=== PATIENT | male | born 1960 | race Caucasian/White ===

== ENCOUNTER → 2020-04-02 09:06 | Outpatient (BNVA) | payer OTHER, SELFPAY | PROVIDERS: PCP Internal Medicine; Visit Provider Nurse Practitioner Gerontology | DX: E11.42 Type 2 diabetes mellitus with diabetic polyneuropathy (principal); I10 Essential (primary) hypertension; E78.5 Hyperlipidemia, unspecified; Z79.4 Long term (current) use of insulin | CPT/HCPCS: 82947 ==

== ENCOUNTER 2020-04-02 09:59 | Outpatient (REF) | payer OTHER, SELFPAY ==
[2020-04-02 14:12] LABS: Estimated Average Glucose 192 mg/dL; Hemoglobin A1c % 8.3 %
[2020-04-02 14:18] LABS: Alanine Aminotransferase 24 U/L (0-40); Albumin Level 4.4 g/dL (3.5-5.0); Alkaline Phosphatase 92 U/L (39-117); Anion Gap 13 (12-20); Aspartate Amino Transferase 20 U/L (5-37); Bilirubin Total 0.3 mg/dL (0.0-1.0); Blood Urea Nitrogen 26 mg/dL (9-16); Calcium 9.1 mg/dL (8.4-10.2); Carbon Dioxide 28 mmol/L (22-29); Chloride 105 mmol/L (96-108); Cholesterol 134 mg/dL; Estimated Glomerular Filt Rate > 60; Glucose Fasting 161 mg/dL (60-99); HDL Cholesterol 46 mg/dL; LDL Cholesterol Calculated 73 mg/dl; Potassium 4.5 mmol/l (3.3-5.1); Sodium 141 mmol/L (135-145); Total Protein 6.7 g/dL (6.5-8.0); Triglycerides 78 mg/dL
[2020-04-02 14:53] LABS: Creatinine Urine 18.84 mg/dL; Microalbumin Urine < 5.0 mg/L
[2020-04-09 20:57] LABS: Fructosamine 273 umol/L (205-285)
== END 2020-04-02 10:00 | disposition home or self-care (01) ==
LOC: HO.10HDL 09:59
PROVIDERS: Visit Provider Nurse Practitioner Gerontology
DX: E11.42 Type 2 diabetes mellitus with diabetic polyneuropathy (principal); E11.22 Type 2 diabetes mellitus with diabetic chronic kidney disease
CPT/HCPCS: 36415; 80053; 80061; 82043; 82985; 83036

== ENCOUNTER → 2020-04-15 09:57 | Outpatient (BNVA) | payer OTHER, SELFPAY | PROVIDERS: PCP Internal Medicine; Visit Provider Nurse Practitioner Gerontology ==

== ENCOUNTER 2021-06-30 14:31 | Outpatient (RCR) | payer OTHER, SELFPAY ==
--- NOTE | ~2021-06-30 | XR_ITS ---
EXAMINATION: XR TOES, RIGHT CLINICAL INFORMATION: Second digit wound. Evaluate for osteomyelitis COMPARISON: None TECHNIQUE: 3 views of the right toes were obtained, with attention to the second digit. FINDINGS: No periosteal reaction, cortical destruction or intramedullary lucency to suggest osteomyelitis. There are no fractures or dislocations. There is a soft tissue defect along the dorsal aspect of the second digit overlying the distal interphalangeal joint. XR/XR toe RT min 2V IMPRESSION: No radiographic evidence of osteomyelitis. Please note that radiographic manifestations of osteomyelitis may not be evident for up to 10-14 days after onset. If there is persistent clinical concern for osteomyelitis, recommend MRI without and with contrast.
[2021-07-28 08:55] LABS: MANUAL DIFF FLAG NO
[2021-07-28 09:59] LABS: Basophils Percent Auto 0.4 % (0-2); Eosinophils Absolute Auto 0.2 X10*3/uL (0.0-0.4); Hematocrit 41.5 % (42.0-52.0); Hemoglobin 13.2 g/dl (14.0-18.0); Imm Gran Abs Auto 0.03 X10*3/uL (0.00-0.03); Imm Gran Pct Auto 0.4 % (0.0-0.4); Lymphocytes Absolute Auto 4.1 X10*3/uL (1.2-4.9); Lymphocytes Percent Auto 51.6 % (20-40); Mean Corpuscular HGB Conc 31.8 g/dl (31.0-36.0); Mean Corpuscular Hemoglobin 26.8 pg (27.0-33.0); Mean Corpuscular Volume 84.3 fL (80.0-98.0); Mean Platelet Volume 9.1 fL (9.4-12.4); Monocytes Absolute Auto 0.5 X10*3/uL (0.1-1.2); Monocytes Percent Auto 6.2 % (2-11); Neutrophils Absolute Auto 3.1 x10*3/uL (2.0-8.3); Neutrophils Percent Auto 38.4 % (45-73); Platelet Count 316 X10*3/uL (160-400); Red Blood Count 4.92 X10*6/uL (4.60-5.80); Red Cell Distribution Width 15.9 % (11.0-16.0)
[2021-07-28 10:21] LABS: Anion Gap 14 (12-20); Blood Urea Nitrogen 20 mg/dL (9-16); C Reactive Protein 0.15 mg/dL (< or = 0.50); Calcium 9.6 mg/dL (8.4-10.2); Carbon Dioxide 27 mmol/L (22-29); Chloride 105 mmol/L (96-108); Estimated Glomerular Filt Rate > 60; Glucose Random 240 mg/dL (60-115); Potassium 4.6 mmol/L (3.3-5.1); Sodium 141 mmol/L (135-145)
[2021-07-28 10:33] LABS: Erythrocyte Sedimentation Rate 6 MM/HR (0-15)
== END 2021-10-18 13:51 | disposition home or self-care (01) ==
LOC: HO.WCC 14:31
PROVIDERS: Physician Assistant; PCP Internal Medicine; Visit Provider Surgery
DX: E11.621 Type 2 diabetes mellitus with foot ulcer (principal); L97.511 Non-pressure chronic ulcer of other part of right foot limited to breakdown of skin; E11.40 Type 2 diabetes mellitus with diabetic neuropathy, unspecified; I25.10 Atherosclerotic heart disease of native coronary artery without angina pectoris; F17.210 Nicotine dependence, cigarettes, uncomplicated; Z79.2 Long term (current) use of antibiotics
CPT/HCPCS: 11042; 11043; 11044; 15275; 36415; 73660; 80048; 84134; 85025; 85652; 86140; 97597; 99212; Q4101

== ENCOUNTER 2023-01-01 08:00 | Outpatient (RCR) | payer OTHER, SELFPAY | END 2023-01-24 15:00 | disposition home or self-care (01) | LOC: HO.WCC 08:00 | PROVIDERS: PCP Internal Medicine; Visit Provider Surgery | DX: S81.811D Laceration without foreign body, right lower leg, subsequent encounter (principal); E11.40 Type 2 diabetes mellitus with diabetic neuropathy, unspecified; F17.290 Nicotine dependence, other tobacco product, uncomplicated | CPT/HCPCS: 11042; 99212 ==

== ENCOUNTER → 2024-04-10 09:19 | Outpatient (BNVA) | payer MEDICARE, SELFPAY | PROVIDERS: PCP Internal Medicine; Visit Provider Internal Medicine | DX: I25.10 Atherosclerotic heart disease of native coronary artery without angina pectoris (principal); E11.65 Type 2 diabetes mellitus with hyperglycemia; Z79.4 Long term (current) use of insulin; E78.00 Pure hypercholesterolemia, unspecified; I10 Essential (primary) hypertension; I87.303 Chronic venous hypertension (idiopathic) without complications of bilateral lower extremity; D64.9 Anemia, unspecified; M16.0 Bilateral primary osteoarthritis of hip; E55.9 Vitamin D deficiency, unspecified; E66.9 Obesity, unspecified; Z86.718 Personal history of other venous thrombosis and embolism; F17.200 Nicotine dependence, unspecified, uncomplicated; Z71.6 Tobacco abuse counseling | CPT/HCPCS: 83036; 96127; 99202 ==

== ENCOUNTER 2024-04-10 09:21 | Outpatient (AMB) | payer MEDICARE, SELFPAY ==
[2024-04-10 09:25] VITALS: BP 132/84; PULSE 71; O2SAT 99; BMI 39.4
--- NOTE | 2024-04-10 09:25 | MHC.PC.OV ---
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: No Accompanied by: Self / Same As Patient Allergies oxycodone [OXYCODONE] Allergy (Intermediate, Verified 04/10/24 09:45) JITTERY/NAUSEA pseudoephedrine [From SUDAFED] Adverse Reaction (Intermediate, Verified 04/10/24 09:45) ELEVATES BP Medication List - Last Reconciled 04/10/24 by Derrell Patel MD albuterol sulfate 90 mcg/actuation 2 puffs inhalation Q6H PRN apixaban (Eliquis) mg PO BID aspirin 81 mg PO DAILY atenolol 50 mg PO DAILY atorvastatin 80 mg PO DAILY blood sugar diagnostic (FreeStyle Lite Strips) As directed cholecalciferol (vitamin D3) 25 mcg PO DAILY cyclosporine 0.05% (Restasis) 1 drp ophthalmic (eye) BID [Diabetic shoes & 2 pair inserts as directed] empagliflozin (Jardiance) 25 mg PO QAM flash glucose scanning reader As directed flash glucose sensor As directed fluticasone propionate 50 mcg/actuation 1 spray intranasal DAILY furosemide 40 mg PO DAILY ibuprofen 800 mg PO TID insulin glargine-yfgn 40 units subcut BEDTIME losartan 25 mg PO DAILY metformin ER 1,000 mg PO BID pen needle, diabetic (BD Ultra-Fine Jane Pen Needle) 1 ea subcut DAILY semaglutide (Ozempic) 2 mg subcut QWEEK Tobacco use date assessed: 04/10/24 Fall risk assessment: No Falls in past year Last assessed Fall Risk: 04/10/24 Dental Screening Dental Screen Date: 04/10/24 Did you have a dental visit in the last 12 months?: No Did you have a dental problem in the last 6 months where you did not have access to dental care?: No Was dental information given to patient?: No HPI establish care HPI Details Patient comes in today to reestablish care He has not been back in almost 5 years - was last seen here on 05/06/2019 Patient states that he currently feels okay He denies any headaches or dizziness Denies any chest pains, no shortness of breath No nausea/vomiting, no abdominal pain No change in bowel habits noted FORMERLY [facility], [facility] Medical History (Updated 04/11/24 @ 03:19 by Derrell Patel MD) History of recurrent deep vein thrombosis (DVT) Vitamin D deficiency Obesity (BMI 30-39.9) Primary osteoarthritis of both hips Smoker History of DVT (deep vein thrombosis) Anemia Stasis edema of both lower extremities Pure hypercholesterolemia Type 2 diabetes mellitus with hyperglycemia Coronary artery disease Osteoarthritis DVT (deep venous thrombosis) 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 assistant current use of insulin Essential hypertension Hyperlipidemia LDL goal <70 Surgical History (Updated 04/11/24 @ 03:18 by Derrell Patel MD) History of colonoscopy History of herniorrhaphy History of heart artery stent History of total hip arthroplasty History of appendectomy Family History Father Hypertension Mother COPD (chronic obstructive pulmonary disease) Brother Colon cancer Sister Alive and well Brother Diabetes Social History Household Members: Spouse Housing: Apartment Patient Tobacco Use Status: Former Tobacco user e-Cigarette/Vaping Use: Never Used service: No Current occupational status: employed Cognitive needs: No Hearing needs: No Vision needs: No Questionnaire PHQ-9 Over the last 2 weeks, how often have you been bothered by any of the following problems? 1. Little interest or pleasure in doing things: not at all 2. Feeling down, depressed, or hopeless: not at all 3. Trouble falling or staying asleep, or sleeping too much: not at all 4. Feeling tired or having little energy: not at all 5. Poor appetite or overeating: not at all 6. Feeling bad about yourself - or that you are a failure or have let yourself or your family down: not at all 7. Trouble concentrating on things, such as reading the newspaper or watching television: not at all 8. Moving or speaking so slowly that other people could have noticed. Or the opposite - being so fidgety or restless that you have been moving around a lot more than usual: not at all 9. Thoughts that you would be better off or of hurting yourself in some way: not at all Total score: 0 Depression Screening Interpretation: Negative Depression Screening Done: Yes 66912 - PHQ-9 Billing: Yes Source: Developed by Drs. Yogi Koenig, Flavia Ashley, Lucho Thompson and colleagues, with an educational john from [employer]. Thrive Questionnaire Date Thrive assessed: 04/10/24 I am a: Patient What is your living situation today?: I have a steady place to live Within the past 12 months, did the food you bought not last and you didn't have the money to get more?: Never true Within the past 12 months, did you worry whether your food would run out before you got money to buy more?: Never true Do you have trouble paying for medicines?: No Do you have trouble getting transportation to medical appointments?: No Do you have trouble paying your heating and electricity bill?: No Do you have trouble taking care of your child, family member or friend?: No Do you have trouble with day-to-day activities such as bathing, preparing meals, shopping, managing finances, etc.?: No Are you currently unemployed and looking for a job?: No Are you interested in more education?: No Please select the resources that you would like help with: None Currently or been in a relationship where the following occur: No concerns reported THRIVE Score: 0 AUDIT C Alcohol Use Questionnaire (AUDIT-C) 1. How often do you have a drink containing alcohol?: 2-3 times a week 2. How many drinks containing alcohol do you have on a typical day when you are drinking?: 1 or 2 3. How often do you have six or more drinks on one occasion?: Never Total Score: 3 Score Reviewed/Action Taken: Yes RAVI-7 AMB Questionnaire RAVI-7 Date RAVI - 7 assessed: 04/10/24 Feeling nervous, anxious, or on edge: 0 = Not at all Not being able to stop or control worryin = Not at all Worrying too much about different things: 0 = Not at all Trouble relaxin = Not at all Being so restless that it is hard to sit still: 0 = Not at all Becoming easily annoyed or irritable: 0 = Not at all Feeling afraid as if something awful might happen: 0 = Not at all Total RAVI-7 score (0-4 normal; 5-9 mild; 10-14 moderate; 15-21 severe): 0 Source: Developed by Drs. Yogi Koenig, Flavia Ashley, Lucho Thompson and colleagues, with an educational john from [employer]. Review of Systems Const Denies chills, Denies fatigue, Denies fever(s) and Denies headache(s) ENT Denies dysphagia, Denies dizziness, Denies otalgia, Denies headache(s), Denies neck pain, Denies odynophagia and Denies sore throat Card Denies chest pain, Denies palpitations and Denies dyspnea Resp Denies chest congestion, Denies cough and Denies dyspnea GI Denies abdominal pain, Denies constipation, Denies dysphagia, Denies heartburn, Denies diarrhea, Denies nausea, Denies odynophagia and Denies vomiting Denies dysuria, Denies nocturia and Denies urinary frequency Musc Denies back pain, Denies arthralgias and Denies neck pain Skin/Breast Denies rash Neuro Denies dizziness and Denies headache(s) Endo Denies fatigue and Denies palpitations Physical exam (Primary Care) Vital Signs: Last Vital Signs Pulse 71 04/10/24 09:25 BP 132/84 04/10/24 09:25 Pulse Ox 99 04/10/24 09:25 Oxygen Delivery Method Room Air 04/10/24 09:25 BMI result Body Mass Index 39.4 Tobacco/Smoking Status: Tobacco use Status Tobacco use date assessed 04/10/24 04/10/24 09:38 Patient Tobacco Use Status Former Tobacco user 04/10/24 09:38 e-Cigarette/Vaping Use Never Used 04/10/24 09:38 PHQ-9: PHQ-9 Score PHQ-9: Total score 0 04/10/24 22:08 Depression Screening Interpretation: Negative Thrive Assessment: Date of Thrive Assessment Date Thrive assessed 04/10/24 04/10/24 09:38 Currently or been in a relationship where the following occur: No concerns reported Const General: no acute distress and alert HENMT Ears: TM's normal bilaterally and EAC's normal Throat: Yes posterior oropharynx normal and Yes tonsils normal (no TP congestion noted) Neck Neck: Yes supple and No lymphadenopathy Thyroid: Thyroid normal Resp Auscultation: clear to auscultation bilaterally, no rales and no wheezes Cardio Rate: regular rate Rhythm: regular rhythm Heart sounds: no murmurs GI Palpation (GI): Soft to palpation and nontender Auscultation: normal bowel sounds General: Yes no CVA tenderness Back/Spine/Pelvis Back: no CVA tenderness Thoracic/Lumbar Spine: No lumbar spinal tenderness Skin Rashes: no rashes Extrem General: Yes no clubbing, cyanosis or edema Results AMB Hemoglobin A1c AMB Hemoglobin A1c 9.6 % Last Edit by AMI Pak on 04/10/24 10:09 Results Reviewed Results Reviewed: Laboratory Last Values Hgb A1c (Clinic) 9.6 % (4.0-6.0) H 04/10/24 10:08 Coding Level of Care Code New Pt Level 4 (17553) Complex EM visit Add On G2211 Diagnoses Coronary artery disease involving [place] coronary artery of [place] heart without angina pectoris I25.10 Associated angina: without angina Coronary Disease-Associated Artery/Lesion type: [place] artery [place] vs. transplanted heart: [place] heart Type 2 diabetes mellitus with hyperglycemia, with long-term current use of insulin E11.65; Z79.4 Diabetes mellitus assisted insulin use: with lehr stripper use Pure hypercholesterolemia E78.00 Essential hypertension I10 Stasis edema of both lower extremities I87.303 Anemia, unspecified type D64.9 Anemia type: unspecified type History of recurrent deep vein thrombosis (DVT) Z86.718 Primary osteoarthritis of both hips M16.0 Vitamin D deficiency E55.9 Smoker F17.200 Obesity (BMI 30-39.9) E66.9 Additional Codes PHQ-9 - 05874 - PHQ-9 Billing: Yes ([id number]) Assessment & Plan Assessment & Plan (1) Coronary artery disease: Comment: S/P PCI/coronary stenting in 2005 due to RCA plaque rupture Code(s): I25.10 - Atherosclerotic heart disease of [place] coronary artery without angina pectoris Category: Medical Qualifiers: Associated angina: without angina Coronary Disease-Associated Artery/Lesion type: [place] artery [place] vs. transplanted heart: [place] heart Qualified Code(s): I25.10 - Atherosclerotic heart disease of [place] coronary artery without angina pectoris Plan: Patient is currently asymptomatic from cardiac standpoint S/P coronary stenting/PCI in 2005 due to RCA plaque rupture Cardiac catheterization done in 2019 revealed (+) moderate distal RCA and moderate LAD disease; a 90% 2nd diagonal stenosis was also seen Cardiology at the time recommended medical management of coronary disease Continue Aspirin 81 mg QD - patient should be on lifelong antiplatelet Tx with low dose Aspirin He was seeing cardiology over at [facility] in the past but 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 that 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 and he would like to switch his 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 supervisor over to [facility] Will refer him to [facility] Cardiology for continuing cardiology follow up and management (2) Type 2 diabetes mellitus with hyperglycemia: Code(s): E11.65 - Type 2 diabetes mellitus with hyperglycemia Category: Medical Qualifiers: Diabetes mellitus assisted insulin use: with lehr stripper use Qualified Code(s): E11.65 - Type 2 diabetes mellitus with hyperglycemia; Z79.4 - psych assistant (current) use of insulin Plan: Her in-office HgbA1c done today is at 9.6% (HgbA1c was previously at 8.3% when last checked on 04/02/2020) - goal is at least <7.0% Reinforced diabetic diet Continue Jardiance 25 mg QD, Metformin ER 1000 mg BID, Semaglutide 2 mg SQ once a week and Insulin glargine 40 units Q HS Will refer patient to endocrinology for further evaluation and management Patient used to see Dr. Gandhi for diabetic foot care but is now seeing Dr. Cross over at [place] since Dr. Gandhi last fall (November 2023) (3) Pure hypercholesterolemia: Code(s): E78.00 - Pure hypercholesterolemia, unspecified Category: Medical Plan: Reinforced low cholesterol diet - goal is LDL cholesterol of <70 mg/dl due to his CAD and cardiac cath findings in 2019 His LDL cholesterol was at 73 mg/dl when last checked on 04/02/2020; he has since been lost to routine follow up until his return today Continue Atorvastatin 80 mg QD Will have him recheck his labs and fasting lipids in 3 months for follow up (4) Essential hypertension: Code(s): I10 - Essential (primary) hypertension Category: Medical Plan: Reinforced low sodium diet - goal is systolic BP of at least 120 to 130 mm or less Continue Atenolol 50 mg QD and Losartan 25 mg QD He is instructed to continue monitoring his blood pressure regularly (5) Stasis edema of both lower extremities: Code(s): I87.303 - Chronic venous hypertension (idiopathic) without complications of bilateral lower extremity Category: Medical Plan: Continue Furosemide 40 mg QD PRN (6) Anemia: Code(s): D64.9 - Anemia, unspecified Category: Medical Qualifiers: Anemia type: unspecified type Qualified Code(s): D64.9 - Anemia, unspecified Plan: His H/H was at 13.2/41/5 when last checked by the wound clinic on 07/28/2021 Will include anemia work ups when patient is sent for his follow up labs in a few months Will also continue to monitor his CBC regularly (7) History of recurrent deep vein thrombosis (DVT): Code(s): Z86.718 - Personal history of other venous thrombosis and embolism Category: Medical Plan: It is unclear at this time if he was ever worked up for his recurrent DVT Will send him for additional labs to assess for underlying hypercoagulability syndromes as well when he goes for his routine labs in 3 months Continue Eliquis 5 mg BID (8) Primary osteoarthritis of both hips: Comment: S/P total left hip arthroplasty with Dr. Kahn on 11/05/2018 and total right hip arthroplasty on 01/08/2019 Code(s): M16.0 - Bilateral primary osteoarthritis of hip Category: Medical Plan: He is S/P total bilateral hip arthroplasty [place] [address] Kahn Patient states that he has been doing well since with no significant hip issues Follow up with orthopedics as scheduled or as needed (9) Vitamin D deficiency: Code(s): E55.9 - Vitamin D deficiency, unspecified Category: Medical Plan: Continue Vitamin D3 1000 units QD Will recheck his Vitamin D level in 3 months for follow up (10) Smoker: Code(s): F17.200 - Nicotine dependence, unspecified, uncomplicated Category: Social Hx Plan: Patient is counseled again on smoking cessation (11) Obesity (BMI 30-39.9): Code(s): E66.9 - Obesity, unspecified Category: Medical Plan: Reinforced diet/exercise as tolerated/lose weight Plan Follow up in 3 months Orders: Orders AMB Hemoglobin A1c 04/10/24 Z13.9 - Encounter for screening, unspecified Comprehensive [place]. Panel Fast 3 Months E78.00 - Pure hypercholesterolemia, unspecified Lipid Panel 3 Months E78.00 - Pure hypercholesterolemia, unspecified Microalbumin, Random (w Creat) 3 Months E11.9 - Type 2 diabetes mellitus without complications Vitamin D 25-OH Total 3 Months E55.9 - Vitamin D deficiency, unspecified Hemoglobin A1c 3 Months E11.9 - Type 2 diabetes mellitus without complications Hemoglobin Electrophoresis 3 Months R71.8 - Other abnormality of red blood cells Protein S Activity reflex Ag 3 Months Z86.718 - Personal history of other venous thrombosis and embolism Lupus Anticoagulant Panel 3 Months Z86.718 - Personal history of other venous thrombosis and embolism Complete Blood Count Auto Diff 3 Months D64.9 - Anemia, unspecified TSH reflex Free T4 3 Months E78.00 - Pure hypercholesterolemia, unspecified UA CC w/rflx Micro + Cult 3 Months R30.0 - Dysuria IRON PROFILE 3 Months D50.9 - Iron deficiency anemia, unspecified Vitamin B12 and Folate 3 Months E53.8 - Deficiency of other specified B group vitamins Erythropoietin (EPO) 3 Months D64.9 - Anemia, unspecified Factor V Leiden 3 Months Z86.718 - Personal history of other venous thrombosis and embolism Anti-Thrombin III Activity 3 Months Z86.718 - Personal history of other venous thrombosis and embolism Prothrombin [id number] 3 Months Z86.718 - Personal history of other venous thrombosis and embolism Protein C Activity Reflex Ag 3 Months Z86.718 - Personal history of other venous thrombosis and embolism Homocysteine 3 Months Z86.718 - Personal history of other venous thrombosis and embolism Referrals Endocrinology Referral E11.42 - Type 2 diabetes mellitus with diabetic polyneuropathy Cardiology Referral I25.10 - Atherosclerotic heart disease of [place] coronary artery without angina pectoris
== END 2024-04-10 10:14 | disposition home or self-care (01) ==
PROVIDERS: PCP Internal Medicine; Visit Provider Internal Medicine
DX: Z13.9 Encounter for screening, unspecified (principal)

== ENCOUNTER 2024-07-09 09:45 | Outpatient (REF) | payer MEDICARE, SELFPAY ==
[2024-07-09 10:36] LABS: MANUAL DIFF FLAG NO
[2024-07-09 10:46] LABS: Basophils Percent Auto 0.4 % (0-2); Eosinophils Absolute Auto 0.1 X10*3/uL (0.0-0.4); Eosinophils Percent Auto 1.7 % (0-4); Hemoglobin 13.5 g/dl (14.0-18.0); Imm Gran Abs Auto 0.02 X10*3/uL (0.00-0.03); Imm Gran Pct Auto 0.3 % (0.0-0.4); Lymphocytes Percent Auto 39.7 % (20-40); Mean Corpuscular HGB Conc 32.9 g/dl (31.0-36.0); Mean Corpuscular Hemoglobin 27.6 pg (27.0-33.0); Mean Corpuscular Volume 83.7 fL (80.0-98.0); Mean Platelet Volume 9.1 fL (9.4-12.4); Monocytes Absolute Auto 0.6 X10*3/uL (0.1-1.2); Monocytes Percent Auto 7.6 % (2-11); Neutrophils Absolute Auto 3.9 x10*3/uL (2.0-8.3); Neutrophils Percent Auto 50.3 % (45-73); Platelet Count 264 X10*3/uL (160-400); Red Cell Distribution Width 15.4 % (11.0-16.0); White Blood Count 7.7 X10*3/uL (4.8-10.8)
--- OUTSIDE RECORDS SUMMARY | 2024-07-09 11:00 | XMS_ITS | Clinical Summary ---
Author Organization [facility] Address [address] [place] [address] Care Team Providers Care Tech Writer Name Role Phone Jessica Cabrera MD Primary Care Provider [phone] Allergies Active Allergy Reactions Criticality Noted Date Comments Oxycodone Anaphylaxis High 07/01/2020 Phenylephrine 07/01/2020 Medications Medication Sig Dispensed Refills Start Date End Date Status atenolol (TENORMIN) tablet 25 mg Take 25 mg by mouth daily. 0 Active atorvastatin (LIPITOR) tablet 20 mg Take 20 mg by mouth daily. 0 Active furosemide (LASIX) 20 MG tablet Take 20 mg by mouth 2 (two) times a day. 0 Active aspirin EC 81 MG tablet Take 81 mg by mouth daily. 0 Active dulaglutide (Trulicity) 1.5 MG/0.5ML subcutaneous pen-injector Inject under the skin. 0 Active insulin glargine (LANTUS) injection 100 units/mL Inject 40 Units under the skin every night at bedtime. 0 Active ibuprofen 800 MG tablet Take by mouth every 8 (eight) hours as needed for pain. 0 Active metFORMIN (GLUCOPHAGE) tablet 500 mg Take 500 mg by mouth 2 (two) times a day with meals. 0 Active Eliquis 5 MG TABS tablet TAKE 1 TABLET BY MOUTH EVERY 12 HOURS 180 tablet 1 06/13/2021 Active Active Problems No known active problems Family History Medical History Relation Name Comments Cancer Brother 1 Colon Cancer Diabetes Brother 2 Diabetes Father Relation Name Status Comments Brother 1 Brother 2 Father Social History Tobacco Use Types Packs/Day Years Used Date Smoking Tobacco: Some Days Smokeless Tobacco: Never Alcohol Use Standard Drinks/Week Comments Yes 0 (1 standard drink = 0.6 oz pur e alcohol) Wine Sex and Gender Information Value Date Recorded Sex Assigned at Not on file Gender Identity Not on file Sexual Orientation Not on file Job Start Date Occupation Industry Not on file Not on file Not on file Last Filed Vital Signs Vital Sign Reading Time Taken Comments Blood Pressure 138/60 07/01/2020 11:48 AM EDT Pulse 70 07/01/2020 11:48 AM EDT Temperature 36.3 ??C (97.4 ??F) 07/01/2020 11:48 AM E DT Respiratory Rate - - Oxygen Saturation 99% 07/01/2020 11:48 AM EDT Inhaled Oxygen Concentration - - Weight 137.9 kg (304 lb) 07/01/2020 11:48 AM EDT Height 190.5 cm (6' 3 ) 07/01/2020 11:48 AM EDT Body Mass Index 38 07/01/2020 11:48 AM EDT Plan of Treatment Health Maintenance Due Date Last Done Comments Hepatitis C Screening 1960 COVID-19 Vaccine (#1) 06/11/1959 Depression Screening 1970 Preventative Health Evaluation 1976 DTap / Tdap / Td (1 - Tdap) 1977 Colon Cancer Screening (Colonoscopy) 12/12/2003 Pneumococcal Vaccine (2 of 2 - PCV) 02/23/2006 02/23/2005 Pneumococcal Vaccine (2 of 2 - PCV) 02/23/2006 02/23/2005 Shingrix-Zoster Vaccine (1 o f 2) 2008 Influenza Vaccine (#1) 2023 0, 01/24/2008, 04/02/2006 Fall Risk Assessment 12/12/2023 RSV Adult > 60+ Yrs or (1 - 1-dose 75+ series) 2033 Hepatitis B Vaccines Aged Out No long er eligible based on patient's age to complete this topic RSV Ped < 20 months Aged Out No longe r eligible based on patient's age to complete this topic Care Teams Tech Writer Relationship Specialty Start Date End Date Jessica Cabrera MD [address] [place] [phone] PCP - General Internal Medicine 05/18/20
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
[2024-07-09 11:01] LABS: Estimated Average Glucose 220 mg/dL; Hemoglobin A1C 271.3224 umol/L; Hemoglobin A1c % 9.3 % (<6.0); Total Hemoglobin (HGBA1C) 3474.2935 umol/L
[2024-07-09 11:23] LABS: Appearance Urine Clear; Color Urine Yellow; Glucose Urine UA >=1000 mg/dL (Negative); Leukocyte Esterase Urine Negative (Negative); Nitrite Urine Negative (Negative); PH 5.5 (5.0-9.0); Specific Gravity - Urine 1.025 (1.005-1.025); UMIC TRIGGER UACC YES; Urine Blood Negative (Negative); Urine Ketones Negative (Negative); Urine Protein Negative (Neg-Trace)
[2024-07-09 11:29] LABS: Bacteria Urine None Seen (None Seen); Hyaline Casts Urine 0-2 /LPF (0-2); RBC Urine 0-2 /HPF (0-2); Squamous Epithelial Cell Urine 0-2 /HPF (0-2); WBC Urine 0-5 /HPF (0-5)
[2024-07-09 11:42] LABS: Alanine Aminotransferase 25 U/L (0-40); Albumin Level 4.3 g/dL (3.5-5.0); Alkaline Phosphatase 85 U/L (39-117); Anion Gap 10 (12-20); Aspartate Amino Transferase 20 U/L (5-37); Bilirubin Total 0.3 mg/dL (0.0-1.0); Blood Urea Nitrogen 17 mg/dL (9-16); Calcium 9.8 mg/dL (8.4-10.2); Carbon Dioxide 30 mmol/L (22-29); Chloride 107 mmol/L (96-108); Cholesterol 127 mg/dL (<200); Estimated Glomerular Filt Rate > 60; Glucose Fasting 130 mg/dL (60-99); HDL Cholesterol 44 mg/dL (>40); Iron 72 mcg/dL (45-160); LDL Cholesterol Calculated 70 mg/dL (<100); Percent Iron Saturation 22 % (15-50); Potassium 4.2 mmol/L (3.3-5.1); Sodium 143 mmol/L (135-145); TSH reflex Free T4 1.13 uIU/mL (0.32-4.0); Total Iron Binding Capacity 327 mcg/dL (228-428); Triglycerides 69 mg/dL (<150); Unsaturated Iron Binding 255 ug/dL; Vitamin D 25-OH Total 45.9 ng/mL (>30)
[2024-07-09 11:53] LABS: Folate 19.1 ng/mL (> or = 4.0); Vitamin B12 553 pg/mL (200-900)
[2024-07-09 12:29] LABS: Creatinine Urine 60.09 mg/dL; Microalbum/Creatinine Ratio Ur 8.3 ug/mg cr (<30)
[2024-07-10 18:04] LABS: Homocysteine 9.7 umol/L (<11.4)
[2024-07-10 22:39] LABS: Erythropoietin (EPO) 16.6 mIU/mL (2.6-18.5)
[2024-07-11 09:18] LABS: Hemoglobin 13.6 g/dL (13.2-17.1); MCH 27.8 pg (27.0-33.0); MCV 85.7 fL (80.0-100.0); RDW 14.6 % (11.0-15.0)
[2024-07-11 23:09] LABS: Anti-Thrombin III Activity 123 % normal (80-135); Protein C Activity 122 % normal (70-180); Protein S Activity rflx Tot&Fr 130 % normal (70-150)
[2024-07-15 13:08] LABS: PTT (LAC) Screen 32 sec (<=40)
[2024-07-18 04:08] LABS: Factor V Leiden NEGATIVE; Prothrombin 20210A NEGATIVE
== END 2024-07-09 09:46 | disposition home or self-care (01) ==
LOC: HO.LAB 09:45
PROVIDERS: PCP Internal Medicine; Visit Provider Internal Medicine
DX: E11.9 Type 2 diabetes mellitus without complications (principal); D50.9 Iron deficiency anemia, unspecified; E53.8 Deficiency of other specified B group vitamins; D64.9 Anemia, unspecified; E78.00 Pure hypercholesterolemia, unspecified; E55.9 Vitamin D deficiency, unspecified; Z86.718 Personal history of other venous thrombosis and embolism
CPT/HCPCS: 36415; 80053; 80061; 81001; 81240; 81241; 82043; 82306; 82570; 82607; 82668; 82746; 83020; 83036; 83090; 83540; 84443; 85014; 85018; 85025; 85041; 85300; 85302; 85303; 85306; 85597; 85598; 85613; 85730

== ENCOUNTER 2024-07-11 10:53 | Outpatient (AMB) | payer MEDICARE, SELFPAY ==
--- NOTE | 2024-07-11 11:07 | MHC.PC.OV ---
Vital Signs 07/11/24 11:09 Height 6 ft 1 in Weight 289 lb BMI 38.1 BP 126/64 Blood Pressure Location Lt brachial Position Sitting Pulse 76 Pulse Source Pulse Oximeter Pulse Oximetry (%) 97 Oxygen Delivery Method Room Air Intake Visit Reasons: DM, CAD, hyperlipidemia, HTN, OA Financial Institution President Required: No Accompanied by: Self / Same As Patient Allergies oxycodone [OXYCODONE] Allergy (Intermediate, Verified 07/11/24 11:31) JITTERY/NAUSEA pseudoephedrine [From SUDAFED] Adverse Reaction (Intermediate, Verified 07/11/24 11:31) ELEVATES BP Medication List - Last Reconciled 07/11/24 by Derrell Patel MD albuterol sulfate 90 mcg/actuation 2 puffs inhalation Q6H PRN apixaban (Eliquis) mg PO BID aspirin 81 mg PO DAILY atenolol 50 mg PO DAILY atorvastatin 80 mg PO DAILY Basaglar KwikKenrick U-100 Insulin (insulin glargine) 40 units (0.4 mL) subcut BEDTIME 90 days NS blood sugar diagnostic (FreeStyle Lite Strips) As directed cholecalciferol (vitamin D3) 25 mcg PO DAILY cyclosporine 0.05% (Restasis) 1 drp ophthalmic (eye) BID [Diabetic shoes & 2 pair inserts as directed] empagliflozin (Jardiance) 25 mg PO QAM flash glucose scanning reader As directed flash glucose sensor As directed fluticasone propionate 50 mcg/actuation 1 spray intranasal DAILY furosemide 40 mg PO DAILY ibuprofen 800 mg PO TID losartan 25 mg PO DAILY metformin ER 1,000 mg PO BID pen needle, diabetic (BD Ultra-Fine Jane Pen Needle) 1 ea subcut DAILY semaglutide (Ozempic) 2 mg subcut QWEEK Tobacco use date assessed: 07/11/24 Fall risk assessment: 1 Fall in past year Last assessed Fall Risk: 07/11/24 Dental Screening Dental Screen Date: 07/11/24 Did you have a dental visit in the last 12 months?: No Did you have a dental problem in the last 6 months where you did not have access to dental care?: No Was dental information given to patient?: No HPI DM, CAD, hyperlipidemia, HTN, OA HPI Details Patient comes in today for his follow up visit States that he feels okay He denies any headaches or dizziness Denies any chest pains, no SOB No nausea/vomiting, no abdominal pain No change in bowel habits noted He had his follow up labs done a couple of days ago - to discuss his results [facility] Medical History History of recurrent deep vein thrombosis (DVT) Vitamin D deficiency Obesity (BMI 30-39.9) Primary osteoarthritis of both hips Smoker History of DVT (deep vein thrombosis) Anemia Stasis edema of both lower extremities Pure hypercholesterolemia Type 2 diabetes mellitus with hyperglycemia Coronary artery disease Osteoarthritis DVT (deep venous thrombosis) longterm current use of insulin Essential hypertension Hyperlipidemia LDL goal <70 Surgical History History of colonoscopy History of herniorrhaphy History of heart artery stent History of total hip arthroplasty History of appendectomy Family History Father Hypertension Mother COPD (chronic obstructive pulmonary disease) Brother Colon cancer Sister Alive and well Brother Diabetes Social History Household Members: Spouse Housing: Apartment Patient Tobacco Use Status: Former Tobacco user e-Cigarette/Vaping Use: Never Used service: No Current occupational status: employed Cognitive needs: No Hearing needs: No Vision needs: No Questionnaire PHQ-9 Over the last 2 weeks, how often have you been bothered by any of the following problems? 1. Little interest or pleasure in doing things: not at all 2. Feeling down, depressed, or hopeless: not at all 3. Trouble falling or staying asleep, or sleeping too much: nearly every day 4. Feeling tired or having little energy: several days 5. Poor appetite or overeating: not at all 6. Feeling bad about yourself - or that you are a failure or have let yourself or your family down: not at all 7. Trouble concentrating on things, such as reading the newspaper or watching television: several days 8. Moving or speaking so slowly that other people could have noticed. Or the opposite - being so fidgety or restless that you have been moving around a lot more than usual: not at all 9. Thoughts that you would be better off or of hurting yourself in some way: not at all Total score: 5 Depression Screening Interpretation: Positive Depression Screening Follow-up: Follow-up Visit Requested Depression Screening Done: Yes 12249 - PHQ-9 Billing: Yes Source: Developed by Drs. Yogi Koenig, Flavia Ashley, Lucho Thompson and colleagues, with an educational john from [employer] Thrive Questionnaire Date Thrive assessed: 07/11/24 I am a: Patient What is your living situation today?: I have a steady place to live Within the past 12 months, did the food you bought not last and you didn't have the money to get more?: I choose not to answer this question Within the past 12 months, did you worry whether your food would run out before you got money to buy more?: I choose not to answer this question Do you have trouble paying for medicines?: I choose not to answer this question Do you have trouble getting transportation to medical appointments?: I choose not to answer this question Do you have trouble paying your heating and electricity bill?: No Do you have trouble taking care of your child, family member or friend?: No Do you have trouble with day-to-day activities such as bathing, preparing meals, shopping, managing finances, etc.?: No Are you currently unemployed and looking for a job?: No Are you interested in more education?: No Please select the resources that you would like help with: None Currently or been in a relationship where the following occur: I choose not to answer THRIVE Score: 0 AUDIT C Alcohol Use Questionnaire (AUDIT-C) 1. How often do you have a drink containing alcohol?: Monthly or less 2. How many drinks containing alcohol do you have on a typical day when you are drinking?: 1 or 2 3. How often do you have six or more drinks on one occasion?: Never Total Score: 1 Score Reviewed/Action Taken: Yes RAVI-7 AMB Questionnaire RAVI-7 Date RAVI - 7 assessed: 07/11/24 Feeling nervous, anxious, or on edge: 0 = Not at all Not being able to stop or control worryin = Not at all Worrying too much about different things: 0 = Not at all Trouble relaxin = Not at all Being so restless that it is hard to sit still: 1 = Several days Becoming easily annoyed or irritable: 0 = Not at all Feeling afraid as if something awful might happen: 0 = Not at all Total RAVI-7 score (0-4 normal; 5-9 mild; 10-14 moderate; 15-21 severe): 1 Source: Developed by Drs. Yogi Koenig, Flavia Ashley, Lucho Thompson and colleagues, with an educational john from [employer] Review of Systems Const Denies chills, Reports fatigue, Denies fever(s) and Denies headache(s) ENT Denies dysphagia, Denies dizziness, Denies otalgia, Denies headache(s), Denies neck pain, Denies odynophagia and Denies sore throat Card Denies chest pain, Denies palpitations and Denies dyspnea Resp Denies chest congestion, Denies cough and Denies dyspnea GI Denies abdominal pain, Denies constipation, Denies dysphagia, Denies heartburn, Denies diarrhea, Denies nausea, Denies odynophagia and Denies vomiting Denies difficulty urinating, Denies dysuria, Denies nocturia and Denies urinary frequency Musc Denies back pain, Denies arthralgias and Denies neck pain Skin/Breast Denies rash Neuro Denies dizziness and Denies headache(s) Psych Denies depression Endo Reports fatigue and Denies palpitations Physical exam (Primary Care) Vital Signs: Last Vital Signs Pulse 76 07/11/24 11:09 BP 126/64 07/11/24 11:09 Pulse Ox 97 07/11/24 11:09 Oxygen Delivery Method Room Air 07/11/24 11:09 BMI result Body Mass Index 38.1 Tobacco/Smoking Status: Tobacco use Status Tobacco use date assessed 07/11/24 07/11/24 11:18 Patient Tobacco Use Status Former Tobacco user 07/11/24 11:18 e-Cigarette/Vaping Use Never Used 07/11/24 11:18 PHQ-9: PHQ-9 Score PHQ-9: Total score 5 07/11/24 11:27 Depression Screening Interpretation: Positive Depression Screening Follow-up: Follow-up Visit Requested Thrive Assessment: Date of Thrive Assessment Date Thrive assessed 07/11/24 07/11/24 11:18 Currently or been in a relationship where the following occur: I choose not to answer Const General: no acute distress and alert HENMT Ears: TM's normal bilaterally and EAC's normal Throat: Yes posterior oropharynx normal and Yes tonsils normal (no TP congestion noted) Neck Neck: Yes supple and No lymphadenopathy Thyroid: Thyroid normal Resp Auscultation: clear to auscultation bilaterally, no rales and no wheezes Cardio Rate: regular rate Rhythm: regular rhythm Heart sounds: no murmurs GI Palpation (GI): Soft to palpation and nontender Auscultation: normal bowel sounds General: Yes no CVA tenderness Back/Spine/Pelvis Back: no CVA tenderness Thoracic/Lumbar Spine: No lumbar spinal tenderness Skin Rashes: no rashes Extrem General: Yes no clubbing, cyanosis or edema Results Reviewed Results Reviewed: Laboratory Tests 07/09/24 07/09/24 10:10 10:33 WBC 7.7 Hgb 13.5 L Hct 41.0 L Plt Count 264 Sodium 143 Potassium 4.2 Creatinine 0.82 Estimated GFR > 60 Fasting Glucose 130 H Hemoglobin A1c % 9.3 H Calcium 9.8 AST 20 ALT 25 Triglycerides 69 Cholesterol 127 LDL Cholesterol, Calc 70 HDL Cholesterol 44 Vitamin B12 553 25-OH Vitamin D Total 45.9 Homocysteine 9.7 TSH 1.13 Ur Specific [place] 1.025 Urine Protein Negative Urine Glucose (UA) >=1000 H Urine Blood Negative Urine Nitrite Negative Ur Leukocyte Esterase Negative Microalb/Creat Ratio 8.3 Coding Level of Care Code Est Pt Level 4 (68918) Complex EM visit Add On G2211 Diagnoses Coronary artery disease involving [place] coronary artery of [place] heart without angina pectoris I25.10 Coronary Disease-Associated Artery/Lesion type: [place] artery [place] vs. transplanted heart: [place] heart Associated angina: without angina Type 2 diabetes mellitus with hyperglycemia, with long-term current use of insulin E11.65; Z79.4 Diabetes mellitus manager long term care insulin use: with manager long term care use Pure hypercholesterolemia E78.00 Essential hypertension I10 Stasis edema of both lower extremities I87.303 Anemia, unspecified type D64.9 Anemia type: unspecified type History of recurrent deep vein thrombosis (DVT) Z86.718 Primary osteoarthritis of both hips M16.0 Vitamin D deficiency E55.9 Smoker F17.200 Obesity (BMI 30-39.9) E66.9 Additional Codes PHQ-9 - 40726 - PHQ-9 Billing: Yes ([id number]) Assessment & Plan Assessment & Plan (1) Coronary artery disease: Comment: S/P PCI/coronary stenting in 2005 due to RCA plaque rupture Code(s): I25.10 - Atherosclerotic heart disease of [place] coronary artery without angina pectoris Category: Medical Qualifiers: Coronary Disease-Associated Artery/Lesion type: [place] artery [place] vs. transplanted heart: [place] heart Associated angina: without angina Qualified Code(s): I25.10 - Atherosclerotic heart disease of [place] coronary artery without angina pectoris Plan: Patient is again currently asymptomatic from a cardiac standpoint S/P coronary stenting/PCI in 2005 due to RCA plaque rupture Cardiac catheterization done in 2019 revealed (+) moderate distal RCA and moderate LAD disease; a 90% 2nd diagonal stenosis was also seen Cardiology at the time recommended medical management of coronary disease Continue Aspirin 81 mg QD - patient should be on lifelong antiplatelet Tx with low dose Aspirin He was seeing cardiology [facility] at [facility] in the past but states that 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 and 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 to [facility] He was referred to [facility] Cardiology for continuing cardiology follow up and management at his last appointment in March 2024 but it is unclear as to why his referral was never processed as patient still has no cardiology appt scheduled at this time - will redo referral today (2) Type 2 diabetes mellitus with hyperglycemia: Code(s): E11.65 - Type 2 diabetes mellitus with hyperglycemia Category: Medical Qualifiers: Diabetes mellitus manager long term care insulin use: with fci use Qualified Code(s): E11.65 - Type 2 diabetes mellitus with hyperglycemia; Z79.4 - longterm (current) use of insulin Plan: His HgbA1c remains at 9.3% on his labs done a couple of days ago (in-office HgbA1c was at 9.6% back in March 2024) - goal is at least <7.0% Reinforced diabetic diet Continue Jardiance 25 mg QD, Metformin ER 1000 mg BID and Insulin glargine 40 units Q HS He is also on Semaglutide 2 mg SQ once a week but patient states that he prefers Trulicity as that seemed to have worked better for him in the past and the only reason he was switched over to Semaglutide was because Trulicity was not available at the pharmacy for a while about a year or two ago Per request, will switch him from Semaglutide 2 mg SQ once a week back to Trulicity 4.5 mg SQ once a week - Semaglutide Rx will be discontinued today He was referred to endocrinology for further evaluation and management at his last visit and he is scheduled now with Dr. Kline next month on 07/23/2024 Patient used to see Dr. Gandhi for diabetic foot care but is now seeing Dr. Tay bird at [facility] since Dr. Gandhi last fall (November 2023) (3) Pure hypercholesterolemia: Code(s): E78.00 - Pure hypercholesterolemia, unspecified Category: Medical Plan: Results of his labs done a couple of days ago reviewed and discussed with patient Reinforced low cholesterol diet - goal is LDL cholesterol of <70 mg/dl due to his CAD and cardiac cath findings in 2018 Continue Atorvastatin 80 mg QD Will have him recheck his labs and fasting lipids in 4 months for follow up (4) Essential hypertension: Code(s): I10 - Essential (primary) hypertension Category: Medical Plan: Reinforced low sodium diet - goal is systolic BP of at least 120 to 130 mm or less Continue Atenolol 50 mg QD and Losartan 25 mg QD He is reminded to continue monitoring his blood pressure regularly (5) Stasis edema of both lower extremities: Code(s): I87.303 - Chronic venous hypertension (idiopathic) without complications of bilateral lower extremity Category: Medical Plan: Continue Furosemide 40 mg QD PRN (6) Anemia: Code(s): D64.9 - Anemia, unspecified Category: Medical Qualifiers: Anemia type: unspecified type Qualified Code(s): D64.9 - Anemia, unspecified Plan: His H/H was at 13.5/41.0 on his labs done a couple of days ago Anemia work ups included with his recent labs (iron studies, B12, ERP and Hgb electrophoresis) all came back normal Will continue to monitor his CBC regularly (7) History of recurrent deep vein thrombosis (DVT): Code(s): Z86.718 - Personal history of other venous thrombosis and embolism Category: Medical Plan: It is unclear at this time if he was ever worked up for his recurrent DVT He was sent for additional labs to assess for underlying hypercoagulability syndromes with his recent labs - these are all still pending at this time Continue Eliquis 5 mg BID (8) Primary osteoarthritis of both hips: Comment: S/P total left hip arthroplasty with Dr. Kahn on 11/05/2018 and total right hip arthroplasty on 01/08/2019 Code(s): M16.0 - Bilateral primary osteoarthritis of hip Category: Medical Plan: He is S/P total bilateral hip arthro[place] [address] Kahn Patient states that he has been doing well since with no significant hip issues Follow up with orthopedics as scheduled or as needed (9) Vitamin D deficiency: Code(s): E55.9 - Vitamin D deficiency, unspecified Category: Medical Plan: Corrected on his recent labs Continue Vitamin D3 1000 units QD (10) Smoker: Code(s): F17.200 - Nicotine dependence, unspecified, uncomplicated Category: Social Hx Plan: Patient is counseled again on complete smoking cessation (11) Obesity (BMI 30-39.9): Code(s): E66.9 - Obesity, unspecified Category: Medical Plan: Reinforced diet/exercise as tolerated/lose weight Plan Follow up in 4 months Orders: Orders Comprehensive [place]. Panel Fast 4 Months E78.00 - Pure hypercholesterolemia, unspecified Lipid Panel 4 Months E78.00 - Pure hypercholesterolemia, unspecified Microalbumin, Random (w Creat) 4 Months E11.9 - Type 2 diabetes mellitus without complications UA CC w/rflx Micro + Cult 4 Months R30.0 - Dysuria Vitamin D 25-OH Total 4 Months E55.9 - Vitamin D deficiency, unspecified Complete Blood Count Auto Diff 4 Months D64.9 - Anemia, unspecified Hemoglobin A1c 4 Months E11.9 - Type 2 diabetes mellitus without complications TSH reflex Free T4 4 Months E78.00 - Pure hypercholesterolemia, unspecified Referrals Cardiology Referral I25.10 - Atherosclerotic heart disease of [place] coronary artery without angina pectoris Medications: New dulaglutide (Trulicity) STOP Ozempic 4.5 mg (0.5 mL) subcut QWEEK 4 weeks 2 mL 3RF
[2024-07-11 11:09] VITALS: BP 126/64; PULSE 76; O2SAT 97; BMI 38.1
--- OUTSIDE RECORDS SUMMARY | 2024-07-11 11:40 | XMS_ITS | Clinical Summary ---
Author Organization [facility] Address [address] [place] [address] Care Team Providers Care Air Operations Manager Name Role Phone Jessica Cabrera MD Primary Care Provider [phone] Allergies Active Allergy Reactions Criticality Noted Date [...] age to complete this topic Care Teams Air Operations Manager Relationship Specialty Start Date End Date Jessica Cabrera MD [address] [place] [phone] PCP - General Internal Medicine 05/18/20
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
== END 2024-07-11 11:48 | disposition home or self-care (01) ==
LOC: HO.HMCH 10:54
PROVIDERS: PCP Internal Medicine; Visit Provider Internal Medicine
DX: E11.65 Type 2 diabetes mellitus with hyperglycemia (principal); Z79.4 Long term (current) use of insulin; E66.9 Obesity, unspecified; Z68.38 Body mass index [BMI] 38.0-38.9, adult; I25.10 Atherosclerotic heart disease of native coronary artery without angina pectoris; E78.00 Pure hypercholesterolemia, unspecified; I10 Essential (primary) hypertension; I87.303 Chronic venous hypertension (idiopathic) without complications of bilateral lower extremity; D64.9 Anemia, unspecified; Z86.718 Personal history of other venous thrombosis and embolism; M16.0 Bilateral primary osteoarthritis of hip; E55.9 Vitamin D deficiency, unspecified

== ENCOUNTER → 2024-07-11 10:53 | Outpatient (BNVA) | payer MEDICARE, SELFPAY | PROVIDERS: PCP Internal Medicine; Visit Provider Internal Medicine | DX: I25.10 Atherosclerotic heart disease of native coronary artery without angina pectoris (principal); E11.65 Type 2 diabetes mellitus with hyperglycemia; E78.00 Pure hypercholesterolemia, unspecified; I10 Essential (primary) hypertension; I87.303 Chronic venous hypertension (idiopathic) without complications of bilateral lower extremity; D64.9 Anemia, unspecified; M16.0 Bilateral primary osteoarthritis of hip; E55.9 Vitamin D deficiency, unspecified; F17.200 Nicotine dependence, unspecified, uncomplicated; Z86.718 Personal history of other venous thrombosis and embolism; Z79.01 Long term (current) use of anticoagulants; Z79.4 Long term (current) use of insulin; Z79.82 Long term (current) use of aspirin; Z79.84 Long term (current) use of oral hypoglycemic drugs; Z79.899 Other long term (current) drug therapy; Z96.643 Presence of artificial hip joint, bilateral | CPT/HCPCS: 96127; 99212 ==

== ENCOUNTER 2024-07-23 11:09 | Outpatient (AMB) | payer MEDICARE, SELFPAY ==
[2024-07-23 11:12] VITALS: BP 120/80; PULSE 71; O2SAT 96; BMI 38.1
--- NOTE | 2024-07-23 11:12 | A.OFFVIS_ITS ---
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 Most recent HbA1c: 9.3%, 07/09/2024 Random Glucose- 143 mg/dL, Today End User Consultant Required: No Accompanied by: Self / Same As Patient Allergies oxycodone [OXYCODONE] Allergy (Intermediate, Verified 07/23/24 11:15) JITTERY/NAUSEA pseudoephedrine [From SUDAFED] Adverse Reaction (Intermediate, Verified 07/23/24 11:15) ELEVATES BP Medication List - Last Reconciled 07/23/24 by Briseida Kline MD albuterol sulfate 90 mcg/actuation 2 puffs inhalation Q6H PRN apixaban (Eliquis) mg PO BID aspirin 81 mg PO DAILY atenolol 50 mg PO DAILY atorvastatin 80 mg PO DAILY Dennise Melo U-100 Insulin (insulin glargine) 40 units (0.4 mL) subcut BEDTIME 90 days NS blood sugar diagnostic (FreeStyle Lite Strips) As directed cholecalciferol (vitamin D3) 25 mcg PO DAILY cyclosporine 0.05% (Restasis) 1 drp ophthalmic (eye) BID [Diabetic shoes & 2 pair inserts as directed] dulaglutide (Trulicity) 4.5 mg (0.5 mL) subcut QWEEK 4 weeks empagliflozin (Jardiance) 25 mg PO QAM flash glucose scanning reader As directed flash glucose sensor As directed fluticasone propionate 50 mcg/actuation 1 spray intranasal DAILY furosemide 40 mg PO DAILY ibuprofen 800 mg PO TID losartan 25 mg PO DAILY metformin ER 1,000 mg PO BID pen needle, diabetic (BD Ultra-Fine [place] Pen Needle) 1 ea subcut DAILY HPI Comments Details: Patient is a 59 yo male with DM type 2 presenting for diabetes management Medical history: CAD PCI 2005, 2018, HTN, HLD, recurrent DVT Diagnosed ~1999s Micro and macrovascular complications: +nephropathy + CAD, + PVD, + retinopathy Diabetes medications: Basaglar 40 units, metformin 100mg bid, Trulicity 4.5mg/dl, Jardiance 25 mg. On traditional glucometer. Not consistent with taking readings. Is 100% compliant with medications. Nows he needs to get out and be more active. Has been able to eat right, exercise and get his A1C down to 7% in the past. Last A1C 07/09/24-9.6% from 9.3 Symptoms reported: occasional numbness in feet Hypoglycemia: infrequent but needs to make sure to eat Hyperglycemia: denies nocturia, denies polydypsia Last eye exam : [facility] Podiatry: Dr Selwyn HOWARD CONSTITUTIONAL: Denies weight loss, fever and chills. HEENT: Denies changes in vision and hearing. RESPIRATORY: Denies SOB and cough. CV: Denies palpitations and CP GI: Denies abdominal pain, nausea, vomiting and diarrhea. : Denies dysuria and urinary frequency. MSK: Denies new myalgia and joint pain. SKIN: Denies rash and pruritus. NEUROLOGICAL: see hpi PSYCHIATRIC: Denies recent changes in mood. PHYSICAL EXAM: GENERAL: Alert and oriented x 3. NAD EYES: EOMI. Anicteric. HENT: Moist mucous membranes. No scleral icterus. No cervical lymphadenopathy. LUNGS: Clear to auscultation bilaterally. CARDIOVASCULAR: Regular rate and rhythm. No murmur. No JVD. ABDOMEN: Soft, non-tender +bs EXTREMITIES: No edema. Non-tender. SKIN: No rashes or lesions. Warm. NEUROLOGIC: No focal neurological deficits. CN II-XII grossly intact PSYCHIATRIC: Cooperative. Appropriate mood and affect [facility] Medical History History of recurrent deep vein thrombosis (DVT) Vitamin D deficiency Obesity (BMI 30-39.9) Primary osteoarthritis of both hips Smoker History of DVT (deep vein thrombosis) Anemia Stasis edema of both lower extremities Pure hypercholesterolemia Type 2 diabetes mellitus with hyperglycemia Coronary artery disease Osteoarthritis DVT (deep venous thrombosis) intermediate current use of insulin Essential hypertension Hyperlipidemia LDL goal <70 Surgical History History of colonoscopy History of herniorrhaphy History of heart artery stent History of total hip arthroplasty History of appendectomy Family History Father Hypertension Mother COPD (chronic obstructive pulmonary disease) Brother Colon cancer Sister Alive and well Brother Diabetes Social History Household Members: Spouse Housing: Apartment Patient Tobacco Use Status: Former Tobacco user e-Cigarette/Vaping Use: Never Used service: No Current occupational status: employed Cognitive needs: No Hearing needs: No Vision needs: No Physical Exam Vital Signs: Last Vital Signs Pulse 71 07/23/24 11:12 BP 120/80 07/23/24 11:12 Pulse Ox 96 07/23/24 11:12 Oxygen Delivery Method Room Air 07/23/24 11:12 BMI result Body Mass Index 38.1 Assessment & Plan Assessment & Plan (1) intermediate current use of insulin: Code(s): Z79.4 - intermediate (current) use of insulin Category: Medical (2) Type 2 diabetes mellitus with hyperglycemia: Code(s): E11.65 - Type 2 diabetes mellitus with hyperglycemia Category: Medical Qualifiers: Diabetes mellitus salvage determiner insulin use: with salvage determiner use Qualified Code(s): E11.65 - Type 2 diabetes mellitus with hyperglycemia; 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 Just restarted Trulicity. Would consider mounjaro in the future. Nausea with ozempic. 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
[2024-07-23 11:23] LABS: Glucose, Whole Blood 143 mg/dL (60-115)
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
--- OUTSIDE RECORDS SUMMARY | 2024-07-23 12:36 | XMS_ITS | Clinical Summary ---
Author Organization [facility] Address [address] [place] [address] Care Team Providers Care Course Developer Name Role Phone Jessica Cabrera MD Primary Care Provider [phone] Allergies Active Allergy Reactions Criticality Noted Date [...] age to complete this topic Care Teams Course Developer Relationship Specialty Start Date End Date Jessica Cabrera MD [address] [place] [address] PCP - General Internal Medicine 05/18/20
== END 2024-07-23 11:54 | disposition home or self-care (01) ==
LOC: HO.ENCR 11:10
PROVIDERS: PCP Internal Medicine; Visit Provider Internal Medicine
DX: Z79.4 Long term (current) use of insulin (principal); E11.65 Type 2 diabetes mellitus with hyperglycemia

== ENCOUNTER → 2024-07-23 11:09 | Outpatient (BNVA) | payer MEDICARE, SELFPAY | PROVIDERS: PCP Internal Medicine; Visit Provider Internal Medicine | DX: E11.65 Type 2 diabetes mellitus with hyperglycemia (principal); Z79.4 Long term (current) use of insulin | CPT/HCPCS: 82947; 99202 ==

== ENCOUNTER 2024-09-23 15:53 | Emergency (ER) | payer MEDICARE, SELFPAY ==
--- NOTE | ~2024-09-23 | XR_ITS ---
CLINICAL HISTORY: Coughing. Pneumonia? 1 view chest x-ray Comparison: None provided Findings: The lungs are clear. The bilateral lung apices are not exposed. Heart size is normal. No acute fracture. IMPRESSION: 1. No acute findings. This document has been electronically signed by: Boyd Kitchen MD on 09/23/2024 18:02:40
[2024-09-23 16:35] VITALS: BP 124/46; PULSE 97; RESP 18; TEMP 36.4; O2SAT 95; BMI 39.4
--- NOTE | 2024-09-23 16:41 | ECG_ITS ---
Test Reason : DIZZINESS Blood Pressure : */* mmHG Vent. Rate : 95 BPM Atrial Rate : 95 BPM P-R Int : 200 ms QRS Dur : 104 ms QT Int : 332 ms P-R-T Axes : 14 19 -10 degrees QTcB Int : 417 ms Normal sinus rhythm Incomplete right bundle branch block Possible Anterior infarct (cited on or before 16-Nov-2015) Abnormal ECG When compared with ECG of 22-Oct-2018 11:04, Borderline criteria for Inferior infarct are no longer Present Referred By: Eleazar Lazar Electronically Signed By: Aftab Sánchez
--- NOTE | 2024-09-23 16:41 | ED.GENADULT ---
HPI - General Adult General Chief complaint: General Medical Stated complaint: Shallow breathing History of Present Illness HPI narrative: Patient left without complete of treatment by ED provider Related Data Home Medications ?Medication ?Instructions ?Recorded ?Confirmed blood sugar diagnostic (FreeStyle #10 ea 02/03/20 07/11/24 Lite Strips) cholecalciferol (vitamin D3) 25 25 mcg PO DAILY 02/03/20 09/25/24 mcg (1,000 unit) capsule fluticasone propionate 50 1 spray intranasal DAILY 02/03/20 09/25/24 mcg/actuation nasal spray,suspension ibuprofen 800 mg tablet 800 mg PO TID PRN Pain 02/03/20 09/25/24 flash glucose scanning reader #1 ea 04/02/20 07/11/24 flash glucose sensor #1 ea 04/02/20 07/11/24 albuterol sulfate 90 mcg/actuation 2 puff inhalation Q6H PRN 04/10/24 09/25/24 aerosol inhaler Shortness Of Breath Or Wheezing apixaban 5 mg tablet (Eliquis) 5 mg PO BID 04/10/24 09/25/24 aspirin 81 mg chewable tablet 81 mg PO DAILY 04/10/24 09/25/24 cyclosporine 0.05 % eye drops in a 1 drp ophthalmic (eye) BID PRN Dry 04/10/24 09/25/24 dropperette (Restasis) Eye(S) metformin 500 mg tablet,extended 1,000 mg PO BID 04/10/24 09/25/24 release 24 hr dulaglutide 4.5 mg/0.5 mL 4.5 mg subcut SA 09/25/24 09/25/24 subcutaneous pen injector (Trulicity) empagliflozin 25 mg tablet 25 mg PO DAILY 09/25/24 09/25/24 (Jardiance) insulin glargine 100 unit/mL (3 40 unit subcut DAILY 09/25/24 09/25/24 mL) subcutaneous pen (Basaglar KwikPen U-100 Insulin) [id number] 300 mcg-K 60 1 tab PO DAILY 09/25/24 09/25/24 mcg-lycop 600 mcg-lutein 300 mcg tablet (Centrum Silver Men) Previous Rx's ?Medication ?Instructions ?Recorded losartan 25 mg tablet 25 mg PO DAILY #30 tabs 01/22/20 Diabetic shoes & 2 pair inserts #1 ea 04/15/20 atorvastatin 80 mg tablet 80 mg PO DAILY #30 tabs 06/21/20 atenolol 50 mg tablet 50 mg PO DAILY #30 tabs 08/24/20 furosemide 40 mg tablet 40 mg PO DAILY #90 tabs 08/27/20 FreeStyle Megan 3 Plus Sensor #6 ea 07/23/24 (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 sensor) FreeStyle Megan 3 [place] #1 ea 09/08/24 (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,supervisor sewer system,cont) Allergies Allergy/AdvReac Type Severity Reaction Status Date / Time oxycodone (OXYCODONE) Allergy Intermediate JITTERY/NA Verified 09/23/24 16:36 USEA pseudoephedrine (From AdvReac Intermediate ELEVATES BP Verified 09/23/24 16:36 SUDAFED) [facility] Past Medical History Medical History History of recurrent deep vein thrombosis (DVT) Vitamin D deficiency Obesity (BMI 30-39.9) Primary osteoarthritis of both hips Smoker History of DVT (deep vein thrombosis) Anemia Stasis edema of both lower extremities Pure hypercholesterolemia Type 2 diabetes mellitus with hyperglycemia Coronary artery disease Osteoarthritis DVT (deep venous thrombosis) 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 Essential hypertension Hyperlipidemia LDL goal <70 Surgical History History of colonoscopy History of herniorrhaphy History of heart artery stent History of total hip arthroplasty History of appendectomy Family History Family History Father Hypertension Mother COPD (chronic obstructive pulmonary disease) Brother Colon cancer Sister Alive and well Brother Diabetes Social History Social History Household Members: Spouse Housing: House Do you presently have visiting nurse or other home services: No Patient Tobacco Use Status: Former Tobacco user Tobacco use type: Cigarette e-Cigarette/Vaping Use: Never Used service: No Current occupational status: employed Cognitive needs: No Hearing needs: No Vision needs: No Physical Exam ED Vital Signs: Vital Signs - 24 hr 09/23/24 16:35 Temperature 97.5 F Pulse Rate 97 Respiratory Rate 18 Blood Pressure 124/46 L Pulse Oximetry 95 Oxygen Delivery Method Room Air BMI result Body Mass Index 39.4 Course Course Course Narrative: RME: 63-year-old male presents to ED for nausea vomiting dizziness shaky hot and cold chills coughing and body aches past couple of days. She states no one else at home is sick. Labs EKG chest x-ray SARs ordered Medical Decision Making Lab Data 09/23/24 17:14 09/23/24 17:14 Labs: Lab Results 09/23/24 09/23/24 09/23/24 Range/Units 17:11 17:13 17:14 WBC 16.6 H (4.8-10.8) X10*3/uL RBC 4.73 (4.60-5.80) X10*6/uL Hgb 13.1 L (14.0-18.0) g/dl Hct 38.8 L (42.0-52.0) % MCV 82.0 (80.0-98.0) fL MCH 27.7 (27.0-33.0) pg MCHC 33.8 (31.0-36.0) g/dl RDW 15.9 (11.0-16.0) % Plt Count 247 (160-400) X10*3/uL MPV 8.7 L (9.4-12.4) fL Immature Gran % (Auto) 0.4 (0.0-0.4) % Neut % (Auto) 83.2 H (45-73) % Lymph % (Auto) 10.9 L (20-40) % [place] % (Auto) 5.2 (2-11) % Eos % (Auto) 0.1 (0-4) % Baso % (Auto) 0.2 (0-2) % Lymph # (Auto) 1.8 (1.2-4.9) X10*3/uL [place] # (Auto) 0.9 (0.1-1.2) X10*3/uL Eos # (Auto) 0.0 (0.0-0.4) X10*3/uL Baso # (Auto) 0.0 (0.0-0.2) X10*3/uL Abs Immat Gran (auto) 0.06 H (0.00-0.03) X10*3/uL Absolute Neuts (auto) 13.8 H (2.0-8.3) x10*3/uL Absolute Nucleated RBC 0.000 (0.0-0.012) X10*3/uL Nucleated RBC % (auto) 0.0 (0.0-0.2) /100WBC PT 11.8 (10.9-12.4) SEC INR 1.0 (0.9-1.1) APTT 33.3 (26.0-36.8) SEC Sodium 141 (135-145) mmol/L Potassium 3.9 (3.3-5.1) mmol/L Chloride 104 (96-108) mmol/L Carbon Dioxide 28 (22-29) mmol/L Anion Gap 13 (12-20) BUN 16 (9-16) mg/dL Creatinine 0.88 (0.5-1.4) mg/dL Estim Creat Clear Calc 117.5 Estimated GFR > 60 POC Glucose 116 H (60-115) mg/dL Random Glucose 128 H (60-115) mg/dL Calcium 9.5 (8.4-10.2) mg/dL Total Bilirubin 0.5 (0.0-1.0) mg/dL AST 21 (5-37) U/L ALT 20 (0-40) U/L Alkaline Phosphatase 76 (39-117) U/L Troponin I High Sens < 2.7 (<3.5-35.0) ng/L B-Natriuretic Peptide 37 (<100) pg/mL Total Protein 7.0 (6.5-8.0) g/dL Albumin 4.5 (3.5-5.0) g/dL Influenza Type A (PCR) NEGATIVE (Negative) Influenza Type B (PCR) NEGATIVE (Negative) RSV RNA Qual (PCR) NEGATIVE (Negative) SARS-CoV-2 RNA (RT-PCR) NEGATIVE (Negative) S. pyogenes GrpA NELL Negative (Negative) Discharge Plan Discharge Clinical Impression: Acute dyspnea Patient Disposition: Left W/O Completing Treatment Prescriptions: No Action losartan 25 mg tablet 25 mg PO DAILY Qty: 30 3RF cholecalciferol (vitamin D3) 25 mcg (1,000 unit) capsule 25 mcg PO DAILY fluticasone propionate 50 mcg/actuation spray,suspension 1 spray intranasal DAILY Rx Instructions: administer into each nostril (DME) FreeStyle Lite Strips Strip See Rx Instructions .ROUTE .MEDSUPPLY Qty: 10 Rx Instructions: As directed ibuprofen 800 mg tablet 800 mg PO TID PRN (Reason: Pain) atorvastatin 80 mg tablet 80 mg PO DAILY Qty: 30 3RF atenolol 50 mg tablet 50 mg PO DAILY Qty: 30 0RF furosemide 40 mg tablet 40 mg PO DAILY Qty: 90 1RF (DME) FreeStyle Megan 3 [place] Misc See Rx Instructions .Route Qty: 1 0RF Rx Instructions: As directed insulin glargine [Basaglar KwikPen U-100 Insulin] 100 unit/mL (3 mL) insulin pen 40 unit subcut DAILY Jardiance 25 mg tablet 25 mg PO DAILY Trulicity 4.5 mg/0.5 mL pen injector 4.5 mg subcut SA Centrum Silver Men [id number] mcg Tablet 1 tab PO DAILY (DME) FreeStyle Megan 14 Day Sensor Kit See Rx Instructions topical .MEDSUPPLY Qty: 1 Rx Instructions: As directed (DME) FreeStyle Megan 14 Day [place] Misc See Rx Instructions topical 3XW Qty: 1 Rx Instructions: As directed (DME) Diabetic shoes & 2 pair inserts Diabetic shoes & 2 pair insert kit See Rx Instructions .Route .MEDSUPPLY Qty: 1 0RF Rx Instructions: as directed Eliquis 5 mg tablet 5 mg PO BID cyclosporine [Restasis] 0.05 % dropperette 1 drp ophthalmic (eye) BID PRN (Reason: Dry Eye(S)) albuterol sulfate 90 mcg/actuation HFA aerosol inhaler 2 puff inhalation Q6H PRN (Reason: Shortness Of Breath Or Wheezing) metformin 500 mg tablet extended release 24 hr 1,000 mg PO BID aspirin 81 mg tablet,chewable 81 mg PO DAILY (DME) FreeStyle Megan 3 Plus Sensor Device See Rx Instructions .Route Qty: 6 3RF Rx Instructions: every 15 days Discharge Date/Time: 09/23/24 19:53
[2024-09-23 17:15] LABS: Glucose, Whole Blood 116 mg/dL (60-115)
[2024-09-23 17:19] LABS: MANUAL DIFF FLAG NO
[2024-09-23 17:21] LABS: Hematocrit 38.8 % (42.0-52.0); Hemoglobin 13.1 g/dl (14.0-18.0); Imm Gran Abs Auto 0.06 X10*3/uL (0.00-0.03); Imm Gran Pct Auto 0.4 % (0.0-0.4); Lymphocytes Absolute Auto 1.8 X10*3/uL (1.2-4.9); Mean Corpuscular HGB Conc 33.8 g/dl (31.0-36.0); Mean Corpuscular Hemoglobin 27.7 pg (27.0-33.0); Mean Corpuscular Volume 82.0 fL (80.0-98.0); NRBC Abs Auto 0.000 X10*3/uL (0.0-0.012); NRBC Pct Auto 0.0 /100WBC (0.0-0.2); Platelet Count 247 X10*3/uL (160-400); Red Blood Count 4.73 X10*6/uL (4.60-5.80); White Blood Count 16.6 X10*3/uL (4.8-10.8)
[2024-09-23 17:31] LABS: INTERNATIONAL NORM RATIO 1.0 (0.9-1.1); Prothrombin Time 11.8 SEC (10.9-12.4)
[2024-09-23 17:32] LABS: IDNOW Serial# 55D5AD1C; Strep A Nucleic Acid Negative (Negative)
[2024-09-23 17:34] LABS: Alanine Aminotransferase 20 U/L (0-40); Albumin Level 4.5 g/dL (3.5-5.0); Alkaline Phosphatase 76 U/L (39-117); Anion Gap 13 (12-20); Aspartate Amino Transferase 21 U/L (5-37); Blood Urea Nitrogen 16 mg/dL (9-16); Calcium 9.5 mg/dL (8.4-10.2); Carbon Dioxide 28 mmol/L (22-29); Chloride 104 mmol/L (96-108); Creatinine Clr Calc Pharmacy 117.5; Estimated Glomerular Filt Rate > 60; Partial Thromboplastin Time 33.3 SEC (26.0-36.8); Potassium 3.9 mmol/L (3.3-5.1); Sodium 141 mmol/L (135-145); Total Protein 7.0 g/dL (6.5-8.0)
[2024-09-23 17:40] LABS: B Type Natriuretic Peptide 37 pg/mL (<100)
[2024-09-23 17:42] LABS: Troponin-I High Sensitivity < 2.7 ng/L (<3.5-35.0)
[2024-09-23 17:57] LABS: Resp Syncy Virus RNA Qual PCR NEGATIVE (Negative); SARS COV2 PCR INHOUSE NEGATIVE (Negative)
--- OUTSIDE RECORDS SUMMARY | 2024-09-23 19:49 | XMS_ITS | Clinical Summary ---
Author Organization [facility] Address [address] [place] [address] Care Team Providers Care Managing Attorney Name Role Phone Jessica Cabrera MD Primary Care Provider [phone] Allergies Active Allergy Reactions Criticality Noted Date [...] 70 07/01/2020 11:48 AM EDT Temperature 36.3 C (97.4 F) 07/01/2020 11:48 AM EDT Respiratory Rate - - Oxygen Saturation 99% [...] Shingrix-Zoster Vaccine (1 o f 2) 2008 Fall Risk Assessment 12/12/2023 Influenza Vaccine (#1) 2024 0, 01/24/2008, 04/02/2006 RSV Adult > 60+ Yrs or (1 - 1-dose 75+ series) 2033 Hepatitis B Vaccines Aged Out No long er eligible based on patient's age to complete this topic RSV Ped < 20 months Aged Out No longe r eligible based on patient's age to complete this topic Care Teams Managing Attorney Relationship Specialty Start Date End Date Jessica Cabrera MD [address] [address] PCP - General Internal Medicine 05/18/20
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
== END 2024-09-23 19:53 | disposition left against medical advice (07) ==
PROVIDERS: Physician Assistant; Emergency Provider Emergency Medicine; PCP Internal Medicine
DX: R06.00 Dyspnea, unspecified (principal); Z03.818 Encounter for observation for suspected exposure to other biological agents ruled out; I45.19 Other right bundle-branch block; E11.9 Type 2 diabetes mellitus without complications; E78.00 Pure hypercholesterolemia, unspecified; R42 Dizziness and giddiness; Z86.718 Personal history of other venous thrombosis and embolism; Z79.4 Long term (current) use of insulin; Z87.891 Personal history of nicotine dependence; Z79.899 Other long term (current) drug therapy; Z79.02 Long term (current) use of antithrombotics/antiplatelets; Z79.01 Long term (current) use of anticoagulants
CPT/HCPCS: 71045; 80053; 82947; 83880; 84484; 85025; 85610; 85730; 87637; 87651; 93005; 99283

== ENCOUNTER → 2024-09-23 16:41 | Outpatient (BNV) | payer MEDICARE, SELFPAY | PROVIDERS: PCP Internal Medicine; Visit Provider Nuclear Medicine | DX: R05.9 Cough, unspecified (principal) | CPT/HCPCS: 71045 ==

== ENCOUNTER → 2024-09-23 16:41 | Outpatient (BNV) | payer MEDICARE, SELFPAY | PROVIDERS: Emergency Provider Emergency Medicine; PCP Internal Medicine; Visit Provider Internal Medicine Cardiovascular Disease | DX: I45.10 Unspecified right bundle-branch block (principal) | CPT/HCPCS: 93010 ==

== ENCOUNTER 2024-09-25 03:24 | Inpatient (IN) | payer MEDICARE, SELFPAY ==
--- NOTE | ~2024-09-25 | MR_ITS ---
CLINICAL HISTORY: Mr right foot and leg to r o osteo , leg infection MR right tibia/fibula with and without contrast Comparison: MR/SR - MR FOOT RT WO/W CON - 09/28/24 12:20 EDT US - US ARTERIAL DUPLEX LE RT - 09/28/24 09:09 EDT US/SR - US VENOUS DUPLEX LE RT - 09/25/24 07:20 EDT CR - XR FOOT RT 2V - 09/25/24 05:50 EDT Findings: No bone marrow edema or enhancement to indicate osteomyelitis. The musculature is atrophic and edematous with enhancement indicating myositis, likely infectious. The tendons are intact. Abnormal vessels. Unremarkable nerves. Prominent amount of edema in the subcutaneous fat with enhancement secondary to infection. No rim enhancing fluid collection. Impression: No osteomyelitis. This document has been electronically signed by: Padmini Gordon MD on 09/28/2024 14:27:46
--- NOTE | ~2024-09-25 | US_ITS ---
CLINICAL HISTORY: Right sided - diabetic foot Arterial duplex ultrasound right lower extremity Comparison: None provided Findings: Monophasic waveforms are noted within the profunda femoral artery in the popliteal artery. The peroneal artery is not visualized. A dorsalis pedal artery is not visualized. The posterior tibial artery is significantly attenuated with monophasic waveform. Monophasic waveforms are also seen throughout the anterior tibial artery. Velocity elevation within the SFA suggestive of multifocal [id number]-[id number] stenosis. Impression: Abnormal study as detailed. This document has been electronically signed by: Rahul Trent MD on 09/28/2024 10:41:28
--- NOTE | ~2024-09-25 | XR_ITS ---
EXAMINATION: XR SHOULDER 2 OR MORE VIEWS RIGHT HISTORY: Right shoulder pain COMPARISON: There are no prior studies available for comparison. FINDINGS: Four views of the right shoulder are submitted. Osseous mineralization is normal. There is no fracture or dislocation. The glenohumeral joint is maintained. There is moderate osteoarthritis of the AC joint, with joint space narrowing. There are faint calcifications adjacent to the greater tuberosity of the humerus, likely related to the rotator cuff. XR/XR shoulder RT min 2V IMPRESSION: Moderate osteoarthritis of the AC joint. Probable rotator cuff calcifications. Electronically signed by: Yogi Case MD 09/26/2024 11:30 AM EDT
--- NOTE | ~2024-09-25 | US_ITS ---
EXAMINATION: US LOWER EXTREMITY VEINS LIMITED FOLLOW UP RIGHT HISTORY: pain, swelling, hx DVTs COMPARISON: There are no prior studies available for comparison. TECHNIQUE: Duplex and color Doppler sonographic examination of the deep venous system of the lower extremity was performed. FINDINGS: The common femoral and superficial femoral veins are patent demonstrating normal compressibility, spontaneous flow, and augmentation. There is eccentric echogenic material within the popliteal vein, which is noncompressible, suggestive of chronic thrombus. There is a prominent inguinal lymph node measuring 3.1 x 2.0 x 3.9 cm. US/US venous duplex LE RT IMPRESSION: Findings suggestive of chronic thrombosis of the right popliteal vein. Electronically signed by: Yogi Case MD 09/25/2024 08:03 AM EDT
--- NOTE | ~2024-09-25 | XR_ITS ---
CLINICAL HISTORY: heel draining pus, pain 3 view right foot Comparison: None provided Findings: Bones intact. No dislocations. No significant arthritic change or erosions. No ankle effusion. No radiopaque foreign body. There is regional arterial calcification. IMPRESSION: 1. No acute findings. This document has been electronically signed by: Kraig Vines MD on 09/25/2024 06:39:36
--- NOTE | ~2024-09-25 | MR_ITS ---
CLINICAL HISTORY: mri foot and leg right MR right hindfoot/ankle Comparison: MR/SR - MR TIBIA RT WO/W CONTRAST - 09/28/24 12:20 EDT CR - XR FOOT RT 2V - 09/25/24 05:50 EDT Findings: There is a mild amount of subchondral edema and enhancement within the talus and calcaneus centered upon the subtalar joint, degenerative. No bone marrow edema or enhancement to indicate osteomyelitis. Articulations are preserved. Flexor and extensor tendons are intact. The intrinsic musculature is atrophic and edematous secondary to infectious myositis. Intact plantar fascia. Edema and enhancement within the subcutaneous fat indicating cellulitis. No rim enhancing fluid collection. Impression: No osteomyelitis. This document has been electronically signed by: Padmini Gordon MD on 09/28/2024 14:36:34
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
--- OUTSIDE RECORDS SUMMARY | 2024-09-25 04:59 | XMS_ITS | Clinical Summary ---
Author Organization [facility] Address [address] [place] [address] Care Team Providers Care Rattle Leak And Squeak Repairer Name Role Phone Jessica Cabrera MD Primary Care Provider [phone] Allergies Active Allergy Reactions Criticality Noted Date [...] age to complete this topic Care Teams Rattle Leak And Squeak Repairer Relationship Specialty Start Date End Date Jessica Cabrera MD [address] [phone] PCP - General Internal Medicine 05/18/20
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
[2024-09-25 06:21] LABS: MANUAL DIFF FLAG NO
[2024-09-25 06:30] LABS: Hematocrit 35.9 % (42.0-52.0); Hemoglobin 12.3 g/dl (14.0-18.0); Imm Gran Abs Auto 0.10 X10*3/uL (0.00-0.03); Imm Gran Pct Auto 0.6 % (0.0-0.4); Lymphocytes Absolute Auto 2.6 X10*3/uL (1.2-4.9); Mean Corpuscular HGB Conc 34.3 g/dl (31.0-36.0); Mean Corpuscular Hemoglobin 27.5 pg (27.0-33.0); Mean Corpuscular Volume 80.3 fL (80.0-98.0); NRBC Abs Auto 0.000 X10*3/uL (0.0-0.012); NRBC Pct Auto 0.0 /100WBC (0.0-0.2); Platelet Count 194 X10*3/uL (160-400); Red Blood Count 4.47 X10*6/uL (4.60-5.80); White Blood Count 16.6 X10*3/uL (4.8-10.8)
[2024-09-25 06:43] LABS: B Type Natriuretic Peptide 47 pg/mL (<100)
[2024-09-25 06:50] LABS: Alanine Aminotransferase 14 U/L (0-40); Albumin Level 4.0 g/dL (3.5-5.0); Alkaline Phosphatase 67 U/L (39-117); Anion Gap 16 (12-20); Aspartate Amino Transferase 46 U/L (5-37); Blood Urea Nitrogen 20 mg/dL (9-16); Calcium 9.1 mg/dL (8.4-10.2); Carbon Dioxide 22 mmol/L (22-29); Chloride 98 mmol/L (96-108); Estimated Glomerular Filt Rate > 60; Potassium 4.7 mmol/L (3.3-5.1); Sodium 131 mmol/L (135-145); Total Protein 7.4 g/dL (6.5-8.0)
[2024-09-25] MEDS: vancomycin/NS 2,000 MG/500 ML PLAST..BAG 250 MG IV (07:34)
--- NOTE | 2024-09-25 09:32 | PHA.MEDREC ---
Addendum entered by Bere Brown RPh 09/25/24 09:59: reviewed by [facility] Original Note: Pharmacy Consult ? Medication Reconciliation Pharmacy has completed the medication reconciliation. Spoke with pt and he confirmed his medications. Pt confirmed he still takes Eliquis 5mg tabs 1 BID and has been taking it for a long time and filling it at [facility] in [place]; I called [facility] and they last filled Eliquis 01/2024, they got a script in May 2024 but pt never picked that up. Pt confirmed his Basglar KwikPen, injecting 40 units daily. Pt states he still uses Restasis eyedrops as needed for dry eye, despite having no claims and [facility] having no fill history of that. Pt confirmed his Trulicity once a week on and took it last 09/20. Pt stated he takes his Metformin 500mg tab 2 tabs (1000mg) BID; despite claims/[facility] showing [facility] 09/17 Qty 90 for 90 days and no other claims or fills from [facility] history.
[2024-09-25 09:40] VITALS: BP 120/44; PULSE 83; RESP 20; TEMP 39.2; O2SAT 96
--- NOTE | 2024-09-25 09:49 | PC.NURSE ---
63 M presents to ED d/t stepping on tack with R foot, pain from R foot up, redness and swelling. RR even and unlabored, denies SOB or CP. A+Ox4 and normally ambulates.
--- NOTE | 2024-09-25 10:19 | PM.IMHP ---
History of Present Illness Date of Service: 09/25/24 Chief Complaint: leg pain The patient is a 63-year-old male with a past medical history of DM, HLD, hypertension, CAD status post PCI 25 years ago, multiple DVTs in the past on anticoagulation who presents to the emergency room about 3 days after stepping on a thumb tack on his right heel. Patient reports that he use topical antibiotic ointment and washed the affected area well but despite this began developing fevers and chills as well as right heel pain, erythema and swelling. Hence he presented to the emergency room. In the ED the patient's workup showed leukocytosis of 16,000. His lactate was normal. Initially the patient was afebrile but has spiked a temperature of 102.5 degrees. ESR is 62 X-ray of the foot reveals no acute findings The patient has been treated with IV fluids, IV vanco and IV Zosyn and now will be admitted for further workup. Review of Systems Review of Systems: Negative except HPI/interval history. [facility] Medical History History of recurrent deep vein thrombosis (DVT) Vitamin D deficiency Obesity (BMI 30-39.9) Primary osteoarthritis of both hips Smoker History of DVT (deep vein thrombosis) Anemia Stasis edema of both lower extremities Pure hypercholesterolemia Type 2 diabetes mellitus with hyperglycemia Coronary artery disease Osteoarthritis DVT (deep venous thrombosis) FDC current use of insulin Essential hypertension Hyperlipidemia LDL goal <70 Family History Father Hypertension Mother COPD (chronic obstructive pulmonary disease) Brother Colon cancer Sister Alive and well Brother Diabetes Surgical History History of colonoscopy History of herniorrhaphy History of heart artery stent History of total hip arthroplasty History of appendectomy Social History Household Members: Spouse Housing: Apartment Patient Tobacco Use Status: Former Tobacco user e-Cigarette/Vaping Use: Never Used Advance Directives: No Advance Directives Information Provided: Yes service: No Current occupational status: employed Cognitive needs: No Hearing needs: No Vision needs: No Meds Allergies Allergy/AdvReac Type Severity Reaction Status Date / Time oxycodone (OXYCODONE) Allergy Intermediate JITTERY/NA Verified 09/23/24 16:36 USEA pseudoephedrine (From AdvReac Intermediate ELEVATES BP Verified 09/23/24 16:36 SUDAFED) Active Medications: Current Medications Acetaminophen (Acetaminophen 325 Mg Tablet) 650 mg PO Q6H PRN PRN Reason: Pain, Mild 1-3,fever,headache Last Admin: 09/25/24 09:48 Dose: 650 mg Calcium Carbonate (Calcium Carbonate 750 Mg Tab.Chew) 750 mg PO Q4H PRN PRN Reason: Heartburn Magnesium Hydroxide (Milk Of Magnesia 30 Ml Oral.Susp) 30 ml PO DAILY PRN PRN Reason: Constipation Melatonin (Melatonin 3 Mg Tablet) 6 mg PO BEDTIME PRN PRN Reason: Insomnia Sodium Chloride (0.9 % Sodium Chloride Flush 3 Ml Syringe) 3 ml IVFLUSH QSHIFT [facility] Home Medications ?Medication ?Instructions ?Recorded ?Confirmed ?Last Taken ?Type blood sugar diagnostic (FreeStyle #10 ea 02/03/20 07/11/24 Unknown History Lite Strips) cholecalciferol (vitamin D3) 25 25 mcg PO DAILY 02/03/20 09/25/24 09/23/24 History mcg (1,000 unit) capsule fluticasone propionate 50 1 spray intranasal DAILY 02/03/20 09/25/24 09/23/24 History mcg/actuation nasal spray,suspension ibuprofen 800 mg tablet 800 mg PO TID PRN Pain 02/03/20 09/25/24 Unknown History flash glucose scanning reader #1 ea 04/02/20 07/11/24 Unknown History flash glucose sensor #1 ea 04/02/20 07/11/24 Unknown History albuterol sulfate 90 mcg/actuation 2 puff inhalation Q6H PRN 04/10/24 09/25/24 Unknown History aerosol inhaler Shortness Of Breath Or Wheezing apixaban 5 mg tablet (Eliquis) 5 mg PO BID 04/10/24 09/25/24 09/23/24 History aspirin 81 mg chewable tablet 81 mg PO DAILY 04/10/24 09/25/24 09/23/24 History cyclosporine 0.05 % eye drops in a 1 drp ophthalmic (eye) BID PRN Dry 04/10/24 09/25/24 Unknown History dropperette (Restasis) Eye(S) metformin 500 mg tablet,extended 1,000 mg PO BID 04/10/24 09/25/24 09/23/24 History release 24 hr dulaglutide 4.5 mg/0.5 mL 4.5 mg subcut SA 09/25/24 09/25/24 09/20/24 History subcutaneous pen injector (Trulicity) empagliflozin 25 mg tablet 25 mg PO DAILY 09/25/24 09/25/24 09/23/24 History (Jardiance) insulin glargine 100 unit/mL (3 40 unit subcut DAILY 09/25/24 09/25/24 09/23/24 History mL) subcutaneous pen (Basaglar KwikPen U-100 Insulin) [id number]-sm-[id number] 300 mcg-K 60 1 tab PO DAILY 09/25/24 09/25/24 09/23/24 History mcg-lycop 600 mcg-lutein 300 mcg tablet (Centrum Silver Men) Physical Exam Vital Signs and Narrative: Vital Signs: Last Vital Signs Temp 102.5 F H 09/25/24 09:40 Pulse 83 09/25/24 09:40 Resp 20 09/25/24 09:40 BP 120/44 L 09/25/24 09:40 Pulse Ox 96 09/25/24 09:40 O2 Del Method Room Air 09/25/24 09:40 Const: Other: Constitutional - Awake and Alert, No apparent distress Eyes - PERRLA, EOMI Cardiovascular - S1S2, RRR, No edema Respiratory - Normal lung expansion, Normal respiratory effort, No respiratory distress, CTA bilaterally Gastrointestinal - NT / ND; +BS; No rebound or guarding - No CVA tenderness Extremities - RLE swelling > LLE; R heel with injury noted - ? appears to be forming callus; erythema extending into mid lower leg with TTP of the heel/foot Musculoskeletal - Normal inspection, normal ROM Skin - Warm/Dry Neurological - Alert & oriented x3, No focal deficit Psychological - Appropriate affect Results Labs 09/25/24 06:12 09/25/24 06:12 Labs: Laboratory Results - last 24 hr 09/25/24 06:12 MCV 80.3 MCH 27.5 MCHC 34.3 RDW 16.0 Plt Count 194 MPV 9.1 L Immature Gran % (Auto) 0.6 H Neut % (Auto) 79.1 H Lymph % (Auto) 15.6 L [place] % (Auto) 4.6 Eos % (Auto) 0.0 Baso % (Auto) 0.1 Lymph # (Auto) 2.6 [place] # (Auto) 0.8 Eos # (Auto) 0.0 Baso # (Auto) 0.0 Abs Immat Gran (auto) 0.10 H Absolute Neuts (auto) 13.1 H Absolute Nucleated RBC 0.000 Nucleated RBC % (auto) 0.0 ESR 62 H Anion Gap 16 Estim Creat Clear Calc TNP Estimated GFR > 60 Random Glucose 110 Lactic Acid 1.3 Calcium 9.1 Total Bilirubin 0.5 Direct Bilirubin 0.1 AST 46 H ALT 14 Alkaline Phosphatase 67 C-Reactive Protein 29.78 H B-Natriuretic Peptide 47 Total Protein 7.4 Albumin 4.0 Imaging Radiologist's Impressions: Impressions Venous Duplex 09/25/24 07:21 IMPRESSION: Findings suggestive of chronic thrombosis of the right popliteal vein. Electronically signed by: Yogi Case MD 09/25/2024 08:03 AM EDT RP Assessment and Plan (1) Cellulitis: Status: Acute Plan 63 yo M with DM, HTN, HLD, CAD who presents with foot pain after stepping on thumbtack 2-3 days prior to hospitalization. Pt found to have cellulitis / diabetic foot infection leading to sepsis 1a. Sepsis, not severe (+wbc/fevers - no lactate/end organ damage) 1b. Acute cellulitis / possible diabetic foot infection ESR in the 60s, XR without acute findings continue IV vancomcyin/zosyn if not improving, consider MRI f/u cultures 2. DM hold orals POC + sliding scale 3. CAD continue baseline meds, hold bp meds today 4. Hisotory of multple VTE ultrasound read as old clot will continue eliquis 5. HTN hold BP meds for now and jovanni restart by tomorrow 6. HLD statin Full Code DVT pptx, Eliquis Pt wit sepsis due to cellulitis / DFI with possible bacteremia therefore expected to require iv abx for a min of 2 midnights and hence, will be admitted as inpt. Quality Stroke Does the patient have a stroke diagnosis?: No VTE Prior VTE?: No VTE Risk Level:: Medical - moderate - high VTE Device Contraindication: N/A - Device Ordered VTE Drug Contraindication: N/A - Med Ordered
[2024-09-25 10:42] VITALS: BP 128/50; PULSE 82; RESP 18; TEMP 37.6
[2024-09-25] MEDS: Lactated Ringers 1,000 ML 100 ML IVCONT ×2 (10:45→22:26)
[2024-09-25 11:20] VITALS: BMI 36.9
--- NOTE | 2024-09-25 11:20 | PHA.PROG ---
Admission Date/Time: September 25, 2024 07:16 Indication: Sepsis Weight in k.8 Adjusted body weight in K.3 [place] body weight in K.6 Obesity Dosing Indication % IBW: 169% Serum Creatinine - Last 168 Hours 09/25/24 06:12 Creatinine 0.94 Estimated CrCl and GFR - Last 168 Hours 09/25/24 06:12 Estim Creat Clear Calc TNP Estimated GFR > 60 Vancomycin Loading Dose: 2000 mg Q12H Current Vancomycin Dosing Regimen: 125 mg Q12H Date and Time for next Vancomycin Level to be drawn: 09/26 @ 1800 Pharmacist Comments on Vancomycin Plan: No updated weight and hieght in the chart - utilize weight from 09/23/24 ED visit. Patient received vancomycin loading dose in the ER 09/25 @ 0735 Patient is scheduled to start vancomycin 1250 mg Q12H 09/25 @ 1999. Predicted AUC 475 with a trough of 15.7. Level will be drawn prior to the 4th dose Pharmacy will monitor renal function Vancomycin dosing will take advantage of [employer] as a clinical decision support tool that uses Bayesian modeling to calculate individual patient's pharmacokinetic parameters and forecast the patient's drug concentration time course with the target goal AUC 24 range of 400 - 600 mg/L/hr.
--- NOTE | 2024-09-25 11:27 | PC.NURSE ---
Report called to overflow RN. Pt will go to overflow 3. Transport notified.
[2024-09-25 11:53] LABS: Glucose, Whole Blood 110 mg/dL (60-115)
[2024-09-25 14:00] VITALS: BP 146/58; PULSE 71; RESP 16; TEMP 36.6; O2SAT 95
[2024-09-25 16:41] VITALS: BP 153/67; PULSE 65; RESP 14; TEMP 36.6; O2SAT 96
[2024-09-25] MEDS: 0.9 % Sodium Chloride Flush 3 ML SYRINGE IVFLUSH (17:17)
[2024-09-25 18:30] VITALS: BP 151/72; PULSE 81; RESP 18; TEMP 37.1; O2SAT 94
[2024-09-25 19:18] LABS: Glucose, Whole Blood 138 mg/dL (60-115)
[2024-09-25 20:00] VITALS: BP 137/67; PULSE 73; RESP 14; TEMP 37.3; O2SAT 94
[2024-09-25] MEDS: Insulin Glargine,Hum.rec.anlog 100 UNIT/ML 10 ML VIAL 20 UNIT SUBCUT (20:00)
[2024-09-25 21:28] LABS: Glucose, Whole Blood 127 mg/dL (60-115)
[2024-09-26 03:29] VITALS: BP 151/69; PULSE 75; RESP 16; TEMP 37; O2SAT 96
[2024-09-26 05:57] LABS: Hematocrit 31.7 % (42.0-52.0); Hemoglobin 10.7 g/dl (14.0-18.0); Mean Corpuscular HGB Conc 33.8 g/dl (31.0-36.0); Mean Corpuscular Hemoglobin 27.2 pg (27.0-33.0); Mean Corpuscular Volume 80.5 fL (80.0-98.0); NRBC Abs Auto 0.000 X10*3/uL (0.0-0.012); NRBC Pct Auto 0.0 /100WBC (0.0-0.2); Platelet Count 172 X10*3/uL (160-400); Red Blood Count 3.94 X10*6/uL (4.60-5.80); White Blood Count 11.7 X10*3/uL (4.8-10.8)
[2024-09-26 06:10] LABS: Creatinine Clr Calc Pharmacy 148.7; Estimated Glomerular Filt Rate > 60
[2024-09-26 06:12] LABS: Alanine Aminotransferase 17 U/L (0-40); Albumin Level 3.4 g/dL (3.5-5.0); Alkaline Phosphatase 59 U/L (39-117); Anion Gap 10 (12-20); Aspartate Amino Transferase 41 U/L (5-37); Blood Urea Nitrogen 16 mg/dL (9-16); Calcium 8.3 mg/dL (8.4-10.2); Carbon Dioxide 25 mmol/L (22-29); Chloride 103 mmol/L (96-108); Creatinine Clr Calc Pharmacy 148.7; Estimated Glomerular Filt Rate > 60; Potassium 3.9 mmol/L (3.3-5.1); Sodium 134 mmol/L (135-145); Total Protein 5.8 g/dL (6.5-8.0)
[2024-09-26 07:25] VITALS: BP 134/64; PULSE 72; RESP 18; TEMP 36.8; O2SAT 94
[2024-09-26 07:39] LABS: Glucose, Whole Blood 92 mg/dL (60-115)
[2024-09-26 11:31] LABS: Glucose, Whole Blood 219 mg/dL (60-115)
--- NOTE | 2024-09-26 12:47 | HO.PM.IMPN ---
Subjective Subjective Date of Service: 09/26/24 Interval History: leg pain Review of Systems Erythema/pain somewhat improving No fever Physical Exam Vital Signs: Vital Signs: Last Vital Signs Temp 98.3 F 09/26/24 07:25 Pulse 72 09/26/24 07:25 Resp 18 09/26/24 07:25 BP 134/64 09/26/24 07:25 Pulse Ox 94 09/26/24 07:25 O2 Del Method Room Air 09/26/24 07:25 BMI result Body Mass Index 36.9 Appearance: Alert.? Oriented X3.?. cvs: rrr, [id number]. res: clear to auscultation ,no rhonchii or wheezing abd: no rebound or guarding ,nt, bs present. ext pulses present , no cyanosis leg-left leg erythema. neuro: axo3 , nonfocal. Objective Data Active Medications Acetaminophen (Acetaminophen 325 Mg Tablet) 650 mg PO Q6H PRN PRN Reason: Pain, Mild 1-3,fever,headache Last Admin: 09/25/24 18:42 Dose: 650 mg Documented By: GUERRERO Apixaban (Apixaban 5 Mg Tablet) 5 mg PO BID [facility] Last Admin: 09/26/24 07:54 Dose: 5 mg Documented By: GUERRERO Aspirin (Aspirin 81 Mg Tab.Chew) 81 mg PO DAILY [facility] Last Admin: 09/26/24 07:54 Dose: 81 mg Documented By: GUERRERO Atorvastatin Calcium (Atorvastatin Calcium 80 Mg Tablet) 80 mg PO DAILY [facility] Last Admin: 09/26/24 07:54 Dose: 80 mg Documented By: GUERRERO Benzonatate (Benzonatate 100 Mg Capsule) 100 mg PO TID PRN PRN Reason: Cough Last Admin: 09/26/24 12:42 Dose: 100 mg Documented By: GUERRERO Calcium Carbonate (Calcium Carbonate 750 Mg Tab.Chew) 750 mg PO Q4H PRN PRN Reason: Heartburn Dextrose (Dextrose 50 % 25 Gm/50 Ml Syringe) 25 gm IVPUSH Q15M PRN; Protocol PRN Reason: per Hypoglycemia Standing Ord. Glucose (Glucose Gel 15 Gm Gel..Gram.) 15 gm PO Q15M PRN; Protocol PRN Reason: per Hypoglycemia Standing Ord. Piperacillin Sod/Tazobactam (Sod 3.375 gm/ Sodium Chloride) 50 mls @ 100 mls/hr IV Q6H [facility] Last Infusion: 09/26/24 12:29 Dose: Infused Documented By: GUERRERO Vancomycin HCl 1,250 mg/ (Sodium Chloride) 250 mls @ 166.667 mls/hr IV Q12H [facility] Last Infusion: 09/26/24 09:39 Dose: Infused Documented By: GUERRERO Insulin Glargine (Insulin Glargine,Hum.Rec.Anlog 100 Unit/Ml 10 Ml Vial) 20 unit SUBCUT BEDTIME [facility] Last Admin: 09/25/24 20:00 Dose: 20 unit Documented By: RITIKA Insulin Human Lispro (Insulin Lispro 100 Unit/Ml 3 Ml Vial) 0 unit SUBCUT QIDACHS [facility]; Protocol Last Admin: 09/26/24 11:47 Dose: 4 unit Documented By: GUERRERO Magnesium Hydroxide (Milk Of Magnesia 30 Ml Oral.Susp) 30 ml PO DAILY PRN PRN Reason: Constipation Melatonin (Melatonin 3 Mg Tablet) 6 mg PO BEDTIME PRN PRN Reason: Insomnia Pharmacy Consult (Consult Rx Vancomycin Dosing) 1 each MISCELLANE DAILY PRN PRN Reason: Consult order Sodium Chloride (0.9 % Sodium Chloride Flush 3 Ml Syringe) 3 ml IVFLUSH QSHIFT [facility] Last Admin: 09/26/24 07:54 Dose: Not Given Documented By: GUERRERO Non-Admin Reason: IV Running Vitamin D (Cholecalciferol (Vitamin D3) 25 Mcg Tablet) 25 mcg PO DAILY [facility] Last Admin: 09/26/24 07:54 Dose: 25 mcg Documented By: GUERRERO Labs 09/26/24 05:50 09/26/24 05:50 Labs: Laboratory Results - last 24 hr 09/25/24 09/25/24 09/26/24 18:55 21:14 05:50 MCV 80.5 MCH 27.2 MCHC 33.8 RDW 15.9 Plt Count 172 MPV 8.7 L Absolute Nucleated RBC 0.000 Nucleated RBC % (auto) 0.0 Anion Gap 10 L Estim Creat Clear Calc 148.7 Estimated GFR POC Glucose 138 H 127 H Random Glucose Calcium Total Bilirubin AST ALT Alkaline Phosphatase Total Creatine Kinase Total Protein Albumin 09/26/24 09/26/24 09/26/24 05:50 05:50 07:36 MCV MCH MCHC RDW Plt Count MPV Absolute Nucleated RBC Nucleated RBC % (auto) Anion Gap Estim Creat Clear Calc 148.7 Estimated GFR > 60 > 60 POC Glucose 92 Random Glucose 95 Calcium 8.3 L D Total Bilirubin 0.4 AST 41 H ALT 17 Alkaline Phosphatase 59 Total Creatine Kinase 523 H Total Protein 5.8 L Albumin 3.4 L 09/26/24 11:27 MCV MCH MCHC RDW Plt Count MPV Absolute Nucleated RBC Nucleated RBC % (auto) Anion Gap Estim Creat Clear Calc Estimated GFR POC Glucose 219 H Random Glucose Calcium Total Bilirubin AST ALT Alkaline Phosphatase Total Creatine Kinase Total Protein Albumin Microbiology Microbiology Results: Microbiology 09/25/24 06:12 Blood Culture - Preliminary Blood - Venous No growth after 24 hours. 09/25/24 06:12 Blood Culture - Preliminary Blood - Venous No growth after 24 hours. Assessment and Plan (1) Cellulitis: Status: Acute Assessment and Plan: 63 yo M with DM, HTN, HLD, CAD who presents with foot pain after stepping on thumbtack 2-3 days prior to hospitalization. Pt found to have cellulitis / diabetic foot infection leading to sepsis Sepsis, not severe (+wbc/fevers - no lactate/end organ damage)in settiing of Acute cellulitis / possible diabetic foot infection ESR in the 60s, XR without acute findings somewhat improving , no fevers ,blood culture [id number] continue IV vancomcyin/zosyn, vanco trough f/u cultures id eval 2. DM hold orals POC + sliding scale 3. CAD continue baseline meds, hold bp meds today 4. 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 HTN hold BP meds for now and felicityley restart by tomorrow 6. HLD statin Full Code DVT pptx, Eliquis Pt wit sepsis due to cellulitis / DFI with possible bacteremia therefore expected to require iv abx , id eval Quality Stroke Does the patient have a stroke diagnosis?: No VTE Prior VTE?: No VTE Risk Level:: Medical - moderate - high VTE Device Contraindication: N/A - Device Ordered VTE Drug Contraindication: N/A - Med Ordered
--- NOTE | 2024-09-26 13:16 | HO.WOUND ---
Wound Consult: Initial 63yr old?male admitted to [facility] [place] on 09/26/24 - See progress notes and H&P for detailed history.? Wound consult placed for Right Foot wound.? Patient agreeable to assessment and photo documentation.? Right Heel Etiology: ??Diabetic wound Present on Admission Measurements: 0.2cm x 0.2cm x 0.2cm Wound Bed: red dark tissue soft fluctance noted Drainage / Odor: dried red drainage noted on wound edge Edges: ?attached Padmini wound: redness and mild swelling ntoed ? No Induration, Fluctuance or Warmth noted Pain: pain noted Goals of Treatment: ? Moisture management with durafiber AG Defer to providers to assess imaging results for fluid colection given some fluctance noted to heel Right Leg - Chronic Venous Dermatits- two stable scabs noted - patient requesting dressing to the area. Recommend single layer xeroform followed by gauze, wrap. Do not use tape or adhesive on patients skin in this area appears thin and fragile. Recommendations: 1. Turn and Reposition every 2 hours and as needed for patient comfort.? Use pillows or wedges to support off loading positions. 2. Off Load all bony prominences with use of pillows and heel boots if needed.? Apply Preventative foams where needed. ? 3. Monitor for incontinence and moisture control, use barrier creams when needed for prevention and treatment. 4. Provide adequate and supplemental nutrition.? 5. When applicable maintain blood glucose levels per Providers order. Right Leg - Elevate leg of pillows float heel - apply compression when available from home. Cleanse with ns moist gauze, pat dry. Apply single layer xeroform followed by gauze, wrap. Do not use tape or adhesive on patients skin in this area appears thin and fragile. Right Heel - Elevate heel off of bed surface limit walking. Cleanse with NS moist gauze, pat dry. Apply durafiber AG to wound bed cover with foam dressing change every other day. Re-consult wound care Nurse for wound deterioration or wound changes.
--- NOTE | 2024-09-26 13:29 | PC.NURSE ---
Pt upset with food from kitchen, notified director hedis to come speak with patient.
--- NOTE | 2024-09-26 14:40 | MHC.CM.PN ---
PT REPORTS HE LIVES WITH HIS AND DAUGHTER AND IS INDEPENDENT WITH CARE HE HAS NO SERVICES OR DME AT BASELINE HCP ON FILE PCP: AGUSTIN DENISE IMM DELIVERED DCP: HOME ? [facility] DAUGHTER TO TRANSPORT
--- NOTE | 2024-09-26 15:21 | W.PM.IDCN ---
History of Present Illness Data of Consult Service Date: 09/26/24 Requesting physician: Krysten Andres Primary Care Provider: Derrell Patel MD [facility] Reason for consult: right leg cellulitis,sepsis He presents with redness and pain RLE for last 4 days. He stepped on tack and pulled it out of his heel. He has had fever and chills. He has temperature of 102.5 and pulse 97. Blood cultures are negative so far. Review of Systems Review of Systems: Yes all other systems are reviewed and are negative [facility] Past Medical History Medical History History of recurrent deep vein thrombosis (DVT) Vitamin D deficiency Obesity (BMI 30-39.9) Primary osteoarthritis of both hips Smoker History of DVT (deep vein thrombosis) Anemia Stasis edema of both lower extremities Pure hypercholesterolemia Type 2 diabetes mellitus with hyperglycemia Coronary artery disease Osteoarthritis DVT (deep venous thrombosis) correction current use of insulin Essential hypertension Hyperlipidemia LDL goal <70 Family History Family History Father Hypertension Mother COPD (chronic obstructive pulmonary disease) Brother Colon cancer Sister Alive and well Brother Diabetes Family history: reviewed and not pertinent Surgical History Surgical History History of colonoscopy History of herniorrhaphy History of heart artery stent History of total hip arthroplasty History of appendectomy Social History Social History Household Members: Spouse Housing: House Do you presently have visiting nurse or other home services: No Patient Tobacco Use Status: Former Tobacco user Tobacco use type: Cigarette e-Cigarette/Vaping Use: Never Used service: No Current occupational status: employed Cognitive needs: No Hearing needs: No Vision needs: No Meds Allergies Allergy/AdvReac Type Severity Reaction Status Date / Time oxycodone (OXYCODONE) Allergy Intermediate JITTERY/NA Verified 09/23/24 16:36 USEA pseudoephedrine (From AdvReac Intermediate ELEVATES BP Verified 09/23/24 16:36 SUDAFED) Active Medications: Current Medications Acetaminophen (Acetaminophen 325 Mg Tablet) 650 mg PO Q6H PRN PRN Reason: Pain, Mild 1-3,fever,headache Last Admin: 09/26/24 15:15 Dose: 650 mg Apixaban (Apixaban 5 Mg Tablet) 5 mg PO BID [facility] Last Admin: 09/26/24 07:54 Dose: 5 mg Aspirin (Aspirin 81 Mg Tab.Chew) 81 mg PO DAILY [facility] Last Admin: 09/26/24 07:54 Dose: 81 mg Atorvastatin Calcium (Atorvastatin Calcium 80 Mg Tablet) 80 mg PO DAILY [facility] Last Admin: 09/26/24 07:54 Dose: 80 mg Benzonatate (Benzonatate 100 Mg Capsule) 100 mg PO TID PRN PRN Reason: Cough Last Admin: 09/26/24 12:42 Dose: 100 mg Calcium Carbonate (Calcium Carbonate 750 Mg Tab.Chew) 750 mg PO Q4H PRN PRN Reason: Heartburn Dextrose (Dextrose 50 % 25 Gm/50 Ml Syringe) 25 gm IVPUSH Q15M PRN; Protocol PRN Reason: per Hypoglycemia Standing Ord. Glucose (Glucose Gel 15 Gm Gel..Gram.) 15 gm PO Q15M PRN; Protocol PRN Reason: per Hypoglycemia Standing Ord. Piperacillin Sod/Tazobactam (Sod 3.375 gm/ Sodium Chloride) 50 mls @ 100 mls/hr IV Q6H [facility] Last Infusion: 09/26/24 12:29 Dose: Infused Vancomycin HCl 1,250 mg/ (Sodium Chloride) 250 mls @ 166.667 mls/hr IV Q12H [facility] Last Infusion: 09/26/24 09:39 Dose: Infused Insulin Glargine (Insulin Glargine,Hum.Rec.Anlog 100 Unit/Ml 10 Ml Vial) 20 unit SUBCUT BEDTIME [facility] Last Admin: 09/25/24 20:00 Dose: 20 unit Insulin Human Lispro (Insulin Lispro 100 Unit/Ml 3 Ml Vial) 0 unit SUBCUT QIDACHS [facility]; Protocol Last Admin: 09/26/24 11:47 Dose: 4 unit Magnesium Hydroxide (Milk Of Magnesia 30 Ml Oral.Susp) 30 ml PO DAILY PRN PRN Reason: Constipation Melatonin (Melatonin 3 Mg Tablet) 6 mg PO BEDTIME PRN PRN Reason: Insomnia Pharmacy Consult (Consult Rx Vancomycin Dosing) 1 each MISCELLANE DAILY PRN PRN Reason: Consult order Sodium Chloride (0.9 % Sodium Chloride Flush 3 Ml Syringe) 3 ml IVFLUSH QSHIFT [facility] Last Admin: 09/26/24 07:54 Dose: Not Given Vitamin D (Cholecalciferol (Vitamin D3) 25 Mcg Tablet) 25 mcg PO DAILY [facility] Last Admin: 09/26/24 07:54 Dose: 25 mcg Home Medications ?Medication ?Instructions ?Recorded ?Confirmed ?Last Taken ?Type blood sugar diagnostic (FreeStyle #10 ea 02/03/20 07/11/24 Unknown History Lite Strips) cholecalciferol (vitamin D3) 25 25 mcg PO DAILY 02/03/20 09/25/24 09/23/24 History mcg (1,000 unit) capsule fluticasone propionate 50 1 spray intranasal DAILY 02/03/20 09/25/24 09/23/24 History mcg/actuation nasal spray,suspension ibuprofen 800 mg tablet 800 mg PO TID PRN Pain 02/03/20 09/25/24 Unknown History flash glucose scanning reader #1 ea 04/02/20 07/11/24 Unknown History flash glucose sensor #1 ea 04/02/20 07/11/24 Unknown History albuterol sulfate 90 mcg/actuation 2 puff inhalation Q6H PRN 04/10/24 09/25/24 Unknown History aerosol inhaler Shortness Of Breath Or Wheezing apixaban 5 mg tablet (Eliquis) 5 mg PO BID 04/10/24 09/25/24 09/23/24 History aspirin 81 mg chewable tablet 81 mg PO DAILY 04/10/24 09/25/24 09/23/24 History cyclosporine 0.05 % eye drops in a 1 drp ophthalmic (eye) BID PRN Dry 04/10/24 09/25/24 Unknown History dropperette (Restasis) Eye(S) metformin 500 mg tablet,extended 1,000 mg PO BID 04/10/24 09/25/24 09/23/24 History release 24 hr dulaglutide 4.5 mg/0.5 mL 4.5 mg subcut SA 09/25/24 09/25/24 09/20/24 History subcutaneous pen injector (Trulicity) empagliflozin 25 mg tablet 25 mg PO DAILY 09/25/24 09/25/24 09/23/24 History (Jardiance) insulin glargine 100 unit/mL (3 40 unit subcut DAILY 09/25/24 09/25/2425 History mL) subcutaneous pen (Basaglar KwikPen U-100 Insulin) [id number] 300 mcg-K 60 1 tab PO DAILY 09/25/24 09/25/24 09/23/24 History mcg-lycop 600 mcg-lutein 300 mcg tablet (Centrum Silver Men) Physical Exam Vital Signs: Vital Signs: Last Vital Signs Temp 98.3 F 09/26/24 07:25 Pulse 72 09/26/24 07:25 Resp 18 09/26/24 07:25 BP 134/64 09/26/24 07:25 Pulse Ox 94 09/26/24 07:25 O2 Del Method Room Air 09/26/24 07:25 BMI result Body Mass Index 36.9 Const: General: cooperative HEENT: Head: Yes normal to inspection Face and sinus: Yes normal facial exam Mouth: Normal oral and palatal mucosa present Teeth and gingiva: dentition normal Eyes: General: appearance normal, both eyes and all related structures Pupils: Equal, round and reactive pupils present Resp: Effort & Inspection: normal respiratory effort Cardio: Rate: regular rate Rhythm: regular rhythm GI: Palpation (GI): Soft to palpation and nontender : General: Yes no CVA tenderness Back/Spine/Pelvis: Back: no CVA tenderness Skin: General skin exam: no rashes or lesions noted Neuro: General: moves all extremities Cranial nerves: Yes Equal, round and reactive pupils present Extrem: Other: hot red RLE no tinea pedis small eschar heel Psych: Appearance: grossly normal Results Labs 09/26/24 05:50 09/26/24 05:50 Labs: Short CBC 09/26/24 Range/Units 05:50 WBC 11.7 H (4.8-10.8) X10*3/uL Hgb 10.7 L (14.0-18.0) g/dl Hct 31.7 L (42.0-52.0) % Plt Count 172 (160-400) X10*3/uL BMP 09/26/24 09/26/24 05:50 05:50 Sodium 134 L Potassium 3.9 Chloride 103 Carbon Dioxide 25 BUN 16 Creatinine 0.73 0.73 Calcium 8.3 L D Cardiac Enzymes 09/26/24 Range/Units 05:50 Total Creatine Kinase 523 H (38-174) U/L Liver Function 09/26/24 Range/Units 05:50 Total Bilirubin 0.4 (0.0-1.0) mg/dL AST 41 H (5-37) U/L ALT 17 (0-40) U/L Alkaline Phosphatase 59 (39-117) U/L Albumin 3.4 L (3.5-5.0) g/dL Microbiology Microbiology Results: Microbiology 09/25/24 06:12 Blood - Venous Blood Culture - Preliminary No growth after 24 hours. 09/25/24 06:12 Blood - Venous Blood Culture - Preliminary No growth after 24 hours. 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 Possible strep Can use Vancomycin and Zosyn for ulcer coverage and consider MRI if more obvious heel ulcer when redness recedes. Add linezolid for decreasing bacterial toxin and number of bacteria for day or two.
[2024-09-26 15:26] VITALS: BP 164/73; PULSE 74; RESP 18; TEMP 37.2; O2SAT 98
--- NOTE | 2024-09-26 15:48 | PM.CNGS ---
History of Present Illness Consult details Consult date: 09/26/24 Narrative: 63-year-old male referred for cellulitis of the right heel area. He had stepped on a thumb tacked 4 days ago and started to have pain on the right heel. He has had some redness as well so he was brought to the emergency room yesterday. He was admitted because of the cellulitis and was noted to pull feels sepsis criteria I was therefore consulted because of this cellulitis He describes some pain although he says that this has improved. He has a known diabetic. He has a history of DVT as well. He says his blood sugars are well controlled. He is a smoker and has a long history of stasis edema of both lower extremities as well. Review of Systems Constitutional: Constitutional: Reports chills and Denies fever(s) Cardiovascular: Cardiovascular: Denies chest pain, Denies dyspnea and Denies dyspnea on exertion Respiratory: Respiratory: Denies cough, Denies dyspnea and Denies dyspnea on exertion Gastrointestinal: Gastrointestinal: Denies hematochezia and Denies change in bowel habits Genitourinary: Genitourinary: Denies hematuria and Denies difficulty urinating Musculoskeletal: Musculoskeletal: Denies back pain and Denies limited range of motion Neurologic: Denies focal weakness and Denies convulsions Psychiatric: Psychiatric: Denies depression and Denies mood swings PMFSH Past Medical History Medical History History of recurrent deep vein thrombosis (DVT) Vitamin D deficiency Obesity (BMI 30-39.9) Primary osteoarthritis of both hips Smoker History of DVT (deep vein thrombosis) Anemia Stasis edema of both lower extremities Pure hypercholesterolemia Type 2 diabetes mellitus with hyperglycemia Coronary artery disease Osteoarthritis DVT (deep venous thrombosis) 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 Essential hypertension Hyperlipidemia LDL goal <70 Family History Family History Father Hypertension Mother COPD (chronic obstructive pulmonary disease) Brother Colon cancer Sister Alive and well Brother Diabetes Family history: reviewed and not pertinent Surgical History Surgical History History of colonoscopy History of herniorrhaphy History of heart artery stent History of total hip arthroplasty History of appendectomy Social History Social History Household Members: Spouse Housing: House Do you presently have visiting nurse or other home services: No Patient Tobacco Use Status: Former Tobacco user Tobacco use type: Cigarette e-Cigarette/Vaping Use: Never Used service: No Current occupational status: employed Cognitive needs: No Hearing needs: No Vision needs: No Meds Allergies Allergy/AdvReac Type Severity Reaction Status Date / Time oxycodone (OXYCODONE) Allergy Intermediate JITTERY/NA Verified 09/23/24 16:36 USEA pseudoephedrine (From AdvReac Intermediate ELEVATES BP Verified 09/23/24 16:36 SUDAFED) Active Medications: Current Medications Acetaminophen (Acetaminophen 325 Mg Tablet) 650 mg PO Q6H PRN PRN Reason: Pain, Mild 1-3,fever,headache Last Admin: 09/26/24 15:15 Dose: 650 mg Apixaban (Apixaban 5 Mg Tablet) 5 mg PO BID [facility] Last Admin: 09/26/24 07:54 Dose: 5 mg Aspirin (Aspirin 81 Mg Tab.Chew) 81 mg PO DAILY [facility] Last Admin: 09/26/24 07:54 Dose: 81 mg Atorvastatin Calcium (Atorvastatin Calcium 80 Mg Tablet) 80 mg PO DAILY [facility] Last Admin: 09/26/24 07:54 Dose: 80 mg Benzonatate (Benzonatate 100 Mg Capsule) 100 mg PO TID PRN PRN Reason: Cough Last Admin: 09/26/24 12:42 Dose: 100 mg Calcium Carbonate (Calcium Carbonate 750 Mg Tab.Chew) 750 mg PO Q4H PRN PRN Reason: Heartburn Dextrose (Dextrose 50 % 25 Gm/50 Ml Syringe) 25 gm IVPUSH Q15M PRN; Protocol PRN Reason: per Hypoglycemia Standing Ord. Glucose (Glucose Gel 15 Gm Gel..Gram.) 15 gm PO Q15M PRN; Protocol PRN Reason: per Hypoglycemia Standing Ord. Piperacillin Sod/Tazobactam (Sod 3.375 gm/ Sodium Chloride) 50 mls @ 100 mls/hr IV Q6H [facility] Last Infusion: 09/26/24 12:29 Dose: Infused Vancomycin HCl 1,250 mg/ (Sodium Chloride) 250 mls @ 166.667 mls/hr IV Q12H [facility] Last Infusion: 09/26/24 09:39 Dose: Infused Linezolid (Zyvox/D5w) 600 mg in 300 mls @ 300 mls/hr IV Q12H [facility] Insulin Glargine (Insulin Glargine,Hum.Rec.Anlog 100 Unit/Ml 10 Ml Vial) 20 unit SUBCUT BEDTIME [facility] Last Admin: 09/25/24 20:00 Dose: 20 unit Insulin Human Lispro (Insulin Lispro 100 Unit/Ml 3 Ml Vial) 0 unit SUBCUT QIDACHS [facility]; Protocol Last Admin: 09/26/24 11:47 Dose: 4 unit Magnesium Hydroxide (Milk Of Magnesia 30 Ml Oral.Susp) 30 ml PO DAILY PRN PRN Reason: Constipation Melatonin (Melatonin 3 Mg Tablet) 6 mg PO BEDTIME PRN PRN Reason: Insomnia Pharmacy Consult (Consult Rx Vancomycin Dosing) 1 each MISCELLANE DAILY PRN PRN Reason: Consult order Sodium Chloride (0.9 % Sodium Chloride Flush 3 Ml Syringe) 3 ml IVFLUSH QSHIFT [facility] Last Admin: 09/26/24 07:54 Dose: Not Given Vitamin D (Cholecalciferol (Vitamin D3) 25 Mcg Tablet) 25 mcg PO DAILY [facility] Last Admin: 09/26/24 07:54 Dose: 25 mcg Home Medications ?Medication ?Instructions ?Recorded ?Confirmed ?Last Taken ?Type blood sugar diagnostic (FreeStyle #10 ea 02/03/20 07/11/24 Unknown History Lite Strips) cholecalciferol (vitamin D3) 25 25 mcg PO DAILY 02/03/20 09/25/24 09/23/24 History mcg (1,000 unit) capsule fluticasone propionate 50 1 spray intranasal DAILY 02/03/20 09/25/24 09/23/24 History mcg/actuation nasal spray,suspension ibuprofen 800 mg tablet 800 mg PO TID PRN Pain 02/03/20 09/25/24 Unknown History flash glucose scanning reader #1 ea 04/02/20 07/11/24 Unknown History flash glucose sensor #1 ea 04/02/20 07/11/24 Unknown History albuterol sulfate 90 mcg/actuation 2 puff inhalation Q6H PRN 04/10/24 09/25/24 Unknown History aerosol inhaler Shortness Of Breath Or Wheezing apixaban 5 mg tablet (Eliquis) 5 mg PO BID 04/10/24 09/25/24 09/23/24 History aspirin 81 mg chewable tablet 81 mg PO DAILY 01/09/25/24 09/23/24 History cyclosporine 0.05 % eye drops in a 1 drp ophthalmic (eye) BID PRN Dry 04/10/24 09/25/24 Unknown History dropperette (Restasis) Eye(S) metformin 500 mg tablet,extended 1,000 mg PO BID 04/10/24 09/25/24 09/23/24 History release 24 hr dulaglutide 4.5 mg/0.5 mL 4.5 mg subcut SA 09/25/24 09/25/24 09/20/24 History subcutaneous pen injector (Trulicity) empagliflozin 25 mg tablet 25 mg PO DAILY 09/25/24 09/25/24 09/23/24 History (Jardiance) insulin glargine 100 unit/mL (3 40 unit subcut DAILY 09/25/24 09/25/24 09/23/24 History mL) subcutaneous pen (Basaglar KwikPen U-100 Insulin) mzhpvvyy-po-jyrjo 300 mcg-K 60 1 tab PO DAILY 09/25/24 09/25/24 09/23/24 History mcg-lycop 600 mcg-lutein 300 mcg tablet (Centrum Silver Men) Physical Exam Vital Signs: Vital Signs: Last Vital Signs Temp 99 F 09/26/24 15:26 Pulse 74 09/26/24 15:26 Resp 18 09/26/24 15:26 BP 164/73 H 09/26/24 15:26 Pulse Ox 98 09/26/24 15:26 O2 Del Method Room Air 09/26/24 15:26 BMI result Body Mass Index 36.9 Const: General: comfortable and no acute distress Orientation/consciousness: patient oriented x3 Neck: Neck: Yes no lymphadenopathy Resp: Auscultation: clear to auscultation bilaterally Cardio: Rhythm: regular rhythm GI: Palpation (GI): Soft to palpation, nontender and no guarding Neuro: General: patient oriented x3 Extrem: Other: On the right heel is note of a small area of redness and skin breakdown, without any fluctuance, no necrotic tissue, no drainage Results Labs 09/29/24 05:31 09/29/24 05:31 Labs: Abnormal lab results 09/25/24 09/25/24 09/26/24 Range/Units 18:55 21:14 05:50 WBC 11.7 H (4.8-10.8) X10*3/uL RBC 3.94 L (4.60-5.80) X10*6/uL Hgb 10.7 L (14.0-18.0) g/dl Hct 31.7 L (42.0-52.0) % MPV 8.7 L (9.4-12.4) fL Sodium 134 L (135-145) mmol/L Anion Gap 10 L (12-20) POC Glucose 138 H 127 H (60-115) mg/dL Calcium 8.3 L D (8.4-10.2) mg/dL AST 41 H (5-37) U/L Total Creatine Kinase 523 H (38-174) U/L Total Protein 5.8 L (6.5-8.0) g/dL Albumin 3.4 L (3.5-5.0) g/dL 09/26/24 Range/Units 11:27 WBC (4.8-10.8) X10*3/uL RBC (4.60-5.80) X10*6/uL Hgb (14.0-18.0) g/dl Hct (42.0-52.0) % MPV (9.4-12.4) fL Sodium (135-145) mmol/L Anion Gap (12-20) POC Glucose 219 H (60-115) mg/dL Calcium (8.4-10.2) mg/dL AST (5-37) U/L Total Creatine Kinase (38-174) U/L Total Protein (6.5-8.0) g/dL Albumin (3.5-5.0) g/dL Short CBC 09/26/24 Range/Units 05:50 WBC 11.7 H (4.8-10.8) X10*3/uL Hgb 10.7 L (14.0-18.0) g/dl Hct 31.7 L (42.0-52.0) % Plt Count 172 (160-400) X10*3/uL BMP 09/26/24 09/26/24 05:50 05:50 Sodium 134 L Potassium 3.9 Chloride 103 Carbon Dioxide 25 BUN 16 Creatinine 0.73 0.73 Calcium 8.3 L D Cardiac Enzymes 09/26/24 Range/Units 05:50 Total Creatine Kinase 523 H (38-174) U/L Liver Function 09/26/24 Range/Units 05:50 Total Bilirubin 0.4 (0.0-1.0) mg/dL AST 41 H (5-37) U/L ALT 17 (0-40) U/L Alkaline Phosphatase 59 (39-117) U/L Albumin 3.4 L (3.5-5.0) g/dL All other labs normal. Assessment and Plan (1) Cellulitis: Status: Acute Plan He had stepped on a thumb tack 4 days ago and was noted to have redness as well as pain. Current exam does not suggest an abscess. There is no area that appears to require any debridement as well I will therefore continue with IV antibiotics. We will check on him again tomorrow to see if there is any progression significant change He is otherwise hemodynamically stable. He has been afebrile since last night. Procedures Date of Service Date of Service: 09/29/24
[2024-09-26 16:08] LABS: Glucose, Whole Blood 106 mg/dL (60-115)
[2024-09-26] MEDS: Linezolid/D5W 600 MG/300 ML PIGGYBACK 300 MG IV (16:14)
[2024-09-26] MEDS: 0.9 % Sodium Chloride Flush 3 ML SYRINGE IVFLUSH ×2 (16:20→20:59)
[2024-09-26 19:28] VITALS: BP 133/63; PULSE 67; RESP 18; TEMP 36.5; O2SAT 96
[2024-09-26 20:05] LABS: Glucose, Whole Blood 160 mg/dL (60-115)
[2024-09-26] MEDS: Insulin Glargine,Hum.rec.anlog 100 UNIT/ML 10 ML VIAL 20 UNIT SUBCUT (20:59)
[2024-09-27] MEDS: Linezolid/D5W 600 MG/300 ML PIGGYBACK 300 MG IV ×2 (03:23→15:50)
[2024-09-27 03:32] VITALS: BP 148/68; PULSE 68; RESP 18; TEMP 36.6; O2SAT 96
[2024-09-27 07:12] LABS: Glucose, Whole Blood 154 mg/dL (60-115)
[2024-09-27 07:39] VITALS: BP 140/63; PULSE 70; RESP 18; TEMP 36.6; O2SAT 95
[2024-09-27] MEDS: 0.9 % Sodium Chloride Flush 3 ML SYRINGE IVFLUSH ×2 (07:55→21:47)
--- NOTE | 2024-09-27 10:04 | P.PNGS_ITS ---
Subjective Subjective Date of Service: 09/27/24 Interval history: No new complaints Admits to pain on the right heel Says the cellulitic changes on the grace area his chronic Physical Exam 2 Vital Signs: Vital Signs: Last Vital Signs Temp 97.9 F 09/27/24 07:39 Pulse 70 09/27/24 07:39 Resp 18 09/27/24 07:39 BP 140/63 H 09/27/24 07:39 Pulse Ox 95 09/27/24 07:39 O2 Del Method Room Air 09/27/24 07:39 BMI result Body Mass Index 36.9 Const: General: comfortable and no acute distress Resp: Effort & Inspection: normal respiratory effort Cardio: Rate: regular rate Extrem: Other: Right heel area with note of tenderness, fluctuance, no discharge, puncture site not obvious Right grace area with cellulitic changes but he says this is chronic for years Objective Data Active Medications Acetaminophen (Acetaminophen 325 Mg Tablet) 650 mg PO Q6H PRN PRN Reason: Pain, Mild 1-3,fever,headache Last Admin: 09/26/24 15:15 Dose: 650 mg Documented By: GUERRERO Apixaban (Apixaban 5 Mg Tablet) 5 mg PO BID [facility] Last Admin: 09/27/24 07:55 Dose: 5 mg Documented By: AUTUMN Aspirin (Aspirin 81 Mg Tab.Chew) 81 mg PO DAILY [facility] Last Admin: 09/27/24 07:55 Dose: 81 mg Documented By: AUTUMN Atorvastatin Calcium (Atorvastatin Calcium 80 Mg Tablet) 80 mg PO DAILY [facility] Last Admin: 09/27/24 07:55 Dose: 80 mg Documented By: AUTUMN Benzonatate (Benzonatate 100 Mg Capsule) 100 mg PO TID PRN PRN Reason: Cough Last Admin: 09/26/24 12:42 Dose: 100 mg Documented By: GUERRERO Calcium Carbonate (Calcium Carbonate 750 Mg Tab.Chew) 750 mg PO Q4H PRN PRN Reason: Heartburn Dextrose (Dextrose 50 % 25 Gm/50 Ml Syringe) 25 gm IVPUSH Q15M PRN; Protocol PRN Reason: per Hypoglycemia Standing Ord. Glucose (Glucose Gel 15 Gm Gel..Gram.) 15 gm PO Q15M PRN; Protocol PRN Reason: per Hypoglycemia Standing Ord. Piperacillin Sod/Tazobactam (Sod 3.375 gm/ Sodium Chloride) 50 mls @ 100 mls/hr IV Q6H [facility] Last Infusion: 09/27/24 06:44 Dose: Infused Documented By: YARED Linezolid (Zyvox/D5w) 600 mg in 300 mls @ 300 mls/hr IV Q12H [facility] Last Infusion: 09/27/24 04:25 Dose: Infused Documented By: YARED Vancomycin HCl 1,000 mg/ (Sodium Chloride) 270 mls @ 270 mls/hr IV Q8H [facility] Last Infusion: 09/27/24 05:34 Dose: Infused Documented By: YARED Insulin Glargine (Insulin Glargine,Hum.Rec.Anlog 100 Unit/Ml 10 Ml Vial) 20 unit SUBCUT BEDTIME [facility] Last Admin: 09/26/24 20:59 Dose: 20 unit Documented By: YARED Insulin Human Lispro (Insulin Lispro 100 Unit/Ml 3 Ml Vial) 0 unit SUBCUT QIDACHS [facility]; Protocol Last Admin: 09/27/24 07:54 Dose: 2 unit Documented By: AUTUMN Magnesium Hydroxide (Milk Of Magnesia 30 Ml Oral.Susp) 30 ml PO DAILY PRN PRN Reason: Constipation Melatonin (Melatonin 3 Mg Tablet) 6 mg PO BEDTIME PRN PRN Reason: Insomnia Pharmacy Consult (Consult Rx Vancomycin Dosing) 1 each MISCELLANE DAILY PRN PRN Reason: Consult order Sodium Chloride (0.9 % Sodium Chloride Flush 3 Ml Syringe) 3 ml IVFLUSH QSHIFT [facility] Last Admin: 09/27/24 07:55 Dose: 3 ml Documented By: AUTUMN Vitamin D (Cholecalciferol (Vitamin D3) 25 Mcg Tablet) 25 mcg PO DAILY [facility] Last Admin: 09/27/24 07:55 Dose: 25 mcg Documented By: AUTUMN Labs 09/26/24 05:50 09/27/24 05:06 Labs: Laboratory Results - last 24 hr 09/26/24 09/26/24 09/26/24 05:50 11:27 16:01 Hold Purple Top Estim Creat Clear Calc Estimated GFR POC Glucose 219 H 106 Total Creatine Kinase 523 H Vancomycin Trough 09/26/24 09/26/24 09/27/24 18:14 20:02 05:06 Hold Purple Top SEE NOTE Estim Creat Clear Calc 144.8 Estimated GFR > 60 POC Glucose 160 H Total Creatine Kinase Vancomycin Trough 9.5 L 09/27/24 07:04 Hold Purple Top Estim Creat Clear Calc Estimated GFR POC Glucose 154 H Total Creatine Kinase Vancomycin Trough Microbiology Microbiology Results: Microbiology 09/25/24 06:12 Blood Culture - Preliminary Blood - Venous No growth after 48 hours. 09/25/24 06:12 Blood Culture - Preliminary Blood - Venous No growth after 48 hours. Procedures Date of Service Date of Service: 09/27/24 Progress Note: A&P Assessment and plan (1) Cellulitis: Status: Acute Assessment and Plan: Cellulitic area on the right heel from puncture wound from a thumbtack No obvious pus or collection Continue IV antibiotics Blood sugar control - the patient is a diabetic No surgical intervention necessary at this time Time Spent With Patient Time: Total time managing care of this patient today ____ minutes. Quality Stroke Does the patient have a stroke diagnosis?: No VTE Prior VTE?: No VTE Risk Level:: Medical - moderate - high VTE Device Contraindication: N/A - Device Ordered VTE Drug Contraindication: N/A - Med Ordered
[2024-09-27 11:19] LABS: Glucose, Whole Blood 143 mg/dL (60-115)
--- NOTE | 2024-09-27 13:56 | HO.PM.IMPN ---
Subjective Subjective Date of Service: 09/27/24 Interval History: leg infection Review of Systems seems slightly improving no fevers Review of Systems: Yes all other systems are reviewed and are negative Physical Exam Vital Signs: Vital Signs: Last Vital Signs Temp 97.9 F 09/27/24 07:39 Pulse 70 09/27/24 07:39 Resp 18 09/27/24 07:39 BP 140/63 H 09/27/24 07:39 Pulse Ox 95 09/27/24 07:39 O2 Del Method Room Air 09/27/24 07:39 BMI result Body Mass Index 36.9 Appearance: Alert.? Oriented X3.?. cvs: [id number], [id number]. res: clear to auscultation ,no rhonchii or wheezing abd: no rebound or guarding ,nt, bs present. ext pulses present , no cyanosis leg-left leg erythema. neuro: axo3 , nonfocal. Objective Data Active Medications Acetaminophen (Acetaminophen 325 Mg Tablet) 650 mg PO Q6H PRN PRN Reason: Pain, Mild 1-3,fever,headache Last Admin: 09/27/24 11:44 Dose: 650 mg Documented By: AUTUMN Apixaban (Apixaban 5 Mg Tablet) 5 mg PO BID [facility] Last Admin: 09/27/24 07:55 Dose: 5 mg Documented By: AUTUMN Aspirin (Aspirin 81 Mg Tab.Chew) 81 mg PO DAILY [facility] Last Admin: 09/27/24 07:55 Dose: 81 mg Documented By: AUTUMN Atorvastatin Calcium (Atorvastatin Calcium 80 Mg Tablet) 80 mg PO DAILY [facility] Last Admin: 09/27/24 07:55 Dose: 80 mg Documented By: AUTUMN Benzonatate (Benzonatate 100 Mg Capsule) 100 mg PO TID PRN PRN Reason: Cough Last Admin: 09/27/24 12:14 Dose: 100 mg Documented By: AUTUMN Calcium Carbonate (Calcium Carbonate 750 Mg Tab.Chew) 750 mg PO Q4H PRN PRN Reason: Heartburn Dextrose (Dextrose 50 % 25 Gm/50 Ml Syringe) 25 gm IVPUSH Q15M PRN; Protocol PRN Reason: per Hypoglycemia Standing Ord. Glucose (Glucose Gel 15 Gm Gel..Gram.) 15 gm PO Q15M PRN; Protocol PRN Reason: per Hypoglycemia Standing Ord. Piperacillin Sod/Tazobactam (Sod 3.375 gm/ Sodium Chloride) 50 mls @ 100 mls/hr IV Q6H [facility] Last Infusion: 09/27/24 12:07 Dose: Infused Documented By: AUTUMN Linezolid (Zyvox/D5w) 600 mg in 300 mls @ 300 mls/hr IV Q12H [facility] Last Infusion: 09/27/24 04:25 Dose: Infused Documented By: YARED Vancomycin HCl 1,000 mg/ (Sodium Chloride) 270 mls @ 270 mls/hr IV Q8H [facility] Last Infusion: 09/27/24 12:47 Dose: 0 mls/hr Documented By: AUTUMN Insulin Glargine (Insulin Glargine,Hum.Rec.Anlog 100 Unit/Ml 10 Ml Vial) 20 unit SUBCUT BEDTIME [facility] Last Admin: 09/26/24 20:59 Dose: 20 unit Documented By: YARED Insulin Human Lispro (Insulin Lispro 100 Unit/Ml 3 Ml Vial) 0 unit SUBCUT QIDACHS [facility]; Protocol Last Admin: 09/27/24 11:20 Dose: Not Given Documented By: AUTUMN Non-Admin Reason: No Insulin Coverage Magnesium Hydroxide (Milk Of Magnesia 30 Ml Oral.Susp) 30 ml PO DAILY PRN PRN Reason: Constipation Melatonin (Melatonin 3 Mg Tablet) 6 mg PO BEDTIME PRN PRN Reason: Insomnia Pharmacy Consult (Consult Rx Vancomycin Dosing) 1 each MISCELLANE DAILY PRN PRN Reason: Consult order Sodium Chloride (0.9 % Sodium Chloride Flush 3 Ml Syringe) 3 ml IVFLUSH QSHIFT [facility] Last Admin: 09/27/24 07:55 Dose: 3 ml Documented By: AUTUMN Vitamin D (Cholecalciferol (Vitamin D3) 25 Mcg Tablet) 25 mcg PO DAILY [facility] Last Admin: 09/27/24 07:55 Dose: 25 mcg Documented By: AUTUMN Labs 09/26/24 05:50 09/26/24 05:50 Labs: Laboratory Results - last 24 hr 09/26/24 09/26/24 09/26/24 16:01 18:14 20:02 Hold Purple Top Anion Gap Estim Creat Clear Calc Estimated GFR POC Glucose 106 160 H Random Glucose Calcium Vancomycin Trough 9.5 L 09/27/24 09/27/24 09/27/24 05:06 07:04 11:15 Hold Purple Top SEE NOTE Anion Gap Cancelled Estim Creat Clear Calc Cancelled Estimated GFR Cancelled POC Glucose 154 H 143 H Random Glucose Cancelled Calcium Cancelled Vancomycin Trough Microbiology Microbiology Results: Microbiology 09/25/24 06:12 Blood Culture - Preliminary Blood - Venous No growth after 48 hours. 09/25/24 06:12 Blood Culture - Preliminary Blood - Venous No growth after 48 hours. Assessment and Plan (1) Cellulitis: Status: Acute Assessment and Plan: 63 yo M with DM, HTN, HLD, CAD who presents with foot pain after stepping on thumbtack 2-3 days prior to hospitalization. Pt found to have cellulitis / diabetic foot infection leading to sepsis Sepsis, not severe (+wbc/fevers - no lactate/end organ damage)in settiing of Acute cellulitis / possible diabetic foot infection ESR in the 60s, XR without acute findings somewhat improving , no fevers ,blood culture [id number] continue IV vancomcyin/zosyn/linezolid, vanco trough f/u cultures id eval noted. surgery eval noted. 2. DM hold orals POC + sliding scale 3. CAD continue baseline meds, hold bp meds today 4. 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 HTN hold BP meds for now and likley restart by tomorrow 6. HLD statin Full Code DVT pptx, Eliquis Pt wit sepsis due to cellulitis / DFI with possible bacteremia therefore expected to require iv abx , id eval Quality Stroke Does the patient have a stroke diagnosis?: No VTE Prior VTE?: No VTE Risk Level:: Medical - moderate - high VTE Device Contraindication: N/A - Device Ordered VTE Drug Contraindication: N/A - Med Ordered
[2024-09-27 15:42] VITALS: BP 157/72; PULSE 65; RESP 20; TEMP 36.4; O2SAT 95
[2024-09-27 15:56] LABS: Glucose, Whole Blood 155 mg/dL (60-115)
[2024-09-27 19:28] VITALS: BP 153/68; PULSE 74; RESP 20; TEMP 37; O2SAT 94
[2024-09-27 20:51] LABS: Glucose, Whole Blood 199 mg/dL (60-115)
[2024-09-27] MEDS: Insulin Glargine,Hum.rec.anlog 100 UNIT/ML 10 ML VIAL 20 UNIT SUBCUT (21:43)
[2024-09-28] MEDS: Linezolid/D5W 600 MG/300 ML PIGGYBACK 300 MG IV ×2 (03:17→16:05)
[2024-09-28 04:00] VITALS: BP 153/69; PULSE 66; RESP 20; TEMP 36.7; O2SAT 95
[2024-09-28 06:29] LABS: Creatinine Clr Calc Pharmacy 162.0; Estimated Glomerular Filt Rate > 60
[2024-09-28 07:08] LABS: Glucose, Whole Blood 134 mg/dL (60-115)
[2024-09-28 07:29] VITALS: BP 143/65; PULSE 69; RESP 16; TEMP 36; O2SAT 96
[2024-09-28 07:56] LABS: Anion Gap 16 (12-20); Blood Urea Nitrogen 8 mg/dL (9-16); Calcium 8.6 mg/dL (8.4-10.2); Carbon Dioxide 18 mmol/L (22-29); Chloride 108 mmol/L (96-108); Potassium 4.8 mmol/L (3.3-5.1); Sodium 137 mmol/L (135-145)
[2024-09-28] MEDS: 0.9 % Sodium Chloride Flush 3 ML SYRINGE IVFLUSH ×3 (08:29→20:07)
[2024-09-28 08:45] LABS: MANUAL DIFF FLAG NO
[2024-09-28 08:46] LABS: Hematocrit 32.9 % (42.0-52.0); Hemoglobin 11.1 g/dl (14.0-18.0); Imm Gran Abs Auto 0.24 X10*3/uL (0.00-0.03); Imm Gran Pct Auto 1.8 % (0.0-0.4); Lymphocytes Absolute Auto 3.2 X10*3/uL (1.2-4.9); Mean Corpuscular HGB Conc 33.7 g/dl (31.0-36.0); Mean Corpuscular Hemoglobin 27.4 pg (27.0-33.0); Mean Corpuscular Volume 81.2 fL (80.0-98.0); NRBC Abs Auto 0.000 X10*3/uL (0.0-0.012); NRBC Pct Auto 0.0 /100WBC (0.0-0.2); Platelet Count 229 X10*3/uL (160-400); Red Blood Count 4.05 X10*6/uL (4.60-5.80); White Blood Count 13.1 X10*3/uL (4.8-10.8)
--- NOTE | 2024-09-28 09:38 | P.PNGS_ITS ---
Subjective Subjective Date of Service: 09/28/24 Interval history: He says his heel is just a little better but still having pain No fever No other new complaints Physical Exam 2 Vital Signs: Vital Signs: Last Vital Signs Temp 96.8 F 09/28/24 07:29 Pulse 69 09/28/24 07:29 Resp 16 09/28/24 07:29 BP 143/65 H 09/28/24 07:29 Pulse Ox 96 09/28/24 07:29 O2 Del Method Room Air 09/28/24 07:29 BMI result Body Mass Index 36.9 Const: General: comfortable and no acute distress Resp: Effort & Inspection: normal respiratory effort Cardio: Rate: regular rate GI: Palpation (GI): Soft to palpation Extrem: Other: Right heel puncture site with tenderness and redness, no obvious fluctuance but yeast distiller He has chronic cellulitis on the anterior grace area all the way to the area below the knee, separate from the right heel puncture site Objective Data Active Medications Acetaminophen (Acetaminophen 325 Mg Tablet) 650 mg PO Q6H PRN PRN Reason: Pain, Mild 1-3,fever,headache Last Admin: 09/28/24 09:07 Dose: 650 mg Documented By: JOURDAN Apixaban (Apixaban 5 Mg Tablet) 5 mg PO BID [facility] Last Admin: 09/28/24 08:29 Dose: 5 mg Documented By: JOURDAN Aspirin (Aspirin 81 Mg Tab.Chew) 81 mg PO DAILY [facility] Last Admin: 09/28/24 08:29 Dose: 81 mg Documented By: JOURDAN Atorvastatin Calcium (Atorvastatin Calcium 80 Mg Tablet) 80 mg PO DAILY [facility] Last Admin: 09/28/24 08:29 Dose: 80 mg Documented By: JOURDAN Benzonatate (Benzonatate 100 Mg Capsule) 100 mg PO TID PRN PRN Reason: Cough Last Admin: 09/28/24 03:25 Dose: 100 mg Documented By: YARED Calcium Carbonate (Calcium Carbonate 750 Mg Tab.Chew) 750 mg PO Q4H PRN PRN Reason: Heartburn Dextrose (Dextrose 50 % 25 Gm/50 Ml Syringe) 25 gm IVPUSH Q15M PRN; Protocol PRN Reason: per Hypoglycemia Standing Ord. Glucose (Glucose Gel 15 Gm Gel..Gram.) 15 gm PO Q15M PRN; Protocol PRN Reason: per Hypoglycemia Standing Ord. Piperacillin Sod/Tazobactam (Sod 3.375 gm/ Sodium Chloride) 50 mls @ 100 mls/hr IV Q6H [facility] Last Infusion: 09/28/24 07:05 Dose: Infused Documented By: YARED Linezolid (Zyvox/D5w) 600 mg in 300 mls @ 300 mls/hr IV Q12H [facility] Last Infusion: 09/28/24 04:17 Dose: Infused Documented By: YARED Vancomycin HCl 1,250 mg/ (Sodium Chloride) 250 mls @ 166.667 mls/hr IV Q8H [facility] Last Infusion: 09/28/24 06:29 Dose: Infused Documented By: YARED Insulin Glargine (Insulin Glargine,Hum.Rec.Anlog 100 Unit/Ml 10 Ml Vial) 20 unit SUBCUT BEDTIME [facility] Last Admin: 09/27/24 21:43 Dose: 20 unit Documented By: YARED Insulin Human Lispro (Insulin Lispro 100 Unit/Ml 3 Ml Vial) 0 unit SUBCUT QIDACHS [facility]; Protocol Last Admin: 09/28/24 08:23 Dose: Not Given Documented By: JOURDAN Non-Admin Reason: No Insulin Coverage Magnesium Hydroxide (Milk Of Magnesia 30 Ml Oral.Susp) 30 ml PO DAILY PRN PRN Reason: Constipation Melatonin (Melatonin 3 Mg Tablet) 6 mg PO BEDTIME PRN PRN Reason: Insomnia Pharmacy Consult (Consult Rx Vancomycin Dosing) 1 each MISCELLANE DAILY PRN PRN Reason: Consult order Sodium Chloride (0.9 % Sodium Chloride Flush 3 Ml Syringe) 3 ml IVFLUSH QSHIFT [facility] Last Admin: 09/28/24 08:29 Dose: 3 ml Documented By: JOURDAN Vitamin D (Cholecalciferol (Vitamin D3) 25 Mcg Tablet) 25 mcg PO DAILY [facility] Last Admin: 09/28/24 08:29 Dose: 25 mcg Documented By: JOURDAN Labs 09/28/24 08:26 09/28/24 05:42 Labs: Laboratory Results - last 24 hr 09/27/24 09/27/24 09/27/24 05:06 11:15 15:53 MCV MCH MCHC RDW Plt Count MPV Immature Gran % (Auto) Neut % (Auto) Lymph % (Auto) Mineral % (Auto) Eos % (Auto) Baso % (Auto) Lymph # (Auto) [place] # (Auto) Eos # (Auto) Baso # (Auto) Abs Immat Gran (auto) Absolute Neuts (auto) Absolute Nucleated RBC Nucleated RBC % (auto) Anion Gap Cancelled Estim Creat Clear Calc Cancelled Estimated GFR Cancelled POC Glucose 143 H 155 H Random Glucose Cancelled Calcium Cancelled C-Reactive Protein Random Vancomycin 09/27/24 09/27/24 09/28/24 17:56 20:46 05:42 MCV MCH MCHC RDW Plt Count MPV Immature Gran % (Auto) Neut % (Auto) Lymph % (Auto) [place] % (Auto) Eos % (Auto) Baso % (Auto) Lymph # (Auto) [place] # (Auto) Eos # (Auto) Baso # (Auto) Abs Immat Gran (auto) Absolute Neuts (auto) Absolute Nucleated RBC Nucleated RBC % (auto) Anion Gap 16 Estim Creat Clear Calc 162.0 Estimated GFR > 60 POC Glucose 199 H Random Glucose 130 H Calcium 8.6 C-Reactive Protein Random Vancomycin 12.7 L 09/28/24 09/28/24 09/28/24 06:59 08:25 08:26 MCV 81.2 MCH 27.4 MCHC 33.7 RDW 16.0 Plt Count 229 D MPV 8.9 L Immature Gran % (Auto) 1.8 H Neut % (Auto) 63.9 Lymph % (Auto) 24.1 [place] % (Auto) 7.9 Eos % (Auto) 1.9 Baso % (Auto) 0.4 Lymph # (Auto) 3.2 [place] # (Auto) 1.0 Eos # (Auto) 0.3 Baso # (Auto) 0.1 Abs Immat Gran (auto) 0.24 H Absolute Neuts (auto) 8.4 H Absolute Nucleated RBC 0.000 Nucleated RBC % (auto) 0.0 Anion Gap Estim Creat Clear Calc Estimated GFR POC Glucose 134 H Random Glucose Calcium C-Reactive Protein 19.05 H Random Vancomycin Microbiology Microbiology Results: Microbiology 09/25/24 06:12 Blood Culture - Preliminary Blood - Venous No growth after 48 hours. 09/25/24 06:12 Blood Culture - Preliminary Blood - Venous No growth after 48 hours. Procedures Date of Service Date of Service: 09/28/24 Progress Note: A&P Assessment and plan (1) Cellulitis: Status: Acute Assessment and Plan: From thumb packed puncture site on the heel Continues to have tenderness Okay to check MRI Dressings changed using foam dressing IV antibiotics He is not septic looking We will follow Time Spent With Patient Time: Total time managing care of this patient today ____ minutes. Quality Stroke Does the patient have a stroke diagnosis?: No VTE Prior VTE?: No VTE Risk Level:: Medical - moderate - high VTE Device Contraindication: N/A - Device Ordered VTE Drug Contraindication: N/A - Med Ordered
[2024-09-28 10:51] LABS: Glucose, Whole Blood 177 mg/dL (60-115)
--- NOTE | 2024-09-28 13:31 | HO.PM.IMPN ---
Subjective Subjective Date of Service: 09/28/24 Interval History: foot /leg infection Review of Systems erythema improving somewhat no fevers Review of Systems: Yes all other systems are reviewed and are negative Physical Exam Vital Signs: Vital Signs: Last Vital Signs Temp 96.8 F 09/28/24 07:29 Pulse 69 09/28/24 07:29 Resp 16 09/28/24 07:29 BP 143/65 H 09/28/24 07:29 Pulse Ox 96 09/28/24 07:29 O2 Del Method Room Air 09/28/24 07:29 BMI result Body Mass Index 36.9 Appearance: Alert.? Oriented X3.?. cvs: [id number], [id number]. res: clear to auscultation ,no rhonchii or wheezing abd: no rebound or guarding ,nt, bs present. ext pulses present , no cyanosis leg-left leg erythema. neuro: axo3 , nonfocal. Objective Data Active Medications Acetaminophen (Acetaminophen 325 Mg Tablet) 650 mg PO Q6H PRN PRN Reason: Pain, Mild 1-3,fever,headache Last Admin: 09/28/24 09:07 Dose: 650 mg Documented By: JOURDAN Apixaban (Apixaban 5 Mg Tablet) 5 mg PO BID [facility] Last Admin: 09/28/24 08:29 Dose: 5 mg Documented By: JOURDAN Aspirin (Aspirin 81 Mg Tab.Chew) 81 mg PO DAILY [facility] Last Admin: 09/28/24 08:29 Dose: 81 mg Documented By: JOURDAN Atorvastatin Calcium (Atorvastatin Calcium 80 Mg Tablet) 80 mg PO DAILY [facility] Last Admin: 09/28/24 08:29 Dose: 80 mg Documented By: JOURDAN Benzonatate (Benzonatate 100 Mg Capsule) 100 mg PO TID PRN PRN Reason: Cough Last Admin: 09/28/24 03:25 Dose: 100 mg Documented By: YARED Calcium Carbonate (Calcium Carbonate 750 Mg Tab.Chew) 750 mg PO Q4H PRN PRN Reason: Heartburn Dextrose (Dextrose 50 % 25 Gm/50 Ml Syringe) 25 gm IVPUSH Q15M PRN; Protocol PRN Reason: per Hypoglycemia Standing Ord. Glucose (Glucose Gel 15 Gm Gel..Gram.) 15 gm PO Q15M PRN; Protocol PRN Reason: per Hypoglycemia Standing Ord. Piperacillin Sod/Tazobactam (Sod 3.375 gm/ Sodium Chloride) 50 mls @ 100 mls/hr IV Q6H [facility] Last Infusion: 09/28/24 13:21 Dose: Infused Documented By: JOURDAN Linezolid (Zyvox/D5w) 600 mg in 300 mls @ 300 mls/hr IV Q12H [facility] Last Infusion: 09/28/24 04:17 Dose: Infused Documented By: YARED Vancomycin HCl 1,250 mg/ (Sodium Chloride) 250 mls @ 166.667 mls/hr IV Q8H [facility] Last Infusion: 09/28/24 06:29 Dose: Infused Documented By: YARED Insulin Glargine (Insulin Glargine,Hum.Rec.Anlog 100 Unit/Ml 10 Ml Vial) 20 unit SUBCUT BEDTIME [facility] Last Admin: 09/27/24 21:43 Dose: 20 unit Documented By: YARED Insulin Human Lispro (Insulin Lispro 100 Unit/Ml 3 Ml Vial) 0 unit SUBCUT QIDACHS [facility]; Protocol Last Admin: 09/28/24 13:05 Dose: Not Given Documented By: JOURDAN Non-Admin Reason: off unit Magnesium Hydroxide (Milk Of Magnesia 30 Ml Oral.Susp) 30 ml PO DAILY PRN PRN Reason: Constipation Melatonin (Melatonin 3 Mg Tablet) 6 mg PO BEDTIME PRN PRN Reason: Insomnia Pharmacy Consult (Consult Rx Vancomycin Dosing) 1 each MISCELLANE DAILY PRN PRN Reason: Consult order Sodium Chloride (0.9 % Sodium Chloride Flush 3 Ml Syringe) 3 ml IVFLUSH QSHIFT [facility] Last Admin: 09/28/24 08:29 Dose: 3 ml Documented By: JOURDAN Vitamin D (Cholecalciferol (Vitamin D3) 25 Mcg Tablet) 25 mcg PO DAILY [facility] Last Admin: 09/28/24 08:29 Dose: 25 mcg Documented By: JOURDAN Labs 09/28/24 08:26 09/28/24 05:42 Labs: Laboratory Results - last 24 hr 09/27/24 09/27/24 09/27/24 15:53 17:56 20:46 MCV MCH MCHC RDW Plt Count MPV Immature Gran % (Auto) Neut % (Auto) Lymph % (Auto) [place] % (Auto) Eos % (Auto) Baso % (Auto) Lymph # (Auto) [place] # (Auto) Eos # (Auto) Baso # (Auto) Abs Immat Gran (auto) Absolute Neuts (auto) Absolute Nucleated RBC Nucleated RBC % (auto) ESR Anion Gap Estim Creat Clear Calc Estimated GFR POC Glucose 155 H 199 H Random Glucose Calcium C-Reactive Protein Random Vancomycin 12.7 L 09/28/24 09/28/24 09/28/24 05:42 06:59 08:25 MCV MCH MCHC RDW Plt Count MPV Immature Gran % (Auto) Neut % (Auto) Lymph % (Auto) [place] % (Auto) Eos % (Auto) Baso % (Auto) Lymph # (Auto) [place] # (Auto) Eos # (Auto) Baso # (Auto) Abs Immat Gran (auto) Absolute Neuts (auto) Absolute Nucleated RBC Nucleated RBC % (auto) ESR Anion Gap 16 Estim Creat Clear Calc 162.0 Estimated GFR > 60 POC Glucose 134 H Random Glucose 130 H Calcium 8.6 C-Reactive Protein 19.05 H Random Vancomycin 09/28/24 09/28/24 08:26 10:46 MCV 81.2 MCH 27.4 MCHC 33.7 RDW 16.0 Plt Count 229 D MPV 8.9 L Immature Gran % (Auto) 1.8 H Neut % (Auto) 63.9 Lymph % (Auto) 24.1 [place] % (Auto) 7.9 Eos % (Auto) 1.9 Baso % (Auto) 0.4 Lymph # (Auto) 3.2 [place] # (Auto) 1.0 Eos # (Auto) 0.3 Baso # (Auto) 0.1 Abs Immat Gran (auto) 0.24 H Absolute Neuts (auto) 8.4 H Absolute Nucleated RBC 0.000 Nucleated RBC % (auto) 0.0 ESR 87 H Anion Gap Estim Creat Clear Calc Estimated GFR POC Glucose 177 H Random Glucose Calcium C-Reactive Protein Random Vancomycin Assessment and Plan (1) Cellulitis: Status: Acute Assessment and Plan: 63 yo M with DM, HTN, HLD, CAD who presents with foot pain after stepping on thumbtack 2-3 days prior to hospitalization. Pt found to have cellulitis / diabetic foot infection leading to sepsis Sepsis, not severe (+wbc/fevers - no lactate/end organ damage)in settiing of Acute cellulitis / possible diabetic foot infection ESR in the 60s, XR without acute findings somewhat improving , no fevers ,blood culture [id number] continue IV vancomcyin/zosyn/linezolid, vanco trough added arterial dupplex and mri . f/u cultures id eval noted. surgery following -will check mri ,continue antibiotics and dressing. 2. DM hold orals POC + sliding scale 3. CAD continue baseline meds, hold bp meds today 4. 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 HTN hold BP meds for now and felicityley restart by tomorrow 6. HLD statin Full Code DVT pptx, Eliquis Pt wit sepsis due to cellulitis / DFI with possible bacteremia therefore expected to require iv abx , id eval Quality Stroke Does the patient have a stroke diagnosis?: No VTE Prior VTE?: No VTE Risk Level:: Medical - moderate - high VTE Device Contraindication: N/A - Device Ordered VTE Drug Contraindication: N/A - Med Ordered
[2024-09-28 15:14] VITALS: BP 159/71; PULSE 71; RESP 18; TEMP 36.1; O2SAT 96
[2024-09-28 16:10] LABS: Glucose, Whole Blood 178 mg/dL (60-115)
[2024-09-28 19:38] VITALS: BP 175/79; PULSE 70; RESP 18; TEMP 37.7; O2SAT 97
[2024-09-28 19:54] LABS: Glucose, Whole Blood 327 mg/dL (60-115)
[2024-09-28] MEDS: Insulin Glargine,Hum.rec.anlog 100 UNIT/ML 10 ML VIAL 20 UNIT SUBCUT (20:03)
[2024-09-29] MEDS: Linezolid/D5W 600 MG/300 ML PIGGYBACK 300 MG IV ×2 (03:02→15:42)
[2024-09-29 03:26] VITALS: BP 164/76; PULSE 63; RESP 18; TEMP 36.5; O2SAT 95
[2024-09-29 06:12] LABS: Hematocrit 31.9 % (42.0-52.0); Hemoglobin 10.4 g/dl (14.0-18.0); Imm Gran Abs Auto 0.51 X10*3/uL (0.00-0.03); Imm Gran Pct Auto 3.9 % (0.0-0.4); Lymphocytes Absolute Auto 4.0 X10*3/uL (1.2-4.9); MANUAL DIFF FLAG SCAN; Mean Corpuscular HGB Conc 32.6 g/dl (31.0-36.0); Mean Corpuscular Hemoglobin 27.2 pg (27.0-33.0); Mean Corpuscular Volume 83.3 fL (80.0-98.0); NRBC Abs Auto 0.000 X10*3/uL (0.0-0.012); NRBC Pct Auto 0.0 /100WBC (0.0-0.2); Platelet Count 284 X10*3/uL (160-400); Red Blood Count 3.83 X10*6/uL (4.60-5.80); SCAN SMEAR FLAG 1; White Blood Count 13.2 X10*3/uL (4.8-10.8)
[2024-09-29 06:27] LABS: Creatinine Clr Calc Pharmacy 169.6; Estimated Glomerular Filt Rate > 60
[2024-09-29 06:39] VITALS: BP 136/62; PULSE 65; RESP 16; TEMP 36.6; O2SAT 95
[2024-09-29 06:59] LABS: Glucose, Whole Blood 175 mg/dL (60-115)
[2024-09-29] MEDS: 0.9 % Sodium Chloride Flush 3 ML SYRINGE IVFLUSH ×3 (07:49→20:53)
--- NOTE | 2024-09-29 08:14 | P.PNGS_ITS ---
Subjective Subjective Date of Service: 09/29/24 Interval history: No new complaints No events overnight Says he has no pain unless he steps on his heel Physical Exam 2 Vital Signs: Vital Signs: Last Vital Signs Temp 98 F 09/29/24 06:39 Pulse 65 09/29/24 06:39 Resp 16 09/29/24 06:39 BP 136/62 09/29/24 06:39 Pulse Ox 95 09/29/24 06:39 O2 Del Method Room Air 09/29/24 06:39 BMI result Body Mass Index 36.9 Const: General: comfortable and no acute distress Resp: Effort & Inspection: normal respiratory effort Cardio: Rate: regular rate Objective Data Active Medications Acetaminophen (Acetaminophen 325 Mg Tablet) 650 mg PO Q6H PRN PRN Reason: Pain, Mild 1-3,fever,headache Last Admin: 09/28/24 18:45 Dose: 650 mg Documented By: JOURDAN Apixaban (Apixaban 5 Mg Tablet) 5 mg PO BID [facility] Last Admin: 09/29/24 07:55 Dose: 5 mg Documented By: GUERRERO Aspirin (Aspirin 81 Mg Tab.Chew) 81 mg PO DAILY [facility] Last Admin: 09/29/24 07:55 Dose: 81 mg Documented By: GUERRERO Atorvastatin Calcium (Atorvastatin Calcium 80 Mg Tablet) 80 mg PO DAILY [facility] Last Admin: 09/29/24 07:55 Dose: 80 mg Documented By: GUERRERO Benzonatate (Benzonatate 100 Mg Capsule) 100 mg PO TID PRN PRN Reason: Cough Last Admin: 09/29/24 03:08 Dose: 100 mg Documented By: YADI Calcium Carbonate (Calcium Carbonate 750 Mg Tab.Chew) 750 mg PO Q4H PRN PRN Reason: Heartburn Dextrose (Dextrose 50 % 25 Gm/50 Ml Syringe) 25 gm IVPUSH Q15M PRN; Protocol PRN Reason: per Hypoglycemia Standing Ord. Glucose (Glucose Gel 15 Gm Gel..Gram.) 15 gm PO Q15M PRN; Protocol PRN Reason: per Hypoglycemia Standing Ord. Piperacillin Sod/Tazobactam (Sod 3.375 gm/ Sodium Chloride) 50 mls @ 100 mls/hr IV Q6H [facility] Last Infusion: 09/29/24 06:10 Dose: Infused Documented By: YADI Linezolid (Zyvox/D5w) 600 mg in 300 mls @ 300 mls/hr IV Q12H [facility] Last Infusion: 09/29/24 04:03 Dose: Infused Documented By: YADI Vancomycin HCl 1,250 mg/ (Sodium Chloride) 250 mls @ 166.667 mls/hr IV Q8H [facility] Last Infusion: 09/29/24 07:50 Dose: Infused Documented By: GUERRERO Insulin Glargine (Insulin Glargine,Hum.Rec.Anlog 100 Unit/Ml 10 Ml Vial) 20 unit SUBCUT BEDTIME [facility] Last Admin: 09/28/24 20:03 Dose: 20 unit Documented By: YADI Insulin Human Lispro (Insulin Lispro 100 Unit/Ml 3 Ml Vial) 0 unit SUBCUT QIDACHS [facility]; Protocol Last Admin: 09/29/24 07:55 Dose: 2 unit Documented By: GUERRERO Magnesium Hydroxide (Milk Of Magnesia 30 Ml Oral.Susp) 30 ml PO DAILY PRN PRN Reason: Constipation Melatonin (Melatonin 3 Mg Tablet) 6 mg PO BEDTIME PRN PRN Reason: Insomnia Pharmacy Consult (Consult Rx Vancomycin Dosing) 1 each MISCELLANE DAILY PRN PRN Reason: Consult order Sodium Chloride (0.9 % Sodium Chloride Flush 3 Ml Syringe) 3 ml IVFLUSH QSHIFT [facility] Last Admin: 09/29/24 07:49 Dose: 3 ml Documented By: GUERRERO Vitamin D (Cholecalciferol (Vitamin D3) 25 Mcg Tablet) 25 mcg PO DAILY [facility] Last Admin: 09/29/24 07:55 Dose: 25 mcg Documented By: GUERRERO Labs 09/29/24 05:31 09/29/24 05:31 Labs: Laboratory Results - last 24 hr 09/28/24 09/28/24 09/28/24 08:25 08:26 10:46 MCV 81.2 MCH 27.4 MCHC 33.7 RDW 16.0 Plt Count 229 D MPV 8.9 L Immature Gran % (Auto) 1.8 H Neut % (Auto) 63.9 Lymph % (Auto) 24.1 [place] % (Auto) 7.9 Eos % (Auto) 1.9 Baso % (Auto) 0.4 Lymph # (Auto) 3.2 [place] # (Auto) 1.0 Eos # (Auto) 0.3 Baso # (Auto) 0.1 Abs Immat Gran (auto) 0.24 H Absolute Neuts (auto) 8.4 H Absolute Nucleated RBC 0.000 Nucleated RBC % (auto) 0.0 Smear Tech's Comments ESR 87 H Hold Purple Top Hold Blue Top Estim Creat Clear Calc Estimated GFR POC Glucose 177 H C-Reactive Protein 19.05 H Random Vancomycin 09/28/24 09/28/24 09/28/24 16:06 19:51 20:19 MCV MCH MCHC RDW Plt Count MPV Immature Gran % (Auto) Neut % (Auto) Lymph % (Auto) [place] % (Auto) Eos % (Auto) Baso % (Auto) Lymph # (Auto) [place] # (Auto) Eos # (Auto) Baso # (Auto) Abs Immat Gran (auto) Absolute Neuts (auto) Absolute Nucleated RBC Nucleated RBC % (auto) Smear Tech's Comments ESR Hold Purple Top SEE NOTE Hold Blue Top SEE NOTE Estim Creat Clear Calc Estimated GFR POC Glucose 178 H 327 H C-Reactive Protein Random Vancomycin 13.7 L 09/29/24 09/29/24 05:31 06:54 MCV 83.3 MCH 27.2 MCHC 32.6 RDW 15.9 Plt Count 284 MPV 8.8 L Immature Gran % (Auto) 3.9 H Neut % (Auto) 56.0 Lymph % (Auto) 30.0 [place] % (Auto) 6.9 Eos % (Auto) 2.7 Baso % (Auto) 0.5 Lymph # (Auto) 4.0 [place] # (Auto) 0.9 Eos # (Auto) 0.4 Baso # (Auto) 0.1 Abs Immat Gran (auto) 0.51 H Absolute Neuts (auto) 7.4 Absolute Nucleated RBC 0.000 Nucleated RBC % (auto) 0.0 Smear Tech's Comments VERIFIED ESR Hold Purple Top Hold Blue Top Estim Creat Clear Calc 169.6 Estimated GFR > 60 POC Glucose 175 H C-Reactive Protein Findings: There is a mild amount of subchondral edema and enhancement within the talus and calcaneus centered upon the subtalar joint, degenerative. No bone marrow edema or enhancement to indicate osteomyelitis. Articulations are preserved. Flexor and extensor tendons are intact. The intrinsic musculature is atrophic and edematous secondary to infectious myositis. Intact plantar fascia. Edema and enhancement within the subcutaneous fat indicating cellulitis. No rim enhancing fluid collection. Random Vancomycin Procedures Date of Service Date of Service: 09/29/24 Progress Note: A&P Assessment and plan (1) Cellulitis: Status: Acute Assessment and Plan: From puncture wound with a thumb tack on the right heel MRI does not suggest osteomyelitis No fluid collection on MRI Continue IV antibiotics No need for I and D or debridement currently We will follow up Time Spent With Patient Time: Total time managing care of this patient today ____ minutes. Quality Stroke Does the patient have a stroke diagnosis?: No VTE Prior VTE?: No VTE Risk Level:: Medical - moderate - high VTE Device Contraindication: N/A - Device Ordered VTE Drug Contraindication: N/A - Med Ordered
[2024-09-29 11:20] LABS: Glucose, Whole Blood 180 mg/dL (60-115)
--- NOTE | 2024-09-29 13:28 | HO.PM.IMPN ---
Subjective Subjective Date of Service: 09/29/24 Interval History: foot infections Review of Systems leg erythema slowly improving Review of Systems: Yes all other systems are reviewed and are negative Physical Exam Vital Signs: Vital Signs: Last Vital Signs Temp 98 F 09/29/24 06:39 Pulse 65 09/29/24 06:39 Resp 16 09/29/24 06:39 BP 136/62 09/29/24 06:39 Pulse Ox 95 09/29/24 06:39 O2 Del Method Room Air 09/29/24 06:39 BMI result Body Mass Index 36.9 Appearance: Alert.? Oriented X3.?. cvs: rrr, [id number]. res: clear to auscultation ,no rhonchii or wheezing abd: no rebound or guarding ,nt, bs present. ext pulses present , no cyanosis leg-left leg erythema. neuro: axo3 , nonfocal. Objective Data Active Medications Acetaminophen (Acetaminophen 325 Mg Tablet) 650 mg PO Q6H PRN PRN Reason: Pain, Mild 1-3,fever,headache Last Admin: 09/29/24 10:44 Dose: 650 mg Documented By: GUERRERO Apixaban (Apixaban 5 Mg Tablet) 5 mg PO BID [facility] Last Admin: 09/29/24 07:55 Dose: 5 mg Documented By: GUERRERO Aspirin (Aspirin 81 Mg Tab.Chew) 81 mg PO DAILY [facility] Last Admin: 09/29/24 07:55 Dose: 81 mg Documented By: GUERRERO Atorvastatin Calcium (Atorvastatin Calcium 80 Mg Tablet) 80 mg PO DAILY [facility] Last Admin: 09/29/24 07:55 Dose: 80 mg Documented By: GUERRERO Benzonatate (Benzonatate 100 Mg Capsule) 100 mg PO TID PRN PRN Reason: Cough Last Admin: 09/29/24 03:08 Dose: 100 mg Documented By: YADI Calcium Carbonate (Calcium Carbonate 750 Mg Tab.Chew) 750 mg PO Q4H PRN PRN Reason: Heartburn Dextrose (Dextrose 50 % 25 Gm/50 Ml Syringe) 25 gm IVPUSH Q15M PRN; Protocol PRN Reason: per Hypoglycemia Standing Ord. Glucose (Glucose Gel 15 Gm Gel..Gram.) 15 gm PO Q15M PRN; Protocol PRN Reason: per Hypoglycemia Standing Ord. Piperacillin Sod/Tazobactam (Sod 3.375 gm/ Sodium Chloride) 50 mls @ 100 mls/hr IV Q6H [facility] Last Infusion: 09/29/24 12:19 Dose: Infused Documented By: GUERRERO Linezolid (Zyvox/D5w) 600 mg in 300 mls @ 300 mls/hr IV Q12H [facility] Last Infusion: 09/29/24 04:03 Dose: Infused Documented By: YADI Vancomycin HCl 1,250 mg/ (Sodium Chloride) 250 mls @ 166.667 mls/hr IV Q8H [facility] Last Infusion: 09/29/24 07:50 Dose: Infused Documented By: GUERRERO Insulin Glargine (Insulin Glargine,Hum.Rec.Anlog 100 Unit/Ml 10 Ml Vial) 20 unit SUBCUT BEDTIME [facility] Last Admin: 09/28/24 20:03 Dose: 20 unit Documented By: YADI Insulin Human Lispro (Insulin Lispro 100 Unit/Ml 3 Ml Vial) 0 unit SUBCUT QIDACHS [facility]; Protocol Last Admin: 09/29/24 11:43 Dose: 2 unit Documented By: GUERRERO Magnesium Hydroxide (Milk Of Magnesia 30 Ml Oral.Susp) 30 ml PO DAILY PRN PRN Reason: Constipation Melatonin (Melatonin 3 Mg Tablet) 6 mg PO BEDTIME PRN PRN Reason: Insomnia Pharmacy Consult (Consult Rx Vancomycin Dosing) 1 each MISCELLANE DAILY PRN PRN Reason: Consult order Sodium Chloride (0.9 % Sodium Chloride Flush 3 Ml Syringe) 3 ml IVFLUSH QSHIFT [facility] Last Admin: 09/29/24 07:49 Dose: 3 ml Documented By: GUERRERO Vitamin D (Cholecalciferol (Vitamin D3) 25 Mcg Tablet) 25 mcg PO DAILY [facility] Last Admin: 09/29/24 07:55 Dose: 25 mcg Documented By: GUERRERO Labs 09/29/24 05:31 09/29/24 05:31 Labs: Laboratory Results - last 24 hr 09/28/24 09/28/24 09/28/24 16:06 19:51 20:19 MCV MCH MCHC RDW Plt Count MPV Immature Gran % (Auto) Neut % (Auto) Lymph % (Auto) Ashe % (Auto) Eos % (Auto) Baso % (Auto) Lymph # (Auto) Ashe # (Auto) Eos # (Auto) Baso # (Auto) Abs Immat Gran (auto) Absolute Neuts (auto) Absolute Nucleated RBC Nucleated RBC % (auto) Smear Tech's Comments Hold Purple Top SEE NOTE Hold Blue Top SEE NOTE Estim Creat Clear Calc Estimated GFR POC Glucose 178 H 327 H Random Vancomycin 13.7 L 09/29/24 09/29/24 09/29/24 05:31 06:54 11:10 MCV 83.3 MCH 27.2 MCHC 32.6 RDW 15.9 Plt Count 284 MPV 8.8 L Immature Gran % (Auto) 3.9 H Neut % (Auto) 56.0 Lymph % (Auto) 30.0 Ashe % (Auto) 6.9 Eos % (Auto) 2.7 Baso % (Auto) 0.5 Lymph # (Auto) 4.0 Ashe # (Auto) 0.9 Eos # (Auto) 0.4 Baso # (Auto) 0.1 Abs Immat Gran (auto) 0.51 H Absolute Neuts (auto) 7.4 Absolute Nucleated RBC 0.000 Nucleated RBC % (auto) 0.0 Smear Tech's Comments VERIFIED Hold Purple Top Hold Blue Top Estim Creat Clear Calc 169.6 Estimated GFR > 60 POC Glucose 175 H 180 H Random Vancomycin Assessment and Plan (1) Cellulitis: Status: Acute Assessment and Plan: 63 yo M with DM, HTN, HLD, CAD who presents with foot pain after stepping on thumbtack 2-3 days prior to hospitalization. Pt found to have cellulitis / diabetic foot infection leading to sepsis Sepsis, not severe (+wbc/fevers - no lactate/end organ damage)in settiing of Acute cellulitis / possible diabetic foot infection ESR in the 60-80's, crp improivng , XR without acute finding arterial dupplex -possible pvd:arterial dupplex:Monophasic waveforms are noted within the profunda femoral artery in the popliteal artery.The peroneal artery is not visualized. A dorsalis pedal artery is not visualized.The posterior tibial artery is significantly attenuated with monophasic waveform. Monophasic waveforms are also seen throughout the anterior tibial artery.Velocity elevation within the SFA suggestive of multifocal [id number] stenosis. mri:mild amount of subchondral edema and enhancement within the talus and calcaneus centered upon the subtalar joint, degenerative. No bone marrow edema or enhancement to indicate osteomyelitis. Edema and enhancement within the subcutaneous fat indicating cellulitis.No rim enhancing fluid collection(please see mri report for more detials). leg erythema somewhat improving , no fevers ,blood culture [id number] plan: continue IV vancomcyin/zosyn/linezolid, vanco trough f/u cultures id eval noted-on above antibiotics. vascular eval pending for above .already on asa/eliquis/statin. 2. DM hold orals POC + sliding scale 3. CAD continue baseline meds, hold bp meds today 4. 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 HTN hold BP meds for now and likley restart by tomorrow 6. HLD statin Full Code DVT pptx, Eliquis Pt wit sepsis due to cellulitis / DFI ,pvd therefore expected to require iv abx , vascular eval Quality Stroke Does the patient have a stroke diagnosis?: No VTE Prior VTE?: No VTE Risk Level:: Medical - moderate - high VTE Device Contraindication: N/A - Device Ordered VTE Drug Contraindication: N/A - Med Ordered
[2024-09-29 15:11] VITALS: BP 152/68; PULSE 62; RESP 18; TEMP 36.1; O2SAT 96
[2024-09-29 16:23] LABS: Glucose, Whole Blood 233 mg/dL (60-115)
[2024-09-29 19:10] VITALS: BP 110/68; PULSE 85; RESP 18; TEMP 36.2; O2SAT 96
[2024-09-29 20:33] LABS: Glucose, Whole Blood 215 mg/dL (60-115)
[2024-09-29] MEDS: Insulin Glargine,Hum.rec.anlog 100 UNIT/ML 10 ML VIAL 20 UNIT SUBCUT (20:53)
--- NOTE | 2024-09-29 21:07 | HE.PHANOTE ---
VANCO DOSE ADJUSTMENT BASED ON SCR AND TROUGH OF 15.8 DOSE CONTINUED AT 1250 Q 8H. NEXT LEVEL 09/30 @ 1999
[2024-09-30] MEDS: Linezolid/D5W 600 MG/300 ML PIGGYBACK 300 MG IV ×2 (03:01→15:05)
[2024-09-30 03:29] VITALS: BP 181/77; PULSE 67; RESP 16; TEMP 36.6; O2SAT 96
[2024-09-30 06:31] LABS: Hematocrit 32.3 % (42.0-52.0); Hemoglobin 10.5 g/dl (14.0-18.0); Mean Corpuscular HGB Conc 32.5 g/dl (31.0-36.0); Mean Corpuscular Hemoglobin 27.1 pg (27.0-33.0); Mean Corpuscular Volume 83.2 fL (80.0-98.0); NRBC Abs Auto 0.000 X10*3/uL (0.0-0.012); NRBC Pct Auto 0.0 /100WBC (0.0-0.2); Platelet Count 357 X10*3/uL (160-400); Red Blood Count 3.88 X10*6/uL (4.60-5.80); White Blood Count 11.7 X10*3/uL (4.8-10.8)
[2024-09-30 06:44] LABS: Creatinine Clr Calc Pharmacy 159.7; Estimated Glomerular Filt Rate > 60
[2024-09-30 06:57] LABS: Anion Gap 15 (12-20); Blood Urea Nitrogen 7 mg/dL (9-16); Calcium 8.7 mg/dL (8.4-10.2); Carbon Dioxide 24 mmol/L (22-29); Chloride 104 mmol/L (96-108); Creatinine Clr Calc Pharmacy 164.5; Estimated Glomerular Filt Rate > 60; Potassium 4.2 mmol/L (3.3-5.1); Sodium 139 mmol/L (135-145)
[2024-09-30 07:08] VITALS: BP 152/74; PULSE 63; RESP 17; TEMP 36.8; O2SAT 94
[2024-09-30 07:16] LABS: Glucose, Whole Blood 203 mg/dL (60-115)
[2024-09-30] MEDS: 0.9 % Sodium Chloride Flush 3 ML SYRINGE IVFLUSH ×3 (07:39→20:08)
--- NOTE | 2024-09-30 07:54 | PM.CNGS ---
History of Present Illness Consult details Consult date: 09/30/24 Reason for consult: wound care Narrative: Very interesting 63-year-old gentleman presents for cellulitis of the right lower extremity. Apparently he presented to the emergency room after stepping on a thumbtack 4 days prior to admission. This was through the right heel. He developed some erythema and significant swelling of the lower extremities. That was a source for of concern for him. He was subsequently seen and admitted through the emergency room. Upon discussion with him he does have a prior history of DVT. This was treated with Eliquis subsequently stopped and he had a recurrent bout of DVT as well. He does have a history of smoking as well. In addition he is a long-term diabetic. He now presents for vascular evaluation Review of Systems Review of Systems: Yes all other systems are reviewed and are negative Constitutional: Constitutional: Reports no additional constitutional complaints ENT: Reports Normal hearing present Cardiovascular: Cardiovascular: Denies chest pain, Denies chest pain at rest, Denies chest pain with activity and Denies pedal edema Respiratory: Respiratory: Denies cough Gastrointestinal: Gastrointestinal: Denies abdominal pain Musculoskeletal: Musculoskeletal: Denies abnormal gait, Denies muscle cramps and Denies radiating pain into limb Integumentary/Breasts: Skin/Breast: Denies skin ulcer and Denies wounds Neurologic: Reports Normal hearing present and Denies abnormal gait Psychiatric: Psychiatric: Reports no additional psychiatric complaints PMFSH Past Medical History Medical History History of recurrent deep vein thrombosis (DVT) Vitamin D deficiency Obesity (BMI 30-39.9) Primary osteoarthritis of both hips Smoker History of DVT (deep vein thrombosis) Anemia Stasis edema of both lower extremities Pure hypercholesterolemia Type 2 diabetes mellitus with hyperglycemia Coronary artery disease Osteoarthritis DVT (deep venous thrombosis) half-way current use of insulin Essential hypertension Hyperlipidemia LDL goal <70 Family History Family History Father Hypertension Mother COPD (chronic obstructive pulmonary disease) Brother Colon cancer Sister Alive and well Brother Diabetes Family history: reviewed and not pertinent Surgical History Surgical History History of colonoscopy History of herniorrhaphy History of heart artery stent History of total hip arthroplasty History of appendectomy Social History Social History Household Members: Spouse Housing: House Do you presently have visiting nurse or other home services: No Patient Tobacco Use Status: Former Tobacco user Tobacco use type: Cigarette e-Cigarette/Vaping Use: Never Used service: No Current occupational status: employed Cognitive needs: No Hearing needs: No Vision needs: No Meds Allergies Allergy/AdvReac Type Severity Reaction Status Date / Time oxycodone (OXYCODONE) Allergy Intermediate JITTERY/NA Verified 09/23/24 16:36 USEA pseudoephedrine (From AdvReac Intermediate ELEVATES BP Verified 09/23/24 16:36 SUDAFED) Active Medications: Current Medications Acetaminophen (Acetaminophen 325 Mg Tablet) 650 mg PO Q6H PRN PRN Reason: Pain, Mild 1-3,fever,headache Last Admin: 09/30/24 06:18 Dose: 650 mg Apixaban (Apixaban 5 Mg Tablet) 5 mg PO BID [facility] Last Admin: 09/30/24 07:36 Dose: 5 mg Aspirin (Aspirin 81 Mg Tab.Chew) 81 mg PO DAILY [facility] Last Admin: 09/30/24 07:36 Dose: 81 mg Atorvastatin Calcium (Atorvastatin Calcium 80 Mg Tablet) 80 mg PO DAILY [facility] Last Admin: 09/30/24 07:36 Dose: 80 mg Benzonatate (Benzonatate 100 Mg Capsule) 100 mg PO TID PRN PRN Reason: Cough Last Admin: 09/30/24 06:19 Dose: 100 mg Calcium Carbonate (Calcium Carbonate 750 Mg Tab.Chew) 750 mg PO Q4H PRN PRN Reason: Heartburn Dextrose (Dextrose 50 % 25 Gm/50 Ml Syringe) 25 gm IVPUSH Q15M PRN; Protocol PRN Reason: per Hypoglycemia Standing Ord. Glucose (Glucose Gel 15 Gm Gel..Gram.) 15 gm PO Q15M PRN; Protocol PRN Reason: per Hypoglycemia Standing Ord. Piperacillin Sod/Tazobactam (Sod 3.375 gm/ Sodium Chloride) 50 mls @ 100 mls/hr IV Q6H [facility] Last Infusion: 09/30/24 06:12 Dose: Infused Linezolid (Zyvox/D5w) 600 mg in 300 mls @ 300 mls/hr IV Q12H [facility] Last Infusion: 09/30/24 04:01 Dose: Infused Vancomycin HCl 1,250 mg/ (Sodium Chloride) 250 mls @ 166.667 mls/hr IV Q8H [facility] Last Infusion: 09/30/24 07:42 Dose: Infused Insulin Glargine (Insulin Glargine,Hum.Rec.Anlog 100 Unit/Ml 10 Ml Vial) 20 unit SUBCUT BEDTIME [facility] Last Admin: 09/29/24 20:53 Dose: 20 unit Insulin Human Lispro (Insulin Lispro 100 Unit/Ml 3 Ml Vial) 0 unit SUBCUT QIDACHS [facility]; Protocol Last Admin: 09/30/24 07:36 Dose: 4 unit Magnesium Hydroxide (Milk Of Magnesia 30 Ml Oral.Susp) 30 ml PO DAILY PRN PRN Reason: Constipation Melatonin (Melatonin 3 Mg Tablet) 6 mg PO BEDTIME PRN PRN Reason: Insomnia Pharmacy Consult (Consult Rx Vancomycin Dosing) 1 each MISCELLANE DAILY PRN PRN Reason: Consult order Sodium Chloride (0.9 % Sodium Chloride Flush 3 Ml Syringe) 3 ml IVFLUSH QSHIFT [facility] Last Admin: 09/30/24 07:39 Dose: 3 ml Vitamin D (Cholecalciferol (Vitamin D3) 25 Mcg Tablet) 25 mcg PO DAILY [facility] Last Admin: 09/30/24 07:36 Dose: 25 mcg Home Medications ?Medication ?Instructions ?Recorded ?Confirmed ?Last Taken ?Type blood sugar diagnostic (FreeStyle #10 ea 02/03/20 07/11/24 Unknown History Lite Strips) cholecalciferol (vitamin D3) 25 25 mcg PO DAILY 02/03/20 09/25/24 09/23/24 History mcg (1,000 unit) capsule fluticasone propionate 50 1 spray intranasal DAILY 02/03/20 09/25/24 09/23/24 History mcg/actuation nasal spray,suspension ibuprofen 800 mg tablet 800 mg PO TID PRN Pain 02/03/20 09/25/24 Unknown History flash glucose scanning reader #1 ea 04/02/20 07/11/24 Unknown History flash glucose sensor #1 ea 04/02/20 07/11/24 Unknown History albuterol sulfate 90 mcg/actuation 2 puff inhalation Q6H PRN 04/10/24 09/25/24 Unknown History aerosol inhaler Shortness Of Breath Or Wheezing apixaban 5 mg tablet (Eliquis) 5 mg PO BID 01/09/25/24 09/23/24 History aspirin 81 mg chewable tablet 81 mg PO DAILY 04/10/24 09/25/24 09/23/24 History cyclosporine 0.05 % eye drops in a 1 drp ophthalmic (eye) BID PRN Dry 04/10/24 09/25/24 Unknown History dropperette (Restasis) Eye(S) metformin 500 mg tablet,extended 1,000 mg PO BID 04/10/24 09/25/24 09/23/24 History release 24 hr dulaglutide 4.5 mg/0.5 mL 4.5 mg subcut SA 09/25/24 09/25/24 09/20/24 History subcutaneous pen injector (Trulicity) empagliflozin 25 mg tablet 25 mg PO DAILY 09/25/24 09/25/24 09/23/24 History (Jardiance) insulin glargine 100 unit/mL (3 40 unit subcut DAILY 09/25/24 09/25/24 09/23/24 History mL) subcutaneous pen (Basaglar KwikPen U-100 Insulin) [id number] 300 mcg-K 60 1 tab PO DAILY 09/25/24 09/25/24 09/23/24 History mcg-lycop 600 mcg-lutein 300 mcg tablet (Centrum Silver Men) Physical Exam Vital Signs: Vital Signs: Last Vital Signs Temp 98.2 F 09/30/24 07:08 Pulse 63 09/30/24 07:08 Resp 17 09/30/24 07:08 BP 152/74 H 09/30/24 07:08 Pulse Ox 94 09/30/24 07:08 O2 Del Method Room Air 09/30/24 07:08 BMI result Body Mass Index 36.9 Const: General: cooperative, healthy appearing and comfortable Orientation/consciousness: oriented to person, oriented to place and oriented to time HEENT: Head: Yes normal to inspection Neck: Neck: Yes normal visual inspection Carotids: no bruits Chest: Chest palpation & inspection: normal inspection of the chest Resp: Effort & Inspection: normal respiratory effort and able to speak in complete sentences Auscultation: clear to auscultation bilaterally, no crackles, no rales, no rhonchi and no wheezes Cardio: Rate: regular rate Rhythm: regular rhythm Heart sounds: S1 normal heart sound present and S2 normal heart sound present Bruits: no carotid bruits Peripheral pulses: Peripheral pulses 2+ throughout GI: Inspection: Yes normal to inspection Skin: Other: +2 edema. Evidence of chronic venous changes of the right lower extremity. Erythema of the right leg. Wounds: no wounds Hair: normal Neuro: General: oriented to person, oriented to place and oriented to time Cranial nerves: Yes CN's II-XII intact bilaterally and Yes Normal hearing present Cognition (Neuro): normal cognition Motor exam (neuro): 5/5 motor strength present throughout Extrem: Other: venous exam: No significant superficial varicosities or spider telangiectasias, minimal edema General: No clubbing, No cyanosis and No edema Psych: Appearance: grossly normal Mental Status: mental status grossly normal Speech and movement: Normal speech and movement present Results Labs 09/30/24 06:09 09/30/24 06:09 Labs: Abnormal lab results 09/29/24 09/29/24 09/29/24 Range/Units 11:10 16:19 20:29 WBC (4.8-10.8) X10*3/uL RBC (4.60-5.80) X10*6/uL Hgb (14.0-18.0) g/dl Hct (42.0-52.0) % MPV (9.4-12.4) fL BUN (9-16) mg/dL POC Glucose 180 H 233 H 215 H (60-115) mg/dL Random Glucose (60-115) mg/dL 09/30/24 09/30/24 Range/Units 06:09 07:11 WBC 11.7 H (4.8-10.8) X10*3/uL RBC 3.88 L (4.60-5.80) X10*6/uL Hgb 10.5 L (14.0-18.0) g/dl Hct 32.3 L (42.0-52.0) % MPV 8.6 L (9.4-12.4) fL BUN 7 L (9-16) mg/dL POC Glucose 203 H (60-115) mg/dL Random Glucose 215 H (60-115) mg/dL Short CBC 09/30/24 Range/Units 06:09 WBC 11.7 H (4.8-10.8) X10*3/uL Hgb 10.5 L (14.0-18.0) g/dl Hct 32.3 L (42.0-52.0) % Plt Count 357 D (160-400) X10*3/uL BMP 09/30/24 09/30/24 06:09 06:09 Sodium 139 Potassium 4.2 Chloride 104 Carbon Dioxide 24 BUN 7 L Creatinine 0.68 0.66 Calcium 8.7 All other labs normal. Imaging Additional studies: Tibial and SFA disease Assessment and Plan (1) PAD (peripheral artery disease): Status: Acute In short patient has element of PA D. This may be adding to the fact that he is healing slowly from this. I would like his overall infection to clear prior to any intervention he may require further implant. I did have an opportunity to review his noninvasive arterial testing dated 09/28/2024. There is concern of SFA and tibial disease. Will plan for outpatient treatment regarding his peripheral vascular disease. (2) History of DVT (deep vein thrombosis): Status: Acute He does have significant swelling and does have clinical stigmata of venous reflux. That along with the fact that he has prior history of DVT clearly has underlying reflux and lower extremity swelling from venous disease. We will have to see him as an outpatient to treat his arterial disease 1st and then his venous disease. We did discuss routine conservative measures including compression elevation and exercise. Once again he can follow up with us as an outpatient. Continued medical management and antibiotic treatment for cellulitis. Thank you for allowing us to assist in his care. Procedures Date of Service Date of Service: 09/30/24
[2024-09-30 07:57] LABS: Acanthocytes 2+ (3-5) /OIF; Atypical Lymph Absolute Manual 0.2 x10*3/uL; Atypical Lymphs Percent Manual 2 % (0-6); Band Neutrophils Percent 2 % (3-5); Burr Cells 2+ (3-5) /OIF; Eosinophils Absolute Manual 0.2 X10*3/uL (0.0-0.4); Eosinophils Percent Manual 2 % (0-4); Large Platelet PRESENT; Lymphocytes Absolute Manual 3.6 X10*3/uL (1.2-4.9); Lymphocytes Percent Manual 31 % (20-40); Metamyelocytes Absolute 0.1 X10*3/uL; Metamyelocytes Percent 1 %; Microcytosis 1+ (5-14) /OIF; Monocytes Absolute Manual 0.7 X10*3/uL (0.1-1.2); Monocytes Percent Manual 6 % (2-11); Myelocytes Absolute 0.2 X10*/uL; Myelocytes Percent 2 %; Neutrophils Absolute Manual 6.6 X10*3/uL (2.0-8.3); Neutrophils Percent Manual 54 % (45-73); RBC Morphology NOTED
[2024-09-30 07:58] LABS: Ovalocytes 1+ (5-14) /OIF; Polychromasia 1+ (0-2) /OIF; Smudge Cells PRESENT; Toxic Granulation PRESENT; Toxic Vacuolation PRESENT
[2024-09-30 11:13] LABS: Glucose, Whole Blood 242 mg/dL (60-115)
--- NOTE | 2024-09-30 15:31 | P.PNIM_ITS ---
Subjective Subjective Date of Service: 09/30/24 Interval History: leg cellulitis Review of Systems leg erythema slowly improving Review of Systems: Yes all other systems are reviewed and are negative Physical Exam 2 Vital Signs: Vital Signs: Last Vital Signs Temp 98.2 F 09/30/24 07:08 Pulse 63 09/30/24 07:08 Resp 17 09/30/24 07:08 BP 152/74 H 09/30/24 07:08 Pulse Ox 94 09/30/24 07:08 O2 Del Method Room Air 09/30/24 07:08 BMI result Body Mass Index 36.9 Appearance: Alert.? Oriented X3.?. cvs: rrr, [id number]. res: clear to auscultation ,no rhonchii or wheezing abd: no rebound or guarding ,nt, bs present. ext pulses present , no cyanosis leg-left leg erythema improving. neuro: axo3 , nonfocal. Objective Data Active Medications Acetaminophen (Acetaminophen 325 Mg Tablet) 650 mg PO Q6H PRN PRN Reason: Pain, Mild 1-3,fever,headache Last Admin: 09/30/24 15:05 Dose: 650 mg Documented By: GUERRERO Apixaban (Apixaban 5 Mg Tablet) 5 mg PO BID [facility] Last Admin: 09/30/24 07:36 Dose: 5 mg Documented By: GUERRERO Aspirin (Aspirin 81 Mg Tab.Chew) 81 mg PO DAILY [facility] Last Admin: 09/30/24 07:36 Dose: 81 mg Documented By: GUERRERO Atorvastatin Calcium (Atorvastatin Calcium 80 Mg Tablet) 80 mg PO DAILY [facility] Last Admin: 09/30/24 07:36 Dose: 80 mg Documented By: GUERRERO Benzonatate (Benzonatate 100 Mg Capsule) 100 mg PO TID PRN PRN Reason: Cough Last Admin: 09/30/24 15:16 Dose: 100 mg Documented By: GUERRERO Calcium Carbonate (Calcium Carbonate 750 Mg Tab.Chew) 750 mg PO Q4H PRN PRN Reason: Heartburn Dextrose (Dextrose 50 % 25 Gm/50 Ml Syringe) 25 gm IVPUSH Q15M PRN; Protocol PRN Reason: per Hypoglycemia Standing Ord. Glucose (Glucose Gel 15 Gm Gel..Gram.) 15 gm PO Q15M PRN; Protocol PRN Reason: per Hypoglycemia Standing Ord. Piperacillin Sod/Tazobactam (Sod 3.375 gm/ Sodium Chloride) 50 mls @ 100 mls/hr IV Q6H [facility] Last Infusion: 09/30/24 12:24 Dose: Infused Documented By: GUERRERO Linezolid (Zyvox/D5w) 600 mg in 300 mls @ 300 mls/hr IV Q12H [facility] Last Admin: 09/30/24 15:05 Dose: 300 mls/hr Documented By: GUERRERO Vancomycin HCl 1,250 mg/ (Sodium Chloride) 250 mls @ 166.667 mls/hr IV Q8H [facility] Last Admin: 09/30/24 13:30 Dose: 166.67 mls/hr Documented By: GUERRERO Insulin Glargine (Insulin Glargine,Hum.Rec.Anlog 100 Unit/Ml 10 Ml Vial) 20 unit SUBCUT BEDTIME [facility] Last Admin: 09/29/24 20:53 Dose: 20 unit Documented By: AUTUMN Insulin Human Lispro (Insulin Lispro 100 Unit/Ml 3 Ml Vial) 0 unit SUBCUT QIDACHS [facility]; Protocol Last Admin: 09/30/24 11:51 Dose: 4 unit Documented By: GUERRERO Magnesium Hydroxide (Milk Of Magnesia 30 Ml Oral.Susp) 30 ml PO DAILY PRN PRN Reason: Constipation Melatonin (Melatonin 3 Mg Tablet) 6 mg PO BEDTIME PRN PRN Reason: Insomnia Pharmacy Consult (Consult Rx Vancomycin Dosing) 1 each MISCELLANE DAILY PRN PRN Reason: Consult order Sodium Chloride (0.9 % Sodium Chloride Flush 3 Ml Syringe) 3 ml IVFLUSH QSHIFT [facility] Last Admin: 09/30/24 07:39 Dose: 3 ml Documented By: GUERRERO Vitamin D (Cholecalciferol (Vitamin D3) 25 Mcg Tablet) 25 mcg PO DAILY [facility] Last Admin: 09/30/24 07:36 Dose: 25 mcg Documented By: GUERRERO Labs 09/30/24 06:09 09/30/24 06:09 Labs: Laboratory Results - last 24 hr 09/29/24 09/29/24 09/29/24 16:19 20:01 20:29 MCV MCH MCHC RDW Plt Count MPV Immature Gran % (Auto) Neut % (Auto) Lymph % (Auto) [place] % (Auto) Eos % (Auto) Baso % (Auto) Lymph # (Auto) [place] # (Auto) Eos # (Auto) Baso # (Auto) Abs Immat Gran (auto) Absolute Neuts (auto) Absolute Nucleated RBC Nucleated RBC % (auto) Neutrophils % (Manual) Band Neutrophils % Lymphocytes % (Manual) Atypical Lymphs % (Man) Monocytes % (Manual) Eosinophils % (Manual) Metamyelocytes % Myelocytes % Abs Neuts (Manual) Lymphocytes # (Manual) Atyp Lymphs # (Manual) Monocytes # (Manual) Eosinophils # (Manual) Metamyelocytes # Myelocytes # Smudge Cells Toxic Granulation Toxic Vacuolation Platelet Estimate Large Platelets Plt Morphology Comment RBC Morphology Polychromasia Microcytosis Ovalocytes [place] Cells Acanthocytes (Spur) Anion Gap Estim Creat Clear Calc Estimated GFR POC Glucose 233 H 215 H Random Glucose Calcium Random Vancomycin 15.8 09/30/24 09/30/24 09/30/24 06:09 06:09 06:09 MCV 83.2 MCH 27.1 MCHC 32.5 RDW 15.9 Plt Count 357 D MPV 8.6 L Immature Gran % (Auto) Cancelled Neut % (Auto) Cancelled Lymph % (Auto) Cancelled [place] % (Auto) Cancelled Eos % (Auto) Cancelled Baso % (Auto) Cancelled Lymph # (Auto) Cancelled [place] # (Auto) Cancelled Eos # (Auto) Cancelled Baso # (Auto) Cancelled Abs Immat Gran (auto) Cancelled Absolute Neuts (auto) Cancelled Absolute Nucleated RBC 0.000 Nucleated RBC % (auto) 0.0 Neutrophils % (Manual) 54 Band Neutrophils % 2 L Lymphocytes % (Manual) 31 Atypical Lymphs % (Man) 2 Monocytes % (Manual) 6 Eosinophils % (Manual) 2 Metamyelocytes % 1 Myelocytes % 2 Abs Neuts (Manual) 6.6 Lymphocytes # (Manual) 3.6 Atyp Lymphs # (Manual) 0.2 Monocytes # (Manual) 0.7 Eosinophils # (Manual) 0.2 Metamyelocytes # 0.1 Myelocytes # 0.2 Smudge Cells PRESENT Toxic Granulation PRESENT Toxic Vacuolation PRESENT Platelet Estimate NORMAL Large Platelets PRESENT Plt Morphology Comment NOTED RBC Morphology NOTED Polychromasia 1+ (0-2) Microcytosis 1+ (5-14) Ovalocytes 1+ (5-14) [place] Cells 2+ (3-5) Acanthocytes (Spur) 2+ (3-5) Anion Gap 15 Estim Creat Clear Calc 159.7 164.5 Estimated GFR > 60 > 60 POC Glucose Random Glucose 215 H Calcium 8.7 Random Vancomycin 09/30/24 09/30/24 07:11 11:09 MCV MCH MCHC RDW Plt Count MPV Immature Gran % (Auto) Neut % (Auto) Lymph % (Auto) [place] % (Auto) Eos % (Auto) Baso % (Auto) Lymph # (Auto) [place] # (Auto) Eos # (Auto) Baso # (Auto) Abs Immat Gran (auto) Absolute Neuts (auto) Absolute Nucleated RBC Nucleated RBC % (auto) Neutrophils % (Manual) Band Neutrophils % Lymphocytes % (Manual) Atypical Lymphs % (Man) Monocytes % (Manual) Eosinophils % (Manual) Metamyelocytes % Myelocytes % Abs Neuts (Manual) Lymphocytes # (Manual) Atyp Lymphs # (Manual) Monocytes # (Manual) Eosinophils # (Manual) Metamyelocytes # Myelocytes # Smudge Cells Toxic Granulation Toxic Vacuolation Platelet Estimate Large Platelets Plt Morphology Comment RBC Morphology Polychromasia Microcytosis Ovalocytes [place] Cells Acanthocytes (Spur) Anion Gap Estim Creat Clear Calc Estimated GFR POC Glucose 203 H 242 H Random Glucose Calcium Random Vancomycin Microbiology Microbiology Results: Microbiology 09/25/24 06:12 Blood Culture - Final Blood - Venous No growth after 5 days. 09/25/24 06:12 Blood Culture - Final Blood - Venous No growth after 5 days. Assessment and Plan (1) Cellulitis: Status: Acute Assessment and Plan: 63 yo M with DM, HTN, HLD, CAD who presents with foot pain after stepping on thumbtack 2-3 days prior to hospitalization. Pt found to have cellulitis / diabetic foot infection leading to sepsis Sepsis, not severe (+wbc/fevers - no lactate/end organ damage)in settiing of Acute cellulitis / possible diabetic foot infection ESR in the 60-80's, crp improivng , XR without acute finding arterial dupplex -possible pvd:arterial dupplex:Monophasic waveforms are noted within the profunda femoral artery in the popliteal artery.The peroneal artery is not visualized. A dorsalis pedal artery is not visualized.The posterior tibial artery is significantly attenuated with monophasic waveform. Monophasic waveforms are also seen throughout the anterior tibial artery.Velocity elevation within the SFA suggestive of multifocal [id number] stenosis. mri:mild amount of subchondral edema and enhancement within the talus and calcaneus centered upon the subtalar joint, degenerative. No bone marrow edema or enhancement to indicate osteomyelitis. Edema and enhancement within the subcutaneous fat indicating cellulitis.No rim enhancing fluid collection(please see mri report for more detials). leg erythema somewhat improving , no fevers ,blood culture [id number] plan: continue IV vancomcyin/zosyn/linezolid, vanco trough 15.8 f/u cultures id eval noted-on above antibiotics.leg elevation vascular eval pending for above .already on asa/eliquis/statin. 2. DM hold orals POC + sliding scale 3. CAD continue baseline meds, hold bp meds today 4. 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 HTN hold BP meds for now and likley restart by tomorrow 6. HLD statin Full Code DVT pptx, Eliquis Pt wit sepsis due to cellulitis / DFI ,pvd therefore expected to require iv abx , vascular eval Quality Stroke Does the patient have a stroke diagnosis?: No VTE Prior VTE?: No VTE Risk Level:: Medical - moderate - high VTE Device Contraindication: N/A - Device Ordered VTE Drug Contraindication: N/A - Med Ordered
[2024-09-30 15:58] VITALS: BP 142/70; PULSE 66; RESP 16; TEMP 36.4; O2SAT 97
[2024-09-30 16:22] LABS: Glucose, Whole Blood 271 mg/dL (60-115)
--- NOTE | 2024-09-30 18:29 | PC.NURSE ---
Attempt to place IV x 2, unsuccessful, Primary RN notified.
--- NOTE | 2024-09-30 18:34 | PC.NURSE ---
Pt states room is to warm. Ticket placed for [employer]
[2024-09-30 19:18] VITALS: BP 142/68; PULSE 63; RESP 18; TEMP 37.2; O2SAT 96
[2024-09-30 19:28] LABS: Glucose, Whole Blood 217 mg/dL (60-115)
[2024-09-30] MEDS: Insulin Glargine,Hum.rec.anlog 100 UNIT/ML 10 ML VIAL 20 UNIT SUBCUT (20:10)
[2024-10-01] MEDS: Linezolid/D5W 600 MG/300 ML PIGGYBACK 300 MG IV ×2 (03:32→15:59)
[2024-10-01 04:00] VITALS: BP 145/66; PULSE 64; RESP 20; TEMP 36.5; O2SAT 95
[2024-10-01 05:50] LABS: Hematocrit 31.5 % (42.0-52.0); Hemoglobin 10.2 g/dl (14.0-18.0); Mean Corpuscular HGB Conc 32.4 g/dl (31.0-36.0); Mean Corpuscular Hemoglobin 26.8 pg (27.0-33.0); Mean Corpuscular Volume 82.9 fL (80.0-98.0); NRBC Abs Auto 0.000 X10*3/uL (0.0-0.012); NRBC Pct Auto 0.0 /100WBC (0.0-0.2); Platelet Count 392 X10*3/uL (160-400); Red Blood Count 3.80 X10*6/uL (4.60-5.80); White Blood Count 10.7 X10*3/uL (4.8-10.8)
[2024-10-01 06:04] LABS: Creatinine Clr Calc Pharmacy 152.9; Estimated Glomerular Filt Rate > 60
[2024-10-01 06:15] LABS: Band Neutrophils Percent 3 % (3-5); Basophils Abs Manual 0.1 X10*3/uL (0.0-0.2); Basophils Percent Manual 1 % (0-2); Eosinophils Absolute Manual 0.3 X10*3/uL (0.0-0.4); Eosinophils Percent Manual 3 % (0-4); Lymphocytes Absolute Manual 2.7 X10*3/uL (1.2-4.9); Lymphocytes Percent Manual 25 % (20-40); Monocytes Absolute Manual 1.0 X10*3/uL (0.1-1.2); Monocytes Percent Manual 9 % (2-11)
[2024-10-01 06:16] LABS: Metamyelocytes Absolute 0.1 X10*3/uL; Metamyelocytes Percent 1 %; Neutrophils Absolute Manual 6.5 X10*3/uL (2.0-8.3); Neutrophils Percent Manual 58 % (45-73)
[2024-10-01 06:17] LABS: Acanthocytes 1+ (0-2) /OIF; Ovalocytes 1+ (5-14) /OIF; Polychromasia 1+ (0-2) /OIF; RBC Morphology NOTED
[2024-10-01 06:18] LABS: Burr Cells 3+ (>5) /OIF; Schistocytes 1+ (0-2) /OIF; Tear Drop Cells 1+ (0-2) /OIF
[2024-10-01 06:19] LABS: Toxic Granulation PRESENT
[2024-10-01 06:57] VITALS: BP 160/74; PULSE 62; RESP 16; TEMP 36.8; O2SAT 97
[2024-10-01 07:04] LABS: Glucose, Whole Blood 168 mg/dL (60-115)
[2024-10-01] MEDS: 0.9 % Sodium Chloride Flush 3 ML SYRINGE IVFLUSH ×3 (08:00→21:19)
--- NOTE | 2024-10-01 10:52 | HO.PM.IMPN ---
Subjective Subjective Date of Service: 10/01/24 Interval History: RLE redness improved, swelling still present Review of Systems Review of Systems: Yes all other systems are reviewed and are negative Physical Exam Vital Signs: Vital Signs: Last Vital Signs Temp 98.2 F 10/01/24 06:57 Pulse 62 10/01/24 06:57 Resp 16 10/01/24 06:57 BP 160/74 H 10/01/24 06:57 Pulse Ox 97 10/01/24 06:57 O2 Del Method Room Air 10/01/24 06:57 BMI result Body Mass Index 36.9 Gen: in no acute distress HEENT: sclera anicteric, moist mucus membranes Neck: supple Lungs: clear to auscultation bilaterally Heart: regular rate and rhythm, no murmurs Abd: soft, non-tender, non-distended Ext: RLE swollen, chronically hyperpigmented due to prior injury, erythema of upper grace improving Skin: warm/well-perfused Neuro: alert and oriented x3, no focal findings Psych: appropriate affect Objective Data Active Medications Acetaminophen (Acetaminophen 325 Mg Tablet) 650 mg PO Q6H PRN PRN Reason: Pain, Mild 1-3,fever,headache Last Admin: 10/01/24 08:12 Dose: 650 mg Documented By: MONIQUE Apixaban (Apixaban 5 Mg Tablet) 5 mg PO BID [facility] Last Admin: 10/01/24 07:59 Dose: 5 mg Documented By: MONIQUE Aspirin (Aspirin 81 Mg Tab.Chew) 81 mg PO DAILY [facility] Last Admin: 10/01/24 07:59 Dose: 81 mg Documented By: MONIQUE Atenolol (Atenolol 50 Mg Tablet) 50 mg PO DAILY [facility]; Protocol Last Admin: 10/01/24 08:49 Dose: 50 mg Documented By: MONIQUE Atorvastatin Calcium (Atorvastatin Calcium 80 Mg Tablet) 80 mg PO DAILY [facility] Last Admin: 10/01/24 07:59 Dose: 80 mg Documented By: MONIQUE Benzonatate (Benzonatate 100 Mg Capsule) 100 mg PO TID PRN PRN Reason: Cough Last Admin: 10/01/24 08:11 Dose: 100 mg Documented By: MONIQUE Calcium Carbonate (Calcium Carbonate 750 Mg Tab.Chew) 750 mg PO Q4H PRN PRN Reason: Heartburn Dextrose (Dextrose 50 % 25 Gm/50 Ml Syringe) 25 gm IVPUSH Q15M PRN; Protocol PRN Reason: per Hypoglycemia Standing Ord. Empagliflozin (Empagliflozin 25 Mg Tablet) 25 mg PO DAILY [facility] Last Admin: 10/01/24 08:49 Dose: 25 mg Documented By: MONIQUE Furosemide (Furosemide 40 Mg Tablet) 40 mg PO DAILY [facility]; Protocol Last Admin: 10/01/24 08:48 Dose: 40 mg Documented By: MONIQUE Glucose (Glucose Gel 15 Gm Gel..Gram.) 15 gm PO Q15M PRN; Protocol PRN Reason: per Hypoglycemia Standing Ord. Piperacillin Sod/Tazobactam (Sod 3.375 gm/ Sodium Chloride) 50 mls @ 100 mls/hr IV Q6H [facility] Last Infusion: 10/01/24 05:39 Dose: Infused Documented By: CB Linezolid (Zyvox/D5w) 600 mg in 300 mls @ 300 mls/hr IV Q12H [facility] Last Infusion: 10/01/24 04:38 Dose: Infused Documented By: CB Vancomycin HCl 1,250 mg/ (Sodium Chloride) 250 mls @ 166.667 mls/hr IV Q8H [facility] Last Infusion: 10/01/24 07:21 Dose: Infused Documented By: MONIQUE Insulin Glargine (Insulin Glargine,Hum.Rec.Anlog 100 Unit/Ml 10 Ml Vial) 20 unit SUBCUT BEDTIME [facility] Last Admin: 09/30/24 20:10 Dose: 20 unit Documented By: CB Insulin Human Lispro (Insulin Lispro 100 Unit/Ml 3 Ml Vial) 0 unit SUBCUT QIDACHS [facility]; Protocol Last Admin: 10/01/24 07:58 Dose: 2 unit Documented By: MONIQUE Losartan Potassium (Losartan Potassium 25 Mg Tablet) 25 mg PO DAILY [facility]; Protocol Last Admin: 10/01/24 08:48 Dose: 25 mg Documented By: MONIQUE Magnesium Hydroxide (Milk Of Magnesia 30 Ml Oral.Susp) 30 ml PO DAILY PRN PRN Reason: Constipation Melatonin (Melatonin 3 Mg Tablet) 6 mg PO BEDTIME PRN PRN Reason: Insomnia Pharmacy Consult (Consult Rx Vancomycin Dosing) 1 each MISCELLANE DAILY PRN PRN Reason: Consult order Sodium Chloride (0.9 % Sodium Chloride Flush 3 Ml Syringe) 3 ml IVFLUSH QSHIFT [facility] Last Admin: 10/01/24 08:00 Dose: 3 ml Documented By: MONIQUE Vitamin D (Cholecalciferol (Vitamin D3) 25 Mcg Tablet) 25 mcg PO DAILY [facility] Last Admin: 10/01/24 07:59 Dose: 25 mcg Documented By: MONIQUE Labs 10/01/24 05:11 10/01/24 05:11 Labs: Laboratory Results - last 24 hr 09/30/24 09/30/24 09/30/24 11:09 16:16 19:24 MCV MCH MCHC RDW Plt Count MPV Immature Gran % (Auto) Neut % (Auto) Lymph % (Auto) [place] % (Auto) Eos % (Auto) Baso % (Auto) Lymph # (Auto) [place] # (Auto) Eos # (Auto) Baso # (Auto) Abs Immat Gran (auto) Absolute Neuts (auto) Absolute Nucleated RBC Nucleated RBC % (auto) Neutrophils % (Manual) Band Neutrophils % Lymphocytes % (Manual) Monocytes % (Manual) Eosinophils % (Manual) Basophils % (Manual) Metamyelocytes % Abs Neuts (Manual) Lymphocytes # (Manual) Monocytes # (Manual) Eosinophils # (Manual) Basophils # (Manual) Metamyelocytes # Toxic Granulation Platelet Estimate Plt Morphology Comment RBC Morphology Polychromasia Tear Drop Cells Ovalocytes [place] Cells Acanthocytes (Spur) Schistocytes ESR Estim Creat Clear Calc Estimated GFR POC Glucose 242 H 271 H 217 H C-Reactive Protein Random Vancomycin 09/30/24 10/01/24 10/01/24 19:52 05:11 07:00 MCV 82.9 MCH 26.8 L MCHC 32.4 RDW 15.5 Plt Count 392 MPV 8.3 L Immature Gran % (Auto) Cancelled Neut % (Auto) Cancelled Lymph % (Auto) Cancelled [place] % (Auto) Cancelled Eos % (Auto) Cancelled Baso % (Auto) Cancelled Lymph # (Auto) Cancelled [place] # (Auto) Cancelled Eos # (Auto) Cancelled Baso # (Auto) Cancelled Abs Immat Gran (auto) Cancelled Absolute Neuts (auto) Cancelled Absolute Nucleated RBC 0.000 Nucleated RBC % (auto) 0.0 Neutrophils % (Manual) 58 Band Neutrophils % 3 Lymphocytes % (Manual) 25 Monocytes % (Manual) 9 Eosinophils % (Manual) 3 Basophils % (Manual) 1 Metamyelocytes % 1 Abs Neuts (Manual) 6.5 Lymphocytes # (Manual) 2.7 Monocytes # (Manual) 1.0 Eosinophils # (Manual) 0.3 Basophils # (Manual) 0.1 Metamyelocytes # 0.1 Toxic Granulation PRESENT Platelet Estimate NORMAL Plt Morphology Comment NORMAL RBC Morphology NOTED Polychromasia 1+ (0-2) Tear Drop Cells 1+ (0-2) Ovalocytes 1+ (5-14) [place] Cells 3+ (>5) Acanthocytes (Spur) 1+ (0-2) Schistocytes 1+ (0-2) ESR 97 H Estim Creat Clear Calc 152.9 Estimated GFR > 60 POC Glucose 168 H C-Reactive Protein 9.53 H Random Vancomycin 15.1 Microbiology Microbiology Results: Microbiology 09/25/24 06:12 Blood Culture - Final Blood - Venous No growth after 5 days. 09/25/24 06:12 Blood Culture - Final Blood - Venous No growth after 5 days. Assessment and Plan (1) Cellulitis: Status: Acute Assessment and Plan: d7 for 63yo M with DM2, HTN, and CAD presenting with foot pain after stepping on thumbtack 2-3d prior, admitted for sepsis due to diabetic cellulitis sepsis due to diabetic cellulitis - BCx negative, continue vancomycin/piperacillin-tazobactam/linezolid, will discuss outpt ABX regimen with ID PAD - arterial Duplex showed SFA + PT disease, Vasc consulted, plan outpt intervention; continue ASA + atorvastatin CAD - continue ASA + atorvastatin; resume atenolol HTN - resume atenolol + losartan DM2 - basal glargine + correction-dose lispro + empagliflozin chronic popliteal DVT - continue apixaban VTE ppx - apixaban dispo - PT eval In my clinical judgment, the patient requires continued inpatient hospitalization for the following reasons: IV ABX Total time managing care of this patient today: 35 minutes. Quality Stroke Does the patient have a stroke diagnosis?: No VTE Prior VTE?: No VTE Risk Level:: Medical - moderate - high VTE Device Contraindication: N/A - Device Ordered VTE Drug Contraindication: N/A - Med Ordered
[2024-10-01 11:10] LABS: Glucose, Whole Blood 178 mg/dL (60-115)
[2024-10-01 15:23] VITALS: BP 149/65; PULSE 68; RESP 18; TEMP 36.8; O2SAT 97
--- NOTE | 2024-10-01 15:26 | MHC.CM.PN ---
per rounds pt expected to dc home tomorrow no services
[2024-10-01 16:10] LABS: Glucose, Whole Blood 167 mg/dL (60-115)
[2024-10-01 19:59] VITALS: PULSE 64; RESP 16; TEMP 37.6; O2SAT 98
[2024-10-01 20:27] LABS: Glucose, Whole Blood 225 mg/dL (60-115)
[2024-10-01] MEDS: Insulin Glargine,Hum.rec.anlog 100 UNIT/ML 10 ML VIAL 20 UNIT SUBCUT (21:20)
[2024-10-01 23:09] VITALS: BP 156/58
[2024-10-02] MEDS: Linezolid/D5W 600 MG/300 ML PIGGYBACK 300 MG IV (03:01)
[2024-10-02 03:43] VITALS: PULSE 65; RESP 18; TEMP 36.3; O2SAT 98
[2024-10-02 06:19] LABS: MANUAL DIFF FLAG NO
[2024-10-02 06:32] LABS: Hematocrit 31.4 % (42.0-52.0); Hemoglobin 10.1 g/dl (14.0-18.0); Imm Gran Abs Auto 0.41 X10*3/uL (0.00-0.03); Imm Gran Pct Auto 4.0 % (0.0-0.4); Lymphocytes Absolute Auto 3.1 X10*3/uL (1.2-4.9); Mean Corpuscular HGB Conc 32.2 g/dl (31.0-36.0); Mean Corpuscular Hemoglobin 26.5 pg (27.0-33.0); Mean Corpuscular Volume 82.4 fL (80.0-98.0); NRBC Abs Auto 0.000 X10*3/uL (0.0-0.012); NRBC Pct Auto 0.0 /100WBC (0.0-0.2); Platelet Count 403 X10*3/uL (160-400); Red Blood Count 3.81 X10*6/uL (4.60-5.80); White Blood Count 10.2 X10*3/uL (4.8-10.8)
[2024-10-02 06:35] LABS: Creatinine Clr Calc Pharmacy 152.9; Estimated Glomerular Filt Rate > 60
[2024-10-02 07:43] LABS: Glucose, Whole Blood 129 mg/dL (60-115)
[2024-10-02 07:51] VITALS: BP 163/72; PULSE 68; RESP 18; TEMP 36.8; O2SAT 93
[2024-10-02] MEDS: 0.9 % Sodium Chloride Flush 3 ML SYRINGE IVFLUSH (08:24)
[2024-10-02 11:46] LABS: Glucose, Whole Blood 157 mg/dL (60-115)
--- NOTE | 2024-10-02 12:29 | PM.DS ---
DS: Providers Provider Date of Service: 10/02/24 Date of admission: 09/25/24 07:16 Date of discharge: 10/02/24 Primary care physician: Derrell Patel MD Consults: 09/25/24 18:33 Consult to Wound Care Routine Reason for consultation: cellulitis to right lower leg, open area to bottom of right heel 09/26/24 12:53 Consult to Infectious Diseases Routine Consulting Provider[place] [facility] Reason for consultation: dm foot infection Has provider been notified: No Consult to Vascular Surgery Routine Consulting Provider: [facility] Reason for consultation: dm foot infection Has provider been notified: No DS: Diagnosis Discharge Diagnosis (1) Cellulitis: Status: Acute (2) PAD (peripheral artery disease): Status: Acute (3) Type 2 diabetes mellitus with hyperglycemia: Status: Acute (4) Sepsis: Status: Acute DS: Summary Hospital Course Hospital Course: From the history and physical by the admitting hospitalist, Kun Jain MD, 09/25/24: The patient is a 63-year-old male with a past medical history of DM, HLD, hypertension, CAD status post PCI 25 years ago, multiple DVTs in the past on anticoagulation who presents to the emergency room about 3 days after stepping on a thumb tack on his right heel. Patient reports that he use topical antibiotic ointment and washed the affected area well but despite this began developing fevers and chills as well as right heel pain, erythema and swelling. Hence he presented to the emergency room. In the ED the patient's workup showed leukocytosis of 16,000. His lactate was normal. Initially the patient was afebrile but has spiked a temperature of 102.5 degrees. ESR is 62 X-ray of the foot reveals no acute findings The patient has been treated with IV fluids, IV vanco and IV Zosyn and now will be admitted for further workup. 63yo M with DM2, HTN, and CAD presenting with foot pain after stepping on thumbtack 2-3d prior, admitted to the medical-surgical unit for sepsis due to diabetic cellulitis. He was started on IV vancomycin and piperacillin-tazobactam. Blood cultures negative. Arterial Duplex showed SFA + PT disease. Vascular Surgery was consulted and plans outpatient intervention. ID was consulted due to persistence of symptoms and linezolid was added. He improved clinically and was discharged home on 7 days of doxycycline plus amoxicillin-clavulanate. Time Attestation Discharge Coordination Time (in mins): 45 Quality: Safe Use of Opioids Does Pt have an Active Cancer Diagnosis on the Problem List?: No Quality: Stroke Does the patient have a stroke diagnosis?: No Physical Exam Vital Signs: Vital Signs: Last Vital Signs Temp 98.2 F 10/02/24 07:51 Pulse 68 10/02/24 07:51 Resp 18 10/02/24 07:51 BP 163/72 H 10/02/24 07:51 Pulse Ox 93 10/02/24 07:51 O2 Del Method Room Air 10/02/24 07:51 BMI result Body Mass Index 36.9 Gen: in no acute distress HEENT: sclera anicteric, moist mucus membranes Neck: supple Lungs: clear to auscultation bilaterally Heart: regular rate and rhythm, no murmurs Abd: soft, non-tender, non-distended Ext: RLE swollen, chronically hyperpigmented due to prior injury, erythema of upper grace improving Skin: warm/well-perfused Neuro: alert and oriented x3, no focal findings Psych: appropriate affect DS: Data Data Completed and Pending Completed studies during hospitalization [Text1]: Laboratory Results WBC 10.2 X10*3/uL (4.8-10.8) 10/02/24 05:53 RBC 3.81 X10*6/uL (4.60-5.80) L 10/02/24 05:53 Hgb 10.1 g/dl (14.0-18.0) L 10/02/24 05:53 Hct 31.4 % (42.0-52.0) L 10/02/24 05:53 MCV 82.4 fL (80.0-98.0) 10/02/24 05:53 MCH 26.5 pg (27.0-33.0) L 10/02/24 05:53 MCHC 32.2 g/dl (31.0-36.0) 10/02/24 05:53 RDW 15.5 % (11.0-16.0) 10/02/24 05:53 Plt Count 403 X10*3/uL (160-400) H 10/02/24 05:53 MPV 8.2 fL (9.4-12.4) L 10/02/24 05:53 Immature Gran % (Auto) 4.0 % (0.0-0.4) H 10/02/24 05:53 Neut % (Auto) 55.6 % (45-73) 10/02/24 05:53 Lymph % (Auto) 30.5 % (20-40) 10/02/24 05:53 Burnett % (Auto) 7.3 % (2-11) 10/02/24 05:53 Eos % (Auto) 1.9 % (0-4) 10/02/24 05:53 Baso % (Auto) 0.7 % (0-2) 10/02/24 05:53 Lymph # (Auto) 3.1 X10*3/uL (1.2-4.9) 10/02/24 05:53 Burnett # (Auto) 0.8 X10*3/uL (0.1-1.2) 10/02/24 05:53 Eos # (Auto) 0.2 X10*3/uL (0.0-0.4) 10/02/24 05:53 Baso # (Auto) 0.1 X10*3/uL (0.0-0.2) 10/02/24 05:53 Abs Immat Gran (auto) 0.41 X10*3/uL (0.00-0.03) H 10/02/24 05:53 Absolute Neuts (auto) 5.7 x10*3/uL (2.0-8.3) 10/02/24 05:53 Absolute Nucleated RBC 0.000 X10*3/uL (0.0-0.012) 10/02/24 05:53 Nucleated RBC % (auto) 0.0 /100WBC (0.0-0.2) 10/02/24 05:53 Neutrophils % (Manual) 58 % (45-73) 10/01/24 05:11 Band Neutrophils % 3 % (3-5) 10/01/24 05:11 Lymphocytes % (Manual) 25 % (20-40) 10/01/24 05:11 Atypical Lymphs % (Man) 2 % (0-6) 09/30/24 06:09 Monocytes % (Manual) 9 % (2-11) 10/01/24 05:11 Eosinophils % (Manual) 3 % (0-4) 10/01/24 05:11 Basophils % (Manual) 1 % (0-2) 10/01/24 05:11 Metamyelocytes % 1 % 10/01/24 05:11 Myelocytes % 2 % 09/30/24 06:09 Abs Neuts (Manual) 6.5 X10*3/uL (2.0-8.3) 10/01/24 05:11 Lymphocytes # (Manual) 2.7 X10*3/uL (1.2-4.9) 10/01/24 05:11 Atyp Lymphs # (Manual) 0.2 x10*3/uL 09/30/24 06:09 Monocytes # (Manual) 1.0 X10*3/uL (0.1-1.2) 10/01/24 05:11 Eosinophils # (Manual) 0.3 X10*3/uL (0.0-0.4) 10/01/24 05:11 Basophils # (Manual) 0.1 X10*3/uL (0.0-0.2) 10/01/24 05:11 Metamyelocytes # 0.1 X10*3/uL 10/01/24 05:11 Myelocytes # 0.2 X10*/uL 09/30/24 06:09 Smudge Cells PRESENT 09/30/24 06:09 Toxic Granulation PRESENT 10/01/24 05:11 Toxic Vacuolation PRESENT 09/30/24 06:09 Platelet Estimate NORMAL (NORMAL) 10/01/24 05:11 Large Platelets PRESENT 09/30/24 06:09 Plt Morphology Comment NORMAL 10/01/24 05:11 RBC Morphology NOTED 10/01/24 05:11 Polychromasia 1+ (0-2) /OIF 10/01/24 05:11 Microcytosis 1+ (5-14) /OIF 09/30/24 06:09 Tear Drop Cells 1+ (0-2) /OIF 10/01/24 05:11 Ovalocytes 1+ (5-14) /OIF 10/01/24 05:11 Jerome Cells 3+ (>5) /OIF 10/01/24 05:11 Acanthocytes (Spur) 1+ (0-2) /OIF 10/01/24 05:11 Schistocytes 1+ (0-2) /OIF 10/01/24 05:11 Smear Tech's Comments VERIFIED 09/29/24 05:31 ESR 97 MM/HR (0-15) H 10/01/24 05:11 Hold Purple Top SEE NOTE 09/28/24 20:19 Hold Blue Top SEE NOTE 09/28/24 20:19 Sodium 139 mmol/L (135-145) 09/30/24 06:09 Potassium 4.2 mmol/L (3.3-5.1) 09/30/24 06:09 Chloride 104 mmol/L (96-108) 09/30/24 06:09 Carbon Dioxide 24 mmol/L (22-29) 09/30/24 06:09 Anion Gap 15 (12-20) 09/30/24 06:09 BUN 7 mg/dL (9-16) L 09/30/24 06:09 Creatinine 0.71 mg/dL (0.5-1.4) 10/02/24 05:53 Estim Creat Clear Calc 152.9 10/02/24 05:53 Estimated GFR > 60 10/02/24 05:53 POC Glucose 157 mg/dL (60-115) H 10/02/24 11:42 Random Glucose 215 mg/dL (60-115) H 09/30/24 06:09 Lactic Acid 1.3 mmol/L (0.5-2.0) 09/25/24 06:12 Calcium 8.7 mg/dL (8.4-10.2) 09/30/24 06:09 Total Bilirubin 0.4 mg/dL (0.0-1.0) 09/26/24 05:50 Direct Bilirubin 0.1 mg/dL (0.0-0.5) 09/25/24 06:12 AST 41 U/L (5-37) H 09/26/24 05:50 ALT 17 U/L (0-40) 09/26/24 05:50 Alkaline Phosphatase 59 U/L (39-117) 09/26/24 05:50 Total Creatine Kinase 523 U/L (38-174) H 09/26/24 05:50 C-Reactive Protein 9.53 mg/dL (< or = 0.50) H 10/01/24 05:11 B-Natriuretic Peptide 47 pg/mL (<100) 09/25/24 06:12 Total Protein 5.8 g/dL (6.5-8.0) L 09/26/24 05:50 Albumin 3.4 g/dL (3.5-5.0) L 09/26/24 05:50 Vancomycin Trough 9.5 mcg/mL (10.0-20.0) L 09/26/24 18:14 Random Vancomycin 18.5 mcg/mL (15-20) 10/01/24 20:04 Impressions Arterial Duplex 09/29/24 Findings: Monophasic waveforms are noted within the profunda femoral artery in the popliteal artery. The peroneal artery is not visualized. A dorsalis pedal artery is not visualized. The posterior tibial artery is significantly attenuated with monophasic waveform. Monophasic waveforms are also seen throughout the anterior tibial artery. Velocity elevation within the SFA suggestive of multifocal [id number] stenosis. Impression: Abnormal study as detailed. MRI foot/tibia/fibula 09/29/24 No osteomyelitis. 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 Electronically signed by: Yogi Case MD 09/25/2024 08:03 AM EDT RP Shoulder X-Ray 09/26/24 10:11 IMPRESSION: Moderate osteoarthritis of the AC joint. Probable rotator cuff calcifications. Electronically signed by: Yogi Case MD 09/26/2024 11:30 AM EDT Discharge Plan Discharge Anticipated Discharge Date/Time: 10/02/24 12:23 Patient Disposition: Home, Self-Care Discharge Diagnosis: cellulitis peripheral vascular disease diabetes Referrals: Derrell Patel MD [Primary Care Provider, Internal Medicine] - 1 Week Jason Dozier MD [Physician, Vascular Surgery] - 2 Weeks Discharge Medications: New doxycycline monohydrate 100 mg tablet 100 mg PO BID Qty: 14 0RF amoxicillin-pot clavulanate 875-125 mg tablet 1 tab PO BID Qty: 14 0RF Continued losartan 25 mg tablet 25 mg PO DAILY Qty: 30 3RF cholecalciferol (vitamin D3) 25 mcg (1,000 unit) capsule 25 mcg PO DAILY fluticasone propionate 50 mcg/actuation spray,suspension 1 spray intranasal DAILY Rx Instructions: administer into each nostril (DME) FreeStyle Lite Strips Strip See Rx Instructions .ROUTE .MEDSUPPLY Qty: 10 Rx Instructions: As directed ibuprofen 800 mg tablet 800 mg PO TID PRN (Reason: Pain) atorvastatin 80 mg tablet 80 mg PO DAILY Qty: 30 3RF atenolol 50 mg tablet 50 mg PO DAILY Qty: 30 0RF furosemide 40 mg tablet 40 mg PO DAILY Qty: 90 1RF (DME) FreeStyle Megan 3 [place] Misc See Rx Instructions .Route Qty: 1 0RF Rx Instructions: As directed insulin glargine [Basaglar KwikPen U-100 Insulin] 100 unit/mL (3 mL) insulin pen 40 unit subcut DAILY Jardiance 25 mg tablet 25 mg PO DAILY Trulicity 4.5 mg/0.5 mL pen injector 4.5 mg subcut SA Centrum Silver Men [id number] mcg Tablet 1 tab PO DAILY (DME) flash glucose sensor Kit See Rx Instructions topical .MEDSUPPLY Qty: 1 Rx Instructions: As directed (DME) flash glucose scanning reader Misc See Rx Instructions topical 3XW Qty: 1 Rx Instructions: As directed (DME) Diabetic shoes & 2 pair inserts Diabetic shoes & 2 pair insert kit See Rx Instructions .Route .MEDSUPPLY Qty: 1 0RF Rx Instructions: as directed Eliquis 5 mg tablet 5 mg PO BID cyclosporine [Restasis] 0.05 % dropperette 1 drp ophthalmic (eye) BID PRN (Reason: Dry Eye(S)) albuterol sulfate 90 mcg/actuation HFA aerosol inhaler 2 puff inhalation Q6H PRN (Reason: Shortness Of Breath Or Wheezing) metformin 500 mg tablet extended release 24 hr 1,000 mg PO BID aspirin 81 mg tablet,chewable 81 mg PO DAILY (DME) FreeStyle Megan 3 Plus Sensor Device See Rx Instructions .Route Qty: 6 3RF Rx Instructions: every 15 days Discharge Orders: Discharge Order (Routine); Ordered 10/02/24 Ordered By: Phuong Eubanks Diet: Diabetic diet Activity on Discharge: As tolerated Stand Alone Forms: Patient Portal Discharge page, Work/School Release Print Language: Sri L[place]an Care Plan Goals: cure infection, avoid complications of vascular disease and diabetes Health Concerns: cellulitis peripheral vascular disease diabetes Plan of Treatment: take doxycycline monohydrate 100 mg twice daily PLUS amoxicillin-clavulanate 875-125 mg twice daily for [address] Dozier [[facility]] in 2 weeks Please follow up with your primary care doctor within 1 week. Return to the hospital if you experience recurrent or worsening symptoms. Assessment: See Discharge Summary.
--- NOTE | 2024-10-02 12:42 | MHC.CM.PN ---
PT TO [place] HOME TODAY WITH NO SERVICES VIA PRIVATE TRANSPORT
== END 2024-10-02 14:34 | disposition home or self-care (01) | DRG 872 ==
LOC: HO.ED 07:12 → HO.EDOVER 07:42 → HO.S3 16:10
PROVIDERS: Family Medicine; Internal Medicine; Admitting Provider Internal Medicine; Emergency Provider Emergency Medicine; PCP Internal Medicine; Visit Provider Family Medicine
DX: A41.9 Sepsis, unspecified organism (principal); L03.115 Cellulitis of right lower limb; I25.10 Atherosclerotic heart disease of native coronary artery without angina pectoris; I10 Essential (primary) hypertension; E11.51 Type 2 diabetes mellitus with diabetic peripheral angiopathy without gangrene; E78.5 Hyperlipidemia, unspecified; E11.9 Type 2 diabetes mellitus without complications; Z95.5 Presence of coronary angioplasty implant and graft; Z86.718 Personal history of other venous thrombosis and embolism; Z79.4 Long term (current) use of insulin; Z79.01 Long term (current) use of anticoagulants; Z79.82 Long term (current) use of aspirin; Z79.85 Long-term (current) use of injectable non-insulin antidiabetic drugs; Z79.899 Other long term (current) drug therapy
CPT/HCPCS: 36415; 73030; 73620; 73720; 80048; 80051; 80053; 80076; 80202; 82310; 82550; 82565; 82947; 83605; 83880; 84520; 85007; 85025; 85027; 85652; 86140; 87040; 93926; 93971; 97161; 99285; A9585; J1200; J2020; J2543; J3373; J3374; J7120

== ENCOUNTER → 2024-09-25 05:51 | Outpatient (BNV) | payer MEDICARE, SELFPAY | PROVIDERS: Emergency Provider Emergency Medicine; PCP Internal Medicine; Visit Provider Specialist | DX: M79.661 Pain in right lower leg (principal); R22.41 Localized swelling, mass and lump, right lower limb; L02.611 Cutaneous abscess of right foot; M79.671 Pain in right foot | CPT/HCPCS: 73620; 93971 ==

== ENCOUNTER 2024-09-25 07:16 | Outpatient (BNV) | payer MEDICARE, SELFPAY | END 2024-09-28 09:04 | PROVIDERS: Admitting Provider Internal Medicine; Emergency Provider Emergency Medicine; PCP Internal Medicine; Visit Provider Radiology Vascular & Interventional Radiology | DX: M79.604 Pain in right leg (principal); L03.115 Cellulitis of right lower limb; E11.621 Type 2 diabetes mellitus with foot ulcer | CPT/HCPCS: 73720; 93926 ==

== ENCOUNTER 2024-09-25 07:16 | Outpatient (BNV) | payer MEDICARE, SELFPAY | END 2024-09-26 10:11 | PROVIDERS: Admitting Provider Internal Medicine; Emergency Provider Emergency Medicine; PCP Internal Medicine; Visit Provider Radiology Diagnostic Radiology | DX: M19.011 Primary osteoarthritis, right shoulder (principal) | CPT/HCPCS: 73030 ==

== ENCOUNTER → 2024-09-25 07:16 | Outpatient (BNV) | payer MEDICARE, SELFPAY | PROVIDERS: Admitting Provider Internal Medicine; Emergency Provider Emergency Medicine; PCP Internal Medicine; Visit Provider Family Medicine | DX: L03.90 Cellulitis, unspecified (principal) | CPT/HCPCS: 99223; 99232 ==

== ENCOUNTER → 2024-09-25 07:16 | Outpatient (BNV) | payer MEDICARE, SELFPAY | PROVIDERS: Admitting Provider Internal Medicine; Emergency Provider Emergency Medicine; PCP Internal Medicine; Visit Provider Surgery Vascular Surgery | DX: I73.9 Peripheral vascular disease, unspecified (principal); Z86.718 Personal history of other venous thrombosis and embolism | CPT/HCPCS: 99222 ==

== ENCOUNTER → 2024-09-25 07:16 | Outpatient (BNV) | payer MEDICARE, SELFPAY | PROVIDERS: Admitting Provider Internal Medicine; Emergency Provider Emergency Medicine; PCP Internal Medicine; Visit Provider Surgery | DX: L03.90 Cellulitis, unspecified (principal) | CPT/HCPCS: 99024; 99222; 99231; 99232 ==

== ENCOUNTER → 2024-09-25 07:16 | Outpatient (BNV) | payer MEDICARE, SELFPAY | PROVIDERS: Admitting Provider Internal Medicine; Emergency Provider Emergency Medicine; PCP Internal Medicine; Visit Provider Internal Medicine | DX: L97.509 Non-pressure chronic ulcer of other part of unspecified foot with unspecified severity (principal); E11.65 Type 2 diabetes mellitus with hyperglycemia; Z79.4 Long term (current) use of insulin | CPT/HCPCS: 99232 ==

== ENCOUNTER 2024-10-07 16:58 | Outpatient (AMB) | payer MEDICARE, SELFPAY ==
--- OUTSIDE RECORDS SUMMARY | 2024-10-07 17:00 | XMS_ITS | Clinical Summary ---
Author Organization [facility] Address [address] [place] [address] Care Team Providers Care Dry Wall Applicator Name Role Phone Jessica Cabrera MD Primary Care Provider [phone] Allergies Active Allergy Reactions Criticality Noted Date [...] age to complete this topic Care Teams Dry Wall Applicator Relationship Specialty Start Date End Date Jessica Cabrera MD [address] [address] PCP - General Internal Medicine 05/18/20
--- OUTSIDE RECORDS SUMMARY | 2024-10-07 17:00 | XMS_ITS | Clinical Summary ---
Author Organization [facility] Address [address] [place] [id number] Phone Care Team Providers Care System Safety Engineer Name Role Phone Martha Schwartz MD Primary Care Provider [phone] Allergies Active Allergy Reactions Criticality Noted Date Comments Oxycodone Tremor Low 05/06/2020 Phenylephrine 07/01/2020 Pseudoephedrine Hcl Dizziness,Other (See Comments) 12/13/2023 Medications insulin glargine (LANTUS) 100 unit/mL injection vial Inject 40 Units under the skin daily. Active ATENOLOL ORAL Take by mouth. A ctive atorvastatin calcium (ATORVASTATIN ORAL) Take by mouth. Activ e FUROSEMIDE, BULK, MISC by Miscellaneous route. Active metformin HCl (METFORMIN, BULK, MISC) by Miscellaneous route. Active rivaroxaban (XARELTO ORAL) Take by mouth. Active ELIQUIS 5 mg tablet Take 5 mg by mouth 2 (two) times a day. Active aspirin 81 MG EC tablet Take 81 mg by mouth daily. Active CHOLECALCIFEROL 25 mcg (1,000 unit) tablet Take 1 tablet by mouth every morning. 10/20/19 24 Active JARDIANCE 25 mg tablet Take 25 mg by mouth daily. Active OZEMPIC 2 mg/dose (8 mg/3 mL) subcutaneous injection pen INJECT 2 MG INTO THE SKIN ONCE A WEEK. 10/22/19 24 Active albuterol (PROAIR HFA) 90 mcg/actuation inhaler Inhale 2 puffs into the lungs every 4 (four) hours as needed for wheezing. 18 g 12/13/19 24 Active benzonatate (TESSALON) 100 MG capsule Take 2 capsules (200 mg total) by mouth 3 (three) times a day as needed for cough. 21 capsule 12/13/19 24 Active inhaler spacing device (AEROCHAMBER,JAMI ATHERITE) Spcr Inhale 1 each into the lungs every 4 (four) hours as needed. 1 each 12/13/19 24 Active Active Problems No known active problems Social History Tobacco Use Types Packs/Day Years Used Date Smoking Tobacco: Some Days Smokeless Tobacco: Never Tobacco Cessation:Ready to Q [...] AM EST Sexual Orientation Not on file Last Filed Vital Signs Vital Sign Reading Time Taken Comments Blood Pressure 125/75 12/13/2023 4:53 PM EDT Pulse 71 12/13/2023 4:53 PM EDT Temperature 36.7 C (98 F) 12/13/2023 4:53 PM EDT Respiratory Rate 20 12/13/2023 4:53 PM EDT Oxygen Saturation 97% 12/13/2023 4:53 PM EDT Inhaled Oxygen Concentration - - Weight 131.1 kg (289 lb) 05/06/2020 9:52 AM EST Height 190.5 cm (6' 3 ) 05/06/2020 9:52 AM EST Body Mass Index 36.12 05/06/2020 9:52 AM EST Plan of Treatment Health Maintenance Due Date Last Done Comments Adult Td,Tdap Booster 1958 LIPID PANEL 1958 DEPRESSION SCREENING 1970 SMOKING Hx and SMOKELESS TOBACCO SCREENING 12/12/1971 HEPATITIS C SCREENING 1976 HIV ONE-TIME SCREENING (18-6 5 YEARS) 1976 COLOGUARD 12/12/2003 COLONOSCOPY 12/12/2003 COLORECTAL CANCER SCREENING 12/12/2003 FIT TEST 12/12/2003 FOBT 12/12/2003 SIGMOIDOSCOPY 12/12/2003 VIRTUAL COLONOSCOPY 12/12/2003 PNEUMOCOCCAL VACCINES (50+ years) (2 of 2 - PCV) 02/23/2006 02/23/2005 RSV VACCINE (1 - Risk 60-74 years 1-dose series) 2018 ZOSTER VACCINES (2 of 2) 10/26/2020 08/31/2020 CREATININE LEVEL 05/06/2021 05/06/2020 COVID-19 VACCINE (4 - 2023-2 5 season) 2023 02/02/2022, 06/15/2020, 05/25/2020 ABDOMINAL AORTIC ANEURYSM (AAA) SCREENING 12/12/2023 HEPATITIS A VACCINES Aged Out No long er eligible based on patient's age to complete this topic HIB VACCINES Aged Out No longer eligi ble based on patient's age to complete this topic MENINGOCOCCAL VACCINES (ACWY) Aged Out No longer eligible based on patient's age to complete this topic MENINGOCOCCAL VACCINES (B) Aged Out N o longer eligible based on patient's age to complete this topic Medical Devices Not on file Procedures Procedure Name Priority Date/Time Associated Diagnosis Comments BASIC METABOLIC PANEL STAT 05/06/2020 10:50 AM EST from Last 3 Months or Most Recently Relevant to Health Maintenance Results * (ABNORMAL) Basic metabolic panel (05/06/2020 10:50 AM EST) SODIUM 140 133 - 146 mmol/L [facility] CHLORIDE 103 96 - 108 mmol/L [facility] POTASSIUM 4.3 3.3 - 5.1 mmol/L [facility] CO2 26 21 - 35 mmol/L [facility] BUN 18 6 - 19 mg/dL [facility] CREATININE 0.80 0.5 - 1.5 mg/dL [facility] GLUCOSE 260(H) 70 - 99 mg/dL [facility] CALCIUM 9.4 8.4 - 10.3 mg/dL [facility] EGFR 96 >59 mL/min/1.7 3m2 [facility] Comment:Estimated glomerular filtration rate calculated using the CKD-EPI equation. ANION GAP 15 10 - 20 mmol/L [facility] Blood 05/06/2020 10:5 0 AM EST 05/06/2020 11:01 AM EST Esther Carroll MD LAB BLOOD ORDERABLES Final Result [facility] [address] [place] [address] from Last 3 Months or Most Recently Relevant to Health Maintenance Insurance [facility] MEDICARE PART A & B [place] BLUE REPLACEMENT [facility] [employer] [employer] MEDICARE PART A & [place] P[place] BLUE REPLACEMENT [facility] & B [place] PPO BLUE REPLACEMENT [address] [place], [place] [id number] [facility] MEDICARE PART A & B [facility] MEDICARE PPO BLUE REPLACEMENT [facility] MEDICARE PART A & B [facility]ICARE PPO BLUE [facility] MEDICARE PART A & B [place] BLUE REPLACEMENT Care Teams System Safety Engineer Relationship Specialty Start Date End Date Martha Schwartz MD [address] [place] [phone] PCP - General Internal Medicine 05/12/20 Additional Source Comments The information contained in this document represents components of the legal health record. It is not the complete legal health record.[facility]
--- OUTSIDE RECORDS SUMMARY | 2024-10-07 17:00 | XMS_ITS ---
Author Name [facility] Organization Unknown Care Team Organization Name Specialty Phone Email Start Date End Da [facility] Primary [facility] 01/24/2022 11/05/19 24
--- OUTSIDE RECORDS SUMMARY | 2024-10-07 17:00 | XMS_ITS ---
Author Organization [address] [facility] Address [address] [place] [address] Phone Care Team Providers Care President And Chief Commercial Officer Name Role Phone Derrell Patel MD Primary Care Provider [phone] Transitional Care Management Status:Closed (Closed) Start date:10/02/2024 Enrollment date:10/02/2024 Enrollment reason:Identified using hospital discharge data End date:10/03/2024 Close reason:Not attributed Overview Patient states he is no longer under the care of any [facility] providers, states his insurancemade him switch. He sees all [place] providers now. Continued Care and Services Coordination
--- NOTE | 2024-10-07 17:04 | MHC.PC.OV ---
Vital Signs 10/07/24 17:07 Height 6 ft Weight 283 lb BMI 38.4 BP 126/60 Blood Pressure Location Lt brachial Position Sitting Intake Visit Reasons: [facility] 10/02 Cellulitis Manager Relocation Required: No Accompanied by: Self / Same As Patient Allergies oxycodone (OXYCODONE) Allergy (Intermediate, Verified 10/07/24 18:12) JITTERY/NAUSEA pseudoephedrine (From SUDAFED) Adverse Reaction (Intermediate, Verified 10/07/24 18:12) ELEVATES BP Medication List - Last Reconciled 10/07/24 by Derrell Patel MD albuterol sulfate 90 mcg/actuation 2 puffs inhalation Q6H PRN amoxicillin-pot clavulanate 875-125 mg 1 tab PO BID apixaban (Eliquis) 5 mg PO BID aspirin 81 mg PO DAILY atenolol 50 mg PO DAILY atorvastatin 80 mg PO DAILY blood sugar diagnostic (FreeStyle Lite Strips) As directed cholecalciferol (vitamin D3) 25 mcg PO DAILY cyclosporine 0.05% (Restasis) 1 drp ophthalmic (eye) BID PRN [Diabetic shoes & 2 pair inserts as directed] doxycycline monohydrate 100 mg PO BID dulaglutide (Trulicity) 4.5 mg subcut SA empagliflozin (Jardiance) 25 mg PO DAILY flash glucose scanning reader As directed flash glucose sensor As directed fluticasone propionate 50 mcg/actuation 1 spray intranasal DAILY FreeStyle Megan 3 Plus Sensor (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 sensor) every 15 days NS FreeStyle Megan 3 [place] (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,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,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) As directed NS furosemide 40 mg PO DAILY ibuprofen 800 mg PO TID PRN insulin glargine (Basaglar KwikPen U-100 Insulin) 40 units subcut DAILY losartan 25 mg PO DAILY metformin ER 1,000 mg PO BID [id number] mcg (Centrum Silver Men) 1 tab PO DAILY Tobacco use date assessed: 07/11/24 Dental Screening Dental Screen Date: 07/11/24 [facility] 10/02 Cellulitis HPI Details Patient comes in today for her TCM visit He was admitted to [facility] from 09/25/24 to 10/02/24 for medical management of cellulitis of the right lower leg He is currently still on Augmentin and Doxycycline BID - is supposed to take this until the end of this week (7 days following his hospital discharge) Patient reports that he is still experiencing increased pain and discomfort in his right leg, which still appears quite swollen He is questioning whether it is okay for him to return to work as his medical leave is almost at an end and his employer is asking him as to when he can go back to work He denies any fever, headaches or dizziness Denies any chest pains, no SOB No nausea/vomiting, no abdominal pain No change in bowel habits noted TCM TCM Information Date of Discharge 10/02/24 Discharged From [facility] Interactive Contact Date (Reference documentation from this date) 10/03/24 [facility] Medical History History of recurrent deep vein thrombosis (DVT) Vitamin D deficiency Obesity (BMI 30-39.9) Primary osteoarthritis of both hips Smoker History of DVT (deep vein thrombosis) Anemia Stasis edema of both lower extremities Pure hypercholesterolemia Type 2 diabetes mellitus with hyperglycemia Coronary artery disease Osteoarthritis DVT (deep venous thrombosis) halfway current use of insulin Essential hypertension Hyperlipidemia LDL goal <70 Surgical History History of colonoscopy History of herniorrhaphy History of heart artery stent History of total hip arthroplasty History of appendectomy Family History (Updated 10/07/24 @ 17:06 by AMI Hardy) Father Hypertension Mother COPD (chronic obstructive pulmonary disease) Brother Colon cancer Sister Alive and well Brother Diabetes Social History Household Members: Spouse Housing: House Do you presently have visiting nurse or other home services: No Patient Tobacco Use Status: Former Tobacco user Tobacco use type: Cigarette e-Cigarette/Vaping Use: Never Used service: No Current occupational status: employed Cognitive needs: No Hearing needs: No Vision needs: No Questionnaire Thrive Questionnaire Date Thrive assessed: 09/26/24 RAVI-7 AMB Questionnaire RAVI-7 Date RAVI - 7 assessed: 07/11/24 Source: Developed by Drs. Yogi Koenig, Flavia Ashley, Lucho Thompson and colleagues, with an educational john from [employer]. Review of Systems Const Denies chills, Reports fatigue, Denies fever(s) and Denies headache(s) ENT Denies dysphagia, Denies dizziness, Denies otalgia, Denies headache(s), Denies neck pain, Denies odynophagia and Denies sore throat Card Denies chest pain, Denies palpitations and Denies dyspnea Resp Denies chest congestion, Denies cough and Denies dyspnea GI Denies abdominal pain, Denies constipation, Denies dysphagia, Denies heartburn, Denies diarrhea, Denies nausea, Denies odynophagia and Denies vomiting Denies difficulty urinating, Denies dysuria, Denies nocturia and Denies urinary frequency Musc Denies back pain, Denies arthralgias and Denies neck pain Skin/Breast Details: (+) increased redness and swelling over the right lower leg, which is currently still wrapped in bandages and is somewhat tender on palpation Neuro Denies dizziness and Denies headache(s) Psych Denies depression Endo Reports fatigue and Denies palpitations Physical exam (Primary Care) Vital Signs: Last Vital Signs BP 126/60 10/07/24 17:07 BMI result Body Mass Index 38.4 Tobacco/Smoking Status: Tobacco use Status Tobacco use date assessed 07/11/24 10/07/24 17:11 Patient Tobacco Use Status Former Tobacco user 10/07/24 17:11 Tobacco use type Cigarette 10/07/24 17:11 e-Cigarette/Vaping Use Never Used 10/07/24 17:11 Thrive Assessment: Date of Thrive Assessment Date Thrive assessed 09/26/24 10/07/24 17:11 Const General: no acute distress and alert Neck Neck: Yes supple and No lymphadenopathy Thyroid: Thyroid normal Resp Auscultation: clear to auscultation bilaterally, no rales and no wheezes Cardio Rate: regular rate Rhythm: regular rhythm Heart sounds: no murmurs GI Palpation (GI): Soft to palpation and nontender Auscultation: normal bowel sounds General: Yes no CVA tenderness Back/Spine/Pelvis Back: no CVA tenderness Thoracic/Lumbar Spine: No lumbar spinal tenderness Skin Other: increased erythema (and edema) over the entire right lower leg - leg is currently still wrapped in bandages and is not examined further but dressing/bandages appear dry Extrem Other: 3+ edema, with increased erythema of the right lower leg; the proximal right lower leg is tender on palpation; trace edema noted on the left lower leg and foot Coding Level of Care Code TCM Mod MDM <= 7 Days Diagnoses Cellulitis of right lower leg L03.115 Edema of both lower legs R60.0 Type 2 diabetes mellitus with hyperglycemia, with long-term current use of insulin E11.65; Z79.4 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 transplanted heart: [place] heart Associated angina: without angina Pure hypercholesterolemia E78.00 Essential hypertension I10 Anemia, unspecified type D64.9 Anemia type: unspecified type History of recurrent deep vein thrombosis (DVT) Z86.718 Primary osteoarthritis of both hips M16.0 Vitamin D deficiency E55.9 Smoker F17.200 Obesity (BMI 30-39.9) E66.9 Assessment & Plan Assessment & Plan (1) Cellulitis of right lower leg: Code(s): L03.115 - Cellulitis of right lower limb Category: Medical Plan: Continue Augmentin 875 mg BID and Doxycycline 100 mg BID - to complete a total of 7 days of Rx, which will be until the end of the week Have instructed patient to call back before the end of the week if his right leg pain, redness and swelling still has not improved significantly by then and we will likely extend his Abx Rx for another 5 days Have also advised patient that he needs to keep his right leg elevated as often as he can over the next couple of weeks Patient states that visiting nurses will also be coming to see him in the next day or two and will be handling his dressing changes and wound care He is also advised that until his cellulitis is completely resolved and his leg swelling has improved, he should avoid prolonged standing as much as possible, which means that he should not return to work yet at this time - will have office provide patient with a work note for the next couple of weeks Patient is also advised to have his employer give him some FMLA papers to be filled out to allow him to take time off as needed for medical issues in the future (2) Edema of both lower legs: Code(s): R60.0 - Localized edema Category: Medical Plan: Will refer patient to vascular surgery for further evaluation and management of his recurrent lower extremity edema (3) Type 2 diabetes mellitus with hyperglycemia: Code(s): E11.65 - Type 2 diabetes mellitus with hyperglycemia Category: Medical Qualifiers: Diabetes mellitus chcf insulin use: with chcf use Qualified Code(s): E11.65 - Type 2 diabetes mellitus with hyperglycemia; Z79.4 - halfway (current) use of insulin Plan: His HgbA1c was elevated at 9.3% when it was last checked on 07/09/2024 (in-office HgbA1c was at 9.6% back in March 2024) - goal is at least <7.0% Reinforced diabetic diet Continue Jardiance 25 mg QD, Metformin ER 1000 mg BID and Insulin glargine 40 units Q HS He is also on Trulicity 4.5 mg SQ once a week He was referred to endocrinology and his diabetes will now be managed by them - he has a follow up appointment with endocrinology in a couple of weeks on 10/22/2024 (4) Coronary artery disease: Comment: S/P PCI/coronary stenting in 2005 due to RCA plaque rupture Code(s): I25.10 - Atherosclerotic heart disease of [place] coronary artery without angina pectoris Category: Medical Qualifiers: Coronary Disease-Associated Artery/Lesion type: [place] artery [place] vs. transplanted heart: [place] heart Associated angina: without angina Qualified Code(s): I25.10 - Atherosclerotic heart disease of [place] coronary artery without angina pectoris Plan: Patient is again currently asymptomatic from a cardiac standpoint S/P coronary stenting/PCI in 2005 due to RCA plaque rupture Cardiac catheterization done in 2019 revealed (+) moderate distal RCA and moderate LAD disease; a 90% 2nd diagonal stenosis was also seen Cardiology at the time recommended medical management of coronary disease Continue Aspirin 81 mg QD - patient should be on lifelong antiplatelet Tx with low dose Aspirin He was seeing cardiology over at [facility] in the past but switched over to [facility] Cardiology recently since 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 and he is scheduled to be seen for his initial cardiology visit next month on 11/04/2024 (5) Pure hypercholesterolemia: Code(s): E78.00 - Pure hypercholesterolemia, unspecified Category: Medical Plan: Reinforced low cholesterol diet - goal is LDL cholesterol of <70 mg/dl due to his CAD and cardiac cath findings in 2019 Continue Atorvastatin 80 mg QD Will have him recheck his labs and fasting lipids as scheduled next month for follow up (6) Essential hypertension: Code(s): I10 - Essential (primary) hypertension Category: Medical Plan: Reinforced low sodium diet - goal is systolic BP of at least 120 to 130 mm or less Continue Atenolol 50 mg QD and Losartan 25 mg QD He is reminded to continue monitoring his blood pressure regularly (7) Anemia: Code(s): D64.9 - Anemia, unspecified Category: Medical Qualifiers: Anemia type: unspecified type Qualified Code(s): D64.9 - Anemia, unspecified Plan: His H/H was at 10.1/31.4 on his labs done last week on 10/02/2024 Anemia work ups done recently, including iron studies, B12, ERP and Hgb electrophoresis, all came back normal Will continue to monitor his CBC regularly (8) History of recurrent deep vein thrombosis (DVT): Code(s): Z86.718 - Personal history of other venous thrombosis and embolism Category: Medical Plan: It is unclear at this time if he was ever worked up for his recurrent DVT He was sent for additional labs to assess for underlying hypercoagulability syndromes a few months ago - all of these came back negative Continue Eliquis 5 mg BID (9) Primary osteoarthritis of both hips: Comment: S/P total left hip arthroplasty with Dr. Kahn on 11/05/2018 and total right hip arthroplasty on 01/08/2019 Code(s): M16.0 - Bilateral primary osteoarthritis of hip Category: Medical Plan: He is S/P total bilateral hip arthroplasty [place] [address] Kahn Patient states that he has been doing well since with no significant hip issues Follow up with orthopedics as scheduled or as needed (10) Vitamin D deficiency: Code(s): E55.9 - Vitamin D deficiency, unspecified Category: Medical Plan: Continue Vitamin D3 1000 units QD (11) Smoker: Code(s): F17.200 - Nicotine dependence, unspecified, uncomplicated Category: Social Hx Plan: Patient is counseled again on complete smoking cessation (12) Obesity (BMI 30-39.9): Code(s): E66.9 - Obesity, unspecified Category: Medical Plan: Reinforced diet; exercise and weight loss are impractical at this time due to patient's physical conditions and medical issues currently Plan Follow up as scheduled next month Orders: Referrals Vascular Surgery Referral R60.0 - Localized edema
[2024-10-07 17:07] VITALS: BP 126/60; BMI 38.4
== END 2024-10-07 17:29 | disposition home or self-care (01) ==
LOC: HO.HMCH 16:58
PROVIDERS: PCP Internal Medicine; Visit Provider Internal Medicine
DX: E11.65 Type 2 diabetes mellitus with hyperglycemia (principal); Z79.4 Long term (current) use of insulin; L03.115 Cellulitis of right lower limb; R60.0 Localized edema; I25.10 Atherosclerotic heart disease of native coronary artery without angina pectoris; E78.00 Pure hypercholesterolemia, unspecified; I10 Essential (primary) hypertension; D64.9 Anemia, unspecified; Z86.718 Personal history of other venous thrombosis and embolism; M16.0 Bilateral primary osteoarthritis of hip; E55.9 Vitamin D deficiency, unspecified; F17.200 Nicotine dependence, unspecified, uncomplicated

== ENCOUNTER → 2024-10-07 16:58 | Outpatient (BNVA) | payer MEDICARE, SELFPAY | PROVIDERS: PCP Internal Medicine; Visit Provider Internal Medicine | DX: L03.115 Cellulitis of right lower limb (principal); R60.0 Localized edema; E11.65 Type 2 diabetes mellitus with hyperglycemia; I25.10 Atherosclerotic heart disease of native coronary artery without angina pectoris; D64.9 Anemia, unspecified; M16.0 Bilateral primary osteoarthritis of hip; E55.9 Vitamin D deficiency, unspecified; E66.9 Obesity, unspecified; Z79.4 Long term (current) use of insulin; Z86.718 Personal history of other venous thrombosis and embolism; Z87.891 Personal history of nicotine dependence; Z68.38 Body mass index [BMI] 38.0-38.9, adult | CPT/HCPCS: 99495 ==

== ENCOUNTER 2024-10-22 08:38 | Outpatient (AMB) | payer MEDICARE, SELFPAY ==
[2024-10-22 08:40] VITALS: BP 146/82; PULSE 69; O2SAT 98; BMI 39.5
--- NOTE | 2024-10-22 08:40 | MHC.OFFVIS ---
Vital Signs 10/22/24 08:40 Height 6 ft Weight 291 lb 0.163 oz BMI 39.5 BP 146/82 H Blood Pressure Location Rt brachial Position Sitting Pulse 69 Pulse Source Pulse Oximeter Pulse Oximetry (%) 98 Oxygen Delivery Method Room Air Intake Visit Reasons: T2DM Intake Note: Patient presents today for a follow-up on Type 2 Diabetes Mellitus: Pt was admitted in the Hospital due to Cellulitis Last Diabetic eye exam was on: 09/2024 Last Podiatry exam was on: 10/22/2024 Most recent HbA1c: 7.9%, 10/22/2024 Random Glucose- 101 mg/dL, Today Driver/Merchandiser Required: No Accompanied by: Self / Same As Patient Allergies oxycodone (OXYCODONE) Allergy (Intermediate, Verified 10/22/24 08:46) JITTERY/NAUSEA pseudoephedrine (From SUDAFED) Adverse Reaction (Intermediate, Verified 10/22/24 08:46) ELEVATES BP HPI Comments Details: Patient is a 63 yo male with DM type 2 presenting for diabetes management Medical history: CAD PCI 2005, 2018, HTN, HLD, recurrent DVT Diagnosed ~1999s Micro and macrovascular complications: +nephropathy + CAD, + PVD, + retinopathy Diabetes medications: Basaglar 40 units, metformin 1000mg bid, Trulicity 4.5mg/dl, Jardiance 25 mg and pioglitazone 30mg daily. On traditional glucometer. Not consistent with taking readings. Is getting CGM training today. Is 100% compliant with medications. Nows he needs to get out and be more active. He had recent cellulitisHas been able to eat right, exercise and get his A1C down to 7% in the past. POC A1C today is 7.9% from 9.6% Symptoms reported: occasional numbness in feet Hypoglycemia: infrequent but needs to make sure to eat Hyperglycemia: denies nocturia, denies polydypsia Last eye exam : [facility] Podiatry: Dr Selwyn HOWARD CONSTITUTIONAL: Denies weight loss, fever and chills. HEENT: Denies changes in vision and hearing. RESPIRATORY: Denies SOB and cough. CV: Denies palpitations and CP GI: Denies abdominal pain, nausea, vomiting and diarrhea. : Denies dysuria and urinary frequency. MSK: Denies new myalgia and joint pain. SKIN: Denies rash and pruritus. NEUROLOGICAL: see hpi PSYCHIATRIC: Denies recent changes in mood. PHYSICAL EXAM: GENERAL: Alert and oriented x 3. NAD EYES: EOMI. Anicteric. HENT: Moist mucous membranes. No scleral icterus. No cervical lymphadenopathy. LUNGS: Clear to auscultation bilaterally. CARDIOVASCULAR: Regular rate and rhythm. No murmur. No JVD. ABDOMEN: Soft, non-tender +bs EXTREMITIES: No edema. Non-tender. SKIN: No rashes or lesions. Warm. NEUROLOGIC: No focal neurological deficits. CN II-XII grossly intact PSYCHIATRIC: Cooperative. Appropriate mood and affect [facility] Medical History History of recurrent deep vein thrombosis (DVT) Vitamin D deficiency Obesity (BMI 30-39.9) Primary osteoarthritis of both hips Smoker History of DVT (deep vein thrombosis) Anemia Stasis edema of both lower extremities Pure hypercholesterolemia Type 2 diabetes mellitus with hyperglycemia Coronary artery disease Osteoarthritis DVT (deep venous thrombosis) intermediate current use of insulin Essential hypertension Hyperlipidemia LDL goal <70 Surgical History History of colonoscopy History of herniorrhaphy History of heart artery stent History of total hip arthroplasty History of appendectomy Family History Father Hypertension Mother COPD (chronic obstructive pulmonary disease) Brother Colon cancer Sister Alive and well Brother Diabetes Social History Household Members: Spouse Housing: House Do you presently have visiting nurse or other home services: No Patient Tobacco Use Status: Former Tobacco user Tobacco use type: Cigarette e-Cigarette/Vaping Use: Never Used service: No Current occupational status: employed Cognitive needs: No Hearing needs: No Vision needs: No Physical Exam Vital Signs: Last Vital Signs BP 146/82 H 10/22/24 08:40 BMI result Body Mass Index 39.5 Results AMB Hemoglobin A1c AMB Hemoglobin A1c 7.9 % Last Edit by AMI Valdez on 10/22/24 09:00 Results Reviewed Results Reviewed: Laboratory Last Values Glucose (Clinic) 101 mg/dL (60-115) 10/22/24 08:43 Assessment & Plan Assessment & Plan (1) Type 2 diabetes mellitus with hyperglycemia: Code(s): E11.65 - Type 2 diabetes mellitus with hyperglycemia Category: Medical Qualifiers: 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 supoptimal A1C on max trulicity Treat hypoglycemia rules of 15s Diabetic CGM teaching today Return in 3 months or sooner as needed Orders: Orders AMB Hemoglobin A1c Today E11.65 - Type 2 diabetes mellitus with hyperglycemia, Z79.4 - middle or intermediate school principal (current) use of insulin Medications: New Mounjaro (tirzepatide) transitioning from trulicity 4.5mg 5 mg (0.5 mL) subcut QWEEK 2 mL 0RF NS E11.65 - Type 2 diabetes mellitus with hyperglycemia, Z79.4 - middle or intermediate school principal (current) use of insulin Coding Level of Care Code Est Pt Level 4 (32766) Diagnoses Type 2 diabetes mellitus with hyperglycemia, with long-term current use of insulin E11.65; Z79.4 Diabetes mellitus extermination supervisor insulin use: with extermination supervisor use intermediate current use of insulin Z79.4
[2024-10-22 08:48] LABS: Glucose, Whole Blood 101 mg/dL (60-115)
--- OUTSIDE RECORDS SUMMARY | 2024-10-22 08:50 | XMS_ITS | Clinical Summary ---
Author Organization [facility] Address [address] [place] [id number] Phone Care Team Providers Care Bologna Maker Name Role Phone Martha Schwartz MD Primary Care Provider [phone] Allergies Active Allergy Reactions Criticality Noted Date [...] EST) SODIUM 140 133 - 146 mmol/L [facility] CHLORIDE 103 96 - 108 mmol/L [facility] POTASSIUM 4.3 3.3 - 5.1 mmol/L [facility] CO2 26 21 - 35 mmol/L [facility] BUN 18 6 - 19 mg/dL [facility] CREATININE 0.80 0.5 - 1.5 mg/dL [facility] GLUCOSE 260(H) 70 - 99 mg/dL [facility] CALCIUM 9.4 8.4 - 10.3 mg/dL [facility] EGFR 96 >59 mL/min/1.7 3m2 [facility] Comment:Estimated glomerular filtration rate calculated using the CKD-EPI equation. ANION GAP 15 10 - 20 mmol/L [facility] Blood 05/06/2020 10:5 0 AM EST 05/06/2020 11:01 AM EST Esther Carroll MD LAB BLOOD ORDERABLES Final Result [facility] [address] [place] [address] from Last 3 Months or Most Recently Relevant to Health Maintenance Insurance [facility] MEDICARE PART A & B [place] BLUE REPLACEMENT [facility] MEDIC[facility] PART A & [place] BLUE REPLAC[place] [facility] A & B [place] MED[place] PPO BLUE REPLACEMENT [address] [place], [place] [address]O [facility] MEDICARE PART A & B [facility] MEDICARE PPO BLUE REPLACEMENT [facility] ACO MEDICARE PART A & B [facility] MEDICARE PPO BLUE REPLACEMENT [facility] MEDICARE PART A & B [place] BLUE REPLACEMENT Care Teams Bologna Maker Relationship Specialty Start Date End Date Martha Schwartz MD [address] [place] [id number] PCP - General Internal Medicine 05/12/20 Additional Source Comments The information contained in this document represents components of the legal health record. It is not the complete legal health record.[facility]
--- OUTSIDE RECORDS SUMMARY | 2024-10-22 08:50 | XMS_ITS | Clinical Summary ---
Author Organization [facility] Address [address] [place] [address] Care Team Providers Care Weeder Name Role Phone Jessica Cabrera MD Primary Care Provider Allergies Active Allergy Reactions Criticality Noted Date [...] age to complete this topic Care Teams Weeder Relationship Specialty Start Date End Date Jessica Cabrera MD [address] [id number] PCP - General Internal Medicine 05/18/20
== END 2024-10-22 09:30 | disposition home or self-care (01) ==
LOC: HO.ENCR 08:39
PROVIDERS: PCP Internal Medicine; Visit Provider Internal Medicine
DX: E11.65 Type 2 diabetes mellitus with hyperglycemia (principal); Z79.4 Long term (current) use of insulin

== ENCOUNTER → 2024-10-22 08:38 | Outpatient (BNVA) | payer MEDICARE, SELFPAY | PROVIDERS: PCP Internal Medicine; Visit Provider Internal Medicine | DX: E11.65 Type 2 diabetes mellitus with hyperglycemia (principal); E55.9 Vitamin D deficiency, unspecified; Z79.4 Long term (current) use of insulin | CPT/HCPCS: 82947; 83036; 99211; 99212 ==

== ENCOUNTER 2024-10-22 09:01 | Outpatient (AMB) | payer MEDICARE, SELFPAY ==
--- NOTE | 2024-10-22 09:22 | A.OFFVIS_ITS ---
Intake Intake Visit Reasons: T2DM Allergies oxycodone (OXYCODONE) Allergy (Intermediate, Verified 10/22/24 08:46) JITTERY/NAUSEA pseudoephedrine (From SUDAFED) Adverse Reaction (Intermediate, Verified 10/22/24 08:46) ELEVATES BP HPI Comprehensive Diabetes Asmnt Most Recent Diabetes Results: Hemoglobin A1c 7.7 % 12/12/18 Microalb/Creat Ratio, (<30) 8.3 ug/mg cr 07/09/24 Cholesterol, (<200) 127 mg/dL 07/09/24 HDL Cholesterol, (>40) 44 mg/dL 07/09/24 Triglycerides, (<150) 69 mg/dL 07/09/24 Creatinine, (0.5-1.4) 0.71 mg/dL 10/02/24 BUN, (9-16) 7 mg/dL L 09/30/24 Sodium, (135-145) 139 mmol/L 09/30/24 Potassium, (3.3-5.1) 4.2 mmol/L 09/30/24 Chloride, (96-108) 104 mmol/L 09/30/24 Carbon Dioxide, (22-29) 24 mmol/L 09/30/24 Calcium, (8.4-10.2) 8.7 mg/dL 09/30/24 AST, (5-37) 41 U/L H 09/26/24 ALT, (0-40) 17 U/L 09/26/24 Total Protein, (6.5-8.0) 5.8 g/dL L 09/26/24 Albumin, (3.5-5.0) 3.4 g/dL L 09/26/24 [facility] Medical History History of recurrent deep vein thrombosis (DVT) Vitamin D deficiency Obesity (BMI 30-39.9) Primary osteoarthritis of both hips Smoker History of DVT (deep vein thrombosis) Anemia Stasis edema of both lower extremities Pure hypercholesterolemia Type 2 diabetes mellitus with hyperglycemia Coronary artery disease Osteoarthritis DVT (deep venous thrombosis) custodial current use of insulin Essential hypertension Hyperlipidemia LDL goal <70 Surgical History History of colonoscopy History of herniorrhaphy History of heart artery stent History of total hip arthroplasty History of appendectomy Family History Father Hypertension Mother COPD (chronic obstructive pulmonary disease) Brother Colon cancer Sister Alive and well Brother Diabetes Social History Household Members: Spouse Housing: House Do you presently have visiting nurse or other home services: No Patient Tobacco Use Status: Former Tobacco user Tobacco use type: Cigarette e-Cigarette/Vaping Use: Never Used service: No Current occupational status: employed Cognitive needs: No Hearing needs: No Vision needs: No Assessment & Plan Assessment & Plan (1) Type 2 diabetes mellitus with hyperglycemia: Code(s): E11.65 - Type 2 diabetes mellitus with hyperglycemia Qualifiers: Diabetes mellitus termite inspector insulin use: with termite inspector use Qualified Code(s): E11.65 - Type 2 diabetes mellitus with hyperglycemia; Z79.4 - terminal computer operator (current) use of insulin Plan: Patient at visit to set up an SEJENT Megan 3+ with reader Instructed patient sensors water proof you can shower, or swim do not submerge sensor in water for over 30 minutes Is sensor falls off cannot put back in you need to replace sensor, customer service number given to patient for sensor replacement Sensor placed on the back of left arm Patient left visit with sensor in warmup Reviewed how to interpret trend arrows Discussed lag time between finger stick and sensor data.? Instructed patient the importance of having blood glucometer for backup testing if needed Reviewed delay of CGM from fingersticks Reminded Pt that if symptoms do not match sensor still needs to check fingersticks. Patient is interested in diabetes group class Portions of this note were created using voice recognition software, please excuse any words or phrases that may have been misinterpreted. Patient Instructions: Patient instruction: CGM provides information on blood glucose control througho ut the day, including hyperglycemia and hypoglycemia. ? Continue to monitor blood glucose as instructed. Follow nutrition guidelines provided. Report any discomfort promptly to health care provider. ?Stay well-hydrated. You can bathe ,shower, swim and exercise while wearing the glucose sensor. Do not submerge glucose sensor in water for more than 30 minutes. Coding Level of Care Code Est Pt Level 1 (92029) Diagnoses Type 2 diabetes mellitus with hyperglycemia, with long-term current use of insulin E11.65; Z79.4 Diabetes mellitus residential insulin use: with residential use Results AMB Hemoglobin A1c AMB Hemoglobin A1c 7.9 % Last Edit by AMI Valdez on 10/22/24 09:00
== END 2024-10-22 09:30 | disposition home or self-care (01) ==
LOC: HO.ENCR 09:01
PROVIDERS: PCP Internal Medicine; Visit Provider Registered Nurse Diabetes Educator
DX: E11.65 Type 2 diabetes mellitus with hyperglycemia (principal); Z79.4 Long term (current) use of insulin

== ENCOUNTER 2024-11-04 10:26 | Outpatient (AMB) | payer MEDICARE, SELFPAY ==
--- NOTE | 2024-11-04 10:29 | MHC.OFFVIS ---
Vital Signs 11/04/24 10:33 Height 6 ft Weight 291 lb BMI 39.5 Intake Visit Reasons: [facility] [place] s/p Arterial US 09/28/24 Intake Note: hospital follow up for Right Heel non-healing ulcer s/p arterial US 09/25/24. Pt states he changes dressing Q2D, goes to wound care 1x per week Accompanied by: Self / Same As Patient Allergies oxycodone (OXYCODONE) Allergy (Intermediate, Verified 11/04/24 10:44) JITTERY/NAUSEA pseudoephedrine (From SUDAFED) Adverse Reaction (Intermediate, Verified 11/04/24 10:44) ELEVATES BP HPI HPI [facility] [place] s/p Arterial US 09/28/24: Details: Very pleasant 63-year-old gentleman presents for evaluation regarding his right lower extremity. He had presented to the hospital on September 30 and just prior to that he had stepped on a thumbtack 4 days prior to admission. He had significant erythema and swelling which became a source of concern for him. He did have a prior history of DVT which he was on Eliquis and subsequently stopped. He now presents for vascular follow-up. Of note he did have noninvasive testing on 09/28/2024. 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 Essential hypertension Hyperlipidemia LDL goal <70 Surgical History History of colonoscopy History of herniorrhaphy History of heart artery stent History of total hip arthroplasty History of appendectomy Family History Father Hypertension Mother COPD (chronic obstructive pulmonary disease) Brother Colon cancer Sister Alive and well Brother Diabetes Social History Household Members: Spouse Housing: House Do you presently have visiting nurse or other home services: No Patient Tobacco Use Status: Former Tobacco user Tobacco use type: Cigarette e-Cigarette/Vaping Use: Never Used service: No Current occupational status: employed Cognitive needs: No Hearing needs: No Vision needs: No Review of Systems Const All systems reviewed & are unremarkable except as noted in HPI and below Reports no additional complaints ENT Reports Normal hearing present Card Denies chest pain, Denies chest pain at rest, Denies chest pain with activity and Denies pedal edema Resp Denies cough GI Denies abdominal pain Musc Denies abnormal gait, Denies muscle cramps and Denies radiating pain into limb Skin/Breast Denies skin ulcer and Denies wounds Neuro Reports Normal hearing present and Denies abnormal gait Psych Reports no additional complaints Physical Exam Vital Signs: BMI result Body Mass Index 39.5 Const General: cooperative, healthy appearing and comfortable Orientation/consciousness: oriented to person, oriented to place and oriented to time HEENT Head: Yes normal to inspection Neck Neck: Yes normal visual inspection Carotids: no bruits Chest Chest palpation & inspection: normal inspection of the chest Resp Effort & Inspection: normal respiratory effort and able to speak in complete sentences Auscultation: clear to auscultation bilaterally, no crackles, no rales, no rhonchi and no wheezes Cardio Other: Bilateral DP signals Rate: regular rate Rhythm: regular rhythm Heart sounds: S1 normal heart sound present and S2 normal heart sound present Bruits: no carotid bruits Peripheral pulses: Peripheral pulses 2+ throughout GI Inspection: Yes normal to inspection Skin Other: Right leg dressing intact Wounds: no wounds Hair: normal Neuro General: oriented to person, oriented to place and oriented to time Cranial nerves: Yes CN's II-XII intact bilaterally and Yes Normal hearing present Cognition (Neuro): normal cognition Motor exam (neuro): 5/5 motor strength present throughout Extrem Other: venous exam: No significant superficial varicosities or spider telangiectasias, minimal edema General: No clubbing, No cyanosis and No edema Psych Appearance: grossly normal Mental Status: mental status grossly normal Speech and movement: Normal speech and movement present Results Reviewed Results Reviewed: Noninvasive arterial testing on 09/28/2024 demonstrates SFA disease with multifocal mild to moderate stenosis monophasic waveforms throughout. Assessment & Plan Assessment & Plan (1) PAD (peripheral artery disease): Code(s): I73.9 - Peripheral vascular disease, unspecified Category: Medical Plan: Patient notes leg pain when walking distances. I have discussed the pathophysiology of peripheral vascular disease with the patient. I have also discussed risk factor modification. I have reviewed the patient's arterial testing which reveals right SFA disease. the patient would benefit from a right leg endovascular peripheral angiogram with possible angioplasty, stent, and/or atherectomy. This has been discussed in detail with the patient along with risks, benefits, and complications. This includes but is not limited to bleeding, infection, heart attack, need for emergent surgical repair, limb ischemia, blood vessel damage, bleeding, puncture, kidney injury, bruising, allergic reaction, and skin reaction. The patient demonstrates a clear understanding. We will schedule for the next appropriate time. Thank you for allowing us to assist in this patient's care. Of note patient is on Mounjaro Jardiance and Eliquis. He will stop Eliquis today for procedure for tomorrow. Due to the acute nature of this wound he is on Mounjaro and Jardiance and does recognize the increased anesthesia risk with this. He has elected to move forward. Coding Level of Care Code Est Pt Level 4 (95319) Complex EM visit Add On G2211 Diagnoses PAD (peripheral artery disease) I73.9
[2024-11-04 10:33] VITALS: BMI 39.5
--- OUTSIDE RECORDS SUMMARY | 2024-11-04 11:45 | XMS_ITS | Clinical Summary ---
Author Organization [facility] Address [address] [place] [phone] Phone Care Team Providers Care Ring Sorter Name Role Phone Martha Schwartz MD Primary Care Provider [phone] Allergies Active Allergy Reactions Criticality Noted Date [...] EST) SODIUM 140 133 - 146 mmol/L [facility] CHLORIDE 103 96 - 108 mmol/L [facility] POTASSIUM 4.3 3.3 - 5.1 mmol/L [facility] CO2 26 21 - 35 mmol/L [facility] BUN 18 6 - 19 mg/dL [facility] CREATININE 0.80 0.5 - 1.5 mg/dL [facility] GLUCOSE 260(H) 70 - 99 mg/dL [facility] CALCIUM 9.4 8.4 - 10.3 mg/dL [facility] EGFR 96 >59 mL/min/1.7 3m2 [facility] Comment:Estimated glomerular filtration rate calculated using the CKD-EPI equation. ANION GAP 15 10 - 20 mmol/L [facility] Blood 05/06/2020 10:5 0 AM EST 05/06/2020 11:01 AM EST Esther Carroll MD LAB BLOOD ORDERABLES Final Result [facility] [address] [place] [address] from Last 3 Months or Most Recently Relevant to Health Maintenance Insurance [facility] MEDICARE PART A & B [place] BLUE REPLACEMENT [facility] MEDIC[facility] PART A & [place] BLUE REPLACEMENT [facility] A[facility] MEDIC[facility] PART A & B [place] PPO BLUE REPLACEMENT [address] [place], [place] [id number] [facility] MEDICARE PART A & B [facility] MEDICARE PPO BLUE REPLACEMENT [facility] ACO MEDICARE PART A & B [facility] MEDICARE PPO BLUE REPLACEMENT [facility] ACO MEDICARE PART A & B [place] BLUE REPLACEMENT Care Teams Ring Sorter Relationship Specialty Start Date End Date Martha Schwartz MD [address] [place] [id number] PCP - General Internal Medicine 05/12/20 Additional Source Comments The information contained in this document represents components of the legal health record. It is not the complete legal health record.[facility]
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
--- OUTSIDE RECORDS SUMMARY | 2024-11-04 11:45 | XMS_ITS | Clinical Summary ---
Author Organization [facility] Address [address] [place] [address] Care Team Providers Care Game Operator Name Role Phone Jessica Cabrera MD Primary Care Provider [phone] Allergies Active Allergy Reactions Criticality Noted Date [...] age to complete this topic Care Teams Game Operator Relationship Specialty Start Date End Date Jessica Cabrera MD [address] [address] PCP - General Internal Medicine 05/18/20
== END 2024-11-04 11:26 | disposition home or self-care (01) ==
LOC: HO.HVS 10:27
PROVIDERS: PCP Internal Medicine; Visit Provider Surgery Vascular Surgery
DX: I73.9 Peripheral vascular disease, unspecified (principal)
CPT/HCPCS: 99214; G2211

== ENCOUNTER → 2024-11-04 10:26 | Outpatient (BNVA) | payer MEDICARE, SELFPAY | PROVIDERS: PCP Internal Medicine; Visit Provider Surgery Vascular Surgery | DX: I73.9 Peripheral vascular disease, unspecified (principal) | CPT/HCPCS: 99212 ==

== ENCOUNTER 2024-11-05 07:20 | Day surgery (SDC) | payer MEDICARE, SELFPAY ==
[2024-11-05] VITALS (17 sets, daily range): BP systolic 126–201; BP diastolic 51–84; PULSE 56–64; RESP 16–18; TEMP 36.1–36.4; O2SAT 96–100; BMI 34.8
[2024-11-05 08:02] LABS: Glucose, Whole Blood 111 mg/dL (60-115)
[2024-11-05 08:12] LABS: MANUAL DIFF FLAG NO
[2024-11-05 08:15] LABS: Hematocrit 36.5 % (42.0-52.0); Hemoglobin 11.7 g/dl (14.0-18.0); Imm Gran Abs Auto 0.03 X10*3/uL (0.00-0.03); Imm Gran Pct Auto 0.3 % (0.0-0.4); Lymphocytes Absolute Auto 4.3 X10*3/uL (1.2-4.9); Mean Corpuscular HGB Conc 32.1 g/dl (31.0-36.0); Mean Corpuscular Hemoglobin 26.7 pg (27.0-33.0); Mean Corpuscular Volume 83.1 fL (80.0-98.0); NRBC Abs Auto 0.000 X10*3/uL (0.0-0.012); NRBC Pct Auto 0.0 /100WBC (0.0-0.2); Platelet Count 274 X10*3/uL (160-400); Red Blood Count 4.39 X10*6/uL (4.60-5.80); White Blood Count 10.5 X10*3/uL (4.8-10.8)
[2024-11-05 08:26] LABS: Blood Urea Nitrogen 15 mg/dL (9-16); Creatinine Clr Calc Pharmacy 124.4; Estimated Glomerular Filt Rate > 60
--- NOTE | 2024-11-05 10:38 | W.PM.OPN ---
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 Ultrasound-guided left common femoral access 2. Aortogram with right lower extremity runoff Surgeon:Jason Dozier M.D., FACS, RPVI Licensed Aircraft Maintenance Engineer:None Anesthesia: Local with moderate conscious sedation. Total intraservice moderate sedation time was 31 minutes. I monitored the patient's level of consciousness and physiologic status continuously throughout the procedure. Specimens:none Drains:none Estimated blood loss: Less than 10 ml Radiation Dose: 398.1 mGy Implant: None Indications: 63-year-old gentleman who stepped on a tack on the right lower extremity has had a nonhealing ulcer with cellulitis that has persist for significant amount of time. Noninvasive testing was concerning for SFA and popliteal disease. He now presents for endovascular intervention. The patient has signed the informed consent after reviewing risks, complications, benefits, and alternatives previously discussed with the patient. The patient was given the opportunity to ask any additional questions or voice any concerns. All questions were answered to the patient's satisfaction. Procedure in detail: Patient was brought to the angiography suite prior to which a time-out was called for patient identification and site verification. Bilateral groins were prepped and draped in the standard surgical fashion. Under ultrasound guidance left common femoral was punctured with micro puncture needle and wire. Subsequently a precision 5 Sami sheath was then placed. Bentson wire was advanced to the level of the aorta. 5 Sami Flush catheter was brought up and parked at the level of the renal arteries. Aortogram was then undertaken. Catheter was brought down to the level of the iliac bifurcation. Iliacs and runoff was performed through the flush catheter that was parked at the bifurcation and a power injection was performed to visualize right runoff vessels. Subsequently the catheter was then brought in up and over to the right side SFA. We then placed a trail Blazer catheter into the popliteal artery. Up close orthogonal views were undertaken of the popliteal and tibial vessels. No intervention was indicated. Catheter wire sheath was brought back to the ipsilateral side. A CELT 5 Sami closure device was then placed. Patient tolerated the procedure well. Returned to recovery with stable vitals. Interpretation of films: 1. Ultrasound demonstrates appropriate femoral access site. Vessel was patent with minimal stenosis. Needle entry was visualized. Image of ultrasound was saved. 2. Aortogram demonstrates appropriate caliber aorta. Minimal disease. Appropriate take-off of the renals. 3. Iliac images demonstrate no significant disease 4. Right Leg Common femoral artery: No significant disease Profundus Femoris: No significant disease Superficial femoral artery: No significant disease Popliteal artery (p1,p2,p3): Minimal disease in P1 segment Anterior tibial artery: Good runoff to the foot Peroneal artery: Short segment occlusion in the mid calf but immediately reconstitutes and supplies down to the Posterior tibial artery: Tenuous but does supply down. Again short segment occlusion and reconstitutes. Dorsalis pedis/plantar arch: Incomplete but present Conclusion: 1. Successful diagnostic angiogram. Adequate supply to heal ulcer. 2. Anticoagulation status: No change This note is constructed using voice recognition software. While every effort has been made to ensure accuracy, sr. merchandise planner errors may have been included. Thank you for allowing me to participate in the care of your patient. Yours sincerely, Jason Dozier MD, FACS, R.P.V.I.
== END 2024-11-05 12:17 | disposition home or self-care (01) ==
PROVIDERS: PCP Internal Medicine; Visit Provider Surgery Vascular Surgery
DX: E11.51 Type 2 diabetes mellitus with diabetic peripheral angiopathy without gangrene (principal); I70.234 Atherosclerosis of native arteries of right leg with ulceration of heel and midfoot; Z79.4 Long term (current) use of insulin; Z79.84 Long term (current) use of oral hypoglycemic drugs; Z79.85 Long-term (current) use of injectable non-insulin antidiabetic drugs
CPT/HCPCS: 36247; 36415; 75630; 75710; 76937; 82565; 82947; 84520; 85025; 99152; 99153; C1760; C1769; C1887; C1894; J1644; J2250; J3010; Q9967

== ENCOUNTER → 2024-11-05 07:20 | Outpatient (BNV) | payer MEDICARE, SELFPAY | PROVIDERS: PCP Internal Medicine; Visit Provider Surgery Vascular Surgery | DX: I70.239 Atherosclerosis of native arteries of right leg with ulceration of unspecified site (principal) | CPT/HCPCS: 36247; 75625; 75710; 76937; 99152 ==

== ENCOUNTER 2024-11-12 12:55 | Outpatient (AMB) | payer MEDICARE, SELFPAY ==
--- OUTSIDE RECORDS SUMMARY | 2023-12-13 17:20 | XMS_ITS | Encounter Summary ---
Author Organization [facility] Address [address] [place] [address] Phone Care Team Providers Care Stiff Leg Operator Name Role Phone Martha Schwartz MD Primary Care Provider [phone] Encounter Details Date Type Department Care Team (Late st Contact Info) Description 12/13/2023 5:20 PM EDT Hospital Encounter [facility] [address] [place] [address] Jennie Pino FNP [address] [place] [address] [email or web address] Social History Tobacco Use Types Packs/Day [...] clinician's provided indication for this examination in [facility]: Cough; sob, productive clear, chest pain for [...] spine. IMPRESSION: No acute abnormality. Jennie Pino SPINDLE PLUMBER IMG XR CHEST Final Resul t documented in this encounter Visit Diagnoses Not on filedocumented in this encounter Additional Health Concerns Infection Onset Date Last Indicated Resolved Time CoV-Risk 12/13/2023 12/13/202312/2312/24/2023 1:22 AM EDT documented as of this encounter Care Teams Stiff Leg Operator Relationship Specialty Start Date End Date Martha Schwartz MD [address] [place] [address] PCP - General Internal Medicine 05/12/20 documented as of this encounter Additional Source Comments The information contained in this document represents components of the legal health record. It is not the complete legal health record.[facility]
[2024-11-12 13:07] VITALS: BP 116/64; PULSE 64; TEMP 36.2; O2SAT 96; BMI 38.6
--- NOTE | 2024-11-12 13:07 | A.OFFPC_ITS ---
Vital Signs 11/12/24 13:07 Height 6 ft Weight 285 lb BMI 38.6 BP 116/64 Blood Pressure Location Lt brachial Position Sitting Pulse 64 Pulse Source Pulse Oximeter Temp 97.1 F Temp Source Temporal Artery Scan Pulse Oximetry (%) 96 Oxygen Delivery Method Room Air Intake Visit Reasons: DM, hyperlipidemia, HTN Allergies oxycodone (OXYCODONE) Allergy (Intermediate, Verified 11/12/24 13:40) JITTERY/NAUSEA pseudoephedrine (From SUDAFED) Adverse Reaction (Intermediate, Verified 11/12/24 13:40) ELEVATES BP Medication List - Last Reconciled 11/12/24 by Derrell Patel MD albuterol sulfate 90 mcg/actuation 2 puffs inhalation Q6H PRN apixaban (Eliquis) 5 mg PO BID aspirin 81 mg PO DAILY atenolol 50 mg PO DAILY atorvastatin 80 mg PO DAILY blood sugar diagnostic (FreeStyle Lite Strips) As directed cholecalciferol (vitamin D3) 25 mcg PO DAILY cyclosporine 0.05% (Restasis) 1 drp ophthalmic (eye) BID PRN [Diabetic shoes & 2 pair inserts as directed] empagliflozin (Jardiance) 25 mg PO DAILY flash glucose scanning reader As directed flash glucose sensor As directed fluticasone propionate 50 mcg/actuation 1 spray intranasal DAILY FreeStyle Megan 3 Plus Sensor (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 sensor) every 15 days NS FreeStyle Megan 3 [place] (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,automatic lump making machine tender,cont) As directed NS furosemide 40 mg PO DAILY ibuprofen 800 mg PO TID PRN insulin glargine (Basaglar KwikPen U-100 Insulin) 40 units subcut DAILY losartan 25 mg PO DAILY metformin ER 1,000 mg PO BID Mounjaro (tirzepatide) 5 mg (0.5 mL) subcut QWEEK NS [id number] [id number] mcg (Centrum Silver Men) 1 tab PO DAILY Tobacco use date assessed: 11/12/24 Fall risk assessment: No Falls in past year Last assessed Fall Risk: 11/12/24 Dental Screening Dental Screen Date: 11/12/24 Did you have a dental visit in the last 12 months?: No Did you have a dental problem in the last 6 months where you did not have access to dental care?: No Was dental information given to patient?: Patient declined HPI DM, hyperlipidemia, HTN HPI Details Patient comes in today for his follow up visit States that he currently feels okay States that he still has some swelling and discomfort of his right lower extremity - was admitted for cellulitis of the right lower extremity last month and he complete Tx with dual Abx (Augmentin and Doxycycline) He denies any headaches or dizziness Denies any chest pains, no increased SOB No nausea/vomiting, no abdominal pain No change in bowel habits noted He is also still experiencing increased pain over his right shoulder and would like to know how his x-rays done last month came out He had his follow up labs done last week - to discuss his results [facility] Medical History Primary osteoarthritis, right shoulder History of recurrent deep vein thrombosis (DVT) Vitamin D deficiency Obesity (BMI 30-39.9) Primary osteoarthritis of both hips Smoker History of DVT (deep vein thrombosis) Anemia Stasis edema of both lower extremities Pure hypercholesterolemia Type 2 diabetes mellitus with hyperglycemia Coronary artery disease Osteoarthritis DVT (deep venous thrombosis) 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 Essential hypertension Hyperlipidemia LDL goal <70 Surgical History History of colonoscopy History of herniorrhaphy History of heart artery stent History of total hip arthroplasty History of appendectomy Family History Father Hypertension Mother COPD (chronic obstructive pulmonary disease) Brother Colon cancer Sister Alive and well Brother Diabetes Social History Household Members: Spouse Housing: House Do you presently have visiting nurse or other home services: No Patient Tobacco Use Status: Former Tobacco user Tobacco use type: Cigarette e-Cigarette/Vaping Use: Never Used service: No Current occupational status: employed Cognitive needs: No Hearing needs: No Vision needs: No Questionnaire PHQ-9 Over the last 2 weeks, how often have you been bothered by any of the following problems? 1. Little interest or pleasure in doing things: not at all 2. Feeling down, depressed, or hopeless: not at all 3. Trouble falling or staying asleep, or sleeping too much: nearly every day 4. Feeling tired or having little energy: several days 5. Poor appetite or overeating: not at all 6. Feeling bad about yourself - or that you are a failure or have let yourself or your family down: not at all 7. Trouble concentrating on things, such as reading the newspaper or watching television: several days 8. Moving or speaking so slowly that other people could have noticed. Or the opposite - being so fidgety or restless that you have been moving around a lot more than usual: not at all 9. Thoughts that you would be better off or of hurting yourself in some way: not at all Total score: 5 Depression Screening Interpretation: Positive Depression Screening Follow-up: Follow-up Visit Requested Depression Screening Done: Yes 11285 - PHQ-9 Billing: Yes Source: Developed by Drs. Yogi Koenig, Flavia Ashley, Lucho Thompson and colleagues, with an educational john from [employer]. Thrive Questionnaire Date Thrive assessed: 07/11/24 I am a: Patient What is your living situation today?: I have a steady place to live Within the past 12 months, did the food you bought not last and you didn't have the money to get more?: I choose not to answer this question Within the past 12 months, did you worry whether your food would run out before you got money to buy more?: I choose not to answer this question Do you have trouble paying for medicines?: I choose not to answer this question Do you have trouble getting transportation to medical appointments?: I choose not to answer this question Do you have trouble paying your heating and electricity bill?: No Do you have trouble taking care of your child, family member or friend?: No Do you have trouble with day-to-day activities such as bathing, preparing meals, shopping, managing finances, etc.?: No Are you currently unemployed and looking for a job?: No Are you interested in more education?: No Please select the resources that you would like help with: None Currently or been in a relationship where the following occur: I choose not to answer THRIVE Score: 0 AUDIT C Alcohol Use Questionnaire (AUDIT-C) 1. How often do you have a drink containing alcohol?: Never 3. How often do you have six or more drinks on one occasion?: Never Total Score: 0 Score Reviewed/Action Taken: Yes RAVI-7 AMB Questionnaire RAVI-7 Date RAVI - 7 assessed: 07/11/24 Feeling nervous, anxious, or on edge: 0 = Not at all Not being able to stop or control worryin = Not at all Worrying too much about different things: 0 = Not at all Trouble relaxin = Not at all Being so restless that it is hard to sit still: 1 = Several days Becoming easily annoyed or irritable: 0 = Not at all Feeling afraid as if something awful might happen: 0 = Not at all Total RAVI-7 score (0-4 normal; 5-9 mild; 10-14 moderate; 15-21 severe): 1 Source: Developed by Drs. Yogi Koenig, Flavia Ashley, Lucho Thompson and colleagues, with an educational john from [employer]. Review of Systems Const Denies chills, Reports fatigue, Denies fever(s) and Denies headache(s) ENT Denies dysphagia, Denies dizziness, Denies otalgia, Denies headache(s), Denies neck pain, Denies odynophagia and Denies sore throat Card Denies chest pain, Denies palpitations and Denies dyspnea Resp Denies chest congestion, Denies cough and Denies dyspnea GI Denies abdominal pain, Denies constipation, Denies dysphagia, Denies heartburn, Denies diarrhea, Denies nausea, Denies odynophagia and Denies vomiting Denies difficulty urinating, Denies dysuria, Denies nocturia and Denies urinary frequency Musc Denies back pain, Denies arthralgias and Denies neck pain Skin/Breast Details: (+) residual minimal redness over the right lower leg; still (+) swelling of both legs, slightly worse on the right side Denies rash Neuro Denies dizziness and Denies headache(s) Psych Denies depression Endo Reports fatigue and Denies palpitations Physical exam (Primary Care) Vital Signs: Last Vital Signs Temp 97.1 F 11/12/24 13:07 Pulse 64 11/12/24 13:07 BP 116/64 11/12/24 13:07 Pulse Ox 96 11/12/24 13:07 Oxygen Delivery Method Room Air 11/12/24 13:07 BMI result Body Mass Index 38.6 Tobacco/Smoking Status: Tobacco use Status Tobacco use date assessed 11/12/24 11/12/24 13:12 Patient Tobacco Use Status Former Tobacco user 11/12/24 13:12 Tobacco use type Cigarette 11/12/24 13:12 e-Cigarette/Vaping Use Never Used 11/12/24 13:12 PHQ-9: PHQ-9 Score PHQ-9: Total score 5 11/12/24 14:00 Depression Screening Interpretation: Positive Depression Screening Follow-up: Follow-up Visit Requested Thrive Assessment: Date of Thrive Assessment Date Thrive assessed 07/11/24 11/12/24 13:12 Currently or been in a relationship where the following occur: I choose not to answer Const General: no acute distress and alert Neck Neck: Yes supple and No lymphadenopathy Thyroid: Thyroid normal Resp Auscultation: clear to auscultation bilaterally, no rales and no wheezes Cardio Rate: regular rate Rhythm: regular rhythm Heart sounds: no murmurs GI Palpation (GI): Soft to palpation and nontender Auscultation: normal bowel sounds General: Yes no CVA tenderness Back/Spine/Pelvis Back: no CVA tenderness Thoracic/Lumbar Spine: No lumbar spinal tenderness Skin Other: (+) minimal residual erythema noted over the right lower leg Extrem Other: (+) edema of the entire right lower leg, with some residual erythema noted over the right lower leg Results Reviewed Results Reviewed: Laboratory Tests 10/22/24 11/05/24 08:59 07:54 WBC 10.5 Hgb 11.7 L Hct 36.5 L Plt Count 274 D Creatinine 0.87 Estimated GFR > 60 Hgb A1c (Clinic) 7.9 H Coding Level of Care Code Est Pt Level 4 (64431) Diagnoses Cellulitis of right lower leg L03.115 Edema of both lower legs R60.0 Type 2 diabetes mellitus with hyperglycemia, with long-term current use of insulin E11.65; Z79.4 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 transplanted heart: [place] heart Associated angina: without angina Pure hypercholesterolemia E78.00 Essential hypertension I10 Anemia, unspecified type D64.9 Anemia type: unspecified type History of recurrent deep vein thrombosis (DVT) Z86.718 Primary osteoarthritis of both hips M16.0 Primary osteoarthritis, right shoulder M19.011 Vitamin D deficiency E55.9 Smoker F17.200 Obesity (BMI 30-39.9) E66.9 Additional Codes PHQ-9 - 00815 - PHQ-9 Billing: Yes ([id number]) Assessment & Plan Assessment & Plan (1) Cellulitis of right lower leg: Code(s): L03.115 - Cellulitis of right lower limb Category: Medical Plan: RESOLVING - S/P Tx with Augmentin 875 mg BID and Doxycycline 100 mg BID (2) Edema of both lower legs: Code(s): R60.0 - Localized edema Category: Medical Plan: (+) lymphedema likely Patient has been referred to vascular surgery for further evaluation and management (3) Type 2 diabetes mellitus with hyperglycemia: Code(s): E11.65 - Type 2 diabetes mellitus with hyperglycemia Category: Medical Qualifiers: Diabetes mellitus director long term care insulin use: with nursing home use Qualified Code(s): E11.65 - Type 2 diabetes mellitus with hyperglycemia; Z79.4 - FPC (current) use of insulin Plan: His in-office HgbA1c was at 7.9% when checked at the endocrinology office about 3 weeks ago (HgbA1c was previously at 9.3% a few months ago on 07/09/2024 and at 9.6% back in March 2024) - goal is at least <7.0% Reinforced diabetic diet Continue Jardiance 25 mg QD, Metformin ER 1000 mg BID, Insulin glargine 40 units Q HS and Trulicity 4.5 mg SQ once a week Follow up with [facility] Endocrinology as scheduled (4) Coronary artery disease: Comment: S/P PCI/coronary stenting in 2005 due to RCA plaque rupture Code(s): I25.10 - Atherosclerotic heart disease of [place] coronary artery without angina pectoris Category: Medical Qualifiers: Coronary Disease-Associated Artery/Lesion type: [place] artery [place] vs. transplanted heart: [place] heart Associated angina: without angina Qualified Code(s): I25.10 - Atherosclerotic heart disease of [place] coronary artery without angina pectoris Plan: Patient is currently still asymptomatic from a cardiac standpoint S/P coronary stenting/PCI in 2005 due to RCA plaque rupture Cardiac catheterization done in 2019 revealed (+) moderate distal RCA and moderate LAD disease; a 90% 2nd diagonal stenosis was also seen Cardiology at the time recommended medical management of coronary disease Continue Aspirin 81 mg QD - patient should be on lifelong antiplatelet Tx with low dose Aspirin He was seeing cardiology over at [facility] in the past but switched over to [facility] Cardiology 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 - to follow up with [facility] Cardiology as scheduled (5) Pure hypercholesterolemia: Code(s): E78.00 - Pure hypercholesterolemia, unspecified Category: Medical Plan: Reinforced low cholesterol diet - goal is LDL cholesterol of <70 mg/dl due to his CAD and cardiac cath findings in 2019 Continue Atorvastatin 80 mg QD Will have him recheck his labs and fasting lipids in 4 months for follow up (6) Essential hypertension: Code(s): I10 - Essential (primary) hypertension Category: Medical Plan: Reinforced low sodium diet - goal is systolic BP of at least 120 to 130 mm or less Continue Atenolol 50 mg QD and Losartan 25 mg QD He is reminded to continue monitoring his blood pressure regularly (7) Anemia: Code(s): D64.9 - Anemia, unspecified Category: Medical Qualifiers: Anemia type: unspecified type Qualified Code(s): D64.9 - Anemia, unspecified Plan: His H/H was at 11.7/36.5 on his labs done last week - this has improved from his numbers last month Anemia work ups done recently, including iron studies, B12, ERP and Hgb elect rophoresis, all came back normal Will continue to monitor his CBC regularly (8) History of recurrent deep vein thrombosis (DVT): Code(s): Z86.718 - Personal history of other venous thrombosis and embolism Category: Medical Plan: It is unclear at this time if he was ever worked up for his recurrent DVT He was sent for additional labs to assess for underlying hypercoagulability syndromes a few months ago - all of these came back negative Continue Eliquis 5 mg BID (9) Primary osteoarthritis of both hips: Comment: S/P total left hip arthroplasty with Dr. Kahn on 11/05/2018 and total right hip arthroplasty on 01/08/2019 Code(s): M16.0 - Bilateral primary osteoarthritis of hip Category: Medical Plan: S/P total bilateral hip arthroplasty [place] [address] Kahn Patient states that he has been doing well since with no significant hip issues Follow up with orthopedics as scheduled or as needed (10) Primary osteoarthritis, right shoulder: Code(s): M19.011 - Primary osteoarthritis, right shoulder Category: Medical Plan: X-rays of the right shoulder done last month revealed (+) moderate osteoarthritis of the AC joint and probable rotator cuff calcifications Will refer him to orthopedics for further evaluation and management of his ongoing shoulder pain (11) Vitamin D deficiency: Code(s): E55.9 - Vitamin D deficiency, unspecified Category: Medical Plan: Continue Vitamin D3 1000 units QD (12) Smoker: Code(s): F17.200 - Nicotine dependence, unspecified, uncomplicated Category: Social Hx Plan: Patient is counseled again on complete smoking cessation (13) Obesity (BMI 30-39.9): Code(s): E66.9 - Obesity, unspecified Category: Medical Plan: Reinforced diet; exercise and weight loss are impractical at this time due to patient's physical conditions and medical issues currently Plan Follow up in 4 months Orders: Orders Complete Blood Count Auto Diff 4 Months D64.9 - Anemia, unspecified Comprehensive [place]. Panel Fast 4 Months E78.00 - Pure hypercholesterolemia, unspecified Vitamin B12 and Folate 4 Months E53.8 - Deficiency of other specified B group vitamins Lipid Panel 4 Months E78.00 - Pure hypercholesterolemia, unspecified Microalbumin, Random (w Creat) 4 Months E11.9 - Type 2 diabetes mellitus without complications Hemoglobin A1c 4 Months E11.9 - Type 2 diabetes mellitus without complications UA CC w/rflx Micro + Cult 4 Months R30.0 - Dysuria Vitamin D 25-OH Total 4 Months E55.9 - Vitamin D deficiency, unspecified Referrals Orthopedics Referral M19.011 - Primary osteoarthritis, right shoulder
--- OUTSIDE RECORDS SUMMARY | 2024-11-12 13:24 | XMS_ITS | Clinical Summary ---
Author Organization [facility] Address [address] [place] [address] Care Team Providers Care Day Guard Name Role Phone Jessica Cabrera MD Primary Care Provider [phone] Allergies Active Allergy Reactions Criticality Noted Date [...] age to complete this topic Care Teams Day Guard Relationship Specialty Start Date End Date Jessica Cabrera MD [address] [id number] PCP - General Internal Medicine 05/18/20
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
--- OUTSIDE RECORDS SUMMARY | 2024-11-12 13:24 | XMS_ITS | Clinical Summary ---
Author Organization Located [facility] Address [address] [place] [address] Phone Care Team Providers Care Ore Sampler Name Role Phone Martha Schwartz MD Primary Care Provider [phone] Allergies Active Allergy Reactions Criticality Noted Date [...] EST) SODIUM 140 133 - 146 mmol/L [facility] CHLORIDE 103 96 - 108 mmol/L [facility] POTASSIUM 4.3 3.3 - 5.1 mmol/L [facility] CO2 26 21 - 35 mmol/L [facility] BUN 18 6 - 19 mg/dL [facility] CREATININE 0.80 0.5 - 1.5 mg/dL [facility] GLUCOSE 260(H) 70 - 99 mg/dL [facility] CALCIUM 9.4 8.4 - 10.3 mg/dL [facility] EGFR 96 >59 mL/min/1.7 3m2 [facility] Comment:Estimated glomerular filtration rate calculated using the CKD-EPI equation. ANION GAP 15 10 - 20 mmol/L [facility] Blood 05/06/2020 10:5 0 AM EST 05/06/2020 11:01 AM EST Esther Carroll MD LAB BLOOD ORDERABLES Final Result [facility] [address] [place] [address] from Last 3 Months or Most Recently Relevant to Health Maintenance Insurance [facility] MEDICARE PART A & B [place] BLUE REPLACEMENT [facility] PART A & [place] BLUE REPLACEMENT [facility] [place] MED[place] PPO BLUE REPLACEMENT [address] [place], [place] [address] [facility] MEDICARE PART A & B [facility] MEDICARE PPO BLUE REPLACEMENT [facility] ACO MEDICARE PART A & B [facility] MEDICARE PPO BLUE REPLACEMENT [facility] ACO MEDICARE PART A & [place] Care Teams Ore Sampler Relationship Specialty Start Date End Date Martha Schwartz MD [address] [place] [id number] PCP - General Internal Medicine 05/12/20 Additional Source Comments The information contained in this document represents components of the legal health record. It is not the complete legal health record.[facility]
== END 2024-11-12 14:04 | disposition home or self-care (01) ==
LOC: HO.HMCH 12:56
PROVIDERS: PCP Internal Medicine; Visit Provider Internal Medicine
DX: E11.65 Type 2 diabetes mellitus with hyperglycemia (principal); Z79.4 Long term (current) use of insulin; E66.9 Obesity, unspecified; Z68.38 Body mass index [BMI] 38.0-38.9, adult; L03.115 Cellulitis of right lower limb; R60.0 Localized edema; I25.10 Atherosclerotic heart disease of native coronary artery without angina pectoris; E78.00 Pure hypercholesterolemia, unspecified; I10 Essential (primary) hypertension; D64.9 Anemia, unspecified; M16.0 Bilateral primary osteoarthritis of hip; M19.011 Primary osteoarthritis, right shoulder

== ENCOUNTER → 2024-11-12 12:55 | Outpatient (BNVA) | payer MEDICARE, SELFPAY | PROVIDERS: PCP Internal Medicine; Visit Provider Internal Medicine | DX: I10 Essential (primary) hypertension (principal); L03.115 Cellulitis of right lower limb; R60.0 Localized edema; E11.65 Type 2 diabetes mellitus with hyperglycemia; I25.10 Atherosclerotic heart disease of native coronary artery without angina pectoris; E78.00 Pure hypercholesterolemia, unspecified; D64.9 Anemia, unspecified; M16.0 Bilateral primary osteoarthritis of hip; M19.011 Primary osteoarthritis, right shoulder; E55.9 Vitamin D deficiency, unspecified; E66.9 Obesity, unspecified; E53.8 Deficiency of other specified B group vitamins; R30.0 Dysuria; F17.210 Nicotine dependence, cigarettes, uncomplicated; Z79.4 Long term (current) use of insulin; Z86.718 Personal history of other venous thrombosis and embolism; Z68.38 Body mass index [BMI] 38.0-38.9, adult | CPT/HCPCS: 96127; 99212 ==

== ENCOUNTER 2024-12-11 13:12 | Outpatient (REF) | payer MEDICARE, SELFPAY ==
--- OUTSIDE RECORDS SUMMARY | 2023-12-13 17:20 | XMS_ITS | Encounter Summary ---
Author Organization [facility] Address [address] [place] [address] Phone Care Team Providers Care Obstetrics Gynecology Md Name Role Phone Martha Schwartz MD Primary Care Provider [phone] Encounter Details Date Type Department Care Team (Late st Contact Info) Description 12/13/2023 5:20 PM EDT Hospital Encounter [facility] [address] [place] [address] Jennie Pino FNP [address] [place] [address] [email or web address] Social History Tobacco Use [...] clinician's provided indication for this examination in [facility]: Cough; sob, productive clear, chest pain [...] spine. IMPRESSION: No acute abnormality. Jennie Pino PUBLICITY CONSULTANT IMG XR CHEST Final Resul t documented in this encounter Visit Diagnoses Not on filedocumented in this encounter Additional Health Concerns Infection Onset Date Last Indicated Resolved Time CoV-Risk 12/13/2023 12/13/202312/2312/24/2023 1:22 AM EDT documented as of this encounter Care Teams Obstetrics Gynecology Md Relationship Specialty Start Date End Date Martha Schwartz MD [address] [place] [phone] PCP - General Internal Medicine 05/12/20 documented as of this encounter Additional Source Comments The information contained in this document represents components of the legal health record. It is not the complete legal health record.[facility]
--- NOTE | ~2024-12-11 | XR_ITS ---
EXAMINATION: XR FOOT 3 OR MORE VIEWS RIGHT HISTORY: non healing wound right foot, r/o osteo COMPARISON: Comparison is made with the prior examination dated 09/25/2024. FINDINGS: Three views of the right foot are submitted. Osseous mineralization is normal. There is no fracture or dislocation. The joint spaces are preserved. There are vascular calcifications. XR/XR foot RT min 3V IMPRESSION: No plain film evidence of osteomyelitis. If this remains a clinical concern, three-phase bone scan or MRI could be performed. Electronically signed by: Yogi Case MD 12/11/2024 02:18 PM EDT
[2024-12-11 14:50] LABS: Alanine Aminotransferase 28 U/L (0-40); Albumin Level 4.3 g/dL (3.5-5.0); Alkaline Phosphatase 93 U/L (39-117); Anion Gap 11 (12-20); Aspartate Amino Transferase 25 U/L (5-37); Blood Urea Nitrogen 19 mg/dL (9-16); Calcium 9.4 mg/dL (8.4-10.2); Carbon Dioxide 30 mmol/L (22-29); Chloride 107 mmol/L (96-108); Cholesterol 107 mg/dL (<200); Estimated Glomerular Filt Rate > 60; HDL Cholesterol 32 mg/dL (>40); Potassium 4.3 mmol/L (3.3-5.1); Sodium 144 mmol/L (135-145); Total Protein 7.0 g/dL (6.5-8.0); Triglycerides 98 mg/dL (<150)
[2024-12-11 15:23] LABS: Folate 15.8 ng/mL (> or = 4.0); Vitamin B12 521 pg/mL (200-900)
[2024-12-11 15:36] LABS: Appearance Urine Clear; Glucose Urine UA >=1000 mg/dL (Negative); PH 6.0 (5.0-9.0); Specific Gravity - Urine >= 1.030 (1.005-1.025); UMIC TRIGGER UACC YES
--- OUTSIDE RECORDS SUMMARY | 2024-12-11 17:51 | XMS_ITS | Clinical Summary ---
Author Organization [facility] Address [address] [place] [phone] Phone Care Team Providers Care Diesel Powerplant Supervisor Name Role Phone Martha Schwartz MD Primary Care Provider [phone] Allergies Active Allergy Reactions Criticality Noted Date [...] HEPATITIS C SCREENING 1976 HIV ONE-TIME SCREENING (18-65 YEARS) 1976 COLOGUARD 12/12/2003 COLONOSCOPY 12/12/2003 COLORECTAL CANCER SCREENING 12/12/2003 FIT TEST 12/12/2003 FOBT 12/12/2003 SIGMOIDOSCOPY 12/12/2003 VIRTUAL COLONOSCOPY 12/12/2003 PNEUMOCOCCAL VACCINES (50+ years) (2 of 2 - PCV) 02/23/2006 02/23/2005 RSV VACCINE (1 - Risk 60-74 years 1-dose series) 2018 ZOSTER VACCINES (2 of 2) 10/26/2020 08/31/2020 CREATININE LEVEL 05/06/2021 05/06/2020 ABDOMINAL AORTIC ANEURYSM (AAA) SCREENING 12/12/2023 INFLUENZA VACCINE (#1) 2024 , 01/13/2020, 01/31/2017, Additional history exists COVID-19 VACCINE ( season) 2024 02/02/2022, 06/15/2020, 05/25/2020 HEPATITIS A VACCINES Aged Out No long [...] EST) SODIUM 140 133 - 146 mmol/L [facility] CHLORIDE 103 96 - 108 mmol/L [facility] POTASSIUM 4.3 3.3 - 5.1 mmol/L [facility] CO2 26 21 - 35 mmol/L [facility] BUN 18 6 - 19 mg/dL [facility] CREATININE 0.80 0.5 - 1.5 mg/dL [facility] GLUCOSE 260(H) 70 - 99 mg/dL [facility] CALCIUM 9.4 8.4 - 10.3 mg/dL [facility] EGFR 96 >59 mL/min/1.7 3m2 [facility] Comment:Estimated glomerular filtration rate calculated using the CKD-EPI equation. ANION GAP 15 10 - 20 mmol/L [facility] Blood 05/06/2020 10:5 0 AM EST 05/06/2020 11:01 AM EST Esther Carroll MD LAB BLOOD ORDERABLES Final Result [facility] [address] [place] [address] from Last 3 Months or Most Recently Relevant to Health Maintenance [facility] A & B [place] BL[facility] [place] BLUE REPLACEMENT [facility] [place] [address] [place] [address] ALLANCE ACO [facility] MEDICARE PART A & B [place] MED[place]ARE PPO BLUE REPLACEMENT [address] [place], [place] [address]O [facility] PART A & B [facility] MEDICARE PPO BLUE REPLACEMENT [facility] MED[facility] PART A & B [facility] MEDICARE PPO BLUE REPLACEMENT [address] [place], [place] [address]O MEDICARE PART A & B [place] BLUE REPLACEMENT Care Teams Diesel Powerplant Supervisor Relationship Specialty Start Date End Date Martha Schwartz MD [address] [place] [id number] PCP - General Internal Medicine 05/12/20 Additional Source Comments The information contained in this document represents components of the legal health record. It is not the complete legal health record.[facility]
--- OUTSIDE RECORDS SUMMARY | 2024-12-11 17:52 | XMS_ITS | Clinical Summary ---
Author Organization [facility] Address [address] [place] [address] Care Team Providers Care Pharmacy Grad Intern Name Role Phone Jessica Cabrera MD Primary Care Provider [phone] Allergies Active Allergy Reactions Criticality Noted Date [...] age to complete this topic Care Teams Pharmacy Grad Intern Relationship Specialty Start Date End Date Jessica Cabrera MD [address] [address] PCP - General Internal Medicine 05/18/20
== END 2024-12-11 13:13 | disposition home or self-care (01) ==
LOC: HO.LAB 13:12
PROVIDERS: PCP Internal Medicine; Visit Provider Internal Medicine
DX: M72.2 Plantar fascial fibromatosis (principal); E78.00 Pure hypercholesterolemia, unspecified; E11.9 Type 2 diabetes mellitus without complications; E55.9 Vitamin D deficiency, unspecified; E53.8 Deficiency of other specified B group vitamins
CPT/HCPCS: 36415; 73630; 80053; 80061; 81001; 81003; 82043; 82306; 82570; 82607; 82746; 83036; 84443

== ENCOUNTER → 2024-12-11 14:02 | Outpatient (BNV) | payer MEDICARE, SELFPAY | PROVIDERS: PCP Internal Medicine; Visit Provider Radiology Diagnostic Radiology | DX: L97.519 Non-pressure chronic ulcer of other part of right foot with unspecified severity (principal) | CPT/HCPCS: 73630 ==

== ENCOUNTER 2025-01-01 12:04 | Outpatient (REF) | payer MEDICARE, SELFPAY ==
--- OUTSIDE RECORDS SUMMARY | 2023-12-13 17:20 | XMS_ITS | Encounter Summary ---
Author Organization [facility] Address [address] [place] [address] Phone Care Team Providers Care Trust Manager Assistant Name Role Phone Martha Schwartz MD Primary Care Provider [phone] Encounter Details Date Type Department Care Team (Late st Contact Info) Description 12/13/2023 5:20 PM EDT Hospital Encounter [facility] [address] [place] [address] Jennie Pino FNP [address] [place] [address] [email or web address] Social History Tobacco Use Types Packs/Day [...] clinician's provided indication for this examination in [facility]: Cough; sob, productive clear, chest [...] spine. IMPRESSION: No acute abnormality. Jennie Pino ITINERANT TEACHER ASSISTANT IMG XR CHEST Final Resul t documented in this encounter Visit Diagnoses Not on filedocumented in this encounter Additional Health Concerns Infection Onset Date Last Indicated Resolved Time CoV-Risk 12/13/2023 12/13/202312/2312/24/2023 1:22 AM EDT documented as of this encounter Care Teams Trust Manager Assistant Relationship Specialty Start Date End Date Martha Schwartz MD [address] [place] [address] PCP - General Internal Medicine 05/12/20 documented as of this encounter Additional Source Comments The information contained in this document represents components of the legal health record. It is not the complete legal health record.[facility]
--- OUTSIDE RECORDS SUMMARY | 2025-01-01 15:20 | XMS_ITS | Clinical Summary ---
Author Organization [facility] Address [address] [place] [address] Care Team Providers Care Drier Operator Helper Name Role Phone Jessica Cabrera MD Primary Care Provider [phone] Allergies Active Allergy Reactions Criticality Noted Date [...] age to complete this topic Care Teams Drier Operator Helper Relationship Specialty Start Date End Date Jessica Cabrera MD [address] [place] [phone] PCP - General Internal Medicine 05/18/20
--- OUTSIDE RECORDS SUMMARY | 2025-01-01 15:20 | XMS_ITS | Clinical Summary ---
Author Organization [facility] Address [address] [place] [address] Phone Care Team Providers Care Publicity Consultant Name Role Phone Martha Schwartz MD Primary Care Provider [phone] Allergies Active Allergy Reactions Criticality Noted Date [...] TOBACCO SCREENING 12/12/1971 HEPATITIS C SCREENING 1976 COLOGUARD 12/12/2003 COLONOSCOPY 12/12/2003 COLORECTAL CANCER SCREENING 12/12/2003 FIT TEST 12/12/2003 FOBT 12/12/2003 SIGMOIDOSCOPY 12/12/2003 VIRTUAL COLONOSCOPY 12/12/2003 PNEUMOCOCCAL VACCINES (50+ years) (2 of 2 - PCV) 02/23/2006 02/23/2005 RSV VACCINE (1 - Risk 50-74 years 1-dose series) 2008 ZOSTER VACCINES (2 of 2) 10/26/2020 08/31/2020 [...] EST) SODIUM 140 133 - 146 mmol/L [facility] CHLORIDE 103 96 - 108 mmol/L [facility] POTASSIUM 4.3 3.3 - 5.1 mmol/L [facility] CO2 26 21 - 35 mmol/L [facility] BUN 18 6 - 19 mg/dL [facility] CREATININE 0.80 0.5 - 1.5 mg/dL [facility] GLUCOSE 260(H) 70 - 99 mg/dL [facility] CALCIUM 9.4 8.4 - 10.3 mg/dL [facility] EGFR 96 >59 mL/min/1.7 3m2 [facility] Comment:Estimated glomerular filtration rate calculated using the CKD-EPI equation. ANION GAP 15 10 - 20 mmol/L [facility] Blood 05/06/2020 10:5 0 AM EST 05/06/2020 11:01 AM EST [facility] Fatou Carroll MD LAB BLOOD ORDERABLES Final Result [facility] [address] [place] [address] from Last 3 Months or Most Recently Relevant to Health Maintenance Insurance [facility] MEDICARE PART A & B [place] BLUE REPLACEMENT [facility] & [place] BLUE RE[place]AC[facility] [place] [address] [place] [address] ACO MEDICARE PART A & B [place] PPO BLUE REPLACEMENT [address] [place], [place] [id number] [place], [place] [id number] MEDICARE PART A & B [facility] MEDICARE PPO BLUE REPLACEMENT [facility] A & B [facility] MEDICARE PPO BLUE REPLACEMENT [facility] ACO MEDICARE PART A & [place] BLUE RE[place] Care Teams Publicity Consultant Relationship Specialty Start Date End Date Martha Schwartz MD [address] [place] [phone] PCP - General Internal Medicine 05/12/20 Additional Source Comments The information contained in this document represents components of the legal health record. It is not the complete legal health record.[facility]
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
== END 2025-01-01 12:05 | disposition home or self-care (01) ==
LOC: HO.LNP 12:04
PROVIDERS: Visit Provider Surgery Surgical Oncology
DX: L97.411 Non-pressure chronic ulcer of right heel and midfoot limited to breakdown of skin (principal)
CPT/HCPCS: 87070; 87073; 87205

== ENCOUNTER 2025-01-16 14:47 | Outpatient (AMB) | payer MEDICARE, SELFPAY ==
--- OUTSIDE RECORDS SUMMARY | 2023-12-13 17:20 | XMS_ITS | Encounter Summary ---
Author Organization [facility] Address [address] [place] [address] Phone Care Team Providers Care Pressure Vessel Inspector Name Role Phone Martha Schwartz MD Primary Care Provider [phone] [phone] Encounter Details Date Type Department Care Team (Late st Contact Info) Description 12/13/2023 5:20 PM EDT Hospital Encounter [facility] [address] [place] [address] Jennie Pino FNP [address] [place] [address] [email or web address] Social History Tobacco Use Types Packs/Day [...] clinician's provided indication for this examination in [facility]: Cough; sob, productive clear, chest [...] spine. IMPRESSION: No acute abnormality. Jennie Pino LINUX SOLARIS ADMINISTRATOR IMG XR CHEST Final Resul t documented in this encounter Visit Diagnoses Not on filedocumented in this encounter Additional Health Concerns Infection Onset Date Last Indicated Resolved Time CoV-Risk 12/13/2023 12/13/202312/2312/24/2023 1:22 AM EDT documented as of this encounter Care Teams Pressure Vessel Inspector Relationship Specialty Start Date End Date Martha Schwartz MD [address] [place] [address] PCP - General Internal Medicine 05/12/20 documented as of this encounter Additional Source Comments The information contained in this document represents components of the legal health record. It is not the complete legal health record.[facility]
[2025-01-16 14:49] VITALS: BP 120/60; PULSE 64; RESP 16; TEMP 36.2; O2SAT 99; BMI 38.8
--- NOTE | 2025-01-16 14:49 | A.OFFPC_ITS ---
Vital Signs 01/16/25 14:49 Height 6 ft Weight 286 lb 2 oz BMI 38.8 BP 120/60 Blood Pressure Location Lt brachial Position Sitting Respiration 16 Pulse 64 Pulse Source Pulse Oximeter Temp 97.1 F Temp Source Temporal Artery Scan Pulse Oximetry (%) 99 Oxygen Delivery Method Room Air Intake Visit Reasons: Sinus congestion , and cough Allergies oxycodone (OXYCODONE) Allergy (Intermediate, Verified 01/16/25 15:40) JITTERY/NAUSEA pseudoephedrine (From SUDAFED) Adverse Reaction (Intermediate, Verified 01/16/25 15:40) ELEVATES BP Medication List - Last Reconciled 01/16/25 by RAISA Rosa albuterol sulfate 90 mcg/actuation 2 puffs inhalation Q6H PRN apixaban (Eliquis) 5 mg PO BID aspirin 81 mg PO DAILY atenolol 50 mg PO DAILY atorvastatin 80 mg PO DAILY blood sugar diagnostic (FreeStyle Lite Strips) As directed cholecalciferol (vitamin D3) 25 mcg PO DAILY cyclosporine 0.05% (Restasis) 1 drp ophthalmic (eye) BID PRN [Diabetic shoes & 2 pair inserts as directed] empagliflozin (Jardiance) 25 mg PO DAILY flash glucose scanning reader As directed flash glucose sensor As directed fluticasone propionate 50 mcg/actuation 1 spray intranasal DAILY FreeStyle Megan 3 Plus Sensor (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 sensor) every 15 days NS FreeStyle Megan 3 [place] (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,engineering job titles,cont) As directed NS furosemide 40 mg PO DAILY ibuprofen 800 mg PO TID PRN insulin glargine (Basaglar KwikPen U-100 Insulin) 40 units subcut DAILY losartan 25 mg PO DAILY metformin ER 1,000 mg (2 x 500 mg) PO BID Mounjaro (tirzepatide) 5 mg (0.5 mL) subcut QWEEK NS [id number] mcg (Centrum Silver Men) 1 tab PO DAILY Tobacco use date assessed: 01/16/25 Fall risk assessment: No Falls in past year Last assessed Fall Risk: 11/12/24 Dental Screening Dental Screen Date: 01/16/25 Did you have a dental visit in the last 12 months?: No Did you have a dental problem in the last 6 months where you did not have access to dental care?: No Was dental information given to patient?: Patient declined HPI Sinus congestion , and cough HPI Details The patient is a 64-year-old male presenting with a 4-day history of cold-like symptoms. His illness began with a scratchy throat and progressed to include sinus congestion, pressure, and an earache. He reports associated new- onset muscle aches and fatigue. Nasal drainage was initially clear but has changed to a grayish-greenish color. The patient also notes his cough is worse in hot environments. Patient denies any GI symptoms. He experienced one episode of shortness of breath and tachycardia the night before the visit. He denies any fevers or chills. The patient was recently exposed to sick grandchildren. Past medical history is notable for a previous breathing issue, for which he has an albuterol inhaler, but he denies any chronic respiratory illness. He attends a wound care clinic weekly. He has known allergies to oxycodone and Sudafed. Recent lab work shows an A1C of 8.3, down from 9.3, and a stable anemia. Patient labs reviewed with the per request. He will follow up with Dr. Patel in February for his chronic conditions. [facility] Medical History Primary osteoarthritis, right shoulder History of recurrent deep vein thrombosis (DVT) Vitamin D deficiency Obesity (BMI 30-39.9) Primary osteoarthritis of both hips Smoker History of DVT (deep vein thrombosis) Anemia Stasis edema of both lower extremities Pure hypercholesterolemia Type 2 diabetes mellitus with hyperglycemia Coronary artery disease Osteoarthritis DVT (deep venous thrombosis) custodial current use of insulin Essential hypertension Hyperlipidemia LDL goal <70 Surgical History History of colonoscopy History of herniorrhaphy History of heart artery stent History of total hip arthroplasty History of appendectomy Family History Father Hypertension Mother COPD (chronic obstructive pulmonary disease) Brother Colon cancer Sister Alive and well Brother Diabetes Social History Household Members: Spouse Housing: House Do you presently have visiting nurse or other home services: No Patient Tobacco Use Status: Former Tobacco user Tobacco use type: Cigarette e-Cigarette/Vaping Use: Never Used Second Hand Smoke Exposure: No service: No Current occupational status: employed Cognitive needs: No Hearing needs: No Vision needs: No Questionnaire PHQ-9 Over the last 2 weeks, how often have you been bothered by any of the following problems? 1. Little interest or pleasure in doing things: not at all 2. Feeling down, depressed, or hopeless: not at all 3. Trouble falling or staying asleep, or sleeping too much: nearly every day 4. Feeling tired or having little energy: several days 5. Poor appetite or overeating: not at all 6. Feeling bad about yourself - or that you are a failure or have let yourself or your family down: not at all 7. Trouble concentrating on things, such as reading the newspaper or watching television: several days 8. Moving or speaking so slowly that other people could have noticed. Or the opposite - being so fidgety or restless that you have been moving around a lot more than usual: not at all 9. Thoughts that you would be better off or of hurting yourself in some way: not at all Total score: 5 Depression Screening Interpretation: Positive Depression Screening Follow-up: Follow-up Visit Requested Depression Screening Done: Yes Source: Developed by Drs. Yogi Koenig, Flavia Ashley, Lucho Thompson and colleagues, with an educational john from [employer]. Thrive Questionnaire Date Thrive assessed: 07/11/24 I am a: Patient What is your living situation today?: I have a steady place to live Within the past 12 months, did the food you bought not last and you didn't have the money to get more?: I choose not to answer this question Within the past 12 months, did you worry whether your food would run out before you got money to buy more?: I choose not to answer this question Do you have trouble paying for medicines?: I choose not to answer this question Do you have trouble getting transportation to medical appointments?: I choose not to answer this question Do you have trouble paying your heating and electricity bill?: No Do you have trouble taking care of your child, family member or friend?: No Do you have trouble with day-to-day activities such as bathing, preparing meals, shopping, managing finances, etc.?: No Are you currently unemployed and looking for a job?: No Are you interested in more education?: No Please select the resources that you would like help with: None Currently or been in a relationship where the following occur: I choose not to answer THRIVE Score: 0 AUDIT C Alcohol Use Questionnaire (AUDIT-C) 1. How often do you have a drink containing alcohol?: Never 3. How often do you have six or more drinks on one occasion?: Never Total Score: 0 Score Reviewed/Action Taken: Yes RAVI-7 AMB Questionnaire RAVI-7 Date RAVI - 7 assessed: 01/16/25 Feeling nervous, anxious, or on edge: 0 = Not at all Not being able to stop or control worryin = Not at all Worrying too much about different things: 0 = Not at all Trouble relaxin = Not at all Being so restless that it is hard to sit still: 1 = Several days Becoming easily annoyed or irritable: 0 = Not at all Feeling afraid as if something awful might happen: 0 = Not at all Total RAVI-7 score (0-4 normal; 5-9 mild; 10-14 moderate; 15-21 severe): 1 Source: Developed by Drs. Yogi Koenig, Flavia Ashley, Lucho Thompson and colleagues, with an educational john from [employer]. Review of Systems Const Reports body aches, Denies chills, Denies fever(s), Denies headache(s), Reports malaise and Denies poor appetite Eyes Reports no additional complaints ENT Denies dysphagia, Denies dizziness, Denies headache(s), Reports nasal congestion, Reports nasal discharge (Changed from clear to grayish green), Denies odynophagia, Denies sore throat and Reports other (Scratchy throat) Card Denies chest pain, Denies syncope, Denies edema, Denies irregular heart rhythm, Denies lightheadedness and Reports dyspnea Resp Denies cough and Reports dyspnea GI Denies abdominal pain, Denies constipation, Denies dysphagia, Denies diarrhea, Denies nausea, Denies odynophagia and Denies vomiting Reports no additional complaints Musc Reports no additional complaints and Denies abnormal gait Skin/Breast Reports system reviewed and no additional complaints, except as documented Neuro Denies abnormal gait, Denies dizziness, Denies syncope and Denies headache(s) Psych Reports no additional complaints Physical exam (Primary Care) Vital Signs: Last Vital Signs Temp 97.1 F 01/16/25 14:49 Pulse 64 01/16/25 14:49 BP 120/60 01/16/25 14:49 Pulse Ox 99 01/16/25 14:49 Oxygen Delivery Method Room Air 01/16/25 14:49 BMI result Body Mass Index 38.8 Tobacco/Smoking Status: Tobacco use Status Tobacco use date assessed 01/16/25 01/16/25 14:51 Patient Tobacco Use Status Former Tobacco user 01/16/25 14:51 Tobacco use type Cigarette 01/16/25 14:51 e-Cigarette/Vaping Use Never Used 01/16/25 14:51 PHQ-9: PHQ-9 Score PHQ-9: Total score 5 01/16/25 14:51 Depression Screening Interpretation: Positive Depression Screening Follow-up: Follow-up Visit Requested Thrive Assessment: Date of Thrive Assessment Date Thrive assessed 07/11/24 01/16/25 14:51 Currently or been in a relationship where the following occur: I choose not to answer Const General: cooperative, healthy appearing, comfortable and no acute distress Orientation/consciousness: patient oriented x3 HENMT Head: Yes normocephalic Ears: TM's normal bilaterally General nose exam: Abnormal mucous membranes and turbinates present boggy and erythematous bilateral and Nasal discharge present purulent bilateral Eyes General: appearance normal, both eyes and all related structures Conjunctivae: conjunctivae normal Neck Neck: Yes full ROM and Yes no lymphadenopathy Resp Effort & Inspection: normal respiratory effort Auscultation: clear to auscultation bilaterally, no crackles, no rales, no rhonchi and no wheezes Cardio Rate: regular rate Rhythm: regular rhythm Heart sounds: S1 normal heart sound present and S2 normal heart sound present Skin General skin exam: no rashes or lesions noted Neuro General: patient oriented x3 Gait exam (Neuro): Normal gait present Extrem General: Yes normal to inspection, Yes full ROM and No edema Psych Affect: normal affect Attitude: cooperative Insight: Good insight present (Psych) Judgement: Good judgement present (Psych) Results Reviewed Results Reviewed: Laboratory Tests 12/11/24 12/11/24 13:42 13:45 RBC 4.53 L Hgb 11.8 L Hct 36.8 L MCV 81.2 MCH 26.0 L MCHC 32.1 RDW 15.8 Plt Count 308 MPV 8.9 L Sodium 144 Potassium 4.3 Chloride 107 Carbon Dioxide 30 H Anion Gap 11 L BUN 19 H Creatinine 0.93 Estimated GFR > 60 Fasting Glucose 153 H Estimat Average Glucose 192 Hemoglobin A1c % 8.3 H Calcium 9.4 D Total Bilirubin 0.2 AST 25 ALT 28 Alkaline Phosphatase 93 Total Protein 7.0 Albumin 4.3 Triglycerides 98 Cholesterol 107 LDL Cholesterol, Calc 56 HDL Cholesterol 32 L Vitamin B12 521 25-OH Vitamin D Total 43.5 Folate 15.8 TSH 0.76 Urine Color Yellow Urine Appearance Clear Urine pH 6.0 Ur Specific [place] >= 1.030 H Urine Protein Negative Urine Glucose (UA) >=1000 H Urine Ketones Negative Urine Blood Negative Urine Nitrite Negative Ur Leukocyte Esterase Negative Urine RBC 0-2 Urine WBC 0-5 Ur Squamous Epith Cells 0-2 Urine Bacteria None Seen Hyaline Casts 0-2 Urine Creatinine 46.55 Urine Microalbumin < 5.0 Coding Level of Care Code Est Pt Level 3 (25108) Diagnoses Rhinosinusitis J31.0; J32.9 Dyspnea, unspecified type R06.00 Dyspnea type: unspecified Time Spent (min) 31 Assessment & Plan Assessment & Plan (1) Rhinosinusitis: Code(s): J31.0 - Chronic rhinitis; J32.9 - Chronic sinusitis, unspecified Category: Medical Plan: The patient's symptom duration of more than four days and purulent nasal discharge are suggestive of a bacterial sinus infection. A Z-Maldonado (azithromycin) will be prescribed. The patient is advised to use his albuterol inhaler to open his airways and Flonase nasal spray to address the allergic component. Patient to follow up with office if symptoms isn't improving or worsens. (2) Dyspnea: Code(s): R06.00 - Dyspnea, unspecified Category: Medical Qualifiers: Dyspnea type: unspecified Qualified Code(s): R06.00 - Dyspnea, unspecified Plan: Reports that his shortness of breath is mild. Encouraged to use his albuterol inhaler p.r.n. and assure adequate hydration Medications: New azithromycin For 250 mg dose pack: take 500 mg today (day 1), then 250 mg for 4 days (days 2-5) PO 6 tabs 0RF
--- OUTSIDE RECORDS SUMMARY | 2025-01-16 15:13 | XMS_ITS | Clinical Summary ---
Author Organization [facility] Address [address] [place] [phone] Phone Care Team Providers Care Dressmaker Or Tailor Name Role Phone Martha Schwartz MD Primary Care Provider [phone] Allergies Active Allergy Reactions Criticality Noted Date [...] EST) SODIUM 140 133 - 146 mmol/L [facility] CHLORIDE 103 96 - 108 mmol/L [facility] POTASSIUM 4.3 3.3 - 5.1 mmol/L [facility] CO2 26 21 - 35 mmol/L [facility] BUN 18 6 - 19 mg/dL [facility] CREATININE 0.80 0.5 - 1.5 mg/dL [facility] GLUCOSE 260(H) 70 - 99 mg/dL [facility] CALCIUM 9.4 8.4 - 10.3 mg/dL [facility] EGFR 96 >59 mL/min/1.7 3m2 [facility] Comment:Estimated glomerular filtration rate calculated using the CKD-EPI equation. ANION GAP 15 10 - 20 mmol/L [facility] Blood 05/06/2020 10:5 0 AM EST 05/06/2020 11:01 AM EST [facility] Fatou Carroll MD LAB BLOOD ORDERABLES Final Result [facility] [address] [place] [address] from Last 3 Months or Most Recently Relevant to Health Maintenance Insurance [facility] MEDICARE PART A & B [place] BLUE RE[place]AC[place] [facility] & [place] BL[facility] [place] [address] [address] [place] [address] ACO MEDICARE PART A & B [place] MEDIC[place] PPO BLUE REPLACEMENT [address] [place], [place] [address] [place], [place] [address]O MEDICARE PART A & B [facility] MEDICARE PPO BLUE [facility] MED[facility] & B [facility] MEDICARE PPO BLUE REPLACEMENT [facility] ACO MEDICARE PART A & [place] Care Teams Dressmaker Or Tailor Relationship Specialty Start Date End Date Martha Schwartz MD [address] [place] [phone] PCP - General Internal Medicine 05/12/20 Additional Source Comments The information contained in this document represents components of the legal health record. It is not the complete legal health record.[facility]
--- OUTSIDE RECORDS SUMMARY | 2025-01-16 15:13 | XMS_ITS | Clinical Summary ---
Author Organization [facility] Address [address] [place] [address] Care Team Providers Care Smash Hand Name Role Phone Jessica Cabrera MD Primary Care Provider [phone] Allergies Active Allergy Reactions Criticality Noted Date [...] age to complete this topic Care Teams Smash Hand Relationship Specialty Start Date End Date Jessica Cabrera MD [address] [place] [phone] PCP - General Internal Medicine 05/18/20
== END 2025-01-16 16:16 | disposition home or self-care (01) ==
LOC: HO.HMCH 14:48
PROVIDERS: PCP Internal Medicine
DX: J31.0 Chronic rhinitis (principal); J32.9 Chronic sinusitis, unspecified; R06.00 Dyspnea, unspecified

== ENCOUNTER → 2025-01-16 14:47 | Outpatient (BNVA) | payer MEDICARE, SELFPAY | PROVIDERS: PCP Internal Medicine | DX: J31.0 Chronic rhinitis (principal); J32.9 Chronic sinusitis, unspecified; R53.83 Other fatigue; R00.0 Tachycardia, unspecified; D64.9 Anemia, unspecified; R06.00 Dyspnea, unspecified | CPT/HCPCS: 96127; 99212 ==

== ENCOUNTER 2025-01-20 09:35 | Outpatient (AMB) | payer MEDICARE, SELFPAY ==
--- OUTSIDE RECORDS SUMMARY | 2023-12-13 16:20 | XMS_ITS | Encounter Summary ---
Author Organization [facility] Address [address] [place] [address] Phone Care Team Providers Care Putty Mixer Name Role Phone Martha Schwartz MD Primary Care Provider [phone] [phone] Encounter Details Date Type Department Care Team (Late st Contact Info) Description 12/13/2023 5:20 PM EDT Hospital Encounter [facility] [address] [place] [address] Jennie Pino FNP [address] [place] [address] [email or web address] Social History Tobacco Use Types Packs/Day Years Used Date Smoking Tobacco: Some Days Smokeless Tobacco: Never Alcohol Use Standard Drinks/Week Comments Yes 0 (1 standard drink = 0.6 oz pur e alcohol) Education Answer Date Recorded Are you interested in more education? Not on andrew e 07/14/2022 Are you concerned about learning? Not on file 07/14/2022 No 07/14/2022 No 07/14/2022 Digital Access Answer Date Recorded No 08/12/2022 No 08/12/2022 Reliable internet access at home? Not on file 08/12/2022 Device with a working camera? Not on file Sex and Gender Information Value Date Recorded Sex Assigned at Male 05/06/2020 9:58 AM EST Legal Sex Male 11:47 AM EDT Gender Identity Male 05/06/2020 9:58 AM EST Sexual Orientation Not on file documented as of this encounter Plan of Treatment Not on file documented as of this encounter Procedures Procedure Name Priority Date/Time Associated Diagnosis Comments XR CHEST PA AND LATERAL 2 VIEWS Urgent/patient waiting 12/13/2023 5:30 PM EDT Viral upper respiratory tract infection with cough documented in this encounter Results * XR CHEST PA AND LATERAL 2 VIEWS (12/13/2023 5:30 PM EDT) Anatomical Region Laterality Modality Chest Computed Radiogr aphy 12/13/2023 5:42 PM EDT Impressions 12/13/2023 5:43 PM EDT No acute abnormality. Narrative 12/13/2023 5:43 PM EDT XR CHEST PA AND LATERAL 2 VIEWS Referring clinician's provided indication for this examination in [facility]: Cough; sob, productive clear, chest pain for 3 days COMPARISON: None FINDINGS: Devices/Tubes/Lines: None. Lungs: Normal. The lungs are clear. No focal consolidation or pulmonary edema. Pleura: Normal. No pleural effusion or pneumothorax. Heart/Mediastinum: Normal heart and mediastinum. Bones/Soft Tissues: No significant skeletal abnormality. There are degenerative changes of the visualized spine. Procedure Note Gumaro Rose MD - 12/13/2023 XR CHEST PA AND LATERAL 2 VIEWS Referring clinician's provided indication for this examination in Epic:Cough; sob, productive clear, chest pain for 3 days COMPARISON: None FINDINGS: Devices/Tubes/Lines: None. Lungs: Normal. The lungs are clear. No focal consolidation or pulmonaryedema. Pleura: Normal. No pleural effusion or pneumothorax. Heart/Mediastinum: Normal heart and mediastinum. Bones/Soft Tissues: No significant skeletal abnormality. There aredegenerative changes of the visualized spine. IMPRESSION: No acute abnormality. Jennie Pino QA TEST ANALYST IMG XR CHEST Final Resul t documented in this encounter Visit Diagnoses Not on filedocumented in this encounter Additional Health Concerns Infection Onset Date Last Indicated Resolved Time CoV-Risk 12/13/2023 12/13/202312/2312/24/2023 1:22 AM EDT documented as of this encounter Care Teams Putty Mixer Relationship Specialty Start Date End Date Martha Schwartz MD [address] [place] [address] PCP - General Internal Medicine 05/12/20 documented as of this encounter Additional Source Comments The information contained in this document represents components of the legal health record. It is not the complete legal health record.[facility]
[2025-01-20 09:41] VITALS: BP 122/62; PULSE 68; BMI 38.3
--- NOTE | 2025-01-20 09:41 | A.OFFVIS_ITS ---
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 Allergies oxycodone (OXYCODONE) Allergy (Intermediate, Verified 01/16/25 15:40) JITTERY/NAUSEA pseudoephedrine (From SUDAFED) Adverse Reaction (Intermediate, Verified 01/16/25 15:40) ELEVATES BP Medication List - Last Reconciled 01/20/25 by Aftab Sánchez MD albuterol sulfate 90 mcg/actuation 2 puffs inhalation Q6H PRN apixaban (Eliquis) 5 mg PO BID aspirin 81 mg PO DAILY atenolol 50 mg PO DAILY atorvastatin 80 mg PO DAILY azithromycin For 250 mg dose pack: take 500 mg today (day 1), then 250 mg for 4 days (days 2-5) PO blood sugar diagnostic (FreeStyle Lite Strips) As directed cholecalciferol (vitamin D3) 25 mcg PO DAILY cyclosporine 0.05% (Restasis) 1 drp ophthalmic (eye) BID PRN [Diabetic shoes & 2 pair inserts as directed] empagliflozin (Jardiance) 25 mg PO DAILY flash glucose scanning reader As directed flash glucose sensor As directed fluticasone propionate 50 mcg/actuation 1 spray intranasal DAILY FreeStyle Megan 3 Plus Sensor (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 sensor) every 15 days NS FreeStyle Megan 3 [place] (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,assessment services manager,cont) As directed NS furosemide 40 mg PO DAILY ibuprofen 800 mg PO TID PRN insulin glargine (Basaglar KwikPen U-100 Insulin) 40 units subcut DAILY losartan 25 mg PO DAILY metformin ER 1,000 mg (2 x 500 mg) PO BID Mounjaro (tirzepatide) 5 mg (0.5 mL) subcut QWEEK NS [id number] mcg (Centrum Silver Men) 1 tab PO DAILY HPI Comments Details: Pleasant 64 year gentleman with background history of DVT on Eliquis, coronary artery disease with previous RCA PCI and moderate LAD stenosis, obesity, osteoarthritis status post hip replacement and diabetes. He was seen previously in 2019 when he was preop for hip surgery. He underwent cardiac catheterization at that time which showed patent stent in the right coronary artery with moderate disease in the LAD. He was advised to go ahead with surgery and it did well. He is saying that he is able to walk and do his day-to-day activities without any significant symptoms. Occasionally when he wakes up at night to go urinate he gets some shortness of breath. He is not describing orthopnea or PND. During the daytime he does not have any significant symptoms. I reviewed his angiogram from 2019 and it appears he had another catheterization done in [address] Kathleen when anatomy was similar. His blood pressure is well controlled. No other complaints currently. [facility] Medical History Primary osteoarthritis, right shoulder History of recurrent deep vein thrombosis (DVT) Vitamin D deficiency Obesity (BMI 30-39.9) Primary osteoarthritis of both hips Smoker History of DVT (deep vein thrombosis) Anemia Stasis edema of both lower extremities Pure hypercholesterolemia Type 2 diabetes mellitus with hyperglycemia Coronary artery disease Osteoarthritis DVT (deep venous thrombosis) penitentiary current use of insulin Essential hypertension Hyperlipidemia LDL goal <70 Surgical History History of colonoscopy History of herniorrhaphy History of heart artery stent History of total hip arthroplasty History of appendectomy Family History Father Hypertension Mother COPD (chronic obstructive pulmonary disease) Brother Colon cancer Sister Alive and well Brother Diabetes Social History (Updated 01/20/25 @ 09:44 by Denise Reyes) Household Members: Spouse Housing: House Do you presently have visiting nurse or other home services: No Alcohol intake: never Patient Tobacco Use Status: Former Tobacco user Tobacco use type: Cigarette e-Cigarette/Vaping Use: Never Used Second Hand Smoke Exposure: No service: No Current occupational status: employed Cognitive needs: No Hearing needs: No Vision needs: No Review of Systems Const Denies weakness ENT Denies dizziness Card Denies chest pain, Denies chest pain with activity, Denies syncope, Denies rapid heart rate, Denies pedal edema, Denies edema, Denies leg edema, Denies lightheadedness, Reports palpitations, Denies dyspnea, Denies dyspnea on exertion and Denies orthopnea Resp Denies cough, Denies dyspnea and Denies dyspnea on exertion GI Denies hematochezia and Denies change in stool character Musc Denies abnormal gait, Denies muscle cramps, Denies muscle weakness, Denies numbness, Denies radiating pain into limb and Denies tingling Neuro Denies abnormal gait, Denies dizziness, Denies syncope, Denies numbness, Denies tingling and Denies weakness Endo Reports palpitations Physical Exam Vital Signs: Last Vital Signs Pulse 68 01/20/25 09:41 BP 122/62 01/20/25 09:41 BMI result Body Mass Index 38.3 GENERAL APPEARANCE: in no acute distress, pleasant. NECK: no carotid bruit, no jugular venous distention. SKIN: no suspicious lesions, warm and dry. HEART: no murmurs, regular rate and rhythm. LUNGS: clear to auscultation bilaterally. ABDOMEN: soft, nontender. EXTREMITIES: no edema. PERIPHERAL PULSES: equal. NEUROLOGIC: No gross deficits, AAO X 3 Assessment & Plan Assessment & Plan (1) Essential hypertension: Code(s): I10 - Essential (primary) hypertension Category: Medical (2) Coronary artery disease: Comment: S/P PCI/coronary stenting in 2006 due to RCA plaque rupture Code(s): I25.10 - Atherosclerotic heart disease of cherokee coronary artery without angina pectoris Category: Medical Qualifiers: Coronary Disease-Associated Artery/Lesion type: cherokee artery [place] vs. transplanted heart: cherokee heart Associated angina: without angina Qualified Code(s): I25.10 - Atherosclerotic heart disease of cherokee coronary artery without angina pectoris Plan Pleasant 64 year gentleman who is here for reestablishing cardiovascular care. He was previously seen in 2019 when he had cardiac catheterization done before hip surgery which showed moderate disease and he was advised to proceed with surgery. He did well with that and has been active and walks without any significant symptoms. Occasionally gets dyspnea at nighttime when he walks to the bathroom and comes back. This is not a consistent symptom. It appears he was complaining of dyspnea while following with doctors in [place] and underwent repeat angiography in 2022 which showed similar anatomy to before with moderate diffuse disease. Impression was that he has diffuse disease and if he has symptoms in the future then he may need revascularization and may need coronary artery bypass surgery. I think currently he is stable and does not need any ischemic evaluation. I have explained to him that if he gets any dyspnea then he should reach out to us and in that case I will arrange stress testing. Continue medications as before. I will check echocardiogram to assess LV for any dysfunction which may guide further testing for him. Follow up with us in 6 months. Thank you for allowing me to participate in the care of your patient. Please feel free to contact me if you have any questions. Orders: Orders [place] echo transthorac w con Today I25.10 - Atherosclerotic heart disease of cherokee coronary artery without angina pectoris Coding Level of Care Code New Pt Level 4 (83722) Diagnoses Essential hypertension I10 Coronary artery disease involving cherokee coronary artery of cherokee heart without angina pectoris I25.10 Coronary Disease-Associated Artery/Lesion type: cherokee artery [place] vs. transplanted heart: cherokee heart Associated angina: without angina
--- OUTSIDE RECORDS SUMMARY | 2025-01-20 10:49 | XMS_ITS | Clinical Summary ---
Author Organization [facility] Address [address] [place] [address] Care Team Providers Care Business Office Representative Name Role Phone Jessica Cabrera MD Primary [...] age to complete this topic Care Teams Business Office Representative Relationship Specialty Start Date End Date Jessica Cabrera MD [address] [place] [phone] PCP - General Internal Medicine 05/18/20
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
--- OUTSIDE RECORDS SUMMARY | 2025-01-20 10:49 | XMS_ITS | Clinical Summary ---
Author Organization [facility] Address [address] [place] [address] Phone Care Team Providers Care Credit Negotiator Name Role Phone Martha Schwartz MD Primary Care Provider [phone] Allergies Active Allergy Reactions Criticality Noted Date [...] Date/Time Associated Diagnosis Comments BASIC METABOLIC PANEL (BMP) STAT 05/06/2020 10:50 AM EST from Last 3 Months or Most Recently Relevant to Health Maintenance Results * (ABNORMAL) Basic metabolic panel (05/06/2020 10:50 AM EST) SODIUM 140 133 - 146 mmol/L [facility] CHLORIDE 103 96 - 108 mmol/L [facility] POTASSIUM 4.3 3.3 - 5.1 mmol/L [facility] CO2 26 21 - 35 mmol/L [facility] BUN 18 6 - 19 mg/dL [facility] CREATININE 0.80 0.5 - 1.5 mg/dL [facility] GLUCOSE 260(H) 70 - 99 mg/dL [facility] CALCIUM 9.4 8.4 - 10.3 mg/dL [facility] EGFR 96 >59 mL/min/1.7 3m2 [facility] Comment:Estimated glomerular filtration rate calculated using the CKD-EPI equation. ANION GAP 15 10 - 20 mmol/L [facility] Blood 05/06/2020 10:5 0 AM EST 05/06/2020 11:01 AM EST Esther Carroll MD LAB BLOOD BKR ORDERA BLES Final Result [facility] [address] [place] [address] from Last 3 Months or Most Recently Relevant to Health Maintenance Insurance [facility] MEDICARE PART A & [place] MED[place] BL[facility]AC[facility] [place] BLUE RE[place]ACEMENT [facility] [facility] [employer] [place] [address] [place] [address] ALLANCE ACO [facility] [employer] MEDICARE PART A & B [place] MED[place] PPO BLUE REPLACEMENT [address] [place], [place] [address] [place], [place] [address]O MEDICARE PART A & B [facility] MEDICARE PPO BL[facility] REPLACEMENT [facility] & B [facility] MEDIC[facility] PPO BL[facility]PLACEMENT [facility] A & [place] Care Teams Credit Negotiator Relationship Specialty Start Date End Date Martha Schwartz MD [address] [place] [phone] PCP - General Internal Medicine 05/12/20 Additional Source Comments The information contained in this document represents components of the legal health record. It is not the complete legal health record.[facility]
== END 2025-01-20 10:28 | disposition home or self-care (01) ==
LOC: HO.HCS 09:35
PROVIDERS: PCP Internal Medicine; Visit Provider Internal Medicine Cardiovascular Disease
DX: I10 Essential (primary) hypertension (principal); I25.10 Atherosclerotic heart disease of native coronary artery without angina pectoris
CPT/HCPCS: 99214

== ENCOUNTER → 2025-01-20 09:35 | Outpatient (BNVA) | payer MEDICARE, SELFPAY | PROVIDERS: PCP Internal Medicine; Visit Provider Internal Medicine Cardiovascular Disease | DX: I25.10 Atherosclerotic heart disease of native coronary artery without angina pectoris (principal); I10 Essential (primary) hypertension | CPT/HCPCS: 99212 ==

== ENCOUNTER 2025-01-30 16:29 | Outpatient (REF) | payer MEDICARE, SELFPAY | END 2025-01-30 16:30 | disposition home or self-care (01) | LOC: HO.LNP 16:29 | PROVIDERS: Visit Provider Surgery Vascular Surgery | DX: T81.89XA Other complications of procedures, not elsewhere classified, initial encounter (principal) | CPT/HCPCS: 87070; 87077; 87186; 87205 ==

== ENCOUNTER 2025-02-02 08:32 | Outpatient (AMB) | payer MEDICARE, SELFPAY ==
--- NOTE | 2025-02-02 08:39 | A.OFFVIS_ITS ---
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 Patient was referred by [facility]. At today's visit he states that about 6 months ago he as if he dislocated his shoulder upon lifting a heavy item into a truck while at work. He states some days are better than others and at times is unable to lift arm above his shoulder. He has discomfort with ROM. Finds some relief with ibuprofen. Allergies oxycodone (OXYCODONE) Allergy (Intermediate, Verified 02/02/25 08:41) JITTERY/NAUSEA pseudoephedrine (From SUDAFED) Adverse Reaction (Intermediate, Verified 02/02/25 08:41) ELEVATES BP Medication List - Last Reconciled 02/02/25 by Yoselin Gunter PA-C albuterol sulfate 90 mcg/actuation 2 puffs inhalation Q6H PRN apixaban (Eliquis) 5 mg PO BID aspirin 81 mg PO DAILY atenolol 50 mg PO DAILY atorvastatin 80 mg PO DAILY azithromycin For 250 mg dose pack: take 500 mg today (day 1), then 250 mg for 4 days (days 2-5) PO blood sugar diagnostic (FreeStyle Lite Strips) As directed cholecalciferol (vitamin D3) 25 mcg PO DAILY cyclosporine 0.05% (Restasis) 1 drp ophthalmic (eye) BID PRN [Diabetic shoes & 2 pair inserts as directed] empagliflozin (Jardiance) 25 mg PO DAILY flash glucose scanning reader As directed flash glucose sensor As directed fluticasone propionate 50 mcg/actuation 1 spray intranasal DAILY FreeStyle Megan 3 Plus Sensor (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 sensor) every 15 days NS FreeStyle Megan 3 [place] (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,audio visual project manager,cont) As directed NS furosemide 40 mg PO DAILY ibuprofen 800 mg PO TID PRN insulin glargine (Basaglar KwikPen U-100 Insulin) 40 units subcut DAILY losartan 25 mg PO DAILY metformin ER 1,000 mg (2 x 500 mg) PO BID Mounjaro (tirzepatide) 5 mg (0.5 mL) subcut QWEEK NS [id number] mcg (Centrum Silver Men) 1 tab PO DAILY HPI HPI 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 He states years ago he may have had an incident where he dislocated the shoulder and approx 6 months ago he was lifting something heavy and felt a pain in the right shoulder. Occassionally he has difficulty with raising the right arm. 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 Essential hypertension Hyperlipidemia LDL goal <70 Surgical History History of colonoscopy History of herniorrhaphy History of heart artery stent History of total hip arthroplasty History of appendectomy Family History Father Hypertension Mother COPD (chronic obstructive pulmonary disease) Brother Colon cancer Sister Alive and well Brother Diabetes Social History (Updated 02/02/25 @ 08:42 by AMI Tan) Household Members: Spouse Housing: House Do you presently have visiting nurse or other home services: No Alcohol intake: never Patient Tobacco Use Status: Former Tobacco user Tobacco use type: Cigarette e-Cigarette/Vaping Use: Never Used Second Hand Smoke Exposure: No service: No Current occupational status: employed 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 He has significant weakness and accessory muscle use with empty can and external rotation against resistance. No tenderness to palpation over the AC joint or proximal biceps tendon. Neurovascularly intact. Results Reviewed Results Reviewed: X-rays of the right shoulder obtained at [facility] in September of 2024 significant for AC joint arthritis with evidence of what appears to be deltoid atony Assessment & Plan Assessment & Plan (1) Insufficiency of right rotator cuff: Code(s): M25.311 - Other instability, right shoulder Category: Medical Plan: We discussed options today which includes an MRI of the right shoulder to further evaluate the integrity of the rotator cuff given his deficits on exam. An open MRI has been ordered. I also offered him physical therapy which he declined at the time due to needing to prioritize his visits to his foot injury. Once the scan is complete I will contact him to determine the next step in treatment. Orders: Orders MR shoulder RT wo con Today M77.8 - Other enthesopathies, not elsewhere classified Coding Level of Care Code New Pt Level 3 (20138) Complex EM visit Add On G2211 Diagnoses Insufficiency of right rotator cuff M25.311
== END 2025-02-02 09:33 | disposition home or self-care (01) ==
LOC: HO.HOS 08:33
PROVIDERS: PCP Internal Medicine; Visit Provider Physician Assistant
DX: M25.311 Other instability, right shoulder (principal)
CPT/HCPCS: 99203; G2211

== ENCOUNTER → 2025-02-02 08:32 | Outpatient (BNVA) | payer MEDICARE, SELFPAY | PROVIDERS: PCP Internal Medicine; Visit Provider Physician Assistant | DX: M25.311 Other instability, right shoulder (principal); M77.8 Other enthesopathies, not elsewhere classified | CPT/HCPCS: 99202 ==

== ENCOUNTER → 2025-02-06 15:57 | Outpatient (BNV) | payer MEDICARE, SELFPAY | PROVIDERS: Visit Provider Radiology Diagnostic Radiology | DX: M85.871 Other specified disorders of bone density and structure, right ankle and foot (principal) | CPT/HCPCS: 73650 ==

== ENCOUNTER 2025-02-19 10:22 | Outpatient (AMB) | payer MEDICARE, SELFPAY ==
--- OUTSIDE RECORDS SUMMARY | 2023-12-13 16:20 | XMS_ITS | Encounter Summary ---
Author Organization [facility] Address [address] [place] [address] Phone Care Team Providers Care Energy Systems Laboratory Director Name Role Phone Martha Schwartz MD Primary Care Provider [phone] Encounter Details Date Type Department Care Team (Late st Contact Info) Description 12/13/2023 5:20 PM EDT Hospital Encounter [facility] [address] [place] [address] Jennie Pino FNP [address] [place] [address] [email or web address] Social History Tobacco Use Types Packs/Day Years [...] clinician's provided indication for this examination in [facility]: Cough; sob, productive clear, chest pain [...] spine. IMPRESSION: No acute abnormality. Jennie Pino FRUIT STUFFER IMG XR CHEST Final Resul t documented in this encounter Visit Diagnoses Not on filedocumented in this encounter Additional Health Concerns Infection Onset Date Last Indicated Resolved Time CoV-Risk 12/13/2023 12/13/202312/2312/24/2023 1:22 AM EDT documented as of this encounter Care Teams Energy Systems Laboratory Director Relationship Specialty Start Date End Date Martha Schwartz MD [address] [place] [phone] PCP - General Internal Medicine 05/12/20 documented as of this encounter Additional Source Comments The information contained in this document represents components of the legal health record. It is not the complete legal health record.[facility]
--- NOTE | 2025-02-19 10:40 | MHC.PC.OV ---
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 Required: No Accompanied by: Self / Same As Patient Allergies oxycodone (OXYCODONE) Allergy (Intermediate, Verified 02/19/25 10:43) JITTERY/NAUSEA pseudoephedrine (From SUDAFED) Adverse Reaction (Intermediate, Verified 02/19/25 10:43) ELEVATES BP Medication List - Last Reconciled 02/19/25 by Dixon Reese MD albuterol sulfate 90 mcg/actuation 2 puffs inhalation Q6H PRN apixaban (Eliquis) 5 mg PO BID aspirin 81 mg PO DAILY atenolol 50 mg PO DAILY atorvastatin 80 mg PO DAILY azithromycin For 250 mg dose pack: take 500 mg today (day 1), then 250 mg for 4 days (days 2-5) PO blood sugar diagnostic (FreeStyle Lite Strips) As directed cholecalciferol (vitamin D3) 25 mcg PO DAILY cyclosporine 0.05% (Restasis) 1 drp ophthalmic (eye) BID PRN [Diabetic shoes & 2 pair inserts as directed] empagliflozin (Jardiance) 25 mg PO DAILY flash glucose scanning reader As directed flash glucose sensor As directed fluticasone propionate 50 mcg/actuation 1 spray intranasal DAILY FreeStyle Megan 3 Plus Sensor (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 sensor) every 15 days NS FreeStyle Megan 3 [place] (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,telephone lineman,cont) As directed NS furosemide 40 mg PO DAILY ibuprofen 800 mg PO TID PRN insulin glargine (Basaglar KwikPen U-100 Insulin) 40 units subcut DAILY losartan 25 mg PO DAILY metformin ER 1,000 mg (2 x 500 mg) PO BID Mounjaro (tirzepatide) 5 mg (0.5 mL) subcut QWEEK NS [id number]-[id number] mcg (Centrum Silver Men) 1 tab PO DAILY Tobacco use date assessed: 02/19/25 Fall risk assessment: No Falls in past year Last assessed Fall Risk: 02/19/25 Dental Screening Dental Screen Date: 02/19/25 Did you have a dental visit in the last 12 months?: No Did you have a dental problem in the last 6 months where you did not have access to dental care?: No Was dental information given to patient?: No HPI HPI Comments History of Present Illness Details The patient is a 64 year old male presenting with ear pain and a request for an ear flush. He reports that his ears were blocked and hurting badly, which prompted him to make the appointment. Since scheduling the visit, he has developed sinus fullness and a severe cough, which began a couple of days ago. For his sinus congestion, he has been using a sinus spray and Tylenol, which provide some relief. He has a known allergy to pseudoephedrine (Sudafed), which causes his blood pressure to increase. The patient is also under treatment at a wound care clinic for a puncture wound on the bottom of his foot. He was recently treated with azithromycin for his foot. He inquired about gabapentin for foot pain with his cement finisher and was advised to discuss it with his primary care provider. His current medications include Eliquis, aspirin, atorvastatin, Mounjaro, and metformin. 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 Essential hypertension Hyperlipidemia LDL goal <70 Surgical History History of colonoscopy History of herniorrhaphy History of heart artery stent History of total hip arthroplasty History of appendectomy Family History Father Hypertension Mother COPD (chronic obstructive pulmonary disease) Brother Colon cancer Sister Alive and well Brother Diabetes Social History Household Members: Spouse Housing: House Do you presently have visiting nurse or other home services: No Alcohol intake: never Patient Tobacco Use Status: Former Tobacco user Tobacco use type: Cigarette e-Cigarette/Vaping Use: Never Used Second Hand Smoke Exposure: No service: No Current occupational status: employed 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 Cognitive needs: No Hearing needs: No Vision needs: No Questionnaire Thrive Questionnaire Date Thrive assessed: 02/19/25 I am a: Patient What is your living situation today?: I have a steady place to live Within the past 12 months, did the food you bought not last and you didn't have the money to get more?: I choose not to answer this question Within the past 12 months, did you worry whether your food would run out before you got money to buy more?: I choose not to answer this question Do you have trouble paying for medicines?: I choose not to answer this question Do you have trouble getting transportation to medical appointments?: I choose not to answer this question Do you have trouble paying your heating and electricity bill?: No Do you have trouble taking care of your child, family member or friend?: No Do you have trouble with day-to-day activities such as bathing, preparing meals, shopping, managing finances, etc.?: No Are you currently unemployed and looking for a job?: No Are you interested in more education?: No Please select the resources that you would like help with: None Currently or been in a relationship where the following occur: I choose not to answer THRIVE Score: 0 RAVI-7 AMB Questionnaire RAVI-7 Date RAVI - 7 assessed: 01/16/25 Source: Developed by Drs. Yogi Koenig, Flavia Ashley, Lucho Thompson and colleagues, with an educational john from [employer]. Review of Systems Const Details: Not done. Physical exam (Primary Care) Vital Signs: Last Vital Signs Pulse 64 02/19/25 10:41 Resp 18 02/19/25 10:41 BP 132/58 L 02/19/25 10:41 Pulse Ox 98 02/19/25 10:41 Oxygen Delivery Method Room Air 02/19/25 10:41 BMI result Body Mass Index 39.4 Tobacco/Smoking Status: Tobacco use Status Tobacco use date assessed 02/19/25 02/19/25 10:51 Patient Tobacco Use Status Former Tobacco user 02/19/25 10:51 Tobacco use type Cigarette 02/19/25 10:51 e-Cigarette/Vaping Use Never Used 02/19/25 10:51 Thrive Assessment: Date of Thrive Assessment Date Thrive assessed 02/19/25 02/19/25 10:51 Currently or been in a relationship where the following occur: I choose not to answer Const Other: Pertinent findings are in BOLD GENERAL APPEARANCE NAD, activity normal for age, well developed/ well nourished, no cyanosis, pallor, or diaphoresis. EYES lids/conjunctiva normal. EARS/NOSE/THROAT Mucous membranes moist, nares normal, lips/teeth normal uvula midline without oral pharyngeal erythema, exudate or swelling TMs normal bilaterally. No lymphangitis/lymphedema. No cerumen in both ears. Mild irritation of the external canals of bilateral ears. HEAD/NECK normocephalic atraumatic, no facial trauma, neck is supple. RESPIRATORY respiratory effort normal, speaks in full sentences, no tripod position, no accessory muscle use. Lungs clear to auscultation without rhonchi, wheezes, rales CARDIAC Regular rate and rhythm, no edema. ABDOMINAL Soft, ND/NT. No evidence of fluid wave. No pulsatile masses on exam, rebound tenderness, Márquez sign or pain over Mcburney's point. MUSCLES/EXTREMITIES No abnormal range of motion, no swelling. SKIN Warm, pink and dry. No rashes, dermatoses, petechiae or lesions. NEUROLOGICAL Speech is clear and appropriate. Normal level of consciousness. Gait and coordination are normal. 5/5 strength in all extremities. PSYCH Normal mood and affect. Judgement/competence is appropriate Coding Level of Care Code Est Pt Level 3 (67544) Diagnoses Ear congestion H93.8X9 Sinus congestion R09.81 Foot ulcer L97.509 Laterality: unspecified laterality Time Spent (min) 20 Assessment & Plan Assessment & Plan (1) Ear congestion: Code(s): H93.8X9 - Other specified disorders of ear, unspecified ear Category: Medical Plan: - The patient's primary complaint is ear pain. Examination revealed inflammation but no cerumen, making an ear flush unnecessary and potentially harmful due to the risk of tympanic membrane perforation. - The inflammation is suspected to be from a viral or bacterial infection. - Prescribed ofloxacin ear drops, 10 drops in each ear once daily for 7 days. (2) Sinus congestion: Code(s): R09.81 - Nasal congestion Category: Medical Plan: - The patient reports a recent onset of sinus congestion and cough, likely attributable to a viral infection. - Given his allergy to pseudoephedrine, - Oral antibiotics are not indicated at this time. - Recommended [id number] Claritin 10 mg daily for 14 days and to continue using Tylenol and sinus spray as needed for symptom relief. (3) Foot ulcer: Code(s): L97.509 - Non-pressure chronic ulcer of other part of unspecified foot with unspecified severity Category: Medical Qualifiers: Laterality: unspecified laterality Plan: - The patient inquired about a prescription for gabapentin for foot pain related to his puncture wound. As recommended by his cement finisher. - Advised that this should be discussed with his primary care provider, Dr. Patel. - Informed the patient of his upcoming appointment with Dr. Patel on March 17, where he can address this concern. Plan I explained to the patient that his ear canals are clean and do not have any wax, so an ear flush is not necessary. I advised that performing a flush could perforate the tympanic membrane. I informed him that he has some inflammation in his ears, which is causing the pain, and that I would prescribe Ofloxacin ear drops. For his sinusitis and cough, I explained that it is likely a viral infection. Given his allergy to pseudoephedrine, I recommended [id number]-[id number] Claritin and Tylenol. I clarified that no oral antibiotics would be prescribed for the sinus symptoms at this time. Regarding his request for gabapentin for foot pain, I advised him to discuss this with his primary care provider, Dr. Patel, during his upcoming appointment at the end of the month. Medications: New ofloxacin 0.3% 10 drps otic (ears) DAILY 10 mL 0RF 7 days loratadine (Claritin) 10 mg PO DAILY PRN 14 tabs 0RF allergy symptoms
[2025-02-19 10:41] VITALS: BP 132/58; PULSE 64; RESP 18; O2SAT 98; BMI 39.4
--- OUTSIDE RECORDS SUMMARY | 2025-02-19 12:36 | XMS_ITS | Clinical Summary ---
Author Organization [facility] Address [address] [place] [id number] Phone Care Team Providers Care Sustainable Design Consultant Name Role Phone Martha Schwartz MD Primary Care Provider [phone] Allergies Active Allergy Reactions Criticality Noted Date [...] EST) SODIUM 140 133 - 146 mmol/L [facility] CHLORIDE 103 96 - 108 mmol/L [facility] POTASSIUM 4.3 3.3 - 5.1 mmol/L [facility] CO2 26 21 - 35 mmol/L [facility] BUN 18 6 - 19 mg/dL [facility] CREATININE 0.80 0.5 - 1.5 mg/dL [facility] GLUCOSE 260(H) 70 - 99 mg/dL [facility] CALCIUM 9.4 8.4 - 10.3 mg/dL [facility] EGFR 96 >59 mL/min/1.7 3m2 [facility] Comment:Estimated glomerular filtration rate calculated using the CKD-EPI equation. ANION GAP 15 10 - 20 mmol/L [facility] Blood 05/06/2020 10:5 0 AM EST 05/06/2020 11:01 AM EST Esther Carroll MD LAB BLOOD BKR ORDERA BLES Final Result [facility] [address] [place] [address] from Last 3 Months or Most Recently Relevant to Health Maintenance Insurance [facility] MEDICARE PART A & B [place] BLUE REPLACEMENT [facility] & [place] BL[place] RE[place]AC[place] [employer] [place] [address] [address] ALLANCE ACO [facility] MEDIC[facility] PART A & B [place] PPO BLUE REPLACEMENT [address] [place], [place] [address] [place], [place] [address]O MEDICARE PART A & B [facility] MEDICARE PPO [facility]UE REPLACEMENT [facility] A & B [facility] MEDICARE PPO BLUE REPLACEMENT [facility] MED[facility] PART A & B [place] BL[place] RE[place]AC[place] Care Teams Sustainable Design Consultant Relationship Specialty Start Date End Date Martha Schwartz MD [address] [place] [id number] PCP - General Internal Medicine 05/12/20 Additional Source Comments The information contained in this document represents components of the legal health record. It is not the complete legal health record.[facility]
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
--- OUTSIDE RECORDS SUMMARY | 2025-02-19 12:36 | XMS_ITS | Clinical Summary ---
Author Organization [facility] Prior to 08/16/[address] [place] [address] Care Team Providers Care Rooming House Operator Name Role Phone Jessica Cabrera MD Primary Care Provider [phone] Allergies Active Allergy Reactions Criticality Noted Date [...] age to complete this topic Care Teams Rooming House Operator Relationship Specialty Start Date End Date Jessica Cabrera MD [address] [place] [phone] PCP - General Internal Medicine 05/18/20
== END 2025-02-19 11:12 | disposition home or self-care (01) ==
LOC: HO.HMCH 10:23
PROVIDERS: Visit Provider Internal Medicine
DX: H93.8X9 Other specified disorders of ear, unspecified ear (principal); R09.81 Nasal congestion; L97.509 Non-pressure chronic ulcer of other part of unspecified foot with unspecified severity

== ENCOUNTER → 2025-02-19 10:22 | Outpatient (BNVA) | payer MEDICARE, SELFPAY | PROVIDERS: Visit Provider Internal Medicine | DX: R09.81 Nasal congestion (principal); H93.8X3 Other specified disorders of ear, bilateral; L97.509 Non-pressure chronic ulcer of other part of unspecified foot with unspecified severity; R50.9 Fever, unspecified | CPT/HCPCS: 99212 ==

== ENCOUNTER → 2025-03-02 08:57 | Outpatient (REF) | payer MEDICARE, SELFPAY ==
--- NOTE | 2025-03-02 08:59 | CA_ITS ---
Transthoracic Echocardiogram Patient (Last, First, Middle): Benny Mcbride, Gender: Male Date of : 1960 Age: 64 Procedure Date: 03/02/2025 Procedure Type: Transthoracic Echocardiogram Location: OP Height: 182.88 cm Weight: 131.54 kg BSA: 2.49 m2 Heart Rate: bpm BP: 132 / 58 mmHg Diesel Technician Mechanic: FELICITA Referring MD: Aftab Sánchez MD Circus Rider: Aftab Sánchez MD Symptoms: I25.10 - Atherosclerotic heart disease of [place] coronary artery without... Study Quality: Technically Difficult, contrast Conclusions: - Normal left ventricular size and systolic function. There is mildly increased left ventricular wall thickness. The visually estimated ejection fraction is between 60-65%. - E/E prime ratio is between 8 and 15 consistent with indeterminate filling pressures. - Mildly increased right ventricular cavity size. There is normal right ventricular systolic function. - The left atrium is severely dilated. Findings Procedure Information Contrast agent, definity, is being given per protocol without apparent complications. Left Ventricle Normal left ventricular size and systolic function. There is mildly increased left ventricular wall thickness. The visually estimated ejection fraction is between 60-65%. There is no evidence of regional wall motion abnormalities. Abnormal diastolic function is noted. Spectral Doppler is indicative of an impaired relaxation filling pattern. E/E prime ratio is between 8 and 15 consistent with indeterminate filling pressures. Right Ventricle Mildly increased right ventricular cavity size. There is normal right ventricular systolic function. Atria The left atrium is severely dilated. The right atrium is likely dilated. Aortic Valve The aortic valve was not well visualized. There is no aortic valve stenosis. Mitral Valve Likely normal mitral valve structure and function. There is no mitral valve regurgitation. There is no mitral valve stenosis. Pulmonic Valve The pulmonic valve is likely normal. Tricuspid Valve Likely normal tricuspid valve structure and function. Tricuspid regurgitation envelope is inadequate for calculation of right ventricular systolic pressure. Normal right atrial pressure. Great Vessels The aorta was not well visualized. Venous The inferior vena cava is normal in size and collapses greater than 50% with inspiration. Pericardium/Pleural There is no evidence of pericardial effusion. Prior Study Comparison Changes noted compared to prior study dated: 07/10/2018. Mild RV dilation. Measurements 2D Linear Measurements IVSd: 1.13 0.6-0.9/0.6-1.0 cm LVIDd: 6.09 3.9-5.3/4.2-5.9 cm LVIDd Index: 2.45 2.4-3.2/2.2-3.1 cm/m2 LVIDs: 3.76 2.0-3.6 cm LVPWd: 0.94 0.7-1.1 cm LA Diam: 3.60 2.7-3.8/3.0-4.0 cm LAIDs Index: 1.45 1.5-2.3 cm/m2 LV Mass: 330.59 67-162/88-224 g LV Mass Index: 132.77 43-95/49-115 g/m2 LVOT Diam: 2.60 3.0+(-)1.3 cm 2D Systolic Function EF 4C: 64.80 >55% EF 2C: 67.40 >55% EF BiP: 65.60 >55% Mitral Valve MV Pk E: 0.84 MV PK A: 1.24 MV Decel Time: 335.00 E/A: 0.70 E'Lateral: 6.42 E'Medial: 5.98 E/E' Med: 14.00 E/E' Lat: 13.00 PHT: 98.00 MVA PHT: 2.24 Decel Thayer: 2.50 Aortic Valve AoV Pk Viraj: 1.28 AoV Mn Viraj: 0.87 AoV VTI: 0.28 AoV Pk Grad: 7.00 Aov Mn Grad: 3.00 AMINATA Cont.VTI: 4.30 LVOT LVOT Pk Vriaj: 0.95 LVOT Mn Viraj: 0.63 LVOT VTI: 0.23 LVOT Pk Grad: 4.00 LVOT Mn Grad: 2.00 LVOT Diam: 2.60 LVOT Area: 5.31 Diastolic Function MV Pk E: 0.84 MV Pk A: 1.24 E/A: 0.70 E'Medial: 5.98 E/E' Med: 14.00 E' Laterial: 6.42 E/E' Lat: 13.00 Right Ventricle TAPSE (mm): 29.30 TVS' Viraj: 17.10 Tricuspid Valve RA Press: 3.00 Great Vessels Aorta Sinus of Valsalva: 3.94 2.0-3.5 cm Ao Asc: 3.50 2.1-3.4 cm Updated in Other Vendor System with Status of Final Aftab Sánchez MD electronically signed on 03/02/2025 6:54:38 PM with status of Final
== END ==
LOC: HO.CARD 08:57
PROVIDERS: PCP Internal Medicine; Visit Provider Internal Medicine Cardiovascular Disease
DX: I25.10 Atherosclerotic heart disease of native coronary artery without angina pectoris (principal)
CPT/HCPCS: 93306; Q9957

== ENCOUNTER → 2025-03-02 08:59 | Outpatient (BNV) | payer MEDICARE, SELFPAY | PROVIDERS: PCP Internal Medicine; Visit Provider Internal Medicine Cardiovascular Disease | DX: I51.7 Cardiomegaly (principal); R93.1 Abnormal findings on diagnostic imaging of heart and coronary circulation | CPT/HCPCS: 93306 ==

== ENCOUNTER → 2025-03-09 14:00 | Outpatient (BNV) | payer MEDICARE, SELFPAY | PROVIDERS: PCP Internal Medicine; Visit Provider Radiology Diagnostic Radiology | DX: M77.31 Calcaneal spur, right foot (principal) | CPT/HCPCS: 73723 ==

== ENCOUNTER 2025-03-09 15:47 | Outpatient (REF) | payer MEDICARE, SELFPAY ==
--- OUTSIDE RECORDS SUMMARY | 2023-12-13 16:20 | XMS_ITS | Encounter Summary ---
Author Organization [facility] Address [address] [place] [address] Phone Care Team Providers Care Specialty Food Products Supervisor Name Role Phone Martha Schwartz MD Primary Care Provider [phone] Encounter Details Date Type Department Care Team (Late st Contact Info) Description 12/13/2023 5:20 PM EDT Hospital Encounter [facility] [address] [place] [address] Jennie Pino FNP [address] [place] [address] [email or web address] Social History Tobacco Use Types Packs/Day [...] clinician's provided indication for this examination in [facility]: Cough; sob, productive clear, chest pain [...] spine. IMPRESSION: No acute abnormality. Jennie Pino SUMATRA OPENER IMG XR CHEST Final Resul t documented in this encounter Visit Diagnoses Not on filedocumented in this encounter Additional Health Concerns Infection Onset Date Last Indicated Resolved Time CoV-Risk 12/13/2023 12/13/202312/2312/24/2023 1:22 AM EDT documented as of this encounter Care Teams Specialty Food Products Supervisor Relationship Specialty Start Date End Date Martha Schwartz MD [address] [place] [address] PCP - General Internal Medicine 05/12/20 documented as of this encounter Additional Source Comments The information contained in this document represents components of the legal health record. It is not the complete legal health record.[facility]
--- NOTE | ~2025-03-09 | MR_ITS ---
CLINICAL HISTORY: osteomyelitis, rt plantar calcaneus Exam: MRI of the right ankle, including gadolinium enhanced imaging. Comparison: Radiographs dated 12/11/2024. Findings: Osseous structures: There is subtle T2 hyperintensity and very minimal enhancement involving the plantar aspect of the posterior calcaneus (for example, 6; 10 -14 and 11; 7 -12), raising concern for very minimal osteomyelitis. Remaining visualized bone marrow signal intensities appear well-maintained with no other bone marrow edema, focal osseous lesions or other osteomyelitis. Tendons: Visualized tendons structures and signal intensities appear maintained with no evidence of tendon tears or significant tendinopathy. Achilles tendon is intact. Ligaments: Anterior and posterior talofibular ligaments appear intact. Spring ligamentous structures appear unremarkable. Soft tissues: Cutaneous defect involving the plantar soft tissues at the level of the calcaneus (8; 8 and 5; 31-32). No definable circumscribed collection or enhancing solid lesions appreciated. Mild edema of the subcutaneous soft tissues in this location could suggest cellulitis. Impression: 1. Very minimal edema and enhancement involving the plantar aspect of the posterior calcaneus, raising concern for very early or developing osteomyelitis. 2. No other MR evidence of osteomyelitis. This document has been electronically signed by: Nilton Cohen MD on 03/09/2025 17:26:02
--- OUTSIDE RECORDS SUMMARY | 2025-03-09 14:45 | XMS_ITS | Encounter Summary ---
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 (HCC) (Primary Dx);Arthritis of both feet;PAD (peripheral artery disease) (HCC);Dermatophytosis, nail Encounter Details Date Type Department Care Team (Late st Contact Info) Description 03/09/2025 2:45 PM EST Office Visit Orthopedic Surgery - [place] [id number] [phone] Shane Ryan, DPM [address] [address] Controlled type 2 diabetes with neuropathy (CMS/HCC V24, CMS/HCC V28) (Primary Dx); PAD (peripheral artery disease) (CMS/HCC V24); Arthritis of both feet; Ulcer of right heel, with fat layer exposed (CMS/HCC V24, CMS/HCC V28) Social History Tobacco Use Types Packs/Day Years Used Date Smoking Tobacco: Some Days Cigarettes 0 Last attempted to quit: 03/19/2005 Smokeless Tobacco: Never Alcohol Use Standard Drinks/Week [...] or [place] 06/24/2024 6: 33 AM EDT documented as of this encounter Progress Notes * Shane Ryan, [place] - 03/09/2025 2:45 PM EST Referring MD: dianna Last PCP visit: 02/07/2025 IDENTIFIER: Rae is a 64 y.o. year old male who presents for consultation. CC: Bilateral foot pain HPI: Patient returns to the office with multiple forefoot deformities Patient states that they have been diabetic for the past few years and has some tingling numbness of feet bilaterally Patient relates that he has a ulceration to the plantar aspect of the right heel and is going for an MRI to evaluate bone infection. Patient is considering possible need for total contact casting Patient notes his nails continue to be thickened rubbing on adjacent digits Patient notes that he has some coronary artery disease and follows with cardiology. Patient with minimal other pedal complaints at this time. Patient's FBS this AM was 132 Recent A1C is %. 8.4 ROS: GENERAL: Pt denies nausea, fever, vomiting, chills, or shortness of breath. Pt in NAD. CARDIOLOGY: pt denies chest pain, palpitations LUNGS: pt denies shortness of breath MUSCULOSKELETAL: See HPI, otherwise no joint pain or swelling, back pain, or muscle pain. SKIN: see HPI, otherwise no lesions, rash or itching NEURO: No persistent headache, weakness or numbness The remainder of the review of systems is noncontributory PAST MEDICAL HISTORY: Patient Active Problem List Diagnosis Angina pectoris ([facility]/HCC V24) CAD (coronary artery disease) Coronary artery disease Type 2 diabetes mellitus with eye manifestations (CMS/HCC V24, CMS/HCC V28) DM (diabetes mellitus), type 2 with neurological complications (CMS/HCC V24, CMS/HCC V28) DVT, lower extremity, recurrent, right (CMS/HCC V24, CMS/HCC V28) Essential hypertension, benign Obesity, unspecified Pure hypercholesterolemia Sleep apnea Snoring Old myocardial infarction SOCIAL HISTORY: Social History Tobacco Use Smoking status: Some Days Current packs/day: 0.00 Types: Cigarettes Last attempt to quit: 03/19/2005 Years since quittin.9 Smokeless tobacco: Never Substance Use Topics Alcohol use: Yes ACTIVE MEDICATIONS: No outpatient medications have been marked as taking for the 03/09/25 encounter (Office Visit) Fernanda Ryan DPM. ALLERGIES: @ALL@ PHYSICAL EXAM: There were no vitals taken for this visit. PODIATRIC EXAMINATION: GENERAL: Patient appears well nourished, with NAD. VASCULAR: Dorsalis pedis pulses are 1/4 bilaterally and Posterior tibial pulses are 0/4 bilaterally. Capillary filling time within normal limits the digits. No pallor on elevation or rubor on dependency. Positive hair growth. Any varicosities. +2 pitting edema to the right leg. Denies rest pain or c laudication pain. Trophic skin changes including shiny skin hyperpigmentation and nail changes NEUROLOGICAL: Sharp/dull sensation intact, protective sensation intact on Stephen. Multiple peripheral neuropathies bilaterally ORTHOPEDIC: Good muscle strength 5/5 of all flexors and extensors. Dorsi flexion of ankle ,10 degrees, plantar flexion WNL. No muscle atrophy. Arthritic changes of midfoot bilaterally with dorsal exostoses that are palpable. Rigid contractures of digits 2 through 5 DERMATOLOGICAL:.No masses or skin lesions noted. Normal skin temperature, normal skin turgor. Nailsare elongated dystrophic discolored x 10 with subungual debris. Wound to the right plantar heel that that is 8 mm in diameter and 1 cm deep through subcutaneous tissue and fat with regular hyperkeratotic rim. Not extending to bone. No purulent drainage or tracking or streaking cellulitis BIOMECHANICS: STJ ROM wnl, MTJ ROM wnl, 1st MPJ ROM wnl. IMPRESSION: 1. Controlled type 2 diabetes with neuropathy ([facility]/HCC V24, CMS/HCC V28) 2. PAD (peripheral artery disease) (CMS/HCC V24) 3. Arthritis of both feet 4. Ulcer of right heel, with fat layer exposed (CMS/HCC V24, CMS/HCC V28) PLAN: Pt was seen and examined, history reviewed. Patient was educated that he needs to get his sugar closer to 7% A1c in order to allow for proper healing of the plantar heel wound Patient continues to have dorsal exostoses and arthritic changes of the midfoot. Patient encouragedto wear supportive shoe daily to the left side and the heel offloading shoe to the right foot Patient notes that he is going for an MRI today to evaluate the bone for possible infection. Patient was encouraged to consider a total contact cast for the right foot as a way to completely alleviate pressure to the wound area and give the best possible chance for healing. Patient was dressed with methylene blue and DSD with an offloading pad Open wound selective excisional debridement of devitalized soft tissue, fibrin, epidermis, dermis, thru skin and subcutaneous tissue, first 20 sq cm or less, using sterile sharp dissection #15 scalpel blade of the right foot ulcers. Pt. deferred anesthesia. . Devitalized tissue was not sent to pathology. Shane Ryan DPM documented in this encounter Plan of Treatment Upcoming Encounters Date Type Department Care Team ([facility] st Contact Info) Description 05/13/2025 8:15 AM EST Office Visit Orthopedic Surgery - [place] [address] [phone] Shane Ryan DPM [address] [address] documented as of this encounter Visit Diagnoses Diagnosis Controlled type 2 diabetes with neuropathy ([facility] V24, [facility] V28)- Primary Type II or unspecified type diabetes mellitus with neurological manifestations, not stated as uncontrolled PAD (peripheral artery disease) ([facility] V24) Unspecified peripheral vascular disease Arthritis of both feet Ulcer of right heel, with fat layer exposed ([facility] V24, [facility] V28) documented in this encounter Care Teams Spray Maker Relationship Specialty Start Date End Date Derrell Patel MD [address] [place] [address] [address] [place], [place] PCP - General Internal Medicine 10/03/24 documented as of this encounter
--- OUTSIDE RECORDS SUMMARY | 2025-03-09 18:39 | XMS_ITS | Clinical Summary ---
Author Organization [facility] Prior to 08/16/[address] [place] [address] Care Team Providers Care Carton Lettering Machine Operator Name Role Phone Jessica Cabrera MD Primary Care Provider [phone] Allergies Active Allergy Reactions Criticality Noted Date [...] age to complete this topic Care Teams Carton Lettering Machine Operator Relationship Specialty Start Date End Date Jessica Cabrera MD [address] [place] [phone] PCP - General Internal Medicine 05/18/20
--- OUTSIDE RECORDS SUMMARY | 2025-03-09 18:39 | XMS_ITS | Clinical Summary ---
Author Organization [facility] Address [address] [place] [address] Phone Care Team Providers Care Power Mule Operator Name Role Phone Martha Schwartz MD Primary Care Provider [phone] Allergies Active Allergy Reactions Criticality Noted Date [...] EST) SODIUM 140 133 - 146 mmol/L [facility] CHLORIDE 103 96 - 108 mmol/L [facility] POTASSIUM 4.3 3.3 - 5.1 mmol/L [facility] CO2 26 21 - 35 mmol/L [facility] BUN 18 6 - 19 mg/dL [facility] CREATININE 0.80 0.5 - 1.5 mg/dL [facility] GLUCOSE 260(H) 70 - 99 mg/dL [facility] CALCIUM 9.4 8.4 - 10.3 mg/dL [facility] EGFR 96 >59 mL/min/1.7 3m2 [facility] Comment:Estimated glomerular filtration rate calculated using the CKD-EPI equation. ANION GAP 15 10 - 20 mmol/L [facility] Blood 05/06/2020 10:5 0 AM EST 05/06/2020 11:01 AM EST Esther Carroll MD LAB BLOOD BKR ORDERA BLES Final Result [facility] [address] [place] [address] from Last 3 Months or Most Recently Relevant to Health Maintenance Insurance [facility] [place] [address] MEDICARE PART A & B [place] BLUE REPLAC[place] [address] MEDICARE PART A & B [place] BLUE REPLACEMENT [employer] [place] [address] [place] [address] ALLANCE ACO [facility] MEDICARE PART A & B [place] PPO BLUE REPLACEMENT [address] [place], [place] [id number] [place], [place] [id number] MEDICARE PART A & B [facility] MEDICARE PPO BLUE REPLACEMENT [place] [address] MEDICARE PART A & B [facility] MEDICARE PPO BLUE [facility]PLACEMENT [facility] MEDICARE PART A & B [place] BLUE REPLACEMENT Care Teams Power Mule Operator Relationship Specialty Start Date End Date Martha Schwartz MD [address] [place] [address] PCP - General Internal Medicine 05/12/20 Additional Source Comments The information contained in this document represents components of the legal health record. It is not the complete legal health record.[facility]
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
== END 2025-03-09 15:48 | disposition home or self-care (01) ==
LOC: HO.MRI 15:47
PROVIDERS: PCP Internal Medicine; Visit Provider Surgery Surgical Oncology
DX: E11.621 Type 2 diabetes mellitus with foot ulcer (principal); L97.412 Non-pressure chronic ulcer of right heel and midfoot with fat layer exposed; M86.9 Osteomyelitis, unspecified; M77.31 Calcaneal spur, right foot
CPT/HCPCS: 73723; A9585

== ENCOUNTER 2025-03-17 15:13 | Outpatient (AMB) | payer MEDICARE, SELFPAY ==
--- OUTSIDE RECORDS SUMMARY | 2023-12-13 16:20 | XMS_ITS | Encounter Summary ---
Author Organization [facility] Address [address] [place] [address] Phone Care Team Providers Care Milling/Polishing Operator Name Role Phone Martha Schwartz MD Primary Care Provider [phone] Encounter Details Date Type Department Care Team (Late st Contact Info) Description 12/13/2023 5:20 PM EDT Hospital Encounter [facility] [address] [place] [address] Jennie Pino FNP [address] [place] [address] [email or web address] Social History Tobacco Use Types Packs/Day Years Used Date Smoking Tobacco: Some Days Smokeless Tobacco: Never Alcohol Use Standard Drinks/Week Comments Yes 0 (1 standard drink = 0.6 oz pur e alcohol) Education Answer Date Recorded Are you interested in more education? Not on anderw e 07/14/2022 Are you concerned about learning? [...] clinician's provided indication for this examination in [facility]: Cough; sob, productive clear, chest pain [...] spine. IMPRESSION: No acute abnormality. Jennie Pino PATIENT RELATIONS SPECIALIST IMG XR CHEST Final Resul t documented in this encounter Visit Diagnoses Not on filedocumented in this encounter Additional Health Concerns Infection Onset Date Last Indicated Resolved Time CoV-Risk 12/13/2023 12/13/202312/2312/24/2023 1:22 AM EDT documented as of this encounter Care Teams Milling/Polishing Operator Relationship Specialty Start Date End Date Martha Schwartz MD [address] [place] [address] PCP - General Internal Medicine 05/12/20 documented as of this encounter Additional Source Comments The information contained in this document represents components of the legal health record. It is not the complete legal health record.[facility]
[2025-03-17 15:18] VITALS: BP 130/64; PULSE 68; O2SAT 95; BMI 38.9
--- NOTE | 2025-03-17 15:18 | MHC.PC.OV ---
Vital Signs 03/17/25 15:18 Height 6 ft Weight 287 lb BMI 38.9 BP 130/64 Blood Pressure Location Lt brachial Position Sitting Pulse 68 Pulse Source Pulse Oximeter Pulse Oximetry (%) 95 Oxygen Delivery Method Room Air Intake Visit Reasons: 4 Months Documentation Clerk Required: No Accompanied by: Self / Same As Patient Allergies oxycodone (OXYCODONE) Allergy (Intermediate, Verified 03/17/25 15:36) JITTERY/NAUSEA pseudoephedrine (From SUDAFED) Adverse Reaction (Intermediate, Verified 03/17/25 15:36) ELEVATES BP Medication List - Last Reconciled 03/17/25 by Derrell Patel MD albuterol sulfate 90 mcg/actuation 2 puffs inhalation Q6H PRN apixaban (Eliquis) 5 mg PO BID aspirin 81 mg PO DAILY atenolol 50 mg PO DAILY atorvastatin 80 mg PO DAILY blood sugar diagnostic (FreeStyle Lite Strips) As directed cholecalciferol (vitamin D3) 25 mcg PO DAILY cyclosporine 0.05% (Restasis) 1 drp ophthalmic (eye) BID PRN [Diabetic shoes & 2 pair inserts as directed] doxycycline hyclate 100 mg PO BID empagliflozin (Jardiance) 25 mg PO DAILY flash glucose scanning reader As directed flash glucose sensor As directed fluticasone propionate 50 mcg/actuation 1 spray intranasal DAILY FreeStyle Megan 3 Plus Sensor (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 sensor) every 15 days NS FreeStyle Megan 3 [place] (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,coil former,cont) As directed NS furosemide 40 mg PO DAILY ibuprofen 800 mg PO TID PRN insulin glargine (Basaglar KwikPen U-100 Insulin) 40 units subcut DAILY loratadine (Claritin) 10 mg PO DAILY PRN losartan 25 mg PO DAILY metformin ER 1,000 mg (2 x 500 mg) PO BID Mounjaro (tirzepatide) 5 mg (0.5 mL) subcut QWEEK NS [id number] mcg (Centrum Silver Men) 1 tab PO DAILY ofloxacin 0.3% 10 drps otic (ears) DAILY 7 days Tobacco use date assessed: 03/17/25 Fall risk assessment: No Falls in past year Last assessed Fall Risk: 03/17/25 Dental Screening Dental Screen Date: 03/17/25 Did you have a dental visit in the last 12 months?: No Did you have a dental problem in the last 6 months where you did not have access to dental care?: No Was dental information given to patient?: No [facility] Medical History Primary osteoarthritis, right shoulder History of recurrent deep vein thrombosis (DVT) Vitamin D deficiency Obesity (BMI 30-39.9) Primary osteoarthritis of both hips Smoker History of DVT (deep vein thrombosis) Anemia Stasis edema of both lower extremities Pure hypercholesterolemia Type 2 diabetes mellitus with hyperglycemia Coronary artery disease Osteoarthritis DVT (deep venous thrombosis) FDC current use of insulin Essential hypertension Hyperlipidemia LDL goal <70 Surgical History History of colonoscopy History of herniorrhaphy History of heart artery stent History of total hip arthroplasty History of appendectomy Family History Father Hypertension Mother COPD (chronic obstructive pulmonary disease) Brother Colon cancer Sister Alive and well Brother Diabetes Social History Household Members: Spouse Housing: House Do you presently have visiting nurse or other home services: No Alcohol intake: never Patient Tobacco Use Status: Former Tobacco user Tobacco use type: Cigarette e-Cigarette/Vaping Use: Never Used Second Hand Smoke Exposure: No service: No Current occupational status: employed 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 1. Little interest or pleasure in doing things: not at all 2. Feeling down, depressed, or hopeless: not at all 3. Trouble falling or staying asleep, or sleeping too much: nearly every day 4. Feeling tired or having little energy: several days 5. Poor appetite or overeating: not at all 6. Feeling bad about yourself - or that you are a failure or have let yourself or your family down: not at all 7. Trouble concentrating on things, such as reading the newspaper or watching television: several days 8. Moving or speaking so slowly that other people could have noticed. Or the opposite - being so fidgety or restless that you have been moving around a lot more than usual: not at all 9. Thoughts that you would be better off or of hurting yourself in some way: not at all Total score: 5 Source: Developed by Drs. Yogi Koenig, Flavia Ashley, Lucho Thompson and colleagues, with an educational john from [employer]. Thrive Questionnaire Date Thrive assessed: 03/17/25 I am a: Patient What is your living situation today?: I have a steady place to live Within the past 12 months, did the food you bought not last and you didn't have the money to get more?: I choose not to answer this question Within the past 12 months, did you worry whether your food would run out before you got money to buy more?: I choose not to answer this question Do you have trouble paying for medicines?: I choose not to answer this question Do you have trouble getting transportation to medical appointments?: I choose not to answer this question Do you have trouble paying your heating and electricity bill?: No Do you have trouble taking care of your child, family member or friend?: No Do you have trouble with day-to-day activities such as bathing, preparing meals, shopping, managing finances, etc.?: No Are you currently unemployed and looking for a job?: No Are you interested in more education?: No Please select the resources that you would like help with: None Currently or been in a relationship where the following occur: I choose not to answer THRIVE Score: 0 AUDIT C Alcohol Use Questionnaire (AUDIT-C) 1. How often do you have a drink containing alcohol?: Never 3. How often do you have six or more drinks on one occasion?: Never Total Score: 0 Score Reviewed/Action Taken: Yes RAVI-7 AMB Questionnaire RAVI-7 Date RAVI - 7 assessed: 03/17/25 Feeling nervous, anxious, or on edge: 0 = Not at all Not being able to stop or control worryin = Not at all Worrying too much about different things: 0 = Not at all Trouble relaxin = Not at all Being so restless that it is hard to sit still: 0 = Not at all Becoming easily annoyed or irritable: 0 = Not at all Feeling afraid as if something awful might happen: 0 = Not at all Total RAVI-7 score (0-4 normal; 5-9 mild; 10-14 moderate; 15-21 severe): 0 Source: Developed by Drs. Yogi Koenig, Flavia Ashley, Lucho Thompson and colleagues, with an educational john from [employer]. Physical exam (Primary Care) Vital Signs: Last Vital Signs Pulse 68 03/17/25 15:18 BP 130/64 03/17/25 15:18 Pulse Ox 95 03/17/25 15:18 Oxygen Delivery Method Room Air 03/17/25 15:18 BMI result Body Mass Index 38.9 Tobacco/Smoking Status: Tobacco use Status Tobacco use date assessed 03/17/25 03/17/25 15:25 Patient Tobacco Use Status Former Tobacco user 03/17/25 15:25 Tobacco use type Cigarette 03/17/25 15:25 e-Cigarette/Vaping Use Never Used 03/17/25 15:25 PHQ-9: PHQ-9 Score PHQ-9: Total score 5 03/17/25 15:38 Thrive Assessment: Date of Thrive Assessment Date Thrive assessed 03/17/25 03/17/25 15:25 Currently or been in a relationship where the following occur: I choose not to answer Results AMB Hemoglobin A1c AMB Hemoglobin A1c 8.4 % Last Edit by AMI Pak on 03/17/25 15:59 Results Reviewed Results Reviewed: Laboratory Tests 12/11/24 02/06/25 13:42 16:17 Hemoglobin A1c % 8.3 H 9.2 H Triglycerides 98 Cholesterol 107 LDL Cholesterol, Calc 56 HDL Cholesterol 32 L Coding Assessment & Plan Assessment & Plan Orders: Orders AMB Hemoglobin A1c Today Z13.9 - Encounter for screening, unspecified Comprehensive [place]. Panel Fast 04/19/25 E78.00 - Pure hypercholesterolemia, unspecified Lipid Panel 04/19/25 E78.00 - Pure hypercholesterolemia, unspecified TSH reflex Free T4 04/19/25 E78.00 - Pure hypercholesterolemia, unspecified Vitamin D 25-OH Total 04/19/25 E55.9 - Vitamin D deficiency, unspecified Complete Blood Count Auto Diff 04/19/25 D64.9 - Anemia, unspecified Hemoglobin A1c 04/19/25 E11.9 - Type 2 diabetes mellitus without complications Microalbumin, Random (w Creat) 04/19/25 E11.9 - Type 2 diabetes mellitus without complications UA CC w/rflx Micro + Cult 04/19/25 R30.0 - Dysuria Medications: New lorazepam (Ativan) Take 1 tablet 30 minutes before procedure (hyperbaric oxygen chamber) as needed; may take a second dose if necessary after 30 minutes PRN; 30 tabs 0RF anxiety/claustrophobia Changed From fluticasone propionate 50 mcg/actuation administer into each nostril 1 spray intranasal DAILY To fluticasone propionate 50 mcg/actuation administer into each nostril 1 spray intranasal DAILY PRN 16 grams 5RF allergy symptoms
--- OUTSIDE RECORDS SUMMARY | 2025-03-17 18:39 | XMS_ITS | Clinical Summary ---
Author Organization [facility] Address [address] [place] [address] Phone Care Team Providers Care Watch Train Assembler Name Role Phone Derrell Patel MD Primary Care Provider + [phone] Allergies Active Allergy Reactions Criticality Noted Date Comments Other 02/24/2005 Sympathomimetics Elevated Blood pressure & anxiety Oxycodone 03/01/2012 Elevated B/P Oxycodone-Acetaminophen Hives High 09/13/2010 Pseudoephedrine Hcl 05/04/2021 Medications flash glucose scanning reader (FreeStyle [place]) misc 1 Device by Does not apply [...] Active pen needle, diabetic (Comfort EZ Pen Jenkins) 31 gauge x 5/16 needle Apply 1 [...] 2:45 PM EST Office Visit Orthopedic Surgery [facility] [address] [phone] Shane Ryan, DPVaishnavi Controlled type 2 diabetes with neuropathy (CMS/HCC V24, CMS/HCC V28) (Primary Dx); PAD (peripheral artery disease) (CMS/HCC V24); Arthritis of both feet; Ulcer of right heel, with fat layer exposed (CMS/HCC V24, CMS/HCC V28) 01/09/2025 Telephone [facility] 154 [address] [facility] [address] [place] [phone] Brandie Hooks NP 01/05/2025 2:00 PM EDT Office Visit Orthopedic [facility] 250 175 [facility] [address] [place] [phone] Shane Ryan DPM Controlled type 2 diabetes with neuropathy ([facility] V24, [facility] V28) (Primary Dx); PAD (peripheral artery disease) ([facility] V24); Arthritis of both feet; Ulcer of right heel, with fat layer exposed ([facility] V24, [facility] V28) from Last 3 Months Immunizations Immunization Administration Dates Next Due Influenza trivalent, 0.5mL, preservative free (Fluarix; FluLaval; Fluzone) ages 6mo and older (Afluria) 3 years and older 01/18/2020,01/24/2008,04/02/2006 Pneumococcal polysaccharide 23 valent (Pneumovax 23) 2yo and older 02/23/2005 Surgical History Surgery Date Site/Laterality Comments HERNIA REPAIR 2010 PROCEDURE: HISTORICAL HERNIA REPAIR/ING APPENDECTOMY PROCEDURE: HISTORICAL APPENDECTOMY COLONOSCOPY 01/27/2008 PROCEDURE: OK COLONOSCOPY FLX DX W/COLLJ SPEC WHEN PFRMD; COMMENT: normal HIP ARTHROPLASTY 2018 Bilateral PROCEDURE: HISTORICAL HIP REPLACEMENT; COMMENT: Dr. solorio Medical History Medical History Date Comments Unspecified sleep apnea DX:Unspe cified sleep apnea Obesity, unspecified DX:Obesity, unspecified Chest pain, unspecified DX:Chest pain, unspecified; COMMENT: Admission X 3 Coronary atherosclerosis of unspecified type of vessel, [place] or graft 07/27/2005 DX:Coronary atherosclerosis of unspecified type of vessel, [place] or graft Family history of malignant neoplasm of gastrointestinal tract 01/27/2008 DX:Family history of maligna nt neoplasm of gastrointestinal tract; COMMENT: Negative colonoscopy 01/27/2008, no colon cancer screening needed for 5 years. Obstructive chronic bronchit is without exacerbation ([facility] V24, [facility] V28) 06/19/2005 DX:Obstructive chronic bronc hitis without [...] AM EST Office Visit Orthopedic Surgery - [place] [address] [phone] Shane Ryan DPM 175 [facility] [address] [place] [address] Health Maintenance Due Date Last Done Comments [...] Maintenance Results * COLONOSCOPY Anesthesia - MAC; [email or web address] ENDOSCOPY (06/24/2024 8:06 AM EDT) Anatomical Region Laterality Modality Endoscopy 06/24/2024 7:44 AM EDT Impressions 06/24/2024 8:08 AM EDT - Internal hemorrhoids. - The examination was otherwise normal. - No specimens collected. Recommendation: - Discharge patient to home. - No repeat colonoscopy due to age. Narrative 06/24/2024 8:[address] [facility] Patient Name: Ashley Mark Procedure Date: [...] verified by the physician, the nurse, the straightener and aligner and the molding process technician in the pre-procedure area in the [...] malignant neoplasm of colon CPT copyright 2020 [employer]. All rights reserved. The codes documented in this report are preliminary and upon composition board press operator review may be revised to meet current compliance requirements. Molina Kulkarni MD 06/24/2024 8:08:04 AM This report has been signed electronically.Molina Kulkarni MD Number of Addenda: 0 Note Initiated On: 06/24/2024 7:44 AM Scope Withdrawal Time: 0 hours 7 minutes 45 seconds Scope In: 7:52:09 AM Scope Out: 8:06:18 AM Endoscopy Department at [facility] - [address] [place] [phone] Procedure Note Molina Kulkarni MD - 06/24/2024 [facility] Patient Name: Ashley Mark Procedure Date: [...] the physician, the nurse, theanesthetist and the molding process technician in the pre-procedure area in the [...] for malignantneoplasm of colon CPT copyright 2020 [employer]. All rights reserved. The codes documented in this report are preliminary and upon composition board press operator reviewmay be revised to meet current compliance requirements. Molina Kulkarni MD 06/24/2024 8:08:04 AM This report has been signed electronically.Molina Kulkarni MD Number of Addenda: 0 Note Initiated On: 06/24/2024 7:44 AM Scope Withdrawal Time: 0 hours 7 minutes 45 seconds Scope In: 7:52:09 AM Scope Out: 8:06:18 AM Endoscopy Department at [facility] - [address] [place] [phone] IMPRESSION: - Internal hemorrhoids. - The examination was otherwise normal. - No specimens collected. Recommendation: - Discharge patient to home. - No repeat colonoscopy due to age. Molina Kulkarni MD GI~PROCEDURE ORDERABLES Fin al Result * Diabetes Foot Exam (07/09/2023) Diabetes: Annual Foot Exam Abstracted Historical Provider HEALTH MAINTENANCE Final Result * Annual BMP Blood Test (06/20/2023) Annual BMP Blood Test Abstracted Result [facility] Provider HEALTH MAINTENANCE Final Result * (ABNORMAL) Hemoglobin A1c (06/20/2023) Pathologist [facility] Hemoglobin A1C 8.4(A) <=6.5 % Blood Venous blood specimen / Unknown Result [facility] Provider LAB BLOOD ORDERABLES Ely l Result * Lipid panel (11/17/2022) Pathologist [facility] LDL/HDL Ratio 3 0 - 4 Triglycerides 121 0 - 150 mg/dL Cholesterol 137 0 - 200 mg/dL HDL 44 >=40 mg/dL LDL Cholesterol 69 0 - 100 mg/dL Blood Venous blood specimen / Unknown Result [facility] Provider LAB BLOOD ORDERABLES Ely l Result * Urine Albumin Creatinine Ratio (05/04/2021) Pathologist [facility] Urine Albumin Creatinine Ratio Abstracted Result [facility] Provider HEALTH MAINTENANCE Final Result from Last 3 Months or Most Recently Relevant to Health Maintenance Insurance [place] MEDICARE ADVANTAGE Care Teams Watch Train Assembler Relationship Specialty Start Date End Date Derrell Patel MD [address] [place] [address] [place] [address] [place] PCP - General Internal Medicine 10/03/24
--- OUTSIDE RECORDS SUMMARY | 2025-03-17 18:39 | XMS_ITS | Clinical Summary ---
Author Organization [facility] Prior to 08/16/[address] [place] [id number] Care Team Providers Care Candy Separator Enrobing Name Role Phone Jessica Cabrera MD Primary Care Provider [phone] Allergies Active Allergy Reactions Criticality Noted Date [...] age to complete this topic Care Teams Candy Separator Enrobing Relationship Specialty Start Date End Date Jessica Cabrera MD [address] [place] [phone] PCP - General Internal Medicine 05/18/20
--- OUTSIDE RECORDS SUMMARY | 2025-03-17 18:39 | XMS_ITS | Clinical Summary ---
Author Organization [facility] Address [address] [place] [phone] Phone Care Team Providers Care Central Supply Worker Name Role Phone Martha Schwartz MD Primary Care Provider [phone] Allergies Active Allergy Reactions Criticality Noted Date [...] EST) SODIUM 140 133 - 146 mmol/L [facility] CHLORIDE 103 96 - 108 mmol/L [facility] POTASSIUM 4.3 3.3 - 5.1 mmol/L [facility] CO2 26 21 - 35 mmol/L [facility] BUN 18 6 - 19 mg/dL [facility] CREATININE 0.80 0.5 - 1.5 mg/dL [facility] GLUCOSE 260(H) 70 - 99 mg/dL [facility] CALCIUM 9.4 8.4 - 10.3 mg/dL [facility] EGFR 96 >59 mL/min/1.7 3m2 [facility] Comment:Estimated glomerular filtration rate calculated using the CKD-EPI equation. ANION GAP 15 10 - 20 mmol/L [facility] Blood 05/06/2020 10:5 0 AM EST 05/06/2020 11:01 AM EST Esther Carroll MD LAB BLOOD BKR ORDERA BLES Final Result [facility] [address] [place] [address] from Last 3 Months or Most Recently Relevant to Health Maintenance Insurance [facility] [place] [address] MEDICARE PART A & B [place] BLUE REPLACEMENT [facility] [address] MEDICARE PART A & B [place] BLUE REPLACEMENT [employer] [place] [address] [address] [place] [address] ALLANCE ACO [facility] MEDICARE PART A & B [place] MEDIC[place] PPO BLUE REPLACEMENT [address] [place], [place] [address] [place], [place] [address]O MEDICARE PART A & B [facility] MEDICARE PPO BLUE [facility]PLACEMENT [facility] [address] MEDICARE PART A & B [facility] MEDICARE PPO BL[facility] & B [place] BL[place] REPLACEMENT Care Teams Central Supply Worker Relationship Specialty Start Date End Date Martha Schwartz MD [address] [place] [id number] PCP - General Internal Medicine 05/12/20 Additional Source Comments The information contained in this document represents components of the legal health record. It is not the complete legal health record.[facility]
== END 2025-03-17 16:02 | disposition home or self-care (01) ==
LOC: HO.HMCH 15:14
PROVIDERS: PCP Internal Medicine; Visit Provider Internal Medicine
DX: Z13.9 Encounter for screening, unspecified (principal)

== ENCOUNTER → 2025-03-17 15:13 | Outpatient (BNVA) | payer MEDICARE, SELFPAY | PROVIDERS: PCP Internal Medicine; Visit Provider Internal Medicine | DX: E11.621 Type 2 diabetes mellitus with foot ulcer (principal); L97.819 Non-pressure chronic ulcer of other part of right lower leg with unspecified severity; M86.9 Osteomyelitis, unspecified; E11.65 Type 2 diabetes mellitus with hyperglycemia; I10 Essential (primary) hypertension; I25.10 Atherosclerotic heart disease of native coronary artery without angina pectoris; E66.9 Obesity, unspecified; M19.011 Primary osteoarthritis, right shoulder; E55.9 Vitamin D deficiency, unspecified; Z79.4 Long term (current) use of insulin; F17.200 Nicotine dependence, unspecified, uncomplicated; Z86.718 Personal history of other venous thrombosis and embolism; Z96.643 Presence of artificial hip joint, bilateral; Z95.5 Presence of coronary angioplasty implant and graft; Z79.01 Long term (current) use of anticoagulants; Z79.82 Long term (current) use of aspirin; Z13.31 Encounter for screening for depression | CPT/HCPCS: 83036; 96127; 99212 ==